=== PATIENT | female | born 1960 | race African-American/Black ===

== ENCOUNTER 2017-09-09 20:52 | Inpatient (IN) | payer OTHER ==
--- NOTE | 2017-09-09 21:17 | PDOC ---
Rapid Medical Evaluation Chief Complaint: Shortness of Breath Time Seen by Provider: 09/09/17 21:10 Medical Evaluation: Allergies Allergy/AdvReac Type Severity Reaction Status Date / Time methadone [Methadone] Allergy Mild Nausea Verified 06/04/16 17:46 morphine Allergy Mild Itching Verified 06/04/16 17:46 Penicillins Allergy Rash Verified 06/04/16 17:46 09/09/17 21:13 Pt seen in triage with c/o sob. she states she noted that when she takes klonopin for her anxiety she becomes sob. she noted it today and called 911. She is hypoxic with a sat of 88 on 2 l nc in a wheelchair. She is morbidly obese. She can complete sentences, no distress noted. Pt placed on oxygen 2 nc, Noted to have low grade fever Suspcious for pna, resp illness ordered cxr, labs, lactic, ekg, ua
--- NOTE | 2017-09-09 21:29 | PDOC ---
History of Present Illness - General Chief Complaint: Shortness of Breath Stated Complaint: S.O.B Time Seen by Provider: 09/09/17 21:10 - History of Present Illness Initial Comments: 09/09/17 22:08 The patient is a 57 year old female with a history of HTN, HLD, DM, Asthma, Morbid Obesity who presents for evaluation of SOB. The patient reports onset of SOB with associated non-productive cough earlier today. She states that her symptoms began after taking clonipin this morning for an anxiety attack which she was recently switched to. She otherwise denies fevers, chills, chest pain, nausea, vomiting, abdominal pain, or changes with urination or bowel movements. Past History - Past Medical History Allergies/Adverse Reactions: Allergies Allergy/AdvReac Type Severity Reaction Status Date / Time methadone [Methadone] Allergy Mild Nausea Verified 09/09/17 21:17 morphine Allergy Mild Itching Verified 09/09/17 21:17 Penicillins Allergy Rash Verified 09/09/17 21:17 Home Medications: Ambulatory Orders Ascorbate Calcium [Vitamin C] 500 mg PO DAILY 05/02/14 Atorvastatin Ca [Lipitor] 20 mg PO HS 05/02/14 Calcium (Oyster Shell) [Os-Bandar 500MG -] 500 mg PO DAILY 05/02/14 Docusate Sodium [Colace -] 100 mg PO BID 05/02/14 Enalapril Maleate [Vasotec] 10 mg PO BID 05/02/14 Escitalopram Oxalate [Lexapro -] 10 mg PO DAILY 05/02/14 Esomeprazole Mag Trihydrate [Nexium] 40 mg PO DAILY 05/02/14 Insulin Glulisine [Apidra] 0 unit SQ TID PRN 05/02/14 Glipizide [Glucotrol -] 10 mg PO BID 09/14/15 Cholecalciferol (Vitamin D3) [Vitamin D3 -] 1,000 unit PO DAILY 08/04/16 Oxycodone HCl [Roxicodone] 15 mg PO BID #60 tablet MDD 2 08/19/17 Albuterol 0.083% Nebulizer Sadaf [Ventolin 0.083% Nebulizer Soln -] 1 amp IN PRN 09/09/17 Budesonide/Formeterol Fumarate [SYMBICORT 80/4.5mcg -] 1 puff IH 09/09/17 Clonazepam 0.5 mg PO 09/09/17 Diphenhydramine HCl 25 mg PO 09/09/17 Furosemide 20 mg PO DAILY 09/09/17 Insulin Glulisine [Apidra] 100 unit SQ AC 09/09/17 Methocarbamol 750 mg PO 09/09/17 Nitrofurantoin Monohyd/M-Cryst [Macrobid -] 50 mg PO BID 09/09/17 Asthma: Yes CVA: No COPD: No Dementia: No Diabetes: Yes (insulin dependent) GI Disorders: Yes (GERD, Diverticulitis) Disorders: No HTN: Yes Hypercholesterolemia: Yes Liver Disease: No Seizures: No Thyroid Disease: Yes Other medical history: morbid obesity - Surgical History Abdominal Surgery: Yes (hernia repair, colostomy placement & removal) Orthopedic Surgery: Yes (knee arthroscopy ) - Immunization History Td Vaccination: Yes TDAP Vaccination: Yes Immunization Up to Date: Yes - Suicide/Smoking/Psychosocial Hx Smoking Status: No Smoking History: Never smoked Years of Tobacco Use: 0 Have you smoked in the past 12 months: No Number of Cigarettes Smoked Daily: 0 If you are a former smoker, when did you quit?: 40 years Cigars Per Day: 0 Information on smoking cessation initiated: No Hx Alcohol Use: No Drug/Substance Use Hx: No Substance Use Type: None Hx Substance Use Treatment: No Review of Systems - Review of Systems Comments:: 09/09/17 22:10 Constitutional: No fevers, chills, fatigue, malaise HEENT: No Rhinorrhea, nasal congestion, visual changes Cardiovascular: No chest pain, syncope, palpitations, lightheadedness Respiratory: Cough, SOB. No Hemoptysis, Gastrointestinal: No Abdominal pain, Nausea, Vomiting, Constipation, Diarrhea, Melena Genitourinary: No Dysuria, Frequency, Urgency, Hesitancy, Hematuria, Flank pain Musculoskeletal: No Myalgia, arthralgia Skin: No rashes, itching, bruising, pallor Neurologic: No Headache, Dizziness, Numbness, Weakness, or Tingling Psychiatric: No Hallucinations. No SI or HI *Physical Exam - Vital Signs Last Vital Signs Temp Pulse Resp BP Pulse Ox 100.5 F H 111 H 24 137/63 88 L 09/09/17 21:08 09/09/17 21:08 09/09/17 21:08 09/09/17 21:08 09/09/17 21:08 - Physical Exam Comments: 09/09/17 22:11 General Appearance: Nourished. Morbidly Obese. No Apparent Distress HEENT: No Pharyngeal Erythema, Tonsillar Exudate, Tonsillar Erythema Neck: No Cervical Lymphadenopathy Respiratory/Chest: Lungs Clear, Distant Breath Sounds. No Crackles, Rales, Rhonchi, Wheezing Cardiovascular: Regular Rhythm, Regular Rate. No Murmur, Gallops, Rubs Gastrointestinal/Abdominal: Normal Bowel Sounds, Soft. No Guarding, Rebound, Tenderness Musculoskeletal: No CVA Tenderness Extremity: Normal Capillary Refill Integumentary: Normal Color, Dry, Warm Neurologic: Fully Oriented, Alert, Normal Mood/Affect, Normal Response, Heart Score/ECG Review #1 ECG reviewed & interpreted by me at: 22:11 (Sinus Tachycardia) General ECG Interpretation: Sinus Rhythm, Normal Intervals, No acute ischemic changes ED Treatment Course - LABORATORY CBC & Chemistry Diagram: 09/09/17 22:10 09/09/17 22:10 Medical Decision Making - Medical Decision Making 09/09/17 22:12 The patient is a 57 year old female with a history of HTN, HLD, DM, Asthma, Morbid Obesity who presents for evaluation of SOB. Differential includes but is not limited to: ACS, COPD, Asthma Pneumonia, infectious, metabolic derangement. The patient was found to be febrile and tachycardic in triage with an O2 Sat of 88% that improved on 2L NC. Given her symptoms, we will obtain a cbc, cmp, troponin, ekg, chest plain film, blood cultures, ua, urine cultures, lactate to evaluate further for possible etiologies. We will continue to monitor and reassess. 09/10/17 01:22 CBC is unremarkable. CMP demonstrates an elevated lactate to 2.3. UA is unremarkable. Given the patient's symptoms and lab results, it is likely her symptoms are due to a pulmonary infectious process. We will treat in the ED with levoquin and iv fluids. The patient will require admission for further management of her symptoms. 09/10/17 01:33 We discussed the case with the hospitalist team who accepted the patient for admission. *DC/Admit/Observation/Transfer Diagnosis at time of Disposition: Hypoxia Sepsis Qualifiers: Sepsis type: sepsis due to unspecified organism Qualified Code(s): A41.9 - Sepsis, unspecified organism - Discharge Dispostion Condition at time of disposition: Stable Admit: Yes - Referrals - Patient Instructions - Post Discharge Activity
[2017-09-09 21:34] VITALS: BMI 61.7
--- NOTE | 2017-09-09 21:51 | PDOC ---
Attending Attestation - HPI HPI: 09/09/17 21:56 The patient is a 57 year old female with a significant PMH of asthma, insulin dependent diabetes, HTN, hyperlipidemia, morbid obesity, diverticulitis, and GERD who presents to the emergency department with shortness of breath and fever beginning approximately beginning approximately this morning. She also reports a dry cough. The patient reports taking Klonopin today which is new for her as her PCP just prescribed it to her for anxiety. She presents to the ED after she continued to have shortness of breath throughout the day. The patient denies chest pain or palpitations. Allergies: Methadone, Morphine, Penicillins. PCP: Dr. Alejandra Daniels <Hugo Martin - Last Filed: 09/09/17 21:56> - Resident Resident Name: Babatunde Cervantes - ED Attending Attestation I have performed the following: I have examined & evaluated the patient, The case was reviewed & discussed with the resident, I agree w/resident's findings & plan, Exceptions are as noted - Physicial Exam PE: 09/10/17 19:22 *Physical Exam General Appearance: Yes: Appropriately Dressed. No: Apparent Distress, Intoxicated HEENT: positive: EOMI, SURESH, Normal ENT Inspection, Normal Voice, TMs Normal, Pharynx Normal. negative: Pale Conjunctivae, Photophobia, Scleral Icterus (R), Scleral Icterus (L) Neck: positive: Trachea midline, Normal Thyroid, Supple. negative: Tender, Rigid, Carotid bruit, Stridor, Lymphadenopathy (R), Lymphadenopathy (L), Thyromegaly Respiratory/Chest: positive: Lungs Clear, Normal Breath Sounds. negative: Chest Tender, Respiratory Distress, Accessory Muscle Use, Labored Respiration, RES, Crackles, Rales, Rhonchi, Stridor, Wheezing, Dullness Cardiovascular: positive: Regular Rhythm, Regular Rate, S1, S2. negative: Edema , JVD, Murmur, Bradycardia, Tachycardia Vascular Pulses: Dorsalis-Pedis (R): 2+, Doralis-Pedis (L): 2+ Gastrointestinal/Abdominal: positive: morbidly obese Normal Bowel Sounds,Soft. negative: Tender, Organomegaly, Pulsatile Mass, Increased Bowel Sounds, Decreased BS, Distended, Guarding, Rebound, Hernia, Hepatomegaly, Spleenomegaly Lymphatic: negative: Adenopathy, Tenderness Musculoskeletal: positive: Normal Inspection. negative: CVA Tenderness, Decreased Range of Motion Extremity: positive: Normal Capillary Refill, Normal Inspection, Normal Range of Motion, Pelvis Stable. negative: Tender, Pedal Edema, Swelling, Erythema Integumentary: positive: Normal Color, Dry, Warm. 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 negative: EOM Palsy, Facial Droop, Sensory Deficit - Medical Decision Making 09/10/17 19:24 Pt admitted to telemetry <Grant Fine - Last Filed: 09/10/17 19:24> Heart Score/ECG Review #1 09/09/17 21:56 Vent rate 111 bpm Sinus tachycardia Possible left atrial enlargement Borderline ECG. <Hugo Martin - Last Filed: 09/09/17 21:56>
[2017-09-09 22:22] LABS: BASO % 0.3 % (0-2.0); HEMATOCRIT 34.6 % (32.4-45.2); HEMOGLOBIN 10.9 GM/dL (10.7-15.3); MCH 26.6 pg (25.7-33.7); MCHC 31.4 g/dl (32.0-36.0); MEAN CELL VOLUME 84.5 fl (80-96); MEAN PLT VOLUME 7.5 fl (7.5-11.1); NEUT % 86.7 % (42.8-82.8); PLATELET COUNT 246 K/MM3 (134-434); RDW 15.7 % (11.6-15.6); WHITE BLOOD COUNT 8.9 K/mm3 (4.0-10.0)
[2017-09-09 22:24] LABS: VENOUS PH 7.28 (7.32-7.42)
[2017-09-09 22:25] LABS: VENOUS PO2 34.7 mmHg (28-48)
[2017-09-09 22:27] LABS: VENOUS PC02 60.4 mmHg (38-52)
[2017-09-09 22:36] LABS: INR 1.19 (0.82-1.09); PROTHROMBIN TIME (PATIENT) 13.4 SEC (9.98-11.88)
[2017-09-09 22:38] LABS: ACTIVATED PTT 28.3 SECONDS (26.9-34.4)
[2017-09-09 23:07] LABS: ALBUMIN 3.1 g/dl (3.4-5.0); ANION GAP 11 (8-16); BILIRUBIN,TOTAL 0.5 mg/dL (0.2-1.0); BLOOD UREA NITROGEN 16 mg/dL (7-18); CALCIUM 8.4 mg/dL (8.5-10.1); CHLORIDE 101 mmol/L (98-107); CO2 28 mmol/L (21-32); CREATININE 1.3 mg/dL (0.55-1.02); GLUCOSE,RANDOM 184 mg/dL (74-106); POTASSIUM 4.5 mmol/L (3.5-5.1); SGOT/AST 22 U/L (15-37); SGPT/ALT 18 U/L (12-78); SODIUM 140 mmol/L (136-145); TOT PROT 7.3 g/dl (6.4-8.2)
[2017-09-09 23:08] LABS: ALK PHOS 86 U/L (45-117)
[2017-09-09] MEDS ORDERED: SODIUM CHLORIDE 1,000 ML IV STA (23:39)
[2017-09-10 00:01] LABS: URINE APPEARANCE CLEAR; URINE BILIRUBIN NEGATIVE (NEGATIVE); URINE BLOOD NEGATIVE (NEGATIVE); URINE COLOR LTYELLOW; URINE GLUCOSE (UA) NEGATIVE (NEGATIVE); URINE KETONE NEGATIVE (NEGATIVE); URINE LEUK ESTERASE TRACE (NEGATIVE); URINE NITRITE NEGATIVE (NEGATIVE); URINE UROBILINOGEN NEGATIVE mg/dL (0.2-1.0)
[2017-09-10 00:06] LABS: URINE PROTEIN 2+ (NEGATIVE)
[2017-09-10 00:15] LABS: EPI CELLS RARE /HPF (FEW); URINE BACTERIA FEW /hpf (NONE SEEN); URINE HYALINE CAST 4 /lpf; URINE MUCUS RARE
[2017-09-10] MEDS ORDERED: ENOXAPARIN NA (PORCINE) 100 MG/1 ML DISP.SYRIN SQ ONE ×3 (01:03→21:48)
[2017-09-10] MEDS ORDERED: ALPRAZolam 0.25 MG TABLET PO ONE (02:43)
[2017-09-10] MEDS ORDERED: ALPRAZolam 0.25 MG TABLET ONE (02:45)
[2017-09-10] MEDS ORDERED: ZOLPIDEM TARTRATE 5 MG TABLET PO ONE (03:20)
[2017-09-10] MEDS ORDERED: ZOLPIDEM TARTRATE 5 MG TABLET ONE (03:24)
--- NOTE | 2017-09-10 03:52 | HP ---
CHIEF COMPLAINT: SOB x 1 day PCP: HISTORY OF PRESENT ILLNESS: 57 y/o morbidly obese F with PMH HTN, HLD, DM, asthma, diverticulitis, GERD, severe anxiety, who is brought in c/o SOB over the past day. As per pt, on Thursday night, she began to feel extremely anxious. Her psychiatrist was unavailable, so she called her PMD, Dr. Zacarias ([address] Usually she takes valium 5mg PRN for her anxiety, however this time she was prescribed Klonopin. On Thursday, pt felt "unwell" and developed hot flashes, nausea with NBNB emesis , palpitations, and her anxiety attacks worsened. Today, she felt increasingly SOB while exerting herself, so much so that she was "leaning over on her bed trying to catch her breath." For this reason, she called an ambulance that brought her to the ED. Pt states that she was hypoxic en route, but is unaware of her level. At this time, she also endorses painful throat, dry cough, chills , subjective fever, emotional stress, and dehydration. She denies recent travel , painful lower extremities, SHIPLEY, chest pain or pressure, or changes in urinary or bowel function. 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 does not know her family history Allergies methadone [Methadone] Allergy (Mild, Verified 09/09/17 21:17) Nausea Penicillins Allergy (Verified 09/09/17 21:17) Rash HOME MEDICATIONS: Home Medications Medication Instructions Recorded Ascorbate Calcium [Vitamin C] 500 mg PO DAILY 05/02/14 Atorvastatin Ca [Lipitor] 20 mg PO HS 05/02/14 Calcium (Oyster Shell) [Os-Bandar 500 mg PO DAILY 05/02/14 500MG -] Docusate Sodium [Colace -] 100 mg PO BID 05/02/14 Enalapril Maleate [Vasotec] 10 mg PO BID 05/02/14 Escitalopram Oxalate [Lexapro -] 10 mg PO DAILY 05/02/14 Esomeprazole Mag Trihydrate 40 mg PO DAILY 05/02/14 [Nexium] Insulin Glulisine [Apidra] 0 unit SQ TID PRN 05/02/14 Glipizide [Glucotrol -] 10 mg PO BID 09/14/15 Cholecalciferol (Vitamin D3) 1,000 unit PO DAILY 08/04/16 [Vitamin D3 -] Oxycodone HCl [Roxicodone] 15 mg PO BID #60 tablet MDD 2 08/19/17 Albuterol 0.083% Nebulizer Sadaf 1 amp IN PRN 09/09/17 [Ventolin 0.083% Nebulizer Soln -] Budesonide/Formeterol Fumarate 1 puff IH 09/09/17 [SYMBICORT 80/4.5mcg -] Clonazepam 0.5 mg PO 09/09/17 Diphenhydramine HCl 25 mg PO 09/09/17 Furosemide 20 mg PO DAILY 09/09/17 Insulin Glulisine [Apidra] 100 unit SQ AC 09/09/17 Methocarbamol 750 mg PO 09/09/17 Nitrofurantoin Monohyd/M-Cryst 50 mg PO BID 09/09/17 [Macrobid -] REVIEW OF SYSTEMS CONSTITUTIONAL: +fever, chills Absent: fever, chills, diaphoresis, generalized weakness, malaise, loss of appetite, weight change HEENT: Absent: rhinorrhea, nasal congestion, throat pain, throat swelling, difficulty swallowing, mouth swelling, ear pain, eye pain, visual changes CARDIOVASCULAR: +palpitations Absent: chest pain, syncope, palpitations, irregular heart rate, lightheadedness , peripheral edema RESPIRATORY: +SOB Absent: cough, shortness of breath, dyspnea with exertion, orthopnea, wheezing, stridor, hemoptysis GASTROINTESTINAL: +nausea Absent: abdominal pain, abdominal distension, nausea, vomiting, diarrhea, constipation, melena, hematochezia GENITOURINARY: Absent: dysuria, frequency, urgency, hesitancy, hematuria, flank pain, genital pain MUSCULOSKELETAL: Absent: myalgia, arthralgia, joint swelling, back pain, neck pain SKIN: Absent: rash, itching, pallor HEMATOLOGIC/IMMUNOLOGIC: Absent: easy bleeding, easy bruising, lymphadenopathy, frequent infections ENDOCRINE: Absent: unexplained weight gain, unexplained weight loss, heat intolerance, cold intolerance NEUROLOGIC: Absent: headache, focal weakness or paresthesias, dizziness, unsteady gait, seizure, mental status changes, bladder or bowel incontinence PSYCHIATRIC: +anxiety Absent: anxiety, depression, suicidal or homicidal ideation, hallucinations. PHYSICAL EXAMINATION Vital Signs - 24 hr 09/09/17 21:08 Temperature 100.5 F H Pulse Rate 111 H Respiratory 24 Rate Blood Pressure 137/63 O2 Sat by Pulse 88 L Oximetry (%) GENERAL: Morbidly obese female. Extremely anxious, resting in bed. Awake, alert , and fully oriented, in no acute distress HEAD: Normal with no signs of trauma. EYES: Pupils equal, round and reactive to light, extraocular movements intact, sclera anicteric, conjunctiva clear. No lid lag. EARS, NOSE, THROAT: Ears normal, nares patent, oropharynx clear without exudates. NECK: Normal range of motion, supple LUNGS: difficult to appreciate d/t pt's body habitus. distant breath sounds. did not appreciate wheezes, rhonchi or crackles. HEART: Regular rate and rhythm, normal S1 and S2 without murmur, rub or gallop. distant heart sounds ABDOMEN: Soft, obese, nontender, not distended, normoactive bowel sounds, no guarding, no rebound. +abdominal open wound-without full closure, +L sided hernia LOWER EXTREMITIES: 2+ posterior tibial pulses, warm, well-perfused. No calf tenderness. 1+ pitting edema b/l NEUROLOGICAL: Cranial nerves II-XII intact. Normal speech. PSYCHIATRIC: extremely anxious, paranoid Laboratory Results 09/09/17 09/09/17 09/09/17 21:07 22:10 22:10 WBC 8.9 D RBC 4.10 Hgb 10.9 D Hct 34.6 MCV 84.5 MCH 26.6 D MCHC 31.4 L RDW 15.7 H Plt Count 246 D MPV 7.5 Neutrophils % 86.7 H Lymphocytes % 5.0 L Monocytes % 6.0 D Eosinophils % 2.0 D Basophils % 0.3 VBG pH 7.28 L POC VBG pCO2 60.4 H* POC VBG pO2 34.7 Mixed VBG HCO3 27.8 H Sodium 140 Potassium 4.5 Chloride 101 Carbon Dioxide 28 Anion Gap 11 BUN 16 Creatinine 1.3 H Creat Clearance w eGFR 42.07 POC Glucometer Random Glucose 184 H Lactic Acid Calcium 8.4 L Total Bilirubin 0.5 AST 22 ALT 18 Alkaline Phosphatase 86 Troponin I Total Protein 7.3 Albumin 3.1 L Urine Color Hyaline Casts 09/09/17 09/09/17 09/09/17 22:10 22:10 22:20 Basophils % PT with INR 13.40 H INR 1.19 H PTT (Actin FS) 28.3 POC VBG pO2 Creat Clearance w eGFR POC Glucometer Random Glucose Lactic Acid 2.3 H* Calcium Troponin I 0.02 Total Protein EKG- sinus tach, vent rate 111bpm, DC 145ms, QRS 96ms, Qtc 443ms ASSESSMENT/PLAN: 57 y/o morbidly obese F with PMH HTN, HLD, DM, asthma, diverticulitis, GERD, severe anxiety, who is brought in c/o SOB over the past day. Pt admitted to observation for SOB 2/2 possible anxiety or asthma exacerbation, as well as sepsis 2/2 possible upper respiratory source. #R/o PE -Well's score DVT: 1 - low risk DVT -Well's for PE: 1.5 low risk -However, as pt morbidly obese with decreased ambulation, febrile, tachycardia very possible -Pt unable to fit in CT scan for CTA -Will order d-dimer -Received 1 dose of lovenox 100mg SQ in ED -Will continue to treat with lovenox 180mg BID. If d-dimer negative, can dc a/c -F/u b/l doppler to r/o DVT as well #SOB 2/2 likely obesity hypoventilation syndrome -VBG - evidence of respiratory acidosis, mildly compensated. Hypercapnia pco2 ~ 60 -F/u ABG -BiPAP recommended if still retaining -Duonebs q4h PRN #sepsis 2/2 possible upper respiratory source -pt c/o throat pain, dry cough, chills -febrile 100.5F, tachycardic 111HR, lactate 2.3 -received levaquin x 1 in ED - will cover for 24hrs -F/u Ucx, blood cx -F/u viral PCR -F/u repeat lactate #Anxiety -Ambien 5 mg PO PRN #HTN- controlled -Continue enalapril 10mg qd #?CHF -Continue furosemide 20mg qd -F/u ECHO -Fluid restrict, daily weights -Na controlled to 2g #HLD -continue atorvastatin 40mg qd #DM -ISS -BGM -A1c #F/E/N Will avoid fluids at this time, d/t CHF Monitor electrolytes Diabetic diet #PPX DVT: lovenox #Dispo telemetry monitoring Visit type - Emergency Visit Emergency Visit: Yes ED Registration Date: 09/10/17 Care time: The patient presented to the Emergency Department on the above date and was hospitalized for further evaluation of their emergent condition. - New Patient This patient is new to me today: Yes Date on this admission: 09/10/17 - Critical Care Critical Care patient: No Hospitalist Screening - Colonoscopy Questionnaire Colonoscopy Questionnaire: Colonoscopy Questionnaire - Patient: 50 - 75 years old and never had a screening colonoscopy: Unknown History of colon or rectal polyps, or CA: Unknown History of IBD, Crohn's disease or UC: Unknown History of abdominal radiation therapy as a child: Unknown - Relative: 1 with colon or rectal CA, or polyps at age 60 or younger: Unknown Colon or rectal CA diagnosed at age 45 or younger: Unknown Multiple relatives with colon or rectal CA: Unknown - Outcome: Screening Result: Negative Screen
[2017-09-10] MEDS ORDERED: ALBUTEROL SO4 2.5/IPRATROPIUM 0.5 INH SOL 3 ML VIAL.NEB. NEB PRN (06:07)
--- NOTE | 2017-09-10 06:10 | PN ---
Teaching Attending Note Name of Resident: Ade Alfredo ATTENDING PHYSICIAN STATEMENT I saw and evaluated the patient. Chart, data, imaging reviewed. I reviewed the resident's note and discussed the case with the resident. I agree with the resident's findings and plan as documented. SUBJECTIVE: 57 y/o morbidly obese woman with PMH HTN, HLD, DM, asthma, diverticulitis, GERD , severe anxiety, c/o SOB and anxiety since 2 days, was unable to get in touch with her psychiatrist, prescribed klonipin by pmd. Pt is not ambulating much because of bad weather. Pt was brought in by ambulance, was found to be hypoxemic and hypoercapneic in the ER, as well as tachycardic. No recent travels. No history of DVT. Pt had fever of 100.5F in ER, associated with hoarseness and sore throat. Lactate was mildly elevated at 2.3 She was given Levaquin empirically to cover possible PNA. OBJECTIVE: Last Vital Signs Temp Pulse Resp BP Pulse Ox 100.5 F H 111 H 24 137/63 88 L 09/09/17 21:08 09/09/17 21:08 09/09/17 21:08 09/09/17 21:08 09/09/17 21:08 General- nad, aaox3, morbidly obese heent- no sinus tenderness, moist oral mucosa neck -supple cv-s1+S2+ RRR chest- b/l air entry sounds, no wheezing appreciated abdomen- obese, BS+ ext- no pain on calf compression Abnormal Lab Results 09/09/17 09/09/17 09/09/17 21:07 22:10 22:10 MCHC 31.4 L RDW 15.7 H Neutrophils % 86.7 H Lymphocytes % 5.0 L PT with INR INR VBG pH 7.28 L POC VBG pCO2 60.4 H* Mixed VBG HCO3 27.8 H Creatinine 1.3 H Random Glucose 184 H Lactic Acid Calcium 8.4 L Albumin 3.1 L Urine Protein 09/09/17 09/09/17 09/09/17 22:10 22:20 23:50 MCHC RDW Neutrophils % Lymphocytes % PT with INR 13.40 H INR 1.19 H VBG pH POC VBG pCO2 Mixed VBG HCO3 Creatinine Random Glucose Lactic Acid 2.3 H* Calcium Albumin Urine Protein 2+ H ASSESSMENT AND PLAN: #Hypoxia, tachycardia morbidly obese woman. Should r/o PE as she is at increased risk. Patient cannot fit in CT scanner and therefore we must treat her empirically until PE can be ruled out. Should also r/o DVT. Hypercapnea associated with hypercapneic respiratory failure likely 2/2 obesity hyperventilation syndrome. Unlikely COPD or asthma as there is no wheezing on chest exam -admit to telemetry -Lovenox 1mg/kg q12hrs -send Ddimer - if negative, can d/c lovenox -supplemental oxygen via nasal cannula -Bipap for hypercapnea -send ABG #Sepsis - fever, tachycardia - may be 2/2 viral URI as patient has hoarseness, pharyngitis -send blood cultures x2 -send UA, urine culture -trend lactate -respiratory multiplex PCR -covered already with levaquin for PNA -kiera IV fluid hydration #DM - -insulin sliding scale -basal insulin -A1c #DVT ppx- patient is on Lovenox therapeutic dose
[2017-09-10 06:35] LABS: ARTERIAL BLOOD GAS BASE EXCESS 0.8 meq/l (-2-2); ARTERIAL BLOOD GAS PCO2 51.6 mmHg (35-45); ARTERIAL BLOOD GAS PO2 79.8 mmHg (80-100); ARTERIAL BLOOD GAS pH 7.33 (7.35-7.45)
[2017-09-10 06:44] LABS: ALLENS TEST POSITIVE
[2017-09-10 08:24] LABS: BASO % 0.5 % (0-2.0); EOS % 2.8 % (0-4.5); HEMATOCRIT 26.8 % (32.4-45.2); HEMOGLOBIN 8.6 GM/dL (10.7-15.3); LYMPH % 11.4 % (8-40); MCH 27.2 pg (25.7-33.7); MCHC 32.1 g/dl (32.0-36.0); MEAN CELL VOLUME 84.7 fl (80-96); MEAN PLT VOLUME 7.2 fl (7.5-11.1); MONO % 7.4 % (3.8-10.2); NEUT % 77.9 % (42.8-82.8); PLATELET COUNT 187 K/MM3 (134-434); RBC 3.16 M/mm3 (3.60-5.2); RDW 15.5 % (11.6-15.6)
[2017-09-10 08:50] LABS: ANION GAP 11 (8-16); BLOOD UREA NITROGEN 12 mg/dL (7-18); CHLORIDE 110 mmol/L (98-107); CO2 24 mmol/L (21-32); CREATININE 0.9 mg/dL (0.55-1.02); GLUCOSE,RANDOM 179 mg/dL (74-106); MAGNESIUM 1.7 mg/dL (1.8-2.4); PHOSPHOROUS 2.4 mg/dL (2.5-4.9); POTASSIUM 3.5 mmol/L (3.5-5.1); SODIUM 145 mmol/L (136-145)
[2017-09-10 09:00] LABS: CALCIUM 6.5 mg/dL (8.5-10.1)
[2017-09-10] MEDS: FUROSEMIDE 20 MG TABLET (FP) PO SCH (09:52)
[2017-09-10] MEDS: ESCITALOPRAM OXALATE 10 MG TABLET (FP) PO SCH (09:52)
[2017-09-10] MEDS: DOCUSATE SODIUM 100 MG CAPSULE (FP) PO SCH ×2 (09:52→23:57)
[2017-09-10] MEDS: ENALAPRIL MALEATE 10 MG TABLET (FP) PO SCH ×2 (09:53→23:57)
[2017-09-10] MEDS: ENOXAPARIN 100 MG, ENOXAPARIN 80 MG SQ SCH ×2 (09:53→23:58)
[2017-09-10] MEDS ORDERED: ENOXAPARIN NA (PORCINE) 120 MG/0.8 ML DISP.SYRIN SQ SCH (10:00)
[2017-09-10] MEDS ORDERED: CALCIUM GLUCONATE 10% - 1,000 MG/10 ML VIAL IVPB ONE (10:45)
--- NOTE | 2017-09-10 12:12 | PN ---
<Kenny Romo - Last Filed: 09/10/17 18:22> Physical Exam: SUBJECTIVE: Patient seen and examined No acute events. Patient very anxious. Still complaining of sore throat. Denies fever, chills, chest pain, shortness of breath. OBJECTIVE: Vital Signs Period Temp Pulse Resp BP Sys/Lindsey Pulse Ox Last 24 Hr 98.4 F-100.5 F 100-111 18-24 109-137/51-63 88-98 GENERAL: +Morbid Obesity. +Anxious. Awake, alert, and fully oriented HEAD: Normal with no signs of trauma EYES: Pupils equal, round and reactive to light, extraocular movements intact, sclera anicteric, conjunctiva clear. No lid lag. EARS, NOSE, THROAT: Ears normal, nares patent, Oropharynx clear without exudates. Moist mucous membranes NECK: Normal range of motion, supple LUNGS: Distant breath sounds. Lungs clear bilatearlly. No wheezes, rhonchi, crackles HEART: Tachycardic, Normal rhythm, normal S1 and S2 without murmur, rub or gallop. ABDOMEN: Soft, +Morbid obesity, nontender, not distended, normoactive bowel sounds, no guarding, no rebound. +abdominal open wound, +L sided hernia LOWER EXTREMITIES: Warm, well-perfused. No calf tenderness. 1-2+ pitting edema bilaterally NEUROLOGICAL: Cranial nerves II-XII intact. Normal speech. PSYCHIATRIC: Extremely anxious Laboratory Results - last 24 hr 09/09/17 09/09/17 09/09/17 21:07 22:10 22:10 WBC 8.9 D RBC 4.10 Hgb 10.9 D Hct 34.6 MCV 84.5 MCH 26.6 D MCHC 31.4 L RDW 15.7 H Plt Count 246 D MPV 7.5 Neutrophils % 86.7 H Lymphocytes % 5.0 L Monocytes % 6.0 D Eosinophils % 2.0 D Basophils % 0.3 PT with INR INR PTT (Actin FS) D-Dimer Puncture Site ABG pH ABG pCO2 at Pt Temp ABG pO2 at Pt Temp ABG HCO3 ABG O2 Sat (Measured) ABG O2 Content ABG Base Excess Luisito Test VBG pH 7.28 L POC VBG pCO2 60.4 H* POC VBG pO2 34.7 Mixed VBG HCO3 27.8 H O2 Delivery Device Oxygen Flow Rate Sodium 140 Potassium 4.5 Chloride 101 Carbon Dioxide 28 Anion Gap 11 BUN 16 Creatinine 1.3 H Creat Clearance w eGFR 42.07 POC Glucometer Random Glucose 184 H Hemoglobin A1c % Lactic Acid Calcium 8.4 L Phosphorus Magnesium Total Bilirubin 0.5 AST 22 ALT 18 Alkaline Phosphatase 86 Troponin I Total Protein 7.3 Albumin 3.1 L Urine Color Urine Appearance Urine pH Ur Specific Graham Urine Protein Urine Glucose (UA) Urine Ketones Urine Blood Urine Nitrite Urine Bilirubin Urine Urobilinogen Ur Leukocyte Esterase Urine WBC (Auto) Urine RBC (Auto) Ur Epithelial Cells Urine Bacteria Hyaline Casts Urine Mucus 09/09/17 09/09/17 09/09/17 22:10 22:10 22:20 WBC RBC Hgb Hct MCV MCH MCHC RDW Plt Count MPV Neutrophils % Lymphocytes % Monocytes % Eosinophils % Basophils % PT with INR 13.40 H INR 1.19 H PTT (Actin FS) 28.3 D-Dimer Puncture Site ABG pH ABG pCO2 at Pt Temp ABG pO2 at Pt Temp ABG HCO3 ABG O2 Sat (Measured) ABG O2 Content ABG Base Excess Luisito Test VBG pH POC VBG pCO2 POC VBG pO2 Mixed VBG HCO3 O2 Delivery Device Oxygen Flow Rate Sodium Potassium Chloride Carbon Dioxide Anion Gap BUN Creatinine Creat Clearance w eGFR POC Glucometer Random Glucose Hemoglobin A1c % Lactic Acid 2.3 H* Calcium Phosphorus Magnesium Total Bilirubin AST ALT Alkaline Phosphatase Troponin I 0.02 Total Protein Albumin Urine Color Urine Appearance Urine pH Ur Specific Graham Urine Protein Urine Glucose (UA) Urine Ketones Urine Blood Urine Nitrite Urine Bilirubin Urine Urobilinogen Ur Leukocyte Esterase Urine WBC (Auto) Urine RBC (Auto) Ur Epithelial Cells Urine Bacteria Hyaline Casts Urine Mucus 09/09/17 09/10/17 09/10/17 23:50 02:56 06:25 WBC RBC Hgb Hct MCV MCH MCHC RDW Plt Count MPV Neutrophils % Lymphocytes % Monocytes % Eosinophils % Basophils % PT with INR INR PTT (Actin FS) D-Dimer Puncture Site Left radial ABG pH 7.33 L ABG pCO2 at Pt Temp 51.6 H ABG pO2 at Pt Temp 79.8 L ABG HCO3 26.6 H ABG O2 Sat (Measured) 94.0 ABG O2 Content 13.7 L ABG Base Excess 0.8 Luisito Test Positive VBG pH POC VBG pCO2 POC VBG pO2 Mixed VBG HCO3 O2 Delivery Device N/c Oxygen Flow Rate 3l Sodium Potassium Chloride Carbon Dioxide Anion Gap BUN Creatinine Creat Clearance w eGFR POC Glucometer [id number] Random Glucose Hemoglobin A1c % Lactic Acid Calcium Phosphorus Magnesium Total Bilirubin AST ALT Alkaline Phosphatase Troponin I Total Protein Albumin Urine Color Ltyellow Urine Appearance Clear Urine pH 5.0 Ur Specific Graham 1.010 Urine Protein 2+ H Urine Glucose (UA) Negative Urine Ketones Negative Urine Blood Negative Urine Nitrite Negative Urine Bilirubin Negative Urine Urobilinogen Negative Ur Leukocyte Esterase Trace Urine WBC (Auto) 2 Urine RBC (Auto) 1 Ur Epithelial Cells Rare Urine Bacteria Few Hyaline Casts 4 Urine Mucus Rare 09/10/17 09/10/17 09/10/17 07:50 07:50 07:50 WBC 6.0 D RBC 3.16 L D Hgb 8.6 L D Hct 26.8 L D MCV 84.7 MCH 27.2 MCHC 32.1 RDW 15.5 Plt Count 187 D MPV 7.2 L Neutrophils % 77.9 Lymphocytes % 11.4 D Monocytes % 7.4 Eosinophils % 2.8 Basophils % 0.5 PT with INR INR PTT (Actin FS) D-Dimer 4166 H Puncture Site ABG pH ABG pCO2 at Pt Temp ABG pO2 at Pt Temp ABG HCO3 ABG O2 Sat (Measured) ABG O2 Content ABG Base Excess Luisito Test VBG pH POC VBG pCO2 POC VBG pO2 Mixed VBG HCO3 O2 Delivery Device Oxygen Flow Rate Sodium 145 Potassium 3.5 Chloride 110 H Carbon Dioxide 24 Anion Gap 11 BUN 12 Creatinine 0.9 Creat Clearance w eGFR POC Glucometer Random Glucose 179 H Hemoglobin A1c % Lactic Acid Calcium 6.5 L* Phosphorus 2.4 L Magnesium 1.7 L Total Bilirubin AST ALT Alkaline Phosphatase Troponin I Total Protein Albumin Urine Color Urine Appearance Urine pH Ur Specific Graham Urine Protein Urine Glucose (UA) Urine Ketones Urine Blood Urine Nitrite Urine Bilirubin Urine Urobilinogen Ur Leukocyte Esterase Urine WBC (Auto) Urine RBC (Auto) Ur Epithelial Cells Urine Bacteria Hyaline Casts Urine Mucus 09/10/17 09/10/17 07:50 07:50 WBC RBC Hgb Hct MCV MCH MCHC RDW Plt Count MPV Neutrophils % Lymphocytes % Monocytes % Eosinophils % Basophils % PT with INR INR PTT (Actin FS) D-Dimer Puncture Site ABG pH ABG pCO2 at Pt Temp ABG pO2 at Pt Temp ABG HCO3 ABG O2 Sat (Measured) ABG O2 Content ABG Base Excess Luisito Test VBG pH POC VBG pCO2 POC VBG pO2 Mixed VBG HCO3 O2 Delivery Device Oxygen Flow Rate Sodium Potassium Chloride Carbon Dioxide Anion Gap BUN Creatinine Creat Clearance w eGFR POC Glucometer Random Glucose Hemoglobin A1c % 6.5 H Lactic Acid 1.3 Calcium Phosphorus Magnesium Total Bilirubin AST ALT Alkaline Phosphatase Troponin I Total Protein Albumin Urine Color Urine Appearance Urine pH Ur Specific Graham Urine Protein Urine Glucose (UA) Urine Ketones Urine Blood Urine Nitrite Urine Bilirubin Urine Urobilinogen Ur Leukocyte Esterase Urine WBC (Auto) Urine RBC (Auto) Ur Epithelial Cells Urine Bacteria Hyaline Casts Urine Mucus Active Medications Generic Name Dose Route Start Last Admin Trade Name Freq PRN Reason Stop Dose Admin Albuterol/Ipratropium 1 amp 09/10/17 06:07 Duoneb - NEB Q4H PRN SHORTNESS OF BREATH Atorvastatin Calcium 20 mg 09/10/17 22:00 Lipitor - PO HS [facility] Docusate Sodium 100 mg 09/10/17 10:00 09/10/17 09:52 Colace - PO 100 mg BID [facility] Administration Enalapril Maleate 10 mg 09/10/17 10:00 09/10/17 09:53 Vasotec - PO 10 mg BID SUSIE Administration Enoxaparin Sodium 100 mg/ 180 mg 09/10/17 10:00 09/10/17 09:53 Enoxaparin Sodium 80 mg SQ 180 mg BID SUSIE Administration Escitalopram Oxalate 10 mg 09/10/17 10:00 09/10/17 09:52 Lexapro - PO Not Given DAILY [facility] Furosemide 20 mg 09/10/17 10:00 09/10/17 09:52 Lasix - PO 20 mg DAILY [facility] Administration Insulin Aspart 1 vial 09/10/17 22:00 Novolog Vial Sliding Scale - SQ [facility] Protocol ASSESSMENT/PLAN: 57 y/o morbidly obese F with PMH HTN, HLD, DM, asthma, diverticulitis, GERD, severe anxiety, who is brought in c/o SOB x1 day. #SOB 2/2 to ?PE vs OHS vs. URI -D-dimer elevated -Echo pending -Doppler b/l LE negative, CTA unable to be performed given body habitus -Continue lovenox 180 mg sq bid until echocardiogram -Solumederol 60 mg q8h -BiPAP as needed -Duonebs q4h prn -Continue Levaquin 500 mg IV daily -F/u Cx, viral pcr -Patient with chronic open abdominal wound without full closure -Pulmonary on board -Vascular surgery on board #DM -ISS achs -BGM achs -A1c 6.5% #Anxiety -Lexapro 10 daily -Psychiatry consulted #HTN- controlled -Continue Enalapril 10mg daily #?CHF -Continue Lasix 20 mg po daily -Echo pending -Fluid restrict, daily weights -Na controlled to 2g #HLD -Continue Atorvastatin 20 mg hs #F/E/N -Will avoid fluids at this time, d/t CHF -Monitor electrolytes -Diabetic diet #PPX DVT: lovenox 180 mg sq #Dispo Telemetry monitoring, pending echocardiogram @ 1700- patient wanted to leave AMA, I explained the risks of leaving, but patient decided she would stay and receive treatment. Visit type - Emergency Visit Emergency Visit: Yes ED Registration Date: 09/10/17 Care time: The patient presented to the Emergency Department on the above date and was hospitalized for further evaluation of their emergent condition. - New Patient This patient is new to me today: Yes Date on this admission: 09/10/17 - Critical Care Critical Care patient: No <Lesley Frias - Last Filed: 09/10/17 19:13> Physical Exam: Patient seen and examined. Comfortable but feels very anxious, asking for Valium. Stated that Clonapim makes her Jittery and not agreeing with her this was a recent medication that was added. Vital Signs Temperature 98.4 F 09/10/17 07:09 Pulse Rate 100 H 09/10/17 07:09 Respiratory Rate 18 09/10/17 07:09 Blood Pressure 109/51 09/10/17 07:09 O2 Sat by Pulse Oximetry (%) 98 09/10/17 07:42 CBCD WBC 6.0 K/mm3 (4.0-10.0) D 09/10/17 07:50 RBC 3.16 M/mm3 (3.60-5.2) L D 09/10/17 07:50 Hgb 8.6 GM/dL (10.7-15.3) L D 09/10/17 07:50 Hct 26.8 % (32.4-45.2) L D 09/10/17 07:50 MCV 84.7 fl (80-96) 09/10/17 07:50 MCHC 32.1 g/dl (32.0-36.0) 09/10/17 07:50 RDW 15.5 % (11.6-15.6) 09/10/17 07:50 Plt Count 187 K/MM3 (134-434) D 09/10/17 07:50 MPV 7.2 fl (7.5-11.1) L 09/10/17 07:50 CMP Sodium 145 mmol/L (136-145) 09/10/17 07:50 Potassium 3.5 mmol/L (3.5-5.1) 09/10/17 07:50 Chloride 110 mmol/L (98-107) H 09/10/17 07:50 Carbon Dioxide 24 mmol/L (21-32) 09/10/17 07:50 Anion Gap 11 (8-16) 09/10/17 07:50 BUN 12 mg/dL (7-18) 09/10/17 07:50 Creatinine 0.9 mg/dL (0.55-1.02) 09/10/17 07:50 Creat Clearance w eGFR 42.07 (>60) 09/09/17 22:10 Random Glucose 179 mg/dL (74-106) H 09/10/17 07:50 Calcium 6.5 mg/dL (8.5-10.1) L* 09/10/17 07:50 Total Bilirubin 0.5 mg/dL (0.2-1.0) 09/09/17 22:10 AST 22 U/L (15-37) 09/09/17 22:10 ALT 18 U/L (12-78) 09/09/17 22:10 Alkaline Phosphatase 86 U/L (45-117) 09/09/17 22:10 Total Protein 7.3 g/dl (6.4-8.2) 09/09/17 22:10 Albumin 3.1 g/dl (3.4-5.0) L 09/09/17 22:10 CARDIAC ENZYMES Troponin I 0.02 ng/ml (0.00-0.05) 09/09/17 22:10 Current Medications Generic Name Dose Route Start Last Admin Trade Name Freq PRN Reason Stop Dose Admin Albuterol Sulfate 1 amp 09/10/17 13:32 09/10/17 18:17 Ventolin 0.042trength) - NEB 1 amp Q4H PRN Administration SHORT OF BREATH/WHEEZING Albuterol/Ipratropium 1 amp 09/10/17 14:00 09/10/17 16:25 Duoneb - NEB 1 amp TID SUSIE Administration Atorvastatin Calcium 20 mg 09/10/17 22:00 Lipitor - PO HS SUSIE Diazepam 5 mg 09/10/17 16:51 Valium - PO Q8H PRN WITHDRAWAL(CONT SUBST) Docusate Sodium 100 mg 09/10/17 10:00 09/10/17 09:52 Colace - PO 100 mg BID SUSIE Administration Enalapril Maleate 10 mg 09/10/17 10:00 09/10/17 09:53 Vasotec - PO 10 mg BID SUSIE Administration Enoxaparin Sodium 100 mg/ 180 mg 09/10/17 10:00 09/10/17 09:53 Enoxaparin Sodium 80 mg SQ 180 mg BID SUSIE Administration Escitalopram Oxalate 10 mg 09/10/17 10:00 09/10/17 09:52 Lexapro - PO Not Given DAILY [facility] Furosemide 20 mg 09/10/17 10:00 09/10/17 09:52 Lasix - PO 20 mg DAILY SUSIE Administration Levofloxacin 500 mg in 100 mls @ 100 mls/hr 09/11/17 10:00 Levaquin 500 Mg Premixed Ivpb - IVPB DAILY [facility] Insulin Aspart 1 vial 09/10/17 16:30 09/10/17 18:18 Novolog Vial Sliding Scale - SQ 6 unit ACHS SUSIE Administration Protocol Methylprednisolone Sodium Succinate 60 mg 09/10/17 13:45 09/10/17 18:16 Solu-Medrol - IVPUSH 60 mg Q8H-IV SUSIE Administration Home Medications Medication Instructions Recorded Ascorbate Calcium [Vitamin C] 500 mg PO DAILY 05/02/14 Atorvastatin Ca [Lipitor] 40 mg PO HS 05/02/14 Calcium (Oyster Shell) [Os-Bandar 500 mg PO DAILY 05/02/14 500MG -] Enalapril Maleate [Vasotec] 10 mg PO BID 05/02/14 Escitalopram Oxalate [Lexapro -] 10 mg PO DAILY 05/02/14 Esomeprazole Mag Trihydrate 40 mg PO DAILY 05/02/14 [Nexium] Glipizide [Glucotrol -] 10 mg PO BID 09/14/15 Cholecalciferol (Vitamin D3) 1,000 unit PO DAILY 08/04/16 [Vitamin D3 -] Oxycodone HCl [Roxicodone] 15 mg PO BID #60 tablet MDD 2 08/19/17 Albuterol 0.083% Nebulizer Sadaf 1 amp IN PRN 09/09/17 [Ventolin 0.083% Nebulizer Soln -] Clonazepam 0.5 mg PO BID PRN 09/09/17 Diphenhydramine HCl 25 mg PO HS 09/09/17 Furosemide 20 mg PO DAILY 09/09/17 Insulin Glulisine [Apidra] 100 unit SQ AC 09/09/17 Methocarbamol 750 mg PO DAILY 09/09/17 Nitrofurantoin Monohyd/M-Cryst 50 mg PO BID 09/09/17 [Macrobid -] Budesonide/Formeterol Fumarate 2 puff IH BID PRN 09/10/17 [SYMBICORT 80/4.5mcg -] Docusate Sodium [Stool Softener] 100 mg PO DAILY PRN 09/10/17 Folic Acid 1 mg PO DAILY 09/10/17 PE: Morbid obesity looks very anxious with some anxiety. Rest of PE per resident's note A/P: # Acute Hypoxic and Hypercapneic Respiratory Failure with hx of COPD on Home Oxygen ,most likely due to acute Bronchitis/PNA/URI cannot r/o Sepsis presented with Lactic Acidosis. On IV antibiotic now, continue BD, on IV steroid. patient was started on Lovenox for possible PE, due to patient habitus , we are unable to have CTA to r/o PE, will get echo to r/o heart strain, DVT w/u is negative, Patient has acute respiratory Acidosis that does not go with PE. V/q mismatch is not ideal in this patient since has COPD and will have V/Q mismatch due to asthma/COPD. Will stay away from Benzo's and opiods and Methacrabacol use since can worsen her hypercapneic state. O2 to keep SpO2 >90% # Panic attack disorder/Anxiety will get psych. to see her # hx of HTN continue meds. #DM continue SS with coverage # Hypercholesterolemia continue Lipitor # Morbid Obesity # Chronic open wound abdominal area will get to evaluate the wound, continue Alegenate, wound cx is done. DVT Px: LOvenox
--- NOTE | 2017-09-10 13:03 | CON.PULM ---
Consult Consult Specialty:: PULMONARY Referred by:: Dr. Frias Reason for Consultation:: shortness of breath - History of Present Illness Chief Complaint: shortness of breath History of Present Illness: 57yo female with h/o HTN, DM, hyperlipidemia, asthma, GERD, anxiety, morbid obesity who presents with worsening shortness of breath x 3 days. Denies any chest pain or shortness of breath. She was recently started on medications for her anxiety including lexapro and her valium was changed to Klonopin. She has been experiencing increasing anxiety and subsequent shortness of breath. She does also report subjective fevers and chills as well as a nonproductive cough. Used her nebulizer without relief and in fact worsened her anxiety. Was febrile to 100.5 on admission. She is a nonsmoker and has never been hospitalized for asthma or intubated. Maintained at home on symbicort which she does not take everyday. - History Source History Provided By: Patient, Medical Record Limitations to Obtaining History: No Limitations - Past Medical History Cardio/Vascular: Yes: HTN, Hyperlipdemia Gastrointestinal: Yes: GERD Endocrine: Yes: Diabetes Mellitus - Alcohol/Substance Use Hx Alcohol Use: No - Smoking History Smoking history: Never smoked Have you smoked in the past 12 months: No Aproximately how many cigarettes per day: 0 If you are a former smoker, when did you quit?: 40 years Home Medications - Allergies Allergies/Adverse Reactions: Allergies Allergy/AdvReac Type Severity Reaction Status Date / Time methadone [Methadone] Allergy Mild Nausea Verified 09/09/17 21:17 morphine Allergy Mild Itching Verified 09/09/17 21:17 Penicillins Allergy Rash Verified 09/09/17 21:17 - Home Medications Home Medications: Ambulatory Orders Ascorbate Calcium [Vitamin C] 500 mg PO DAILY 05/02/14 Atorvastatin Ca [Lipitor] 20 mg PO HS 05/02/14 Calcium (Oyster Shell) [Os-Bandar 500MG -] 500 mg PO DAILY 05/02/14 Docusate Sodium [Colace -] 100 mg PO BID 05/02/14 Enalapril Maleate [Vasotec] 10 mg PO BID 05/02/14 Escitalopram Oxalate [Lexapro -] 10 mg PO DAILY 05/02/14 Esomeprazole Mag Trihydrate [Nexium] 40 mg PO DAILY 05/02/14 Insulin Glulisine [Apidra] 0 unit SQ TID PRN 05/02/14 Glipizide [Glucotrol -] 10 mg PO BID 09/14/15 Cholecalciferol (Vitamin D3) [Vitamin D3 -] 1,000 unit PO DAILY 08/04/16 Oxycodone HCl [Roxicodone] 15 mg PO BID #60 tablet MDD 2 08/19/17 Albuterol 0.083% Nebulizer Sadaf [Ventolin 0.083% Nebulizer Soln -] 1 amp IN PRN 09/09/17 Budesonide/Formeterol Fumarate [SYMBICORT 80/4.5mcg -] 1 puff IH 09/09/17 Clonazepam 0.5 mg PO 09/09/17 Diphenhydramine HCl 25 mg PO 09/09/17 Furosemide 20 mg PO DAILY 09/09/17 Insulin Glulisine [Apidra] 100 unit SQ AC 09/09/17 Methocarbamol 750 mg PO 09/09/17 Nitrofurantoin Monohyd/M-Cryst [Macrobid -] 50 mg PO BID 09/09/17 Family Disease History - Family Disease History Family Disease History: Other: Father (does not know - adopted), Mother (does not know - adopted) Review of Systems - Review of Systems Constitutional: reports: Chills, Fever, Weakness Eyes: denies: Recent Change in Vision HENT: denies: Nasal Congestion, Throat Pain Neck: denies: Stiffness, Tenderness Cardiovascular: reports: Edema, Shortness of Breath. denies: Chest Pain, Palpitations Respiratory: reports: Cough, Exercise Intolerance, SOB on Exertion. denies: Hemoptysis, Wheezing Gastrointestinal: denies: Abdominal Pain, Nausea, Vomiting Genitourinary: denies: Dysuria Neurological: denies: Dizziness, Headache Endocrine: denies: Unexplained Weight Loss Physical Exam Vital Sings: Vital Signs Temperature 98.4 F 09/10/17 07:09 Pulse Rate 100 H 09/10/17 07:09 Respiratory Rate 18 09/10/17 07:09 Blood Pressure 109/51 09/10/17 07:09 O2 Sat by Pulse Oximetry (%) 98 09/10/17 07:42 Constitutional: Yes: Other (mildly tachypneic with speaking) Eyes: Yes: Conjunctiva Clear, EOM Intact HENT: Yes: Atraumatic, Normocephalic Neck: Yes: Supple, Trachea Midline Cardiovascular: Yes: Tachycardia Respiratory: Yes: Diminished (distant breath sounds) ...Clubbing: No Gastrointestinal: Yes: Normal Bowel Sounds, Soft, Abdomen, Obese. No: Tenderness Edema: Yes (trace) Neurological: Yes: Alert, Oriented Labs: CBC, BMP 09/10/17 07:50 09/10/17 07:50 ABG Results ABG pH 7.33 (7.35-7.45) L 09/10/17 06:25 ABG pCO2 at Pt Temp 51.6 mmHg (35-45) H 09/10/17 06:25 ABG pO2 at Pt Temp 79.8 mmHg (80-100) L 09/10/17 06:25 ABG HCO3 26.6 meq/L (22-26) H 09/10/17 06:25 ABG O2 Sat (Measured) 94.0 % (90-98.9) 09/10/17 06:25 ABG O2 Content 13.7 % vol (15-22) L 09/10/17 06:25 ABG Base Excess 0.8 meq/l (-2-2) 09/10/17 06:25 Problem List - Problems (1) Anxiety Code(s): F41.9 - ANXIETY DISORDER, UNSPECIFIED (2) Hypoxia Code(s): R09.02 - HYPOXEMIA (3) Asthma Code(s): J45.909 - UNSPECIFIED ASTHMA, UNCOMPLICATED (4) DM Diabetes mellitus type 2 Code(s): E11.9 - TYPE 2 DIABETES MELLITUS WITHOUT COMPLICATIONS (5) Obesity Code(s): E66.9 - OBESITY, UNSPECIFIED (6) Hypertension Code(s): I10 - ESSENTIAL (PRIMARY) HYPERTENSION (7) Hypercholesterolemia Code(s): E78.00 - PURE HYPERCHOLESTEROLEMIA, UNSPECIFIED Assessment/Plan Acute Hypoxic and Hypercapneic Respiratory Failure Upper Respiratory Tract Infection/Acute Bronchitis vs Pneumonia r/o Sepsis Lactic Acidosis Anxiety r/o Acute Asthma Exacerbation HTN DM Hypercholesterolemia Morbid Obesity - would continue empiric antibiotics - f/u cultures - flu swab - inhaled bronchodilators - would start empiric steroids for at least 24 hrs as pt hypercapneic and with difficult exam due to body habitus to treat possible bronchospasm - O2 to keep SpO2 >90% - check peak flow - repeat ABG in AM - multiple possible etiologies for hypoxia with morbid obesity, underlying atelectasis, obesity hypoventilation syndrome, V/Q mismatch from acute bronchospasm or asthma, chronic opioid, benzo and methocarbamol use or PE - echocardiogram to evaluate right heart - history does not suggest acute VTE, acute respiratory acidosis rare with PE and LE dopplers negative for DVT, clinical suspicion for PE is lower - would continue anticoagulation for now until echocardiogram results back and if no improvement with treatment for bronchospasm/infection Thank you for this consult Sharif Brito MD
[2017-09-10] MEDS ORDERED: ALBUTEROL SO4 0.042% IH SOL 1.25 MG/3 ML VIAL.NEB NEB PRN (13:32)
[2017-09-10] MEDS ORDERED: ALBUTEROL SO4 0.083% IH SOL 2.5 MG/3 ML VIAL.NEB. NEB ONE ×2 (15:45→18:04)
[2017-09-10] MEDS ORDERED: CALCIUM GLUCONATE 10% - 1,000 MG/10 ML VIAL ONE (15:45)
[2017-09-10] MEDS ORDERED: methylPREDNISolone NA SUCC 125 MG/2 ML VIAL ONE ×2 (15:46→18:04)
[2017-09-10] MEDS: methylPREDNISolone NA SUCC 125 MG/2 ML VIAL IVPUSH SCH ×2 (16:25→18:16)
[2017-09-10] MEDS: ALBUTEROL SO4 2.5/IPRATROPIUM 0.5 INH SOL 3 ML VIAL.NEB. NEB SCH ×2 (16:25→21:59)
[2017-09-10] MEDS ORDERED: NAPH,MB-DB/K PH,MBDB POWDER PACKET PO ONE (16:30)
[2017-09-10] MEDS ORDERED: MAGNESIUM OXIDE 400 MG TABLET (FP) PO ONE (16:30)
--- NOTE | 2017-09-10 16:41 | EKG ---
Test Reason : Blood Pressure : / mmHG Vent. Rate : 111 BPM Atrial Rate : 111 BPM P-R Int : 146 ms QRS Dur : 096 ms QT Int : 326 ms P-R-T Axes : 038 079 029 degrees QTc Int : 443 ms SINUS TACHYCARDIA POSSIBLE LEFT ATRIAL ENLARGEMENT BORDERLINE ECG WHEN COMPARED WITH ECG OF 04-JUN-2016 18:56, NO SIGNIFICANT CHANGE WAS FOUND Confirmed by CLEMENTE MOREIRA MD ([id number]) on 09/10/2017 4:40:36 PM Referred By: Confirmed By:CLEMENTE MOREIRA MD
--- NOTE | 2017-09-10 16:49 | CON.PSY ---
Psychiatry Consult Chief Complaint: I had anxiety and took Lexapro and valium for a l;wei time. I am anxious.but feeling better now in the Hospital. Symptoms: reports: Anxiety, Panic Attacks - Previous Psychiatric Treatment Outpatient: More than 6 mos ago Inpatient: None - Previous Substance Abuse Treatment Outpatient: None Inpatient: None - Reason for Previous Treatment Reason for Previous Treatment: Anxiety or Panic Disorder - Current Medications Current Medications: Active Medications Albuterol Sulfate (Ventolin 0.042trength) -) 1 amp NEB Q4H PRN PRN Reason: SHORT OF BREATH/WHEEZING Albuterol/Ipratropium (Duoneb -) 1 amp NEB TID [facility] Last Admin: 09/10/17 16:25 Dose: 1 amp Atorvastatin Calcium (Lipitor -) 20 mg PO HS [facility] Docusate Sodium (Colace -) 100 mg PO BID [facility] Last Admin: 09/10/17 09:52 Dose: 100 mg Enalapril Maleate (Vasotec -) 10 mg PO BID [facility] Last Admin: 09/10/17 09:53 Dose: 10 mg Enoxaparin Sodium 100 mg/ (Enoxaparin Sodium 80 mg) 180 mg SQ BID [facility] Last Admin: 09/10/17 09:53 Dose: 180 mg Escitalopram Oxalate (Lexapro -) 10 mg PO DAILY [facility] Last Admin: 09/10/17 09:52 Dose: Not Given Furosemide (Lasix -) 20 mg PO DAILY [facility] Last Admin: 09/10/17 09:52 Dose: 20 mg Levofloxacin (Levaquin 500 Mg Premixed Ivpb -) 500 mg in 100 mls @ 100 mls/hr IVPB DAILY [facility] Insulin Aspart (Novolog Vial Sliding Scale -) 1 vial SQ ACHS [facility] PRN Reason: Protocol Methylprednisolone Sodium Succinate (Solu-Medrol -) 60 mg IVPUSH Q8H-IV [facility] Last Admin: 09/10/17 16:25 Dose: 60 mg - Allergies Allergies: Allergies Allergy/AdvReac Type Severity Reaction Status Date / Time methadone [Methadone] Allergy Mild Nausea Verified 09/09/17 21:17 morphine Allergy Mild Itching Verified 09/09/17 21:17 Penicillins Allergy Rash Verified 09/09/17 21:17 - Current Living Status Usual Living Arrangement: With Significant Other - Current Mental Status Evaluation Appearance: Well Groomed Attitude: Cooperative - Affect Affect: Constrictive Appropriateness: Appropriate to Content - Mood Mood: Anxious - Speech/Language Expressive: Coherent Receptive: Age Appropriate Comprehension of Spoken Words - Psychomotor Activity Psychomotor Activity: Slowed - Thought Process Thought Process: Intact - Thought Content Hallucinations: Absent Delusions: Absent - Self Perception Self Perception: No Impairment - Cognition Attention: Alert Orientation: Time Memory, Immediate Recall: Intact Memory, Short Term: 2/3 Memory, Remote with Promptin/3 - Concentration Serial Sevens Intact: No Simple Calculations Intact: No - Abstraction Judgement: Intact - Insight Insight: Intact - Impulse Control Impulse Control: Good Control - Suicidal Ideation Suicidal Ideation: No - Homicidal Ideation Homicidal Ideation: No Assessment/Plan 1) Patient is not suicidal at this time. 2) Valium PRN 3) does not want any SSRIs
[2017-09-10] MEDS ORDERED: MAGNESIUM OXIDE 400 MG TABLET (FP) ONE (18:04)
[2017-09-10] MEDS: INSULIN SLIDING SCALE (NOVOLOG) 1 VIAL SQ SCH (18:18)
[2017-09-10] MEDS ORDERED: INSULIN (NOVOLOG) ASPART 100 UNITS/ML 10ML VIAL ONE (18:21)
[2017-09-10] MEDS ORDERED: ENOXAPARIN NA (PORCINE) 80 MG/0.8 ML DISP.SYRIN SQ ONE (21:48)
[2017-09-10] MEDS ORDERED: INSULIN SLIDING SCALE (NOVOLOG) 1 VIAL SQ SCH (22:00)
[2017-09-10] MEDS: BACITRACIN/POLYMYXIN B SULFATE 15 GM TUBE TP SCH (23:57)
[2017-09-10] MEDS: ATORVASTATIN CA 20 MG TABLET (FP) PO SCH (23:57)
[2017-09-11] MEDS: methylPREDNISolone NA SUCC 125 MG/2 ML VIAL IVPUSH SCH ×3 (01:23→18:31)
[2017-09-11] MEDS: INSULIN SLIDING SCALE (NOVOLOG) 1 VIAL SQ SCH ×5 (06:38→23:01)
[2017-09-11 06:53] LABS: ARTERIAL BLD GAS O2 SATURATION 89.7 % (90-98.9); ARTERIAL BLOOD GAS BASE EXCESS 0.8 meq/l (-2-2); ARTERIAL BLOOD GAS PCO2 56.4 mmHg (35-45); ARTERIAL BLOOD GAS PO2 67.2 mmHg (80-100); ARTERIAL BLOOD GAS pH 7.31 (7.35-7.45)
[2017-09-11 06:57] LABS: ALLENS TEST POSITIVE
[2017-09-11] MEDS: ALBUTEROL SO4 2.5/IPRATROPIUM 0.5 INH SOL 3 ML VIAL.NEB. NEB SCH ×3 (07:10→21:57)
[2017-09-11 07:15] LABS: BASO % 0.1 % (0-2.0); EOS % 0.1 % (0-4.5); HEMATOCRIT 31.2 % (32.4-45.2); HEMOGLOBIN 10.1 GM/dL (10.7-15.3); LYMPH % 8.3 % (8-40); MCH 27.2 pg (25.7-33.7); MCHC 32.4 g/dl (32.0-36.0); MEAN CELL VOLUME 83.7 fl (80-96); MEAN PLT VOLUME 7.9 fl (7.5-11.1); NEUT % 89.5 % (42.8-82.8); PLATELET COUNT 232 K/MM3 (134-434); RBC 3.73 M/mm3 (3.60-5.2); RDW 15.4 % (11.6-15.6); WHITE BLOOD COUNT 7.5 K/mm3 (4.0-10.0)
[2017-09-11 08:46] LABS: ANION GAP 7 (8-16); BLOOD UREA NITROGEN 17 mg/dL (7-18); CALCIUM 8.2 mg/dL (8.5-10.1); CHLORIDE 102 mmol/L (98-107); CO2 29 mmol/L (21-32); CREATININE 1.1 mg/dL (0.55-1.02); PHOSPHOROUS 3.5 mg/dL (2.5-4.9); POTASSIUM 4.7 mmol/L (3.5-5.1); SODIUM 138 mmol/L (136-145)
[2017-09-11 08:56] LABS: GLUCOSE,RANDOM 322 mg/dL (74-106)
[2017-09-11] MEDS ORDERED: ENOXAPARIN NA (PORCINE) 80 MG/0.8 ML DISP.SYRIN SQ ONE (09:02)
[2017-09-11] MEDS ORDERED: ENOXAPARIN NA (PORCINE) 100 MG/1 ML DISP.SYRIN SQ ONE (09:02)
[2017-09-11] MEDS ORDERED: PT OWN MED DRAWER 7, Y5N ONE ×2 (09:21→21:54)
[2017-09-11] MEDS ORDERED: INSULIN (NOVOLOG) ASPART 100 UNITS/ML 10ML VIAL ONE (09:22)
[2017-09-11] MEDS: ENOXAPARIN 100 MG, ENOXAPARIN 80 MG SQ SCH (09:24)
[2017-09-11] MEDS: DOCUSATE SODIUM 100 MG CAPSULE (FP) PO SCH ×2 (09:26→22:53)
[2017-09-11] MEDS: BACITRACIN/POLYMYXIN B SULFATE 15 GM TUBE TP SCH (09:27)
[2017-09-11] MEDS: ESCITALOPRAM OXALATE 10 MG TABLET (FP) PO SCH (09:27)
[2017-09-11] MEDS: FUROSEMIDE 20 MG TABLET (FP) PO SCH (09:27)
[2017-09-11] MEDS: ENALAPRIL MALEATE 10 MG TABLET (FP) PO SCH ×2 (09:27→22:53)
[2017-09-11] MEDS ORDERED: INSULIN (NOVOLOG) ASPART 100 UNITS/ML 10ML VIAL SQ ONE (09:41)
--- NOTE | 2017-09-11 11:55 | PN ---
<Kenny Romo - Last Filed: 09/11/17 15:01> Physical Exam: SUBJECTIVE: Patient seen and examined No acute events overnight. Patient feels much better this morning. She has less trouble breathing and cough has improved. OBJECTIVE: Vital Signs Period Temp Pulse Resp BP Sys/Lindsey Pulse Ox Last 24 Hr 98.7 F-99.2 F 82-102 20-20 116-172/68-98 97-98 GENERAL: +Morbid Obesity. Awake, alert, and fully oriented HEAD: Normal with no signs of trauma EYES: Pupils equal, round and reactive to light, extraocular movements intact, sclera anicteric, conjunctiva clear. No lid lag. EARS, NOSE, THROAT: Ears normal, nares patent, Oropharynx clear without exudates. Moist mucous membranes. Mild pharyngeal erythema NECK: Normal range of motion, supple LUNGS: Distant breath sounds. Lungs clear bilaterally. No wheezes, rhonchi, crackles HEART: Tachycardic, Normal rhythm, normal S1 and S2 without murmur, rub or gallop. ABDOMEN: Soft, +Morbid obesity, nontender, not distended, normoactive bowel sounds, no guarding, no rebound. +abdominal open wound, +L sided hernia LOWER EXTREMITIES: Warm, well-perfused. No calf tenderness. 1-2+ pitting edema bilaterally NEUROLOGICAL: Cranial nerves II-XII intact. Normal speech. PSYCHIATRIC: Calm. Cooperative Laboratory Results - last 24 hr 09/10/17 09/11/17 09/11/17 18:12 00:00 06:00 WBC RBC Hgb Hct MCV MCH MCHC RDW Plt Count MPV Neutrophils % Lymphocytes % Monocytes % Eosinophils % Basophils % Puncture Site Right radial ABG pH 7.31 L ABG pCO2 at Pt Temp 56.4 H ABG pO2 at Pt Temp 67.2 L ABG HCO3 27.6 H ABG O2 Sat (Measured) 89.7 L ABG O2 Content 16.0 ABG Base Excess 0.8 Luisito Test Positive O2 Delivery Device N/c Oxygen Flow Rate 2 Sodium Potassium Chloride Carbon Dioxide Anion Gap BUN Creatinine POC Glucometer [phone] Random Glucose Calcium Phosphorus Magnesium 09/11/17 09/11/17 09/11/17 06:15 06:15 06:36 WBC 7.5 RBC 3.73 Hgb 10.1 L D Hct 31.2 L D MCV 83.7 MCH 27.2 MCHC 32.4 RDW 15.4 Plt Count 232 D MPV 7.9 Neutrophils % 89.5 H Lymphocytes % 8.3 D Monocytes % 2.0 L Eosinophils % 0.1 D Basophils % 0.1 Puncture Site ABG pH ABG pCO2 at Pt Temp ABG pO2 at Pt Temp ABG HCO3 ABG O2 Sat (Measured) ABG O2 Content ABG Base Excess Luisito Test O2 Delivery Device Oxygen Flow Rate Sodium 138 Potassium 4.7 Chloride 102 Carbon Dioxide 29 Anion Gap 7 L BUN 17 Creatinine 1.1 H POC Glucometer 333 Random Glucose 322 H* Calcium 8.2 L Phosphorus 3.5 Magnesium 2.0 Active Medications Generic Name Dose Route Start Last Admin Trade Name Freq PRN Reason Stop Dose Admin Albuterol Sulfate 1 amp 09/10/17 13:32 09/10/17 18:17 Ventolin 0.042trength) - NEB 1 amp Q4H PRN Administration SHORT OF BREATH/WHEEZING Albuterol/Ipratropium 1 amp 09/10/17 14:00 09/11/17 07:10 Duoneb - NEB 1 amp TID SUSIE Administration Atorvastatin Calcium 20 mg 09/10/17 22:00 09/10/17 23:57 Lipitor - PO 20 mg HS SUSIE Administration Bacitracin/Polymyxin B Sulfate 1 applic 09/10/17 21:45 09/11/17 09:27 Polysporin Ointment - TP 1 applic DAILY SUSIE Administration Diazepam 5 mg 09/10/17 16:51 Valium - PO Q8H PRN WITHDRAWAL(CONT SUBST) Docusate Sodium 100 mg 09/10/17 10:00 09/11/17 09:26 Colace - PO 100 mg BID SUSIE Administration Enalapril Maleate 10 mg 09/10/17 10:00 09/11/17 09:27 Vasotec - PO 10 mg BID SUSIE Administration Enoxaparin Sodium 100 mg/ 180 mg 09/10/17 10:00 09/11/17 09:24 Enoxaparin Sodium 80 mg SQ 180 mg BID SUSIE Administration Escitalopram Oxalate 10 mg 09/10/17 10:00 09/11/17 09:27 Lexapro - PO 10 mg DAILY SUSIE Administration Furosemide 20 mg 09/10/17 10:00 09/11/17 09:27 Lasix - PO 20 mg DAILY SUSIE Administration Levofloxacin 500 mg in 100 mls @ 100 mls/hr 09/11/17 10:00 09/11/17 09:24 Levaquin 500 Mg Premixed Ivpb - IVPB 100 mls/hr DAILY SUSIE Administration Insulin Aspart 1 vial 09/10/17 16:30 09/11/17 06:38 Novolog Vial Sliding Scale - SQ 8 unit ACHS SUSIE Administration Protocol Insulin Detemir 10 units 09/11/17 22:00 Levemir Vial SQ HS [facility] Methylprednisolone Sodium Succinate 60 mg 09/10/17 13:45 09/11/17 09:36 Solu-Medrol - IVPUSH 60 mg Q8H-IV SUSIE Administration ASSESSMENT/PLAN: 57 y/o morbidly obese F with PMH HTN, HLD, DM, asthma, diverticulitis, GERD, severe anxiety, who is brought in c/o SOB x1 day. #Acute hypoxic hypercapnic resp failure 2/2 to COPD vs OHS vs URI -D-dimer elevated -Echo unremarkable EF, Right ventricle difficult to assess -Doppler b/l LE negative, CTA unable to be performed given body habitus -Lovenox stopped per pulmonary-- no concern for pulmonary embolus -Continue Solumederol 60 mg q8h -BiPAP as needed -Continue Duonebs q4h prn -Continue Levaquin 500 mg IV daily -F/u Cx, viral pcr -Patient for sleep screen tonight -Patient with chronic open abdominal wound without full closure -Pulmonary on board -Vascular surgery on board for wound care #DM -ISS achs -BGM achs -Levemir 10 sq hs -A1c 6.5% #Anxiety -Valium PRN -Psychiatry consulted, Dr Hill #HTN- controlled -Continue Enalapril 10mg daily #?CHF -Continue Lasix 20 mg po daily -Echo unremarkable EF, Right ventricle difficult to assess -Fluid restrict, daily weights -Na controlled to 2g #HLD -Continue Atorvastatin 20 mg hs #F/E/N -Will avoid fluids at this time, d/t CHF -Monitor electrolytes -Diabetic diet #PPX DVT: heparin 5000 u tid #Dispo Telemetry monitoring, pending sleep screen Visit type - Emergency Visit Emergency Visit: Yes ED Registration Date: 09/10/17 Care time: The patient presented to the Emergency Department on the above date and was hospitalized for further evaluation of their emergent condition. - New Patient This patient is new to me today: No - Critical Care Critical Care patient: No <Lesley Frias - Last Filed: 09/11/17 19:32> Physical Exam: Patient feels better with no acute distress, breathing better, seems happy today, no nausea or vomiting. Patient is morbidly obese.
--- NOTE | 2017-09-11 14:01 | PN ---
Progress Note, Physician History of Present Illness: PULMONARY PT FEELING BETTER,LESS DYSPNEIC,LESS COUGH - Current Medication List Current Medications: Active Medications Albuterol Sulfate (Ventolin 0.042trength) -) 1 amp NEB Q4H PRN PRN Reason: SHORT OF BREATH/WHEEZING Last Admin: 09/10/17 18:17 Dose: 1 amp Albuterol/Ipratropium (Duoneb -) 1 amp NEB TID [facility] Last Admin: 09/11/17 07:10 Dose: 1 amp Atorvastatin Calcium (Lipitor -) 20 mg PO HS [facility] Last Admin: 09/10/17 23:57 Dose: 20 mg Bacitracin/Polymyxin B Sulfate (Polysporin Ointment -) 1 applic TP DAILY [facility] Last Admin: 09/11/17 09:27 Dose: 1 applic Diazepam (Valium -) 5 mg PO Q8H PRN PRN Reason: WITHDRAWAL(CONT SUBST) Docusate Sodium (Colace -) 100 mg PO BID [facility] Last Admin: 09/11/17 09:26 Dose: 100 mg Enalapril Maleate (Vasotec -) 10 mg PO BID [facility] Last Admin: 09/11/17 09:27 Dose: 10 mg Enoxaparin Sodium 100 mg/ (Enoxaparin Sodium 80 mg) 180 mg SQ BID [facility] Last Admin: 09/11/17 09:24 Dose: 180 mg Escitalopram Oxalate (Lexapro -) 10 mg PO DAILY [facility] Last Admin: 09/11/17 09:27 Dose: 10 mg Furosemide (Lasix -) 20 mg PO DAILY [facility] Last Admin: 09/11/17 09:27 Dose: 20 mg Levofloxacin (Levaquin 500 Mg Premixed Ivpb -) 500 mg in 100 mls @ 100 mls/hr IVPB DAILY [facility] Last Admin: 09/11/17 09:24 Dose: 100 mls/hr Insulin Aspart (Novolog Vial Sliding Scale -) 1 vial SQ ACHS [facility] PRN Reason: Protocol Last Admin: 09/11/17 06:38 Dose: 8 unit Insulin Detemir (Levemir Vial) 10 units SQ HS [facility] Methylprednisolone Sodium Succinate (Solu-Medrol -) 60 mg IVPUSH Q8H-IV [facility] Last Admin: 09/11/17 09:36 Dose: 60 mg - Objective Vital Signs: Vital Signs Temperature 98.7 F 09/11/17 06:00 Pulse Rate 102 H 09/11/17 06:00 Respiratory Rate 20 09/11/17 06:00 Blood Pressure 172/98 09/11/17 06:00 O2 Sat by Pulse Oximetry (%) 98 09/10/17 22:00 Constitutional: Yes: Calm, Obese Eyes: Yes: WNL HENT: Yes: WNL Neck: Yes: WNL Cardiovascular: Yes: Regular Rate and Rhythm, S1, S2 Respiratory: Yes: Diminished Gastrointestinal: Yes: Normal Bowel Sounds, Abdomen, Obese Extremities: Yes: WNL Edema: Yes Labs: CBC, BMP 09/11/17 06:15 09/11/17 06:15 INR, PTT INR 1.19 (0.82-1.09) H 09/09/17 22:10 Laboratory Tests 09/11/17 06:00 ABG pH 7.31 L ABG pCO2 at Pt Temp 56.4 H ABG pO2 at Pt Temp 67.2 L ABG HCO3 27.6 H ABG O2 Sat (Measured) 89.7 L O2 Delivery Device N/c Oxygen Flow Rate 2 Assessment/Plan Problem List - Problems (1) Anxiety Code(s): F41.9 - ANXIETY DISORDER, UNSPECIFIED (2) Hypoxia Code(s): R09.02 - HYPOXEMIA (3) Asthma Code(s): J45.909 - UNSPECIFIED ASTHMA, UNCOMPLICATED (4) DM Diabetes mellitus type 2 Code(s): E11.9 - TYPE 2 DIABETES MELLITUS WITHOUT COMPLICATIONS (5) Obesity Code(s): E66.9 - OBESITY, UNSPECIFIED (6) Hypertension Code(s): I10 - ESSENTIAL (PRIMARY) HYPERTENSION (7) Hypercholesterolemia Code(s): E78.00 - PURE HYPERCHOLESTEROLEMIA, UNSPECIFIED Assessment/Plan Acute Hypoxic and Hypercapneic Respiratory Failure Upper Respiratory Tract Infection/Acute Bronchitis vs Pneumonia r/o Sepsis Lactic Acidosis Anxiety r/o Acute Asthma Exacerbation HTN DM Hypercholesterolemia Morbid Obesity Likely OSAS - empiric antibiotics - inhaled bronchodilators - empiric steroids for at least 24 hrs as pt hypercapneic and with difficult exam due to body habitus to treat possible bronchospasm - O2 to keep SpO2 >90% - check peak flow - multiple possible etiologies for hypoxia with morbid obesity, underlying atelectasis, obesity hypoventilation syndrome, V/Q mismatch from acute bronchospasm or asthma, chronic opioid, benzo and methocarbamol use or PE -DVT prophylaxis - NIPPV as needed - Sleep studies DR ARCOS
[2017-09-11] MEDS: diazePAM 5 MG TABLET PO PRN (16:06)
[2017-09-11] MEDS ORDERED: INSULIN SLIDING SCALE (NOVOLOG) 1 VIAL SQ SCH (16:08)
[2017-09-11] MEDS ORDERED: MAGNESIUM HYDROX 2400MG/30ML ORAL SUSPENSION 30 ML CUP PO PRN (17:02)
--- NOTE | 2017-09-11 17:48 | PN ---
Progress Note (short form) - Note Progress Note: Vascular Surgery Pt seen and examined. Abd wounds that open and close over time. Need to keep wounds dry. Will place silver alginate to wounds 3x a week. Rolf liriano DO
[2017-09-11 18:03] LABS: ANION GAP 7 (8-16); BLOOD UREA NITROGEN 21 mg/dL (7-18); CALCIUM 8.3 mg/dL (8.5-10.1); CHLORIDE 99 mmol/L (98-107); CO2 29 mmol/L (21-32); CREATININE 1.3 mg/dL (0.55-1.02); POTASSIUM 4.7 mmol/L (3.5-5.1); SODIUM 135 mmol/L (136-145)
[2017-09-11 18:05] LABS: GLUCOSE,RANDOM 437 mg/dL (74-106)
[2017-09-11] MEDS: ATORVASTATIN CA 20 MG TABLET (FP) PO SCH (22:53)
[2017-09-11] MEDS: HEPARIN NA (PORCINE) 5,000 UNITS/ML 1ML VIAL SQ SCH (22:53)
[2017-09-11] MEDS: BUDESONIDE/FORMETEROL FUMARATE 160/4.5 mcg INHALER IH SCH (22:57)
[2017-09-11] MEDS: INSULIN DETEMIR 100 UNITS/ML MDV SQ SCH (23:09)
[2017-09-12] MEDS: diazePAM 5 MG TABLET PO PRN ×2 (00:01→22:34)
[2017-09-12] MEDS: methylPREDNISolone NA SUCC 125 MG/2 ML VIAL IVPUSH SCH ×3 (01:21→18:22)
[2017-09-12] MEDS: INSULIN SLIDING SCALE (NOVOLOG) 1 VIAL SQ SCH ×4 (06:42→22:58)
[2017-09-12] MEDS: ALBUTEROL SO4 2.5/IPRATROPIUM 0.5 INH SOL 3 ML VIAL.NEB. NEB SCH ×3 (07:28→21:30)
[2017-09-12 08:04] LABS: ANION GAP 7 (8-16); BLOOD UREA NITROGEN 21 mg/dL (7-18); CALCIUM 8.7 mg/dL (8.5-10.1); CHLORIDE 99 mmol/L (98-107); CO2 30 mmol/L (21-32); CREATININE 1.2 mg/dL (0.55-1.02); POTASSIUM 4.8 mmol/L (3.5-5.1); SODIUM 136 mmol/L (136-145)
[2017-09-12] MEDS ORDERED: PT OWN MED DRAWER 7, Y5N ONE ×3 (08:45→23:28)
[2017-09-12 09:11] LABS: GLUCOSE,RANDOM 315 mg/dL (74-106)
[2017-09-12] MEDS: HEPARIN NA (PORCINE) 5,000 UNITS/ML 1ML VIAL SQ SCH ×3 (09:50→22:36)
[2017-09-12] MEDS: ENALAPRIL MALEATE 10 MG TABLET (FP) PO SCH ×2 (09:53→22:34)
[2017-09-12] MEDS: ESCITALOPRAM OXALATE 10 MG TABLET (FP) PO SCH (09:53)
[2017-09-12] MEDS: DOCUSATE SODIUM 100 MG CAPSULE (FP) PO SCH ×2 (09:53→22:34)
[2017-09-12] MEDS: FUROSEMIDE 20 MG TABLET (FP) PO SCH (09:53)
[2017-09-12] MEDS: BUDESONIDE/FORMETEROL FUMARATE 160/4.5 mcg INHALER IH SCH ×2 (09:54→22:35)
[2017-09-12] MEDS ORDERED: INSULIN (NOVOLOG) ASPART 100 UNITS/ML 10ML VIAL ONE (12:16)
[2017-09-12] MEDS: BACITRACIN/POLYMYXIN B SULFATE 15 GM TUBE TP SCH (12:18)
--- NOTE | 2017-09-12 12:18 | PN ---
Progress Note (short form) - Note Progress Note: Feels overall better today. Less SOB. No acute events overnight. Intake & Output 09/09/17 09/10/17 09/11/17 09/12/17 23:59 23:59 23:59 23:59 Intake Total 0 460 Output Total 400 Balance 0 60 Weight 400 lb 400 lb 400 lb 0.001 oz Last Vital Signs Temp Pulse Resp BP Pulse Ox 98.0 F 88 18 148/82 97 09/12/17 10:00 09/12/17 10:00 09/12/17 10:00 09/12/17 10:00 09/12/17 10:00 Active Medications Albuterol Sulfate (Ventolin 0.042trength) -) 1 amp NEB Q4H PRN PRN Reason: SHORT OF BREATH/WHEEZING Last Admin: 09/10/17 18:17 Dose: 1 amp Albuterol/Ipratropium (Duoneb -) 1 amp NEB TID [facility] Last Admin: 09/12/17 07:28 Dose: 1 amp Atorvastatin Calcium (Lipitor -) 20 mg PO HS [facility] Last Admin: 09/11/17 22:53 Dose: 20 mg Bacitracin/Polymyxin B Sulfate (Polysporin Ointment -) 1 applic TP DAILY [facility] Last Admin: 09/11/17 09:27 Dose: 1 applic Budesonide/Formoterol Fumarate (Symbicort 160/4.5mcg -) 2 puff IH BID [facility] Last Admin: 09/12/17 09:54 Dose: 2 puff Diazepam (Valium -) 5 mg PO Q8H PRN PRN Reason: WITHDRAWAL(CONT SUBST) Last Admin: 09/12/17 00:01 Dose: 5 mg Docusate Sodium (Colace -) 100 mg PO BID [facility] Last Admin: 09/12/17 09:53 Dose: 100 mg Enalapril Maleate (Vasotec -) 10 mg PO BID [facility] Last Admin: 09/12/17 09:53 Dose: 10 mg Escitalopram Oxalate (Lexapro -) 10 mg PO DAILY [facility] Last Admin: 09/12/17 09:53 Dose: 10 mg Furosemide (Lasix -) 20 mg PO DAILY [facility] Last Admin: 09/12/17 09:53 Dose: 20 mg Heparin Sodium (Porcine) (Heparin -) 5,000 unit SQ TID [facility] Last Admin: 09/12/17 09:50 Dose: Not Given Levofloxacin (Levaquin 500 Mg Premixed Ivpb -) 500 mg in 100 mls @ 100 mls/hr IVPB DAILY [facility] Last Admin: 09/12/17 09:52 Dose: 100 mls/hr Insulin Aspart (Novolog Vial Sliding Scale -) 1 vial SQ ACHS SUSIE PRN Reason: Protocol Last Admin: 09/12/17 06:42 Dose: 8 units Insulin Detemir (Levemir Vial) 10 units SQ HS [facility] Last Admin: 09/11/17 23:09 Dose: Not Given Magnesium Hydroxide (Milk Of Magnesia -) 30 ml PO Q24H PRN PRN Reason: CONSTIPATION Methylprednisolone Sodium Succinate (Solu-Medrol -) 60 mg IVPUSH Q8H-IV [facility] Last Admin: 09/12/17 09:52 Dose: 60 mg Constitutional: Yes: NAD, M. Obese Eyes: Yes: WNL HENT: Yes: WNL Neck: Yes: WNL Cardiovascular: Yes: Regular Rate and Rhythm, S1, S2 Respiratory: Yes: Diminished Gastrointestinal: Yes: Normal Bowel Sounds, Abdomen, Obese Extremities: Yes: WNL Edema: Yes Labs: Laboratory Results - last 24 hr 09/11/17 09/11/17 09/12/17 17:00 23:00 06:00 Sodium 135 L 136 Potassium 4.7 4.8 Chloride 99 99 Carbon Dioxide 29 30 Anion Gap 7 L 7 L BUN 21 H 21 H Creatinine 1.3 H 1.2 H POC Glucometer 325 Random Glucose 437 H* 315 H* Calcium 8.3 L 8.7 09/12/17 06:41 Sodium Potassium Chloride Carbon Dioxide Anion Gap BUN Creatinine POC Glucometer 331 Random Glucose Calcium Assessment/Plan Problem List - Problems (1) Anxiety Code(s): F41.9 - ANXIETY DISORDER, UNSPECIFIED (2) Hypoxia Code(s): R09.02 - HYPOXEMIA (3) Asthma Code(s): J45.909 - UNSPECIFIED ASTHMA, UNCOMPLICATED (4) DM Diabetes mellitus type 2 Code(s): E11.9 - TYPE 2 DIABETES MELLITUS WITHOUT COMPLICATIONS (5) Obesity Code(s): E66.9 - OBESITY, UNSPECIFIED (6) Hypertension Code(s): I10 - ESSENTIAL (PRIMARY) HYPERTENSION (7) Hypercholesterolemia Code(s): E78.00 - PURE HYPERCHOLESTEROLEMIA, UNSPECIFIED Assessment/Plan Acute Hypoxic and Hypercapneic Respiratory Failure Upper Respiratory Tract Infection/Acute Bronchitis vs Pneumonia Lactic Acidosis Anxiety r/o Acute Asthma Exacerbation HTN DM Hypercholesterolemia Morbid Obesity OSAS (diagnosed at [place]: incomplete titration workup) - inhaled bronchodilators - Change to Prednisone - O2 to keep SpO2 >90% - Follow peak flow - multiple possible etiologies for hypoxia with morbid obesity, underlying atelectasis, obesity hypoventilation syndrome, V/Q mismatch from acute bronchospasm or asthma, chronic opioid, benzo and methocarbamol use - DVT prophylaxis - NIPPV as needed - Will need to check Pre and Post O2 saturation - Can possibly D/C by tomorrow Dr Sanders
--- NOTE | 2017-09-12 16:00 | PN ---
Progress Note (short form) - Note Progress Note: Patient is feeling better. No acute distress. No nausea or vomiting. Vital Signs Temperature 98.6 F 09/12/17 14:38 Pulse Rate 91 H 09/12/17 14:38 Respiratory Rate 20 09/12/17 14:38 Blood Pressure 139/81 09/12/17 14:38 O2 Sat by Pulse Oximetry (%) 97 09/12/17 10:00 GENERAL: positive for Morbid Obesity. Awake, alert, and fully oriented HEAD: Normal with no signs of trauma EYES: Pupils equal, round and reactive to light, extraocular movements intact, sclera anicteric, conjunctiva clear. EARS, NOSE, THROAT: Ears normal, nares patent, Oropharynx clear without exudates. Moist mucous membranes. Mild pharyngeal erythema NECK: Normal range of motion, supple LUNGS: Distant breath sounds. Lungs clear bilaterally. No wheezes, rhonchi, crackles HEART: Tachycardic, Normal rhythm, normal S1 and S2 without murmur, rub or gallop. ABDOMEN: Soft, +Morbid obesity, nontender, not distended, normoactive bowel sounds, no guarding, no rebound. +abdominal open wound, +L sided hernia LOWER EXTREMITIES: Warm, well-perfused. No calf tenderness. No edema improved NEUROLOGICAL: Cranial nerves II-XII intact. Normal speech. PSYCHIATRIC: Calm. Cooperative CBCD WBC 7.5 K/mm3 (4.0-10.0) 09/11/17 06:15 RBC 3.73 M/mm3 (3.60-5.2) 09/11/17 06:15 Hgb 10.1 GM/dL (10.7-15.3) L D 09/11/17 06:15 Hct 31.2 % (32.4-45.2) L D 09/11/17 06:15 MCV 83.7 fl (80-96) 09/11/17 06:15 MCHC 32.4 g/dl (32.0-36.0) 09/11/17 06:15 RDW 15.4 % (11.6-15.6) 09/11/17 06:15 Plt Count 232 K/MM3 (134-434) D 09/11/17 06:15 MPV 7.9 fl (7.5-11.1) 09/11/17 06:15 CMP Sodium 136 mmol/L (136-145) 09/12/17 06:00 Potassium 4.8 mmol/L (3.5-5.1) 09/12/17 06:00 Chloride 99 mmol/L (98-107) 09/12/17 06:00 Carbon Dioxide 30 mmol/L (21-32) 09/12/17 06:00 Anion Gap 7 (8-16) L 09/12/17 06:00 BUN 21 mg/dL (7-18) H 09/12/17 06:00 Creatinine 1.2 mg/dL (0.55-1.02) H 09/12/17 06:00 Creat Clearance w eGFR 42.07 (>60) 09/09/17 22:10 Random Glucose 315 mg/dL (74-106) H* 09/12/17 06:00 Calcium 8.7 mg/dL (8.5-10.1) 09/12/17 06:00 Total Bilirubin 0.5 mg/dL (0.2-1.0) 09/09/17 22:10 AST 22 U/L (15-37) 09/09/17 22:10 ALT 18 U/L (12-78) 09/09/17 22:10 Alkaline Phosphatase 86 U/L (45-117) 09/09/17 22:10 Total Protein 7.3 g/dl (6.4-8.2) 09/09/17 22:10 Albumin 3.1 g/dl (3.4-5.0) L 09/09/17 22:10 CARDIAC ENZYMES Troponin I 0.02 ng/ml (0.00-0.05) 09/09/17 22:10 Home Medications Medication Instructions Recorded Ascorbate Calcium [Vitamin C] 500 mg PO DAILY 05/02/14 Atorvastatin Ca [Lipitor] 40 mg PO HS 05/02/14 Calcium (Oyster Shell) [Os-Bandar 500 mg PO DAILY 05/02/14 500MG -] Enalapril Maleate [Vasotec] 10 mg PO BID 05/02/14 Escitalopram Oxalate [Lexapro -] 10 mg PO DAILY 05/02/14 Esomeprazole Mag Trihydrate 40 mg PO DAILY 05/02/14 [Nexium] Glipizide [Glucotrol -] 10 mg PO BID 09/14/15 Cholecalciferol (Vitamin D3) 1,000 unit PO DAILY 08/04/16 [Vitamin D3 -] Oxycodone HCl [Roxicodone] 15 mg PO BID #60 tablet MDD 2 08/19/17 Albuterol 0.083% Nebulizer Sadaf 1 amp IN PRN 09/09/17 [Ventolin 0.083% Nebulizer Soln -] Clonazepam 0.5 mg PO BID PRN 09/09/17 Diphenhydramine HCl 25 mg PO HS 09/09/17 Furosemide 20 mg PO DAILY 09/09/17 Insulin Glulisine [Apidra] 100 unit SQ AC 09/09/17 Methocarbamol 750 mg PO DAILY 09/09/17 Nitrofurantoin Monohyd/M-Cryst 50 mg PO BID 09/09/17 [Macrobid -] Budesonide/Formeterol Fumarate 2 puff IH BID PRN 09/10/17 [SYMBICORT 80/4.5mcg -] Docusate Sodium [Stool Softener] 100 mg PO DAILY PRN 09/10/17 Folic Acid 1 mg PO DAILY 09/10/17 Current Medications Generic Name Dose Route Start Last Admin Trade Name Freq PRN Reason Stop Dose Admin Albuterol Sulfate 1 amp 09/10/17 13:32 09/10/17 18:17 Ventolin 0.042trength) - NEB 1 amp Q4H PRN Administration SHORT OF BREATH/WHEEZING Albuterol/Ipratropium 1 amp 09/10/17 14:00 09/12/17 14:37 Duoneb - NEB 1 amp TID SUSIE Administration Atorvastatin Calcium 20 mg 09/10/17 22:00 09/11/17 22:53 Lipitor - PO 20 mg HS SUSIE Administration Bacitracin/Polymyxin B Sulfate 1 applic 09/10/17 21:45 09/12/17 12:18 Polysporin Ointment - TP 1 applic DAILY [facility]IE Administration Budesonide/Formoterol Fumarate 2 puff 09/11/17 22:00 09/12/17 09:54 Symbicort 160/4.5mcg - IH 2 puff BID SUSIE Administration Diazepam 5 mg 09/10/17 16:51 09/12/17 00:01 Valium - PO 5 mg Q8H PRN Administration WITHDRAWAL(CONT SUBST) Docusate Sodium 100 mg 09/10/17 10:00 03/17/18 09:53 Colace - PO 100 mg BID SUSIE Administration Enalapril Maleate 10 mg 09/10/17 10:00 09/12/17 09:53 Vasotec - PO 10 mg BID SUSIE Administration Escitalopram Oxalate 10 mg 09/10/17 10:00 09/12/17 09:53 Lexapro - PO 10 mg DAILY SUSIE Administration Furosemide 20 mg 09/10/17 10:00 09/12/17 09:53 Lasix - PO 20 mg DAILY S[facility]IE Administration Heparin Sodium (Porcine) 5,000 unit 09/11/17 22:00 09/12/17 15:41 Heparin - SQ 5,000 unit TID SUSIE Administration Levofloxacin 500 mg in 100 mls @ 100 mls/hr 09/11/17 10:00 09/12/17 09:52 Levaquin 500 Mg Premixed Ivpb - IVPB 100 mls/hr DAILY [facility]IE Administration Insulin Aspart 1 vial 09/11/17 16:08 09/12/17 12:18 Novolog Vial Sliding Scale - SQ 12 units ACHS SUSIE Administration Protocol Insulin Detemir 10 units 09/11/17 22:00 09/11/17 23:09 Levemir Vial SQ Not Given HS [facility]IE Magnesium Hydroxide 30 ml 09/11/17 17:02 Milk Of Magnesia - PO Q24H PRN CONSTIPATION Methylprednisolone Sodium Succinate 60 mg 09/10/17 13:45 09/12/17 09:52 Solu-Medrol - IVPUSH 60 mg Q8H-IV [facility]IE Administration ASSESSMENT/PLAN: 57 y/o morbidly obese F with PMH HTN, HLD, DM, asthma, diverticulitis, GERD, severe anxiety, who is brought in c/o SOB x1 day. #Acute hypoxic hypercapnic respiratory failure on inhaled bronchodilators, on IV steroid change po Prednisone with taper dose of 50 x 3 days, 40mg x 3 days, 30mg x 3days and 20mg x 3 days and 10mg x 3 days. O2 to keep SpO2 >90%, pre and post 02, Follow peak flow most likely hypoxia with morbid obesity, with underlying atelectasis, obesity hypoventilation syndrome, V/Q mismatch from acute bronchospasm or asthma, chronic opioid, benzo and methocarbamol use , needs follow up with pulm, for Bipap evaluation, sleep apnea evaluation. DM coninue home meds upon discharge; currently on Levemir 10 sq hs, with HgA1c 6.5% #HTN- controlled continue Enalapril 10mg daily #Anxiety controlled now since started on Valium prn by Dr Hill, restarted Lexapro 10mgpo daily #HLD Continue Atorvastatin DVT PPX ;heparin 5000 u tid #Dispo discharge home in am if stable. Visit type - Emergency Visit Emergency Visit: Yes ED Registration Date: 09/10/17 Care time: The patient presented to the Emergency Department on the above date and was hospitalized for further evaluation of their emergent condition. - New Patient This patient is new to me today: No - Critical Care Critical Care patient: No - Discharge Referral Referred to [id number] No
[2017-09-12] MEDS: ATORVASTATIN CA 20 MG TABLET (FP) PO SCH (22:34)
[2017-09-12] MEDS: INSULIN DETEMIR 100 UNITS/ML MDV SQ SCH (22:56)
[2017-09-13] MEDS: methylPREDNISolone NA SUCC 125 MG/2 ML VIAL IVPUSH SCH ×2 (01:17→09:49)
[2017-09-13] MEDS ORDERED: IBUPROFEN 600 MG TABLET (FP) PO ONE (02:34)
[2017-09-13] MEDS ORDERED: INSULIN (NOVOLOG) ASPART 100 UNITS/ML 10ML VIAL SQ ONE ×2 (02:49→06:58)
[2017-09-13] MEDS: ALBUTEROL SO4 2.5/IPRATROPIUM 0.5 INH SOL 3 ML VIAL.NEB. NEB SCH (06:30)
[2017-09-13] MEDS: HEPARIN NA (PORCINE) 5,000 UNITS/ML 1ML VIAL SQ SCH (07:01)
[2017-09-13] MEDS: INSULIN SLIDING SCALE (NOVOLOG) 1 VIAL SQ SCH ×2 (07:01→11:27)
[2017-09-13] MEDS ORDERED: INSULIN (NOVOLOG) ASPART 100 UNITS/ML 10ML VIAL ONE (07:08)
[2017-09-13] MEDS ORDERED: PT OWN MED DRAWER 7, Y5N ONE (07:09)
[2017-09-13] MEDS: ENALAPRIL MALEATE 10 MG TABLET (FP) PO SCH (09:49)
[2017-09-13] MEDS: DOCUSATE SODIUM 100 MG CAPSULE (FP) PO SCH (09:49)
[2017-09-13] MEDS: FUROSEMIDE 20 MG TABLET (FP) PO SCH (09:49)
[2017-09-13] MEDS: ESCITALOPRAM OXALATE 10 MG TABLET (FP) PO SCH (09:49)
[2017-09-13] MEDS: BACITRACIN/POLYMYXIN B SULFATE 15 GM TUBE TP SCH (09:50)
[2017-09-13] MEDS: BUDESONIDE/FORMETEROL FUMARATE 160/4.5 mcg INHALER IH SCH (09:50)
[2017-09-13] MEDS: diazePAM 5 MG TABLET PO PRN (09:53)
[2017-09-13] MEDS ORDERED: ENALAPRIL MALEATE 10 MG TABLET (FP) PO SCH (10:30)
[2017-09-13 12:05] VITALS: BP 162/82; PULSE 86; TEMP 98
--- NOTE | 2017-09-13 12:15 | PN ---
Progress Note (short form) - Note Progress Note: Feels overall better today. Less SOB. No acute events overnight. Intake & Output 09/10/17 09/11/17 09/12/17 09/13/17 23:59 23:59 23:59 23:59 Intake Total 0 460 120 30 Output Total 400 Balance 0 60 120 30 Weight 400 lb 400 lb 0.001 oz 431 lb 6 oz Last Vital Signs Temp Pulse Resp BP Pulse Ox 98.0 F 86 18 162/82 90 L 09/13/17 10:00 09/13/17 10:00 09/13/17 10:00 09/13/17 10:00 09/13/17 10:00 Active Medications Albuterol Sulfate (Ventolin 0.042trength) -) 1 amp NEB Q4H PRN PRN Reason: SHORT OF BREATH/WHEEZING Last Admin: 09/10/17 18:17 Dose: 1 amp Albuterol/Ipratropium (Duoneb -) 1 amp NEB TID [facility] Last Admin: 09/13/17 06:30 Dose: 1 amp Atorvastatin Calcium (Lipitor -) 20 mg PO HS [facility] Last Admin: 09/12/17 22:34 Dose: 20 mg Bacitracin/Polymyxin B Sulfate (Polysporin Ointment -) 1 applic TP DAILY [facility] Last Admin: 09/13/17 09:50 Dose: 1 applic Budesonide/Formoterol Fumarate (Symbicort 160/4.5mcg -) 2 puff IH BID [facility] Last Admin: 09/13/17 09:50 Dose: 2 puff Diazepam (Valium -) 5 mg PO Q8H PRN PRN Reason: WITHDRAWAL(CONT SUBST) Last Admin: 09/13/17 09:53 Dose: 5 mg Docusate Sodium (Colace -) 100 mg PO BID [facility] Last Admin: 09/13/17 09:49 Dose: 100 mg Enalapril Maleate (Vasotec -) 10 mg PO BID [facility] Last Admin: 09/13/17 09:49 Dose: 10 mg Enalapril Maleate (Vasotec -) 10 mg PO ONCE [facility] Last Admin: 09/13/17 11:24 Dose: 10 mg Escitalopram Oxalate (Lexapro -) 10 mg PO DAILY [facility] Last Admin: 09/13/17 09:49 Dose: 10 mg Furosemide (Lasix -) 20 mg PO DAILY [facility] Last Admin: 09/13/17 09:49 Dose: 20 mg Heparin Sodium (Porcine) (Heparin -) 5,000 unit SQ TID [facility] Last Admin: 09/13/17 07:01 Dose: 5,000 unit Levofloxacin (Levaquin 500 Mg Premixed Ivpb -) 500 mg in 100 mls @ 100 mls/hr IVPB DAILY [facility] Last Admin: 09/13/17 09:49 Dose: 100 mls/hr Insulin Aspart (Novolog Vial Sliding Scale -) 1 vial SQ ACHS SUSIE PRN Reason: Protocol Last Admin: 09/13/17 11:27 Dose: 12 units Insulin Detemir (Levemir Vial) 10 units SQ HS [facility] Last Admin: 09/12/17 22:56 Dose: 10 units Magnesium Hydroxide (Milk Of Magnesia -) 30 ml PO Q24H PRN PRN Reason: CONSTIPATION Methylprednisolone Sodium Succinate (Solu-Medrol -) 60 mg IVPUSH Q8H-IV SUSIE Last Admin: 09/13/17 09:49 Dose: 60 mg Constitutional: Yes: NAD, M. Obese Eyes: Yes: WNL HENT: Yes: WNL Neck: Yes: WNL Cardiovascular: Yes: Regular Rate and Rhythm, S1, S2 Respiratory: Yes: Diminished Gastrointestinal: Yes: Normal Bowel Sounds, Abdomen, Obese Extremities: Yes: WNL Edema: Yes Labs: Laboratory Results - last 24 hr 09/12/17 09/13/17 09/13/17 17:09 01:25 11:23 POC Glucometer 485 374 Random Glucose 417 H* Assessment/Plan Problem List - Problems (1) Anxiety Code(s): F41.9 - ANXIETY DISORDER, UNSPECIFIED (2) Hypoxia Code(s): R09.02 - HYPOXEMIA (3) Asthma Code(s): J45.909 - UNSPECIFIED ASTHMA, UNCOMPLICATED (4) DM Diabetes mellitus type 2 Code(s): E11.9 - TYPE 2 DIABETES MELLITUS WITHOUT COMPLICATIONS (5) Obesity Code(s): E66.9 - OBESITY, UNSPECIFIED (6) Hypertension Code(s): I10 - ESSENTIAL (PRIMARY) HYPERTENSION (7) Hypercholesterolemia Code(s): E78.00 - PURE HYPERCHOLESTEROLEMIA, UNSPECIFIED Assessment/Plan Acute Hypoxic and Hypercapneic Respiratory Failure Upper Respiratory Tract Infection/Acute Bronchitis vs Pneumonia Lactic Acidosis Anxiety r/o Acute Asthma Exacerbation HTN DM Hypercholesterolemia Morbid Obesity OSAS (diagnosed at [facility]: incomplete titration workup) - inhaled bronchodilators - Prednisone - Glycemic control - O2 to keep SpO2 >90% - Follow peak flow - Will need to check Pre and Post O2 saturation if patient if patient is willing - No Pulmonary contraindication for D/C Dr Sanders
--- NOTE | 2017-09-13 14:53 | DS ---
Physical Exam: HOSPITAL COURSE: Selected Entries 09/09/17 09/13/17 09/13/17 21:08 02:46 07:00 Temperature 100.5 F H Pulse Rate Respiratory Rate Blood Pressure 155/59 178/54 O2 Sat by Pulse Oximetry (%) Oxygen Delivery Method 09/13/17 10:00 Temperature 98.0 F Pulse Rate 86 Respiratory 18 Rate Blood Pressure 162/82 O2 Sat by Pulse 90 L Oximetry (%) Oxygen Delivery Room Air Method Laboratory Tests 09/09/17 09/09/17 09/09/17 22:10 22:10 22:20 WBC Hgb Hct Neutrophils % INR 1.19 H D-Dimer ABG pH ABG pCO2 at Pt Temp ABG pO2 at Pt Temp ABG HCO3 Sodium Potassium Chloride Carbon Dioxide Anion Gap BUN Creatinine Random Glucose Lactic Acid 2.3 H* Troponin I 0.02 Urine Color Urine pH Urine Protein Ur Leukocyte Esterase Urine WBC (Auto) Urine RBC (Auto) Urine Bacteria Hyaline Casts 09/09/17 09/10/17 09/10/17 23:50 07:50 07:50 WBC Hgb Hct Neutrophils % INR D-Dimer 4166 H ABG pH ABG pCO2 at Pt Temp ABG pO2 at Pt Temp ABG HCO3 Sodium Potassium Chloride Carbon Dioxide Anion Gap BUN Creatinine Random Glucose Lactic Acid 1.3 Troponin I Urine Color Ltyellow Urine pH 5.0 Urine Protein 2+ H Ur Leukocyte Esterase Trace Urine WBC (Auto) 2 Urine RBC (Auto) 1 Urine Bacteria Few Hyaline Casts 4 09/11/17 09/11/17 09/12/17 06:00 06:15 06:00 WBC 7.5 Hgb 10.1 L D Hct 31.2 L D Neutrophils % 89.5 H INR D-Dimer ABG pH 7.31 L ABG pCO2 at Pt Temp 56.4 H ABG pO2 at Pt Temp 67.2 L ABG HCO3 27.6 H Sodium 136 Potassium 4.8 Chloride 99 Carbon Dioxide 30 Anion Gap 7 L BUN 21 H Creatinine 1.2 H Random Glucose 315 H* Lactic Acid Troponin I Urine Color Urine pH Urine Protein Ur Leukocyte Esterase Urine WBC (Auto) Urine RBC (Auto) Urine Bacteria Hyaline Casts 09/13/17 01:25 WBC Hgb Hct Neutrophils % INR D-Dimer ABG pH ABG pCO2 at Pt Temp ABG pO2 at Pt Temp ABG HCO3 Sodium Potassium Chloride Carbon Dioxide Anion Gap BUN Creatinine Random Glucose 417 H* Lactic Acid Troponin I Urine Color Urine pH Urine Protein Ur Leukocyte Esterase Urine WBC (Auto) Urine RBC (Auto) Urine Bacteria Hyaline Casts Microbiology 09/13/17 01:00 Sputum - Expectorated Gram Stain - Final 09/11/17 10:10 Nasopharyngeal Swab Influenza Types A,B Antigen (CARLOTTA) - Final 09/11/17 10:10 Nasopharyngeal Swab - Final 09/09/17 23:50 Urine - Urine Clean Catch Urine Culture - Final NO GROWTH OBTAINED 09/09/17 21:07 Blood - Peripheral Venous Blood Culture - Preliminary NO GROWTH OBTAINED AFTER 72 HOURS, INCUBATION TO CONTINUE FOR 2 DAYS. 09/09/17 21:07 Blood - Peripheral Venous Blood Culture - Preliminary NO GROWTH OBTAINED AFTER 72 HOURS, INCUBATION TO CONTINUE FOR 2 DAYS. IMAGING: CXR: new central congestive changes with a more prominent heart Vascular Study: no DVT Echo: EF 60-65%, normal LV/RV Date of Admission:09/10/17 Date of Discharge: 09/13/17 57 y/o morbidly obese F with PMH HTN, HLD, DM, asthma, diverticulitis, GERD, severe anxiety, who is brought in c/o SOB x 1 day. Patient was admitted for acute hypoxic, hypercapnic respiratory failure. Patient was being treated with IV steroids and going to be transitioned to PO steroids. Patient decided this morning to leave against medical advice. Patient was explained the risks of leaving against medical advice, including but not limited to . Patient expressed understanding of those risks. Patient was sent a prednisone taper to her pharmacy as well as an increase in her enalapril to 20 mg BID. Minutes to complete discharge: 45 Discharge Summary Reason For Visit: SEPSIS HYPOXIA Condition: Stable - Instructions Diet, Activity, Other Instructions: You were in the hospital because you were having trouble breathing and your oxygen levels were low. Please follow up with your primary care provider Please follow up with your lung doctor. Continue your home medications. Increase Vasotec to 20 mg twice per day to better control your blood pressure Take prednisone in this taper 60 mg x 3 days 50 mg x 3 days 40 mg x 3 days 30 mg x 3 days 20 mg x 3 days 10 mg x 3 days STOP *If you have chest pain, shortness of breath, or any new symptoms please come back to the hospital immediately. Referrals: Sherwin Sanders MD [Staff Physician] - Disposition: AGAINST MEDICAL ADVICE - Home Medications Comprehensive Discharge Medication List: Ambulatory Orders Ascorbate Calcium [Vitamin C] 500 mg PO DAILY 05/02/14 Atorvastatin Ca [Lipitor] 40 mg PO HS 05/02/14 Calcium (Oyster Shell) [Os-Bandar 500MG -] 500 mg PO DAILY 05/02/14 Escitalopram Oxalate [Lexapro -] 10 mg PO DAILY 05/02/14 Esomeprazole Mag Trihydrate [Nexium] 40 mg PO DAILY 05/02/14 Glipizide [Glucotrol -] 10 mg PO BID 09/14/15 Cholecalciferol (Vitamin D3) [Vitamin D3 -] 1,000 unit PO DAILY 08/04/16 Oxycodone HCl [Roxicodone] 15 mg PO BID #60 tablet MDD 2 08/19/17 Albuterol 0.083% Nebulizer Sadaf [Ventolin 0.083% Nebulizer Soln -] 1 amp IN PRN 09/09/17 Clonazepam 0.5 mg PO BID PRN 09/09/17 Diphenhydramine HCl 25 mg PO HS 09/09/17 Furosemide 20 mg PO DAILY 09/09/17 Insulin Glulisine [Apidra] 100 unit SQ AC 09/09/17 Methocarbamol 750 mg PO DAILY 09/09/17 Nitrofurantoin Monohyd/M-Cryst [Macrobid -] 50 mg PO BID 09/09/17 Budesonide/Formeterol Fumarate [SYMBICORT 80/4.5mcg -] 2 puff IH BID PRN Docusate Sodium [Stool Softener] 100 mg PO DAILY PRN 09/10/17 Folic Acid 1 mg PO DAILY 09/10/17 Enalapril Maleate [Vasotec] 20 mg PO BID #60 tablet 09/13/17 Prednisone See Taper PO DAILY #63 tablet 09/13/17 This patient is new to me today: No Emergency Visit: Yes ED Registration Date: 09/10/17 Care time: The patient presented to the Emergency Department on the above date and was hospitalized for further evaluation of their emergent condition. Critical Care patient: No - Discharge Referral Referred to [facility] No
[2017-09-13] MEDS ORDERED: Insulin (LOG) Aspart 100 UNITS/ML VIAL SQ ONE (23:52)
== END 2017-09-13 14:31 | disposition left against medical advice (07) | DRG 720 ==
LOC: JER 20:52 → JERBED 09-10 01:32 → UNDOADMIN 09-10 01:46 → J4S 09-10 21:17
PROVIDERS: ADMIT Internal Medicine; ATTEND Internal Medicine
DX: A41.9 Sepsis, unspecified organism (principal); J96.01 Acute respiratory failure with hypoxia; J96.02 Acute respiratory failure with hypercapnia; E66.01 Morbid (severe) obesity due to excess calories; Z68.44 Body mass index [BMI] 60.0-69.9, adult; I10 Essential (primary) hypertension; E78.5 Hyperlipidemia, unspecified; E11.9 Type 2 diabetes mellitus without complications; K21.9 Gastro-esophageal reflux disease without esophagitis; F41.9 Anxiety disorder, unspecified; J45.909 Unspecified asthma, uncomplicated; J06.9 Acute upper respiratory infection, unspecified; E87.2 Acidosis; G47.33 Obstructive sleep apnea (adult) (pediatric); J98.11 Atelectasis
CPT/HCPCS: 36415; 36600; 71046-TC-FY; 80048; 80053; 81003; 81015; 82803; 82947; 82962; 83036; 83605; 83735; 84100; 84484; 85025; 85379; 85610; 85730; 87040; 87070; 87086; 87186; 87205; 87633; 87804; 93005; 93010; 93306-TC; 93970-TC; 94640; 97116-GP; 97161-GP; 99285-25; J1644; J7030

== ENCOUNTER 2018-05-31 15:08 | Inpatient (IN) | payer OTHER ==
--- NOTE | 2018-05-31 15:40 | PDOC ---
History of Present Illness - General Chief Complaint: Shortness of Breath Stated Complaint: SOB Time Seen by Provider: 05/31/18 15:36 - History of Present Illness Initial Comments: 58 yo morbidly obese F with a PMH of OSAS, HTN, HLD, DM, asthma, diverticulitis , GERD, severe anxiety, was BIBEMS with the CC of SOB. She received one duoneb on route to the hospital. She states that she spoke with Dr. Barbour last night , who was covering for Dr. Brito yesterday, who told her to take prednisone. She believes she is having an asthma exacerbation. She states that she is able to inhale easily but it is very hard for her to exhale. She also mentions that she has multiple ulcers on her chest and abdomen which have been seen by Dr. Yoon. She states that she has a Right sided breast infection. Her R breast is enlarged and painful to touch. She denies having a headache, blurry vision, chest pain, dysuria, frequency, urgency. PCP: Padmaja Morris Pricer: Dr. Brito Vascular: Dr. Yoon Social Hx: Denies smoking, drinking, or illicit drug usage Allergies: Methadone, morphine, Penicillin, clonazepam, tiotropium Past History - Past Medical History Allergies/Adverse Reactions: Allergies Allergy/AdvReac Type Severity Reaction Status Date / Time methadone [Methadone] Allergy Mild Nausea Verified 09/09/17 21:17 morphine Allergy Mild Itching Verified 09/09/17 21:17 Penicillins Allergy Rash Verified 09/09/17 21:17 clonazepam [From Klonopin] AdvReac Intermediate dizzy Verified 10/16/17 12:22 tiotropium AdvReac Intermediate Cough Verified 10/16/17 12:14 [From Spiriva with HandiHaler] Home Medications: Ambulatory Orders Ascorbate Calcium [Vitamin C] 500 mg PO DAILY 05/02/14 Atorvastatin Ca [Lipitor] 40 mg PO HS 05/02/14 Calcium (Oyster Shell) [Os-Bandar 500MG -] 500 mg PO DAILY 05/02/14 Escitalopram Oxalate [Lexapro -] 10 mg PO DAILY 05/02/14 Esomeprazole Mag Trihydrate [Nexium] 40 mg PO DAILY 05/02/14 Glipizide [Glucotrol -] 10 mg PO BID 09/14/15 Albuterol 0.083% Nebulizer Sadaf [Ventolin 0.083% Nebulizer Soln -] 1 amp IN PRN 09/09/17 Diphenhydramine HCl 25 mg PO HS 09/09/17 Furosemide 20 mg PO DAILY 09/09/17 Insulin Glulisine [Apidra] 100 unit SQ AC 09/09/17 Methocarbamol 750 mg PO DAILY 09/09/17 Nitrofurantoin Monohyd/M-Cryst [Macrobid -] 50 mg PO BID 09/09/17 Docusate Sodium [Stool Softener] 100 mg PO DAILY PRN 09/10/17 Folic Acid 1 mg PO DAILY 09/10/17 Enalapril Maleate [Vasotec] 20 mg PO BID #60 tablet 09/13/17 Ergocalciferol (Vitamin D2) [Vitamin D2] 4,000 unit PO DAILY 10/16/17 Bacitracin Zinc/Polymyxin B [Double Antibiotic Ointment] 28.4 gm TP BID #1 tube 01/11/18 Diclofenac Sodium [Voltaren] 2 gm TP TID PRN #3 tube 03/12/18 Nystatin Powder [Nystop Powder -] 60 gm TP BID #1 powder 04/12/18 Oxycodone HCl 15 mg PO BID PRN #60 tablet MDD 2 04/26/18 Asthma: Yes CVA: No COPD: No Dementia: No Diabetes: Yes (insulin dependent) GI Disorders: Yes (GERD, Diverticulitis) Disorders: No HTN: Yes Hypercholesterolemia: Yes Liver Disease: No Seizures: No Thyroid Disease: Yes - Surgical History Abdominal Surgery: Yes (hernia repair, colostomy placement & removal) Orthopedic Surgery: Yes (knee arthroscopy ) - Immunization History Td Vaccination: Yes TDAP Vaccination: Yes Immunization Up to Date: Yes - Suicide/Smoking/Psychosocial Hx Smoking Status: No Smoking History: Never smoked Years of Tobacco Use: 0 Have you smoked in the past 12 months: No Number of Cigarettes Smoked Daily: 0 If you are a former smoker, when did you quit?: 40 years Cigars Per Day: 0 Hx Alcohol Use: No Drug/Substance Use Hx: No Substance Use Type: None Hx Substance Use Treatment: No Review of Systems - Review of Systems Comments:: CONSTITUTIONAL: Absent: fever, chills, diaphoresis, generalized weakness, malaise, loss of appetite HEENT: Absent: rhinorrhea, nasal congestion, throat pain, throat swelling, difficulty swallowing, mouth swelling, ear pain, eye pain, visual Changes CARDIOVASCULAR: Absent: chest pain, syncope, palpitations, irregular heart rate, lightheadedness , peripheral edema RESPIRATORY: Present: Cough, SOB, wheezing Absent: dyspnea with exertion, orthopnea, stridor, hemoptysis GASTROINTESTINAL: Present: Abdominal pain Absent: abdominal distension, nausea, vomiting, diarrhea, constipation, melena, hematochezia GENITOURINARY: Absent: dysuria, frequency, urgency, hesitancy, hematuria, flank pain, genital pain MUSCULOSKELETAL: Absent: myalgia, arthralgia, joint swelling SKIN: Present: Rash Absent: itching, pallor HEMATOLOGIC/IMMUNOLOGIC: Absent: easy bleeding, easy bruising, lymphadenopathy, frequent infections ENDOCRINE: Absent: unexplained weight gain, unexplained weight loss, heat intolerance, cold intolerance NEUROLOGIC: Absent: headache, focal weakness or paresthesias, dizziness, unsteady gait, seizure, mental status changes, bladder or bowel incontinence PSYCHIATRIC: Present: Anxiety, depression Absent: suicidal or homicidal ideation, hallucinations. *Physical Exam - Physical Exam Comments: GENERAL: Patient is morbidly obese, sitting on the bed in no distress. HEENT: Normocephalic, atraumatic. PERRLA, EOMI. No conjunctival pallor. Sclera are non- icteric. Moist mucous membranes. Oropharynx is clear. NECK: Supple. Full ROM. No JVD. No lymphadenopathy. CARDIOVASCULAR: Regular rate and rhythm. No murmurs, rubs, or gallops. Distal pulses are 1+ and symmetric. PULMONARY: Diffuse expiratory wheezes bilaterally. No crackles, rales, or rhonchi. ABDOMINAL: There are scattered ulcers stage 2/3 on her abdomen. Her R breast is markedly enlarged, erythematous, and TTP. MUSCULOSKELETAL Normal range of motion at all joints. No bony deformities or tenderness. No CVA tenderness. EXTREMITIES: No cyanosis. No clubbing. No edema. No calf tenderness. SKIN: Scattered ulcers throughout her body. Warm and dry. Normal capillary refill. No jaundice. NEUROLOGICAL: Alert, awake, appropriate. Cranial nerves 2-12 intact. No deficits to light touch in face, upper extremities and lower extremities. No motor deficits in the in face, upper extremities and lower extremities. Normal speech. PSYCHIATRIC: Patient appears anxious. Cooperative. Good eye contact. ED Treatment Course - LABORATORY CBC & Chemistry Diagram: 05/31/18 16:52 05/31/18 16:52 Medical Decision Making - Medical Decision Making 58 yo morbidly obese F with a PMH of OSAS, HTN, HLD, DM, asthma, diverticulitis , GERD, severe anxiety, was BIBEMS with the CC of SOB. She also appears to have a R breast infection. DD includes but not limited to: Asthma exacerbation, OSAS, sepsis, other infection, panic attack. Plan: Cbc, Cmp, CXR, peak flow, duoneb, oxygen, EKG, continuous cardiac monitoring, re-assess. Patient has a very bad cellulitis on her abdomen. She is also experiencing an asthma exacerbation possibly secondary to her infection. Will admit to hospital and treat with IV antibiotics and asthma treatment. *DC/Admit/Observation/Transfer Diagnosis at time of Disposition: Asthma, Morbid obesity, Cellulitis - Discharge Dispostion Condition at time of disposition: Guarded Decision to Admit order: Yes - Referrals - Patient Instructions - Post Discharge Activity
[2018-05-31 15:42] VITALS: BMI 64.2
--- NOTE | 2018-05-31 15:55 | PDOC ---
Attending Attestation - HPI HPI: 05/31/18 16:59 58 yo female BIBA with a pmh of obesity, OSAS, DM, HLD, HTN, diverticulitis, GERD, severe anxiety, and asthma who presents with SOB. As per EMS, received one duoneb on route to the hospital. Patient reports difficulty exhaling, notes inhaling is easy. Denies chest pain, headache, blurry vision, dysuria, and urinary frequency/ urgency. PCP: Padmaja Morris Allergies: Methadone, morphine, Penicillin, clonazepam, tiotropium <Estephania Watts - Last Filed: 05/31/18 16:59> - Resident Resident Name: Gilbert Jones - ED Attending Attestation I have performed the following: I have examined & evaluated the patient, The case was reviewed & discussed with the resident, I agree w/resident's findings & plan, Exceptions are as noted - Physicial Exam PE: GENERAL: Awake, alert, and fully oriented, in no acute distress. Morbidly obese. HEAD: No signs of trauma EYES: PERRLA, EOMI, sclera anicteric, conjunctiva clear ENT: Auricles normal inspection, hearing grossly normal, nares patent, oropharynx clear without exudates. Moist mucosa NECK: Normal ROM, supple, no lymphadenopathy, JVD, or masses LUNGS: Distant BS, +exp wheezes B/L. Speaking full sentences. HEART: Regular rate and rhythm, normal S1 and S2, no murmurs, rubs or gallops ABDOMEN: Soft, nontender, normoactive bowel sounds. No guarding, no rebound. No masses EXTREMITIES: Normal range of motion, no edema. No clubbing or cyanosis. No cords, erythema, or tenderness NEUROLOGICAL: Cranial nerves II through XII grossly intact. Normal speech, normal gait SKIN: Warm, Dry, normal turgor. +Erythematous rash in the skin folds, with yeast -like odor. +Multiple skin ulcers to the upper abdomen, with dressing in place. +Foul odor. - Medical Decision Making Pt with asthma exacerbation, cellulitis to upper abd. Will admit. <Sandra Dennison - Last Filed: 05/31/18 18:27> Attestations - Attestations Documentation prepared by Estephania Watts, acting as medical staff director for Sandra Dennison MD. <Estephania Watts - Last Filed: 05/31/18 16:59>
[2018-05-31] MEDS ORDERED: ALBUTEROL SO4 2.5/IPRATROPIUM 0.5 INH SOL 3 ML VIAL.NEB. NEB ONE ×2 (16:12→17:34)
[2018-05-31] MEDS ORDERED: VANCOMYCIN 1,000 MG in DEXTROSE 5%-WATER - 250 ML IVPB ONE (18:17)
[2018-05-31] MEDS ORDERED: CIPROFLOXACIN 500 MG TABLET (RESTRICTED TO ID) PO ONE (18:21)
[2018-05-31 19:12] LABS: BASO % 0.3 % (0-2.0); EOS % 0.1 % (0-4.5); HEMATOCRIT 28.1 % (32.4-45.2); HEMOGLOBIN 8.4 GM/dL (10.7-15.3); MCH 22.7 pg (25.7-33.7); MEAN CELL VOLUME 75.7 fl (80-96); MONO % 5.9 % (3.8-10.2); NEUT % 85.7 % (42.8-82.8); PLATELET COUNT 333 K/MM3 (134-434); RBC 3.71 M/mm3 (3.60-5.2); WHITE BLOOD COUNT 10.1 K/mm3 (4.0-10.0)
[2018-05-31 19:46] LABS: ALBUMIN 3.1 g/dl (3.4-5.0); ALK PHOS 74 U/L (45-117); ANION GAP 11 MMOL/L (8-16); BILIRUBIN,TOTAL 0.7 mg/dL (0.2-1); BLOOD UREA NITROGEN 47 mg/dL (7-18); CHLORIDE 103 mmol/L (98-107); CO2 30 mmol/L (21-32); CREATININE 2.2 mg/dL (0.55-1.3); POTASSIUM 5.5 mmol/L (3.5-5.1); SGOT/AST 14 U/L (15-37); SGPT/ALT 14 U/L (13-61); SODIUM 143 mmol/L (136-145); TOT PROT 7.4 g/dl (6.4-8.2)
[2018-05-31 19:47] LABS: GLUCOSE,RANDOM 37 mg/dL (74-106)
[2018-05-31] MEDS ORDERED: predniSONE 20 MG TABLET (UD) ONE (19:47)
[2018-05-31] MEDS ORDERED: VANCOMYCIN 1 GRAM (PRE-DOCKED) 1,000 MG/250 ML BAG IVPB ONE (19:48)
[2018-05-31 20:06] LABS: ANISOCYTOSIS 2+
[2018-05-31] MEDS ORDERED: DOCUSATE SODIUM 100 MG CAPSULE (FP) PO PRN (20:26)
[2018-05-31] MEDS ORDERED: PATIENT'S OWN MEDICATION (NON-FORMULARY) (Diclofenac Sodium [Voltaren] 2 GM) TP PRN (20:26)
[2018-05-31] MEDS: predniSONE 20 MG TABLET (UD) PO ONE ×2 (20:26→20:32)
[2018-05-31] MEDS ORDERED: PATIENT'S OWN MEDICATION (NON-FORMULARY) (Oxycodone Hcl [Oxycodone Hcl] 15 MG) PO PRN (20:26)
[2018-05-31] MEDS ORDERED: INSULIN GLULISINE 100 UNIT SQ SCH ×2 (20:30→20:51)
--- NOTE | 2018-05-31 20:50 | HP ---
CHIEF COMPLAINT: Increasing right breast edema and pain, and SOB PCP: Padmaja Morris Cooker Tender: Dr. Brito Vascular: Dr. Yoon Breast Surgeon: Dr. Tara Long HISTORY OF PRESENT ILLNESS: 58 year old morbidly obese female with a PMH significant for IDDM, HTN, HLD, asthma, diverticulitis, and anxiety, presented to the ED with SOB and right breast enlargement and pain x 1 week. For the past several days, she has had difficulty breathing, with difficulty exhaling. She spoke with legal arbitrator Dr. Trotter yesterday who told her to take prednisone. She has also had increased swelling and pain to right breast. She is followed OP by breast surgeon Dr. Long. She has several open ulcers on her abdomen and backs of both thighs. She thinks she may have had a fever at one point over the past week. Denies SHIPLEY, dizziness, syncope, chest pain, n/v/d. Upon admission to the ED, slightly tachycardic at 92 and tachypnic at 22, O2 94% . Labs notable for slightly elevated WBC of 10.1, random glucose of 37, BUN/Cr 47/2.2, hyperkalemic 5.5. CXR unremarkable for acute process. She was given a duoneb and a dose of vancomycin and cipro. SOB improved. Recent Travel: No PAST MEDICAL HISTORY: HTN HLD DM Asthma Diverticulitis GERD Anxiety PAST SURGICAL HISTORY: Left breast biopsy Diverticulitis repair (15 yrs ago) Colostomy reversal (14 yrs ago) Umbilical hernia repair (10 yrs ago) R knee-cartilage repair Social History: Smoking:Denies Alcohol: Denies Drugs: Denies Family History: Unknown; patient is adopted Allergies methadone [Methadone] Allergy (Mild, Verified 09/09/17 21:17) Nausea morphine Allergy (Mild, Verified 09/09/17 21:17) Itching Penicillins Allergy (Verified 09/09/17 21:17) Rash clonazepam [From Klonopin] Adverse Reaction (Intermediate, Verified 10/16/17 12: 22) dizzy tiotropium [From Spiriva with HandiHaler] Adverse Reaction (Intermediate, Verified 10/16/17 12:14) Cough HOME MEDICATIONS: Home Medications Medication Instructions Recorded Ascorbate Calcium [Vitamin C] 500 mg PO DAILY 05/02/14 Atorvastatin Ca [Lipitor] 40 mg PO HS 05/02/14 Calcium (Oyster Shell) [Os-Bandar 500 mg PO DAILY 05/02/14 500MG -] Escitalopram Oxalate [Lexapro -] 10 mg PO DAILY 05/02/14 Esomeprazole Mag Trihydrate 40 mg PO DAILY 05/02/14 [Nexium] Glipizide [Glucotrol -] 10 mg PO BID 09/14/15 Albuterol 0.083% Nebulizer Sadaf 1 amp IN PRN 09/09/17 [Ventolin 0.083% Nebulizer Soln -] Diphenhydramine HCl 25 mg PO HS 09/09/17 Furosemide 20 mg PO DAILY 09/09/17 Insulin Glulisine [Apidra] 100 unit SQ AC 09/09/17 Methocarbamol 750 mg PO DAILY 09/09/17 Nitrofurantoin Monohyd/M-Cryst 50 mg PO BID 09/09/17 [Macrobid -] Docusate Sodium [Stool Softener] 100 mg PO DAILY PRN 09/10/17 Folic Acid 1 mg PO DAILY 09/10/17 Enalapril Maleate [Vasotec] 20 mg PO BID #60 tablet 09/13/17 Ergocalciferol (Vitamin D2) 4,000 unit PO DAILY 10/16/17 [Vitamin D2] Bacitracin Zinc/Polymyxin B 28.4 gm TP BID #1 tube 01/11/18 [Double Antibiotic Ointment] Diclofenac Sodium [Voltaren] 2 gm TP TID PRN #3 tube 03/12/18 Nystatin Powder [Nystop Powder -] 60 gm TP BID #1 powder 04/12/18 Oxycodone HCl 15 mg PO BID PRN #60 tablet MDD 2 04/26/18 REVIEW OF SYSTEMS CONSTITUTIONAL: Absent: fever, chills, diaphoresis, generalized weakness, malaise, loss of appetite, weight change HEENT: Absent: rhinorrhea, nasal congestion, throat pain, throat swelling, difficulty swallowing, mouth swelling, ear pain, eye pain, visual changes CARDIOVASCULAR: (+) Palpitations with prednisone, light headedness, peripheral edema Absent: chest pain, syncope, irregular heart rate RESPIRATORY: Absent: cough, shortness of breath, dyspnea with exertion, orthopnea, wheezing, stridor, hemoptysis GASTROINTESTINAL: (+) Constipation, abdominal pain from hernia Absent: Abdominal distension, nausea, vomiting, diarrhea, melena, hematochezia GENITOURINARY: (+) urinary frequency Absent: dysuria, urgency, hesitancy, hematuria, flank pain, genital pain MUSCULOSKELETAL: Absent: myalgia, arthralgia, joint swelling, back pain, neck pain SKIN: Absent: rash, itching, pallor HEMATOLOGIC/IMMUNOLOGIC: Absent: easy bleeding, easy bruising, lymphadenopathy, frequent infections ENDOCRINE: Absent: unexplained weight gain, unexplained weight loss, heat intolerance, cold intolerance NEUROLOGIC: Absent: headache, focal weakness or paresthesias, dizziness, unsteady gait, seizure, mental status changes, bladder or bowel incontinence PSYCHIATRIC: (+) Anxiety Absent: depression, suicidal or homicidal ideation, hallucinations. PHYSICAL EXAMINATION Vital Signs - 24 hr 05/31/18 15:36 Temperature 97.3 F L Pulse Rate 92 H Respiratory 22 H Rate Blood Pressure 118/75 O2 Sat by Pulse 94 L Oximetry (%) GENERAL: Morbidly obese, malodorous, awake, alert, and fully oriented, in no acute distress. HEAD: Normal with no signs of trauma. EYES: Pupils equal, round and reactive to light, extraocular movements intact, sclera anicteric, conjunctiva clear. No lid lag. EARS, NOSE, THROAT: Nares patent, oropharynx clear without exudates. Moist mucous membranes. NECK: Normal range of motion, supple without lymphadenopathy, JVD, or masses. LUNGS: Expiratory wheeze, no accessory muscle use. HEART: Regular rate and rhythm, normal S1 and S2 without murmur, rub or gallop. ABDOMEN: Obese, Soft, nontender, not distended, normoactive bowel sounds, no guarding, no rebound, no masses. No hepatomegaly or splenomegaly. Breasts: Large pendulous breasts, R>L TTP, no discharge to nipples MUSCULOSKELETAL: Normal range of motion at all joints. No bony deformities or tenderness. No CVA tenderness. UPPER EXTREMITIES: 2+ pulses, warm, well-perfused. No cyanosis. No clubbing. No peripheral edema. LOWER EXTREMITIES: 2+ pulses, warm, well-perfused. No calf tenderness. +1 edema to b/l LE NEUROLOGICAL: No facial droop, tongue midline, normal speech. . PSYCHIATRIC: Cooperative. Good eye contact. Appropriate mood and affect. SKIN: To upper abdomen between breasts, scant purulent drainage on gauze. Laboratory Results - last 24 hr 05/31/18 05/31/18 05/31/18 16:52 16:52 18:43 WBC 8.9 RBC 3.88 Hgb 11.8 Hct 34.5 MCV 88.9 MCH 30.3 D MCHC 34.1 RDW 16.4 H Plt Count 271 MPV 7.7 Absolute Neuts (auto) 6.3 Neutrophils % 70.6 D Lymphocytes % 21.0 D Monocytes % 7.1 D Eosinophils % 1.0 D Basophils % 0.3 Nucleated RBC % 0 Hypochromia Anisocytosis Sodium Cancelled 143 Potassium Cancelled 5.5 H Chloride Cancelled 103 Carbon Dioxide Cancelled 30 Anion Gap Cancelled 11 BUN Cancelled 47 H Creatinine Cancelled 2.2 H Creat Clearance w eGFR Cancelled 22.85 Random Glucose Cancelled 37 L* Calcium Cancelled 9.0 Total Bilirubin Cancelled 0.7 AST Cancelled 14 L ALT Cancelled 14 Alkaline Phosphatase Cancelled 74 Total Protein Cancelled 7.4 Albumin Cancelled 3.1 L 05/31/18 18:43 WBC 10.1 H RBC 3.71 Hgb 8.4 L Hct 28.1 L D MCV 75.7 L MCH 22.7 L MCHC 30.0 L RDW 21.0 H Plt Count 333 D MPV 8.0 Absolute Neuts (auto) 8.6 H Neutrophils % 85.7 H D Lymphocytes % 8.0 D Monocytes % 5.9 Eosinophils % 0.1 D Basophils % 0.3 Nucleated RBC % 0 Hypochromia 1+ Anisocytosis 2+ Sodium Potassium Chloride Carbon Dioxide Anion Gap BUN Creatinine Creat Clearance w eGFR Random Glucose Calcium Total Bilirubin AST ALT Alkaline Phosphatase Total Protein Albumin ASSESSMENT/PLAN: 58 year old morbidly obese female with a PMH significant for IDDM, HTN, HLD, asthma, and anxiety, presented to the ED with right breast enlargement and pain x 1 week. She was started on IV antibiotics. Breast Cellulitis - Given dose of Cipro 500 mg PO and Vancomycin 1 G in the ED - Followed by breast surgeon DR. Tara Long, consult ordered - ID consult ordered DM - Glipizide 10 mg PO BID - Insulin Glulisine [Apidra] 100 unit SQ AC - Patient reports Novolog does not work on her and she refuses to take it , she brought an unopened bottle from home - Ulcers - Wound consult ordered with Dr. Yoon - Daily wound care with bacitracin/polymixin B ointment BID and DPD - Recurrent UTIs - Nitrofurantoin 50 mg PO BID HTN - Furosemide 20 mg PO DAILY - Enalapril 20 mg PO BID HLD - Atorvastatin Ca 40 mg PO HS Asthma - Albuterol Nebs PRN Anxiety - Escitalopram 10 mg PO DAILY Morbid Obesity - BMI > 40 - Consider dietary consult - Pain management - Methocarbamol 750 mg PO DAILY - Oxycodone HCl 15 mg PO BID PRN Fungal Rash - Nystatin powder under breasts, abdominal folds, and thigh folds BID Constipation - Docusate Sodium 100 mg PO DAILY PRN Insomnia - Diphenhydramine HCl 25 mg PO HS Supplement - Ascorbate Calcium 500 mg PO DAILY - Calcium (Oyster Shell) 500 mg PO DAILY - Folic Acid 1 mg PO DAILY - Ergocalciferol (Vitamin D2) 4,000 unit PO DAILY Prophylaxis DVT: Heparin SQ GI: Protonix 40 mg PO qday FEN - PO intake adequate - Replete as needed - Diabetic, low sodium, low cholesterol diet Disp: Patient requires further inpatient treatment. Visit type - Emergency Visit Emergency Visit: Yes ED Registration Date: 05/31/18 Care time: The patient presented to the Emergency Department on the above date and was hospitalized for further evaluation of their emergent condition. - New Patient This patient is new to me today: Yes Date on this admission: 06/01/18 - Critical Care Critical Care patient: No
[2018-05-31] MEDS ORDERED: METHYL SALICYLATE/MENTHOL OINT 30 GM TUBE TP PRN (20:58)
[2018-05-31] MEDS ORDERED: LORazepam 2 MG/ML SDV VIAL IVPUSH ONE (22:30)
[2018-05-31] MEDS: NYSTATIN POWDER 100,000 UNITS/GM - 15 GM TOPICAL POWDER TP SCH (22:58)
[2018-05-31] MEDS: BACITRACIN/POLYMYXIN B SULFATE 15 GM TUBE TP SCH (22:58)
[2018-05-31] MEDS: glipiZIDE 10 MG TABLET (FP) PO SCH (22:59)
[2018-05-31] MEDS ORDERED: ATORVASTATIN CA 40 MG TABLET (FP) ONE (23:00)
[2018-05-31] MEDS ORDERED: NITROFURANTOIN MACROCRYSTAL 50 MG CAPSULE (FP) ONE (23:02)
[2018-05-31] MEDS ORDERED: LORazepam 2 MG/ML SDV VIAL ONE (23:02)
[2018-05-31] MEDS ORDERED: diphenhydrAMINE HCL 25 MG CAPSULE (FP) PO ONE (23:02)
[2018-05-31] MEDS: diphenhydrAMINE HCL 25 MG CAPSULE (FP) PO SCH (23:07)
[2018-05-31] MEDS: ATORVASTATIN CA 40 MG TABLET (FP) PO SCH (23:08)
[2018-05-31] MEDS: ENALAPRIL MALEATE 10 MG TABLET (FP) PO SCH (23:08)
[2018-05-31] MEDS: NITROFURANTOIN MACROCRYSTAL 50 MG CAPSULE (FP) PO SCH (23:08)
[2018-06-01] MEDS ORDERED: HEPARIN NA (PORCINE) 5,000 UNITS/ML 1ML VIAL ONE (01:52)
[2018-06-01] MEDS: HEPARIN NA (PORCINE) 5,000 UNITS/ML 1ML VIAL SQ SCH ×3 (02:16→18:22)
[2018-06-01 04:53] LABS: URINE APPEARANCE CLEAR; URINE BILIRUBIN NEGATIVE (<2.0 mg/dL); URINE COLOR YELLOW; URINE GLUCOSE (UA) NEGATIVE (NEGATIVE); URINE KETONE NEGATIVE (NEGATIVE); URINE LEUK ESTERASE 1+ (NEGATIVE); URINE NITRITE NEGATIVE (NEGATIVE); URINE PROTEIN NEGATIVE (NEGATIVE); URINE UROBILINOGEN NEGATIVE mg/dL (0.2-1.0)
[2018-06-01 05:26] LABS: EPI CELLS FEW /HPF (FEW); URINE BACTERIA FEW /hpf (NONE SEEN); URINE HYALINE CAST 37 /lpf; URINE MUCUS RARE
[2018-06-01] MEDS ORDERED: CIPROFLOXACIN 500 MG TABLET (RESTRICTED TO ID) PO ONE (06:00)
[2018-06-01 06:24] LABS: HEMOGLOBIN 7.5 GM/dL (10.7-15.3); MCH 21.9 pg (25.7-33.7); MCHC 28.8 g/dl (32.0-36.0); MEAN CELL VOLUME 76.2 fl (80-96); MEAN PLT VOLUME 7.8 fl (7.5-11.1); PLATELET COUNT 271 K/MM3 (134-434); RBC 3.41 M/mm3 (3.60-5.2); WHITE BLOOD COUNT 9.2 K/mm3 (4.0-10.0)
[2018-06-01] MEDS ORDERED: INSULIN SLIDING SCALE (NOVOLOG) 1 VIAL SQ SCH (07:00)
[2018-06-01 07:20] LABS: ANION GAP 7 MMOL/L (8-16); BLOOD UREA NITROGEN 48 mg/dL (7-18); CALCIUM 8.3 mg/dL (8.5-10.1); CHLORIDE 101 mmol/L (98-107); CO2 31 mmol/L (21-32); CREATININE 2.1 mg/dL (0.55-1.3); GLUCOSE,RANDOM 100 mg/dL (74-106); MAGNESIUM 2.2 mg/dL (1.8-2.4); POTASSIUM 4.8 mmol/L (3.5-5.1); SODIUM 139 mmol/L (136-145)
[2018-06-01] MEDS: glipiZIDE 10 MG TABLET (FP) PO SCH (07:28)
[2018-06-01] MEDS ORDERED: ALBUTEROL SO4 0.083% IH SOL 2.5 MG/3 ML VIAL.NEB. NEB ONE ×2 (09:13→19:13)
[2018-06-01] MEDS: ALBUTEROL SO4 0.083% IH SOL 2.5 MG/3 ML VIAL.NEB. NEB PRN ×2 (09:15→23:27)
[2018-06-01] MEDS ORDERED: MAGNESIUM SULF 50% (8.12 MEQ/2 ML-1 GM VIAL) IVPB ONE (09:54)
[2018-06-01] MEDS: FUROSEMIDE 20 MG TABLET (FP) PO SCH (10:06)
[2018-06-01] MEDS: FOLIC ACID 1 MG TABLET (FP) PO SCH (10:06)
[2018-06-01] MEDS: ESCITALOPRAM OXALATE 10 MG TABLET (FP) PO SCH (10:06)
[2018-06-01] MEDS: CALCIUM (OYSTER SHELL) 500 MG TABLET (FP) PO SCH (10:07)
[2018-06-01] MEDS: METHOCARBAMOL 500 MG TABLET PO SCH (10:07)
[2018-06-01] MEDS: ENALAPRIL MALEATE 10 MG TABLET (FP) PO SCH ×2 (10:07→21:26)
[2018-06-01] MEDS: ASCORBIC ACID 500 MG TABLET (FP) PO SCH (10:07)
[2018-06-01] MEDS: PANTOPRAZOLE 40 MG TABLET (FP) PO SCH (10:07)
[2018-06-01] MEDS: NITROFURANTOIN MACROCRYSTAL 50 MG CAPSULE (FP) PO SCH ×2 (10:07→21:27)
[2018-06-01] MEDS: CHOLECALCIFEROL (VITAMIN D3) 1,000 UNIT TABLET (FP) PO SCH (10:08)
[2018-06-01] MEDS ORDERED: oxyCODONE HCL 5 MG TABLET ONE (10:10)
[2018-06-01] MEDS: oxyCODONE HCL 5 MG TABLET PO PRN (10:11)
[2018-06-01] MEDS: NYSTATIN POWDER 100,000 UNITS/GM - 15 GM TOPICAL POWDER TP SCH ×2 (10:18→21:34)
[2018-06-01] MEDS: BACITRACIN/POLYMYXIN B SULFATE 15 GM TUBE TP SCH ×2 (10:19→21:35)
--- NOTE | 2018-06-01 10:22 | CONSULT ---
- Consultation REQUESTING PROVIDER: CONSULT REQUEST: We have been asked to surgically evaluate this patient for multiple pressure wounds PCP:Allan Dickey MD HISTORY OF PRESENT ILLNESS: 58yo F was admitted to the ED for concerns of cellulitis and infected multiple ulcers. Pt states that she has been having multiple ulcers around her body on and off for about a year. Pt states that she does not really see a wound care doctor "as nothing they do really helps". Pt states that she is ambulatory with a walker and lives at home. Pt denies tobacco use, states her DM is well controlled. PMHx: HTN, HLD, DM, Asthma, GERD PSHx: Ex-lap perforated diverticulitis, colostomy reversal, abd hernia repair Home Medications Medication Instructions Recorded Ascorbate Calcium [Vitamin C] 500 mg PO DAILY 05/02/14 Atorvastatin Ca [Lipitor] 40 mg PO HS 05/02/14 Calcium (Oyster Shell) [Os-Bandar 500 mg PO DAILY 05/02/14 500MG -] Escitalopram Oxalate [Lexapro -] 10 mg PO DAILY 05/02/14 Esomeprazole Mag Trihydrate 40 mg PO DAILY 05/02/14 [Nexium] Glipizide [Glucotrol -] 10 mg PO BID 09/14/15 Albuterol 0.083% Nebulizer Sadaf 1 amp IN PRN 09/09/17 [Ventolin 0.083% Nebulizer Soln -] Diphenhydramine HCl 25 mg PO HS 09/09/17 Furosemide 20 mg PO DAILY 09/09/17 Insulin Glulisine [Apidra] 100 unit SQ AC 09/09/17 Methocarbamol 750 mg PO DAILY 09/09/17 Nitrofurantoin Monohyd/M-Cryst 50 mg PO BID 09/09/17 [Macrobid -] Docusate Sodium [Stool Softener] 100 mg PO DAILY PRN 09/10/17 Folic Acid 1 mg PO DAILY 09/10/17 Enalapril Maleate [Vasotec] 20 mg PO BID #60 tablet 09/13/17 Ergocalciferol (Vitamin D2) 4,000 unit PO DAILY 10/16/17 [Vitamin D2] Bacitracin Zinc/Polymyxin B 28.4 gm TP BID #1 tube 01/11/18 [Double Antibiotic Ointment] Diclofenac Sodium [Voltaren] 2 gm TP TID PRN #3 tube 03/12/18 Nystatin Powder [Nystop Powder -] 60 gm TP BID #1 powder 04/12/18 Oxycodone HCl 15 mg PO BID PRN #60 tablet MDD 2 04/26/18 Allergies Allergy/AdvReac Type Severity Reaction Status Date / Time methadone [Methadone] Allergy Mild Nausea Verified 09/09/17 21:17 morphine Allergy Mild Itching Verified 09/09/17 21:17 Penicillins Allergy Rash Verified 09/09/17 21:17 clonazepam [From Klonopin] AdvReac Intermediate dizzy Verified 10/16/17 12:22 tiotropium AdvReac Intermediate Cough Verified 10/16/17 12:14 [From Spiriva with HandiHaler] PHYSICAL EXAM: GENERAL: Awake, alert, and fully oriented, in no acute distress. Morbidly obese HEAD: Normal with no signs of trauma. EYES: PERRL, sclera anicteric, conjunctiva clear. NECK: Normal ROM HEART: Regular rate and rhythm. ABDOMEN: Soft, nontender, not distended, normoactive bowel sounds, no guarding, no rebound, no masses. No organomegaly. MUSCULOSKELETAL: Normal ROM at all joints. No bony deformities or tenderness. NEUROLOGICAL: Normal speech, gait not observed. LOWER EXTREMITIES: 2+ pulses, warm, well-perfused. No calf tenderness. +1 edema to b/l LE PSYCH: Cooperative. Good eye contact. Appropriate mood and affect. SKIN: Multiple ulcers noted throughout body as follows: Epigastic shows 7 cm x 4 cm ulcer with fibrinous tissue serous drainage noted, Left inframammary fold 1 cm ulcer, Left back 1 cm ulcer, Right buttock/inner thigh three 8cm ulcers, Left buttock/inner thigh 1 cm ulcer. No erythema Vital Signs Temperature 98.2 F 05/31/18 23:09 Pulse Rate 75 06/01/18 02:44 Respiratory Rate 20 06/01/18 02:44 Blood Pressure 122/70 06/01/18 02:44 O2 Sat by Pulse Oximetry (%) 97 06/01/18 02:44 Lab Results WBC 9.2 K/mm3 (4.0-10.0) 06/01/18 05:20 RBC 3.41 M/mm3 (3.60-5.2) L 06/01/18 05:20 Hgb 7.5 GM/dL (10.7-15.3) L 06/01/18 05:20 Hct 26.0 % (32.4-45.2) L 06/01/18 05:20 MCV 76.2 fl (80-96) L 06/01/18 05:20 MCHC 28.8 g/dl (32.0-36.0) L 06/01/18 05:20 RDW 21.0 % (11.6-15.6) H 06/01/18 05:20 Plt Count 271 K/MM3 (134-434) 06/01/18 05:20 Sodium 139 mmol/L (136-145) 06/01/18 05:20 Potassium 4.8 mmol/L (3.5-5.1) 06/01/18 05:20 Chloride 101 mmol/L (98-107) 06/01/18 05:20 Carbon Dioxide 31 mmol/L (21-32) 06/01/18 05:20 Anion Gap 7 MMOL/L (8-16) L 06/01/18 05:20 BUN 48 mg/dL (7-18) H 06/01/18 05:20 Creatinine 2.1 mg/dL (0.55-1.3) H 06/01/18 05:20 Random Glucose 100 mg/dL (74-106) 06/01/18 05:20 Calcium 8.3 mg/dL (8.5-10.1) L 06/01/18 05:20 Problem List - Problems (1) Pressure ulcer Assessment/Plan: Plan -santyl and daily dressing change to abd wound, bacitracin to other smaller ulcers, nystatin powder between folds -follow up with wound care clinic as out patient -consider Bariatric consult with Dr. Abarca, as wound healing will be very difficult with current weight. -please reconsult if any changes. Case discussed with Dr. Yoon who agrees with plan. Code(s): L89.90 - PRESSURE ULCER OF UNSPECIFIED SITE, UNSPECIFIED STAGE
[2018-06-01] MEDS ORDERED: MAGNESIUM SULF 50% (8.12 MEQ/2 ML-1 GM VIAL) ONE (10:23)
[2018-06-01 10:32] LABS: BASO % 0.5 % (0-2.0); EOS % 1.4 % (0-4.5); HEMATOCRIT 26.9 % (32.4-45.2); MCH 22.6 pg (25.7-33.7); MCHC 29.8 g/dl (32.0-36.0); MEAN CELL VOLUME 75.9 fl (80-96); MEAN PLT VOLUME 7.8 fl (7.5-11.1); NEUT % 82.1 % (42.8-82.8); PLATELET COUNT 302 K/MM3 (134-434); RBC 3.55 M/mm3 (3.60-5.2); RETICULOCYTES 2.82 % (0.5-1.5); WHITE BLOOD COUNT 8.4 K/mm3 (4.0-10.0)
[2018-06-01 11:08] LABS: ARTERIAL BLD GAS O2 SATURATION 90.3 % (90-98.9); ARTERIAL BLOOD GAS BASE EXCESS 3.3 meq/l (-2-2); ARTERIAL BLOOD GAS PCO2 58.3 mmHg (35-45); ARTERIAL BLOOD GAS PO2 68.5 mmHg (80-100); ARTERIAL BLOOD GAS pH 7.32 (7.35-7.45)
--- NOTE | 2018-06-01 11:26 | CON.PULM ---
Consult Consult Specialty:: PULMONARY Referred by:: NATE Ambrosio - History of Present Illness Chief Complaint: shortness of breath History of Present Illness: 58yo female with h/o HTN, DM, hyperlipidemia, asthma, morbid obesity who presents with worsening shortness of breath x 3 days. Denies chest pain or discomfort. No cough but with some wheezing. No fevers but with chills. Reports increasing swelling and pain on her right breast. Was instructed to take her back up prednisone which helped temporarily but then the breathing got worse again. She is a nonsmoker, compliant with her inhalers. - History Source History Provided By: Patient, Medical Record Limitations to Obtaining History: No Limitations - Past Medical History Cardio/Vascular: Yes: HTN, Hyperlipdemia Gastrointestinal: Yes: GERD Endocrine: Yes: Diabetes Mellitus - Alcohol/Substance Use Hx Alcohol Use: No - Smoking History Smoking history: Never smoked Have you smoked in the past 12 months: No Aproximately how many cigarettes per day: 0 If you are a former smoker, when did you quit?: 40 years - Social History Usual Living Arrangement: With Significant Other Home Medications - Allergies Allergies/Adverse Reactions: Allergies Allergy/AdvReac Type Severity Reaction Status Date / Time methadone [Methadone] Allergy Mild Nausea Verified 09/09/17 21:17 morphine Allergy Mild Itching Verified 09/09/17 21:17 Penicillins Allergy Rash Verified 09/09/17 21:17 clonazepam [From Klonopin] AdvReac Intermediate dizzy Verified 10/16/17 12:22 tiotropium AdvReac Intermediate Cough Verified 10/16/17 12:14 [From Spiriva with HandiHaler] - Home Medications Home Medications: Ambulatory Orders Ascorbate Calcium [Vitamin C] 500 mg PO DAILY 05/02/14 Atorvastatin Ca [Lipitor] 40 mg PO HS 05/02/14 Calcium (Oyster Shell) [Os-Bandar 500MG -] 500 mg PO DAILY 05/02/14 Escitalopram Oxalate [Lexapro -] 10 mg PO DAILY 05/02/14 Esomeprazole Mag Trihydrate [Nexium] 40 mg PO DAILY 05/02/14 Glipizide [Glucotrol -] 10 mg PO BID 09/14/15 Albuterol 0.083% Nebulizer Sadaf [Ventolin 0.083% Nebulizer Soln -] 1 amp IN PRN 09/09/17 Diphenhydramine HCl 25 mg PO HS 09/09/17 Furosemide 20 mg PO DAILY 09/09/17 Insulin Glulisine [Apidra] 100 unit SQ AC 09/09/17 Methocarbamol 750 mg PO DAILY 09/09/17 Nitrofurantoin Monohyd/M-Cryst [Macrobid -] 50 mg PO BID 09/09/17 Docusate Sodium [Stool Softener] 100 mg PO DAILY PRN 09/10/17 Folic Acid 1 mg PO DAILY 09/10/17 Enalapril Maleate [Vasotec] 20 mg PO BID #60 tablet 09/13/17 Ergocalciferol (Vitamin D2) [Vitamin D2] 4,000 unit PO DAILY 10/16/17 Bacitracin Zinc/Polymyxin B [Double Antibiotic Ointment] 28.4 gm TP BID #1 tube 01/11/18 Diclofenac Sodium [Voltaren] 2 gm TP TID PRN #3 tube 03/12/18 Nystatin Powder [Nystop Powder -] 60 gm TP BID #1 powder 04/12/18 Oxycodone HCl 15 mg PO BID PRN #60 tablet MDD 2 04/26/18 Family Disease History - Family Disease History Family Disease History: Other: Father (does not know - adopted), Mother (does not know - adopted) Review of Systems - Review of Systems Constitutional: reports: Chills, Weakness. denies: Fever Eyes: denies: Recent Change in Vision HENT: denies: Nasal Congestion, Throat Pain Neck: denies: Stiffness, Tenderness Cardiovascular: reports: Edema, Shortness of Breath. denies: Chest Pain, Palpitations Respiratory: reports: Exercise Intolerance, SOB on Exertion, Wheezing. denies: Cough, Hemoptysis Gastrointestinal: denies: Abdominal Pain, Nausea, Vomiting Genitourinary: denies: Dysuria, Hematuria Neurological: denies: Dizziness, Headache Physical Exam Vital Sings: Vital Signs Temperature 98.2 F 05/31/18 23:09 Pulse Rate 75 06/01/18 02:44 Respiratory Rate 20 06/01/18 02:44 Blood Pressure 122/70 06/01/18 02:44 O2 Sat by Pulse Oximetry (%) 97 06/01/18 02:44 Constitutional: Yes: Calm Eyes: Yes: Conjunctiva Clear, EOM Intact HENT: Yes: Atraumatic, Normocephalic Neck: Yes: Supple, Trachea Midline Cardiovascular: Yes: Regular Rate and Rhythm Respiratory: Yes: Diminished (distant breath sounds) ...Clubbing: No Gastrointestinal: Yes: Normal Bowel Sounds, Soft, Abdomen, Obese. No: Tenderness Edema: Yes Labs: CBC, BMP 06/01/18 10:20 06/01/18 05:20 Imaging - Results Chest X-ray: Report Reviewed, Image Reviewed (pulmonary vascular congestion) Problem List - Problems (1) Cellulitis Code(s): L03.90 - CELLULITIS, UNSPECIFIED (2) Asthma Code(s): J45.909 - UNSPECIFIED ASTHMA, UNCOMPLICATED (3) DM Diabetes mellitus type 2 Code(s): E11.9 - TYPE 2 DIABETES MELLITUS WITHOUT COMPLICATIONS (4) Hypercholesterolemia Code(s): E78.00 - PURE HYPERCHOLESTEROLEMIA, UNSPECIFIED (5) Hypertension Code(s): I10 - ESSENTIAL (PRIMARY) HYPERTENSION Assessment/Plan Right Breast Cellulitis r/o UTI Sepsis Acute Kidney Injury Asthma HTN DM Hyperlipidemia Morbid Obesity - antibiotics - f/u cultures - consider breast ultrasound - IVF - monitor urine output, creatinine - inhaled bronchodilators - O2 to keep SpO2 >90% - monitor off systemic steroids at this time - when ready for discharge, check ambulatory SpO2 on room air to assess for home O2 and ABG to assess for home NIPPV - DVT prophylaxis
[2018-06-01 11:30] LABS: ALLENS TEST POSITIVE
[2018-06-01] MEDS ORDERED: HEMOQUE TEST 1 EACH EACH ONE (12:42)
--- NOTE | 2018-06-01 12:58 | PN ---
Physical Exam: SUBJECTIVE: Patient seen and examined; SOB improved. Consults noted. Monitoring off abx and off systemic steroids (pending ID consultation but I do not believe she looks actuely infected and if she is she is not septic so slight delay wouldn't harm patient). Breast US pending. She tells me that she has had several sleep studies in the past and she should be on BiPap qHS but has had issues with access due to insurance reasons. She is hemodynamically stable and afebrile. Some breast pain but it is slightly improved and not bothering her much at rest. OBJECTIVE: Vital Signs Period Temp Pulse Resp BP Sys/Lindsey Pulse Ox Last 24 Hr 97.3 F-98.2 F 75-92 20-22 116-122/62-75 92-97 GENERAL: The patient is awake, alert, and fully oriented, in no acute distress. Morbidly obese HEAD: Normal with no signs of trauma. EYES: PERRL, extraocular movements intact, sclera anicteric, conjunctiva clear. No ptosis. ENT: Ears normal, nares patent, oropharynx clear without exudates NECK: Trachea midline, full range of motion, supple. LUNGS: Potential wheezes but greatly limited assessment with her habitus. Sym expansion HEART: Regular rate and rhythm, S1, S2 without murmur, rub or gallop. ABDOMEN: Soft, nontender, nondistended, normoactive bowel sounds, no guarding Breast: ER [employer] (d/w Dr. John); R-breast without signs of infection that is painful to palpate on the lower aspect. EXTREMITIES: 2+ pulses, warm, well-perfused, no edema. NEUROLOGICAL: Cranial nerves II through XII grossly intact. Normal speech PSYCH: Normal mood, normal affect. SKIN: Warm, dry, normal turgor, no rashes or lesions noted Laboratory Results - last 24 hr 05/31/18 05/31/18 05/31/18 04:05 16:52 16:52 WBC 8.9 RBC 3.88 Hgb 11.8 Hct 34.5 MCV 88.9 MCH 30.3 D MCHC 34.1 RDW 16.4 H Plt Count 271 MPV 7.7 Absolute Neuts (auto) 6.3 Neutrophils % 70.6 D Lymphocytes % 21.0 D Monocytes % 7.1 D Eosinophils % 1.0 D Basophils % 0.3 Nucleated RBC % 0 Hypochromia Anisocytosis Retic Count Anticoagulation Therapy Puncture Site ABG pH ABG pCO2 at Pt Temp ABG pO2 at Pt Temp ABG HCO3 ABG O2 Sat (Measured) ABG O2 Content ABG Base Excess Luisito Test O2 Delivery Device Oxygen Flow Rate Vent Mode Vent Rate Mechanical Rate Pressure Support Vent Sodium Cancelled Potassium Cancelled Chloride Cancelled Carbon Dioxide Cancelled Anion Gap Cancelled BUN Cancelled Creatinine Cancelled Creat Clearance w eGFR Cancelled POC Glucometer Random Glucose Cancelled Calcium Cancelled Magnesium Ferritin Total Bilirubin Cancelled AST Cancelled ALT Cancelled Alkaline Phosphatase Cancelled Total Protein Cancelled Albumin Cancelled Urine Color Yellow Urine Appearance Clear Urine pH 5.0 Ur Specific [place] 1.017 Urine Protein Negative Urine Glucose (UA) Negative Urine Ketones Negative Urine Blood Negative Urine Nitrite Negative Urine Bilirubin Negative Urine Urobilinogen Negative Ur Leukocyte Esterase 1+ H Urine WBC (Auto) 7 Urine RBC (Auto) 2 Ur Epithelial Cells Few Urine Bacteria Few Hyaline Casts 37 Urine Mucus Rare 05/31/18 05/31/18 05/31/18 18:43 18:43 21:11 WBC 10.1 H RBC 3.71 Hgb 8.4 L Hct 28.1 L D MCV 75.7 L MCH 22.7 L MCHC 30.0 L RDW 21.0 H Plt Count 333 D MPV 8.0 Absolute Neuts (auto) 8.6 H Neutrophils % 85.7 H D Lymphocytes % 8.0 D Monocytes % 5.9 Eosinophils % 0.1 D Basophils % 0.3 Nucleated RBC % 0 Hypochromia 1+ Anisocytosis 2+ Retic Count Anticoagulation Therapy Puncture Site ABG pH ABG pCO2 at Pt Temp ABG pO2 at Pt Temp ABG HCO3 ABG O2 Sat (Measured) ABG O2 Content ABG Base Excess Luisito Test O2 Delivery Device Oxygen Flow Rate Vent Mode Vent Rate Mechanical Rate Pressure Support Vent Sodium 143 Potassium 5.5 H Chloride 103 Carbon Dioxide 30 Anion Gap 11 BUN 47 H Creatinine 2.2 H Creat Clearance w eGFR 22.85 POC Glucometer [phone] Random Glucose 37 L* Calcium 9.0 Magnesium Ferritin Total Bilirubin 0.7 AST 14 L ALT 14 Alkaline Phosphatase 74 Total Protein 7.4 Albumin 3.1 L Urine Color Urine Appearance Urine pH Ur Specific [place] Urine Protein Urine Glucose (UA) Urine Ketones Urine Blood Urine Nitrite Urine Bilirubin Urine Urobilinogen Ur Leukocyte Esterase Urine WBC (Auto) Urine RBC (Auto) Ur Epithelial Cells Urine Bacteria Hyaline Casts Urine Mucus 06/01/18 06/01/18 06/01/18 05:20 05:20 10:20 WBC 9.2 8.4 RBC 3.41 L 3.55 L Hgb 7.5 L 8.0 L Hct 26.0 L 26.9 L MCV 76.2 L 75.9 L MCH 21.9 L 22.6 L MCHC 28.8 L 29.8 L RDW 21.0 H 21.0 H Plt Count 271 302 MPV 7.8 7.8 Absolute Neuts (auto) 6.9 Neutrophils % 82.1 Lymphocytes % 10.0 D Monocytes % 6.0 Eosinophils % 1.4 D Basophils % 0.5 Nucleated RBC % 0 Hypochromia Anisocytosis Retic Count 2.82 H Anticoagulation Therapy Puncture Site ABG pH ABG pCO2 at Pt Temp ABG pO2 at Pt Temp ABG HCO3 ABG O2 Sat (Measured) ABG O2 Content ABG Base Excess Luisito Test O2 Delivery Device Oxygen Flow Rate Vent Mode Vent Rate Mechanical Rate Pressure Support Vent Sodium 139 Potassium 4.8 Chloride 101 Carbon Dioxide 31 Anion Gap 7 L BUN 48 H Creatinine 2.1 H Creat Clearance w eGFR 24.11 POC Glucometer Random Glucose 100 Calcium 8.3 L Magnesium 2.2 Ferritin Total Bilirubin AST ALT Alkaline Phosphatase Total Protein Albumin Urine Color Urine Appearance Urine pH Ur Specific [place] Urine Protein Urine Glucose (UA) Urine Ketones Urine Blood Urine Nitrite Urine Bilirubin Urine Urobilinogen Ur Leukocyte Esterase Urine WBC (Auto) Urine RBC (Auto) Ur Epithelial Cells Urine Bacteria Hyaline Casts Urine Mucus 06/01/18 06/01/18 10:20 10:36 WBC RBC Hgb Hct MCV MCH MCHC RDW Plt Count MPV Absolute Neuts (auto) Neutrophils % Lymphocytes % Monocytes % Eosinophils % Basophils % Nucleated RBC % Hypochromia Anisocytosis Retic Count Anticoagulation Therapy No Result Required. Puncture Site Right radial ABG pH 7.32 L ABG pCO2 at Pt Temp 58.3 H ABG pO2 at Pt Temp 68.5 L ABG HCO3 29.3 H ABG O2 Sat (Measured) 90.3 ABG O2 Content 9.4 L* ABG Base Excess 3.3 H Luisito Test Positive O2 Delivery Device Nasal cannula Oxygen Flow Rate 3l Vent Mode No Result Required. Vent Rate No Result Required. Mechanical Rate No Result Required. Pressure Support Vent No Result Required. Sodium Potassium Chloride Carbon Dioxide Anion Gap BUN Creatinine Creat Clearance w eGFR POC Glucometer Random Glucose Calcium Magnesium Ferritin 12.9 Total Bilirubin AST ALT Alkaline Phosphatase Total Protein Albumin Urine Color Urine Appearance Urine pH Ur Specific [place] Urine Protein Urine Glucose (UA) Urine Ketones Urine Blood Urine Nitrite Urine Bilirubin Urine Urobilinogen Ur Leukocyte Esterase Urine WBC (Auto) Urine RBC (Auto) Ur Epithelial Cells Urine Bacteria Hyaline Casts Urine Mucus Active Medications Generic Name Dose Route Start Last Admin Trade Name Freq PRN Reason Stop Dose Admin Albuterol Sulfate 1 amp 05/31/18 20:26 06/01/18 09:15 Ventolin 0.083% Nebulizer Soln - NEB 1 amp Q4H PRN Administration SHORTNESS OF BREATH Ascorbic Acid 500 mg 06/01/18 10:00 06/01/18 10:07 Vitamin C - PO 500 mg DAILY SUSIE Administration Atorvastatin Calcium 40 mg 05/31/18 22:00 05/31/18 23:08 Lipitor - PO Not Given HS SUSIE Bacitracin/Polymyxin B Sulfate 1 applic 05/31/18 22:00 06/01/18 10:19 Polysporin Ointment - TP Not Given BID SUSIE Calcium Carbonate 500 mg 06/01/18 10:00 06/01/18 10:07 Os-Bandar 500mg - PO 500 mg DAILY SUSIE Administration Cholecalciferol 4,000 unit 06/01/18 10:00 06/01/18 10:08 Vitamin D3 - PO 4,000 unit DAILY SUSIE Administration Diphenhydramine HCl 25 mg 05/31/18 22:00 05/31/18 23:07 Benadryl - PO 25 mg HS SUSIE Administration Docusate Sodium 100 mg 05/31/18 20:26 06/01/18 10:08 Colace - PO 100 mg Q24H PRN Administration CONSTIPATION Enalapril Maleate 20 mg 05/31/18 22:00 06/01/18 10:07 Vasotec - PO Not Given BID SUSIE Escitalopram Oxalate 10 mg 06/01/18 10:00 06/01/18 10:06 Lexapro - PO 10 mg DAILY SUSIE Administration Folic Acid 1 mg 06/01/18 10:00 06/01/18 10:06 Folic Acid - PO 1 mg DAILY SUSIE Administration Furosemide 20 mg 06/01/18 10:00 06/01/18 10:06 Lasix - PO 20 mg DAILY SUSIE Administration Heparin Sodium (Porcine) 5,000 unit 06/01/18 02:00 06/01/18 10:33 Heparin - SQ 5,000 unit Q8H-IV SUSEI Administration Methocarbamol 750 mg 06/01/18 10:00 06/01/18 10:07 Robaxin - PO 750 mg DAILY SUSIE Administration Methyl Salicylate 1 applic 05/31/18 20:58 Pal-Claudio - TP Q8H PRN TOPICAL PAIN Nitrofurantoin Macrocrystals 50 mg 05/31/18 22:00 06/01/18 10:07 Macrodantin - PO 50 mg BID SUSIE Administration Non-Formulary Medication 100 unit 05/31/18 20:51 Insulin Glulisine [Apidra] SQ AC SUSIE Nystatin 1 applic 05/31/18 22:00 06/01/18 10:18 Nystop Powder - TP Not Given BID SUSIE Oxycodone HCl 15 mg 05/31/18 20:51 06/01/18 10:11 Roxicodone - PO 15 mg Q6H PRN Administration PAIN LEVEL 6-10 Pantoprazole Sodium 40 mg 06/01/18 10:00 06/01/18 10:07 Protonix - PO 40 mg DAILY SUSIE Administration ASSESSMENT/PLAN: Mrs. Kohler is a 58 y/o woman presenting for several days of worsening SOB with breast pain 1) Acute Hypoxic Respiratory Failure, likely acute on chronic -Pulmonary following; defering ultimate management to their service. ABG on RA prior to DC to assess for pickwickian syndrome. Followup with Dr. Brito -Considering [facility] bipap; she was told she should be on it at home. Will d/w respiratory. -Monitor off systemic steroids; PRN nebs. Incentive spirometry. Please see pulmonary note for further documentation. Appreciate proposal consultant input. -ABG noted with hypoxia; on O2 via NC. Follow closely. 2) Breast pain; question of abscess -Afebrile and hemodynamically stable without any white count; she tells me she had a US of this 2 weeks ago and it was negative and just 'fluid filled' and that she was scheduled for biopsy. No underlying cellulitic changes, no s/s sepsis. She did get abx in the ER that were broad spectrum. Will hold off on further antibiotic tx and defer to ID. Followup cultures. Appreciate Dr. Lomeli on the case. Followup with her breast surgeon who was also consulted by the primary team. 3) IDDM -Hold PO antihyperglycemics, SSI. 4) Diverticulosis -She did have a drop in hb but no s/s bleeding; FOBT pending. If (+) NPO and consult GI. -Monitor 5) Anemia, microcytic -Drop from admission but could be dilutional. Still want to r/o bleed with h/o diverticular disease so will check FOBT -XF <7 -Repeat Hb this AM trending at 8; followup this PM 6) Morbid Obesity -Bariatric eval on DC 7) CKD -Trend BMP and monitor UOP; at baseline 8) HTN -Controlled; continue home meds Visit type - Emergency Visit Emergency Visit: No - New Patient This patient is new to me today: Yes Date on this admission: 06/03/18 - Critical Care Critical Care patient: No
--- NOTE | 2018-06-01 13:32 | CONSULT ---
Consult - text type - Consultation Consultation Note: Breast Surgery patient known to me with history of breast edema L > R likely benign. Now in Er with SOB and congestion on CXR. feels better with diuretic. no fever or chills , no breast pain. Breats feel heavy particularly the R one. PE- Breasts- swelling of both breasts centrally L > R. no warmth, tenderness or cellulitis, no drainage from nipple. no open wounds. Bl breast edema not infectious. likely secondary to fluid overload. She will f /u in the office once she gets discharged. Tara Long
--- NOTE | 2018-06-01 15:44 | CON.ID ---
Consult Consult Specialty:: infectious diseases Reason for Consultation:: sob,breast edema - History of Present Illness Chief Complaint: sob History of Present Illness: 58 year old morbidly obese female with a PMH significant for IDDM, HTN, HLD, asthma, diverticulitis, and anxiety, presented to the ED with SOB and right breast enlargement and pain x 1 week. patient mentions that she had been having resp difficulty since quite some time .Patient was started on steroids by pul patient mentions that couple of months back she had difficulty ib breathing and she thinks it did not go away, patient now mentions that she has increased swelling and pain to right breast . patient has a closure of her abd hernia and now has it closed he has several open ulcers on her abd and back of thighs patient mentions that she feels a little better and is breathing better she is morbidly obese - History Source History Provided By: Patient, Medical Record Limitations to Obtaining History: No Limitations - Past Medical History Cardio/Vascular: Yes: HTN, Hyperlipdemia Gastrointestinal: Yes: GERD Endocrine: Yes: Diabetes Mellitus - Alcohol/Substance Use Hx Alcohol Use: No - Smoking History Smoking history: Never smoked Have you smoked in the past 12 months: No Aproximately how many cigarettes per day: 0 If you are a former smoker, when did you quit?: 40 years - Social History Usual Living Arrangement: With Significant Other Home Medications - Allergies Allergies/Adverse Reactions: Allergies Allergy/AdvReac Type Severity Reaction Status Date / Time methadone [Methadone] Allergy Mild Nausea Verified 09/09/17 21:17 morphine Allergy Mild Itching Verified 09/09/17 21:17 Penicillins Allergy Rash Verified 09/09/17 21:17 clonazepam [From Klonopin] AdvReac Intermediate dizzy Verified 10/16/17 12:22 tiotropium AdvReac Intermediate Cough Verified 10/16/17 12:14 [From Spiriva with HandiHaler] - Home Medications Home Medications: Ambulatory Orders Ascorbate Calcium [Vitamin C] 500 mg PO DAILY 05/02/14 Atorvastatin Ca [Lipitor] 40 mg PO HS 05/02/14 Calcium (Oyster Shell) [Os-Bandar 500MG -] 500 mg PO DAILY 05/02/14 Escitalopram Oxalate [Lexapro -] 10 mg PO DAILY 05/02/14 Esomeprazole Mag Trihydrate [Nexium] 40 mg PO DAILY 05/02/14 Glipizide [Glucotrol -] 10 mg PO BID 09/14/15 Albuterol 0.083% Nebulizer Sadaf [Ventolin 0.083% Nebulizer Soln -] 1 amp IN PRN 09/09/17 Diphenhydramine HCl 25 mg PO HS 09/09/17 Furosemide 20 mg PO DAILY 09/09/17 Insulin Glulisine [Apidra] 0 unit SQ AC PRN 09/09/17 Methocarbamol 750 mg PO DAILY 09/09/17 Nitrofurantoin Monohyd/M-Cryst [Macrobid -] 50 mg PO BID 09/09/17 Docusate Sodium [Stool Softener] 100 mg PO DAILY PRN 09/10/17 Folic Acid 1 mg PO DAILY 09/10/17 Enalapril Maleate [Vasotec] 20 mg PO BID #60 tablet 09/13/17 Ergocalciferol (Vitamin D2) [Vitamin D2] 4,000 unit PO DAILY 10/16/17 Bacitracin Zinc/Polymyxin B [Double Antibiotic Ointment] 28.4 gm TP BID #1 tube 01/11/18 Diclofenac Sodium [Voltaren] 2 gm TP TID PRN #3 tube 03/12/18 Nystatin Powder [Nystop Powder -] 60 gm TP BID #1 powder 04/12/18 Oxycodone HCl 15 mg PO BID PRN #60 tablet MDD 2 04/26/18 Budesonide/Formeterol Fumarate [SYMBICORT 80/4.5mcg -] 1 inh PO BID 06/01/18 Family Disease History - Family Disease History Family Disease History: Other: Father (does not know - adopted), Mother (does not know - adopted) Review of Systems - Review of Systems Constitutional: reports: Weakness Eyes: reports: No Symptoms HENT: reports: No Symptoms Neck: reports: No Symptoms Cardiovascular: reports: No Symptoms Respiratory: reports: SOB Gastrointestinal: reports: No Symptoms Genitourinary: reports: No Symptoms Breasts: reports: Other (rt sided pain) Musculoskeletal: reports: No Symptoms Integumentary: reports: No Symptoms Neurological: reports: No Symptoms Endocrine: reports: No Symptoms Hematology/Lymphatic: reports: No Symptoms Psychiatric: reports: No Symptoms Physical Exam Vital Signs: Vital Signs Temperature 98.2 F 05/31/18 23:09 Pulse Rate 75 06/01/18 02:44 Respiratory Rate 20 06/01/18 02:44 Blood Pressure 122/70 06/01/18 02:44 O2 Sat by Pulse Oximetry (%) 92 L 06/01/18 07:30 Constitutional: Yes: Obese (morbidly obese), Other (bed bound) Eyes: Yes: Conjunctiva Clear Cardiovascular: Yes: Regular Rate and Rhythm Respiratory: Yes: Poor Air Entry (bases), Other (difficuilt to hear) Gastrointestinal: Yes: Normal Bowel Sounds, Soft Musculoskeletal: Yes: Other Extremities: Yes: Other Wound/Incision: Yes: Other (wounds on back of thigh) Neurological: Yes: Alert, Oriented Psychiatric: Yes: Alert, Oriented Labs: CBC, BMP 06/01/18 10:20 06/01/18 05:20 Imaging - Results Chest X-ray: Report Reviewed, Image Reviewed Ultrasound: Report Reviewed, Image Reviewed Assessment/Plan 58 year old morbidly obese female with a PMH significant for IDDM, HTN, HLD, asthma, and anxiety, presented to the ED with right breast enlargement and pain x 1 week. She was started on IV antibiotics. breast cellulitis dm htn hld dm morbid obesity sob multiple wounds plan will start patient on abx wound care rest continue current mgmt resp support
--- NOTE | 2018-06-01 17:03 | EKG ---
Test Reason : Blood Pressure : / mmHG Vent. Rate : 092 BPM Atrial Rate : 092 BPM P-R Int : 164 ms QRS Dur : 082 ms QT Int : 350 ms P-R-T Axes : 052 091 014 degrees QTc Int : 432 ms SINUS RHYTHM WITH FUSION COMPLEXES RIGHTWARD AXIS NONSPECIFIC T WAVE ABNORMALITY ABNORMAL ECG Confirmed by MD YENNI, NICHOL ([id number]) on 06/01/2018 5:02:44 PM Referred By: Confirmed By:NICHOL HYMAN MD
[2018-06-01] MEDS ORDERED: INSULIN GLULISINE 100 UNIT SQ SCH (17:07)
[2018-06-01] MEDS: AZTREONAM 1 GM in DEXTROSE 5%-WATER - 50 ML IVPB SCH (18:22)
[2018-06-01] MEDS: diphenhydrAMINE HCL 25 MG CAPSULE (FP) PO SCH (21:27)
[2018-06-01] MEDS: ATORVASTATIN CA 40 MG TABLET (FP) PO SCH (21:27)
[2018-06-01] MEDS: INSULIN SLIDING SCALE (NOVOLOG) 1 VIAL SQ SCH (21:33)
[2018-06-01] MEDS ORDERED: PT OWN MED DRAWER 7, Y5N ONE (23:18)
[2018-06-02] MEDS ORDERED: ONDANSETRON 4 MG/2 ML VIAL IVPUSH ONE (01:22)
[2018-06-02] MEDS: HEPARIN NA (PORCINE) 5,000 UNITS/ML 1ML VIAL SQ SCH ×3 (02:18→17:02)
[2018-06-02] MEDS: ALBUTEROL SO4 0.083% IH SOL 2.5 MG/3 ML VIAL.NEB. NEB PRN ×3 (03:25→20:30)
[2018-06-02] MEDS: AZTREONAM 1 GM in DEXTROSE 5%-WATER - 50 ML IVPB SCH ×2 (04:07→17:02)
[2018-06-02 04:18] LABS: SERUM IRON SATURATION 9 % (15-55); TOTAL IRON BINDING CAPACITY 403 ug/dL (250-450); UIBC 367 ug/dL (131-425)
[2018-06-02] MEDS: INSULIN SLIDING SCALE (NOVOLOG) 1 VIAL SQ SCH ×4 (06:20→23:02)
[2018-06-02 09:31] LABS: MAGNESIUM 2.7 mg/dL (1.8-2.4)
[2018-06-02 09:41] LABS: ANION GAP 7 MMOL/L (8-16); BLOOD UREA NITROGEN 52 mg/dL (7-18); CALCIUM 8.3 mg/dL (8.5-10.1); CHLORIDE 102 mmol/L (98-107); CO2 33 mmol/L (21-32); CREATININE 2.2 mg/dL (0.55-1.3); GLUCOSE,RANDOM 161 mg/dL (74-106); POTASSIUM 5.9 mmol/L (3.5-5.1); SODIUM 142 mmol/L (136-145)
[2018-06-02 10:04] LABS: HEMATOCRIT 26.5 % (32.4-45.2); MCH 23.2 pg (25.7-33.7); MCHC 30.3 g/dl (32.0-36.0); MEAN CELL VOLUME 76.6 fl (80-96); MEAN PLT VOLUME 8.1 fl (7.5-11.1); PLATELET COUNT 309 K/MM3 (134-434); RBC 3.46 M/mm3 (3.60-5.2); RDW 21.1 % (11.6-15.6); WHITE BLOOD COUNT 8.8 K/mm3 (4.0-10.0)
[2018-06-02] MEDS ORDERED: PT OWN MED DRAWER 7, Y5N ONE (10:51)
[2018-06-02] MEDS: CALCIUM (OYSTER SHELL) 500 MG TABLET (FP) PO SCH (11:10)
[2018-06-02] MEDS: NITROFURANTOIN MACROCRYSTAL 50 MG CAPSULE (FP) PO SCH ×2 (11:10→22:59)
[2018-06-02] MEDS: ESCITALOPRAM OXALATE 10 MG TABLET (FP) PO SCH (11:10)
[2018-06-02] MEDS: FUROSEMIDE 20 MG TABLET (FP) PO SCH (11:10)
[2018-06-02] MEDS: FOLIC ACID 1 MG TABLET (FP) PO SCH (11:10)
[2018-06-02] MEDS: ENALAPRIL MALEATE 10 MG TABLET (FP) PO SCH (11:11)
[2018-06-02] MEDS: PANTOPRAZOLE 40 MG TABLET (FP) PO SCH (11:11)
[2018-06-02] MEDS: METHOCARBAMOL 500 MG TABLET PO SCH (11:11)
[2018-06-02] MEDS: CHOLECALCIFEROL (VITAMIN D3) 1,000 UNIT TABLET (FP) PO SCH (11:11)
[2018-06-02] MEDS: ASCORBIC ACID 500 MG TABLET (FP) PO SCH (11:11)
[2018-06-02 11:34] LABS: N-TERMINAL BNP 5800.6 pg/ml (5-125)
--- NOTE | 2018-06-02 12:32 | PN ---
Progress Note, Physician History of Present Illness: patient now has some vomiting episodes still requiring resp support - Current Medication List Current Medications: Active Medications Albuterol Sulfate (Ventolin 0.083% Nebulizer Soln -) 1 amp NEB Q4H PRN PRN Reason: SHORTNESS OF BREATH Last Admin: 06/02/18 09:26 Dose: 1 amp Ascorbic Acid (Vitamin C -) 500 mg PO DAILY [facility] Last Admin: 06/02/18 11:11 Dose: 500 mg Atorvastatin Calcium (Lipitor -) 40 mg PO HS [facility] Last Admin: 06/01/18 21:27 Dose: 40 mg Bacitracin/Polymyxin B Sulfate (Polysporin Ointment -) 1 applic TP BID [facility] Last Admin: 06/01/18 21:35 Dose: Not Given Calcium Carbonate (Os-Bandar 500mg -) 500 mg PO DAILY [facility] Last Admin: 06/02/18 11:10 Dose: 500 mg Cholecalciferol (Vitamin D3 -) 4,000 unit PO DAILY [facility] Last Admin: 06/02/18 11:11 Dose: 4,000 unit Diphenhydramine HCl (Benadryl -) 25 mg PO HS [facility] Last Admin: 06/01/18 21:27 Dose: 25 mg Docusate Sodium (Colace -) 100 mg PO Q24H PRN PRN Reason: CONSTIPATION Last Admin: 06/01/18 10:08 Dose: 100 mg Enalapril Maleate (Vasotec -) 20 mg PO BID [facility] Last Admin: 06/02/18 11:11 Dose: 20 mg Escitalopram Oxalate (Lexapro -) 10 mg PO DAILY [facility] Last Admin: 06/02/18 11:10 Dose: 10 mg Folic Acid (Folic Acid -) 1 mg PO DAILY [facility] Last Admin: 06/02/18 11:10 Dose: 1 mg Furosemide (Lasix -) 20 mg PO DAILY [facility] Last Admin: 06/02/18 11:10 Dose: 20 mg Heparin Sodium (Porcine) (Heparin -) 5,000 unit SQ Q8H-IV SUSIE Last Admin: 06/02/18 11:11 Dose: 5,000 unit Aztreonam 1 gm/ Dextrose 50 mls @ 100 mls/hr IVPB Q12H [facility]; Protocol Last Admin: 06/02/18 04:07 Dose: 100 mls/hr Insulin Aspart (Novolog Vial Sliding Scale -) 1 vial SQ ACHS [facility]; Protocol Last Admin: 06/02/18 12:14 Dose: 2 units Methocarbamol (Robaxin -) 750 mg PO DAILY [facility] Last Admin: 06/02/18 11:11 Dose: 750 mg Methyl Salicylate (Pal-Claudio -) 1 applic TP Q8H PRN PRN Reason: TOPICAL PAIN Nitrofurantoin Macrocrystals (Macrodantin -) 50 mg PO BID [facility] Last Admin: 06/02/18 11:10 Dose: 50 mg Nystatin (Nystop Powder -) 1 applic TP BID [facility] Last Admin: 06/01/18 21:34 Dose: Not Given Oxycodone HCl (Roxicodone -) 15 mg PO Q6H PRN PRN Reason: PAIN LEVEL 6-10 Last Admin: 06/01/18 10:11 Dose: 15 mg Pantoprazole Sodium (Protonix -) 40 mg PO DAILY [facility] Last Admin: 06/02/18 11:11 Dose: 40 mg - Objective Vital Signs: Vital Signs Temperature 97.4 F L 06/02/18 06:00 Pulse Rate 72 06/02/18 06:00 Respiratory Rate 20 06/02/18 06:00 Blood Pressure 123/54 L 06/02/18 06:00 O2 Sat by Pulse Oximetry (%) 98 06/01/18 21:00 Constitutional: Yes: Calm, Mild Distress, Obese (morbid obesity) Eyes: Yes: Conjunctiva Clear HENT: Yes: Atraumatic, Normocephalic Cardiovascular: Yes: S1, S2 Respiratory: Yes: Other (difficuilt to assess) Gastrointestinal: Yes: Normal Bowel Sounds, Soft Musculoskeletal: Yes: Other Extremities: Yes: Other Neurological: Yes: Alert, Oriented Psychiatric: Yes: Alert, Oriented Labs: CBC, BMP 06/02/18 08:55 06/02/18 08:55 Assessment/Plan 58 year old morbidly obese female with a PMH significant for IDDM, HTN, HLD, asthma, and anxiety, presented to the ED with right breast enlargement and pain x 1 week. She was started on IV antibiotics. breast cellulitis dm htn hld dm morbid obesity sob multiple wounds plan ct abx wound care rest continue current mgmt resp support
--- NOTE | 2018-06-02 12:40 | PN ---
Progress Note, Physician History of Present Illness: PULMONARY ALERT,C/O SOB,+ WHEEZES - Current Medication List Current Medications: Active Medications Albuterol Sulfate (Ventolin 0.083% Nebulizer Soln -) 1 amp NEB Q4H PRN PRN Reason: SHORTNESS OF BREATH Last Admin: 06/02/18 09:26 Dose: 1 amp Ascorbic Acid (Vitamin C -) 500 mg PO DAILY [facility] Last Admin: 06/02/18 11:11 Dose: 500 mg Atorvastatin Calcium (Lipitor -) 40 mg PO HS [facility] Last Admin: 06/01/18 21:27 Dose: 40 mg Bacitracin/Polymyxin B Sulfate (Polysporin Ointment -) 1 applic TP BID [facility] Last Admin: 06/01/18 21:35 Dose: Not Given Calcium Carbonate (Os-Bandar 500mg -) 500 mg PO DAILY [facility] Last Admin: 06/02/18 11:10 Dose: 500 mg Cholecalciferol (Vitamin D3 -) 4,000 unit PO DAILY [facility] Last Admin: 06/02/18 11:11 Dose: 4,000 unit Diphenhydramine HCl (Benadryl -) 25 mg PO HS [facility] Last Admin: 06/01/18 21:27 Dose: 25 mg Docusate Sodium (Colace -) 100 mg PO Q24H PRN PRN Reason: CONSTIPATION Last Admin: 06/01/18 10:08 Dose: 100 mg Enalapril Maleate (Vasotec -) 20 mg PO BID [facility] Last Admin: 06/02/18 11:11 Dose: 20 mg Escitalopram Oxalate (Lexapro -) 10 mg PO DAILY [facility] Last Admin: 06/02/18 11:10 Dose: 10 mg Folic Acid (Folic Acid -) 1 mg PO DAILY [facility] Last Admin: 06/02/18 11:10 Dose: 1 mg Furosemide (Lasix -) 20 mg PO DAILY [facility] Last Admin: 06/02/18 11:10 Dose: 20 mg Heparin Sodium (Porcine) (Heparin -) 5,000 unit SQ Q8H-IV SUSIE Last Admin: 06/02/18 11:11 Dose: 5,000 unit Aztreonam 1 gm/ Dextrose 50 mls @ 100 mls/hr IVPB Q12H [facility]; Protocol Last Admin: 06/02/18 04:07 Dose: 100 mls/hr Insulin Aspart (Novolog Vial Sliding Scale -) 1 vial SQ ACHS [facility]; Protocol Last Admin: 06/02/18 12:14 Dose: 2 units Methocarbamol (Robaxin -) 750 mg PO DAILY [facility] Last Admin: 06/02/18 11:11 Dose: 750 mg Methyl Salicylate (Pal-Claudio -) 1 applic TP Q8H PRN PRN Reason: TOPICAL PAIN Nitrofurantoin Macrocrystals (Macrodantin -) 50 mg PO BID [facility] Last Admin: 06/02/18 11:10 Dose: 50 mg Nystatin (Nystop Powder -) 1 applic TP BID [facility] Last Admin: 06/01/18 21:34 Dose: Not Given Oxycodone HCl (Roxicodone -) 15 mg PO Q6H PRN PRN Reason: PAIN LEVEL 6-10 Last Admin: 06/01/18 10:11 Dose: 15 mg Pantoprazole Sodium (Protonix -) 40 mg PO DAILY [facility] Last Admin: 06/02/18 11:11 Dose: 40 mg - Objective Vital Signs: Vital Signs Temperature 97.4 F L 06/02/18 06:00 Pulse Rate 72 06/02/18 06:00 Respiratory Rate 20 06/02/18 06:00 Blood Pressure 123/54 L 06/02/18 06:00 O2 Sat by Pulse Oximetry (%) 98 06/01/18 21:00 Constitutional: Yes: Calm, Obese Eyes: Yes: WNL HENT: Yes: WNL Neck: Yes: WNL Cardiovascular: Yes: Regular Rate and Rhythm, S1, S2 Respiratory: Yes: Diminished Gastrointestinal: Yes: Normal Bowel Sounds, Soft Extremities: Yes: WNL Edema: Yes Labs: CBC, BMP 06/02/18 08:55 06/02/18 08:55 Assessment/Plan Problem List - Problems (1) Cellulitis Code(s): L03.90 - CELLULITIS, UNSPECIFIED (2) Asthma Code(s): J45.909 - UNSPECIFIED ASTHMA, UNCOMPLICATED (3) DM Diabetes mellitus type 2 Code(s): E11.9 - TYPE 2 DIABETES MELLITUS WITHOUT COMPLICATIONS (4) Hypercholesterolemia Code(s): E78.00 - PURE HYPERCHOLESTEROLEMIA, UNSPECIFIED (5) Hypertension Code(s): I10 - ESSENTIAL (PRIMARY) HYPERTENSION Assessment/Plan Right Breast Cellulitis r/o UTI Sepsis Acute Kidney Injury Asthma HTN DM Hyperlipidemia Morbid Obesity - antibiotics - prednisone x 48h - consider breast ultrasound - IVF - monitor urine output, creatinine - inhaled bronchodilators - O2 to keep SpO2 >90% - when ready for discharge, check ambulatory SpO2 on room air to assess for home O2 and ABG to assess for home NIPPV - DVT prophylaxis - Bariatric surgery shanna ARCOS
[2018-06-02] MEDS ORDERED: DEXTROSE 50%-WATER - 25 GM/50 ML VIAL IVPUSH ONE ×2 (13:35→14:30)
--- NOTE | 2018-06-02 13:42 | PN ---
Physical Exam: SUBJECTIVE: Patient seen and examined; SOB improved. It is very difficult to assess her overall fluid status but she has many reasons for diastolic CHF. Given this we obtained BNP which was elevated (could be from strain but also known to be elevated in obese with renal insufficiency) so is very unreliable. Echo pending. I suspect she may have an underlying issue with this. She intermittently remains on O2 Didn't get BiPap overnight due to her having nausea which has resolved; she is willing to try BiPap tonight CV consultation pending OBJECTIVE: Vital Signs Period Temp Pulse Resp BP Sys/Lindsey Pulse Ox Last 24 Hr 97.4 F 64-90 18-20 91-123/54-68 91-98 GENERAL: The patient is awake, alert, and fully oriented, in no acute distress. HEAD: Normal with no signs of trauma. EYES: PERRL, extraocular movements intact, sclera anicteric, conjunctiva clear. No ptosis. ENT: Ears normal, nares patent, oropharynx clear without exudates, moist mucous membranes. NECK: Trachea midline, full range of motion, supple. LUNGS: Breath sounds equal, mostly clear with ? scattered wheezes. Difficult to tell. HEART: Regular rate and rhythm, S1, S2 without murmur, rub or gallop. ABDOMEN: Soft, nontender, nondistended, normoactive bowel sounds, no guarding, no rebound, no hepatosplenomegaly, no masses. EXTREMITIES: 2+ pulses, warm, well-perfused, no edema. NEUROLOGICAL: Cranial nerves II through XII grossly intact. Normal speech PSYCH: Normal mood, normal affect. SKIN: Warm, dry, normal turgor, no rashes or lesions noted Laboratory Results - last 24 hr 05/31/18 05/31/18 06/01/18 16:52 18:43 10:20 WBC Cancelled 10.1 H Corrected WBC (auto) Cancelled RBC Cancelled 3.71 Hgb Cancelled 8.4 L Hct Cancelled 28.1 L MCV Cancelled 75.7 L MCH Cancelled 22.7 L MCHC Cancelled 30.0 L RDW Cancelled 21.0 H Plt Count Cancelled 333 D MPV Cancelled 8.0 Absolute Neuts (auto) Cancelled 8.6 H Neutrophils % Cancelled 85.7 H Lymphocytes % Cancelled 8.0 Monocytes % Cancelled 5.9 D Eosinophils % Cancelled 0.1 Basophils % Cancelled 0.3 Nucleated RBC % Cancelled 0 Hypochromia 1+ Platelet Estimate Cancelled Platelet Comment Cancelled Anisocytosis 2+ Sodium Potassium Chloride Carbon Dioxide Anion Gap BUN Creatinine Creat Clearance w eGFR POC Glucometer Random Glucose Calcium Magnesium Iron 36 TIBC 403 Iron Saturation 9 L B-Natriuretic Peptide 06/01/18 06/02/18 06/02/18 21:25 06:19 08:55 WBC 8.8 Corrected WBC (auto) RBC 3.46 L Hgb 8.0 L Hct 26.5 L MCV 76.6 L MCH 23.2 L MCHC 30.3 L RDW 21.1 H Plt Count 309 MPV 8.1 Absolute Neuts (auto) Neutrophils % Lymphocytes % Monocytes % Eosinophils % Basophils % Nucleated RBC % Hypochromia Platelet Estimate Platelet Comment Anisocytosis Sodium Potassium Chloride Carbon Dioxide Anion Gap BUN Creatinine Creat Clearance w eGFR POC Glucometer 331 184 Random Glucose Calcium Magnesium Iron TIBC Iron Saturation B-Natriuretic Peptide 06/02/18 06/02/18 06/02/18 08:55 08:55 11:18 WBC Corrected WBC (auto) RBC Hgb Hct MCV MCH MCHC RDW Plt Count MPV Absolute Neuts (auto) Neutrophils % Lymphocytes % Monocytes % Eosinophils % Basophils % Nucleated RBC % Hypochromia Platelet Estimate Platelet Comment Anisocytosis Sodium 142 Potassium 5.9 H Chloride 102 Carbon Dioxide 33 H Anion Gap 7 L BUN 52 H Creatinine 2.2 H Creat Clearance w eGFR 22.85 POC Glucometer 161 Random Glucose 161 H Calcium 8.3 L Magnesium 2.7 H Iron TIBC Iron Saturation B-Natriuretic Peptide 5800.6 H 06/02/18 12:42 WBC Corrected WBC (auto) RBC Hgb Hct MCV MCH MCHC RDW Plt Count MPV Absolute Neuts (auto) Neutrophils % Lymphocytes % Monocytes % Eosinophils % Basophils % Nucleated RBC % Hypochromia Platelet Estimate Platelet Comment Anisocytosis Sodium Potassium Chloride Carbon Dioxide Anion Gap BUN Creatinine Creat Clearance w eGFR POC Glucometer 174 Random Glucose Calcium Magnesium Iron TIBC Iron Saturation B-Natriuretic Peptide Active Medications Generic Name Dose Route Start Last Admin Trade Name Freq PRN Reason Stop Dose Admin Albuterol Sulfate 1 amp 05/31/18 20:26 06/02/18 09:26 Ventolin 0.083% Nebulizer Soln - NEB 1 amp Q4H PRN Administration SHORTNESS OF BREATH Ascorbic Acid 500 mg 06/01/18 10:00 06/02/18 11:11 Vitamin C - PO 500 mg DAILY SUSIE Administration Atorvastatin Calcium 40 mg 05/31/18 22:00 06/01/18 21:27 Lipitor - PO 40 mg HS SUSIE Administration Bacitracin/Polymyxin B Sulfate 1 applic 05/31/18 22:00 06/01/18 21:35 Polysporin Ointment - TP Not Given BID SUSIE Calcium Carbonate 500 mg 06/01/18 10:00 06/02/18 11:10 Os-Bandar 500mg - PO 500 mg DAILY [facility]USIE Administration Cholecalciferol 4,000 unit 06/01/18 10:00 06/02/18 11:11 Vitamin D3 - PO 4,000 unit DAILY [facility]USIE Administration Dextrose 25 gm 06/02/18 13:35 D50w (Vial) - IVPUSH 06/02/18 13:36 NOW ONE Diphenhydramine HCl 25 mg 05/31/18 22:00 06/01/18 21:27 Benadryl - PO 25 mg HS SUSIE Administration Docusate Sodium 100 mg 05/31/18 20:26 06/01/18 10:08 Colace - PO 100 mg Q24H PRN Administration CONSTIPATION Enalapril Maleate 20 mg 05/31/18 22:00 06/02/18 11:11 Vasotec - PO 20 mg BID [facility]USIE Administration Escitalopram Oxalate 10 mg 06/01/18 10:00 06/02/18 11:10 Lexapro - PO 10 mg DAILY [facility]USIE Administration Folic Acid 1 mg 06/01/18 10:00 06/02/18 11:10 Folic Acid - PO 1 mg DAILY [facility]USIE Administration Furosemide 20 mg 06/01/18 10:00 06/02/18 11:10 Lasix - PO 20 mg DAILY [facility]USIE Administration Heparin Sodium (Porcine) 5,000 unit 06/01/18 02:00 06/02/18 11:11 Heparin - SQ 5,000 unit Q8H-IV SUSIE Administration Aztreonam 1 gm/ Dextrose 50 mls @ 100 mls/hr 06/01/18 16:00 06/02/18 04:07 IVPB 100 mls/hr Q12H SUSIE Administration Protocol Insulin Aspart 1 vial 06/01/18 22:00 06/02/18 12:14 Novolog Vial Sliding Scale - SQ 2 units ACHS SUSIE Administration Protocol Insulin Human Regular 10 units 06/02/18 13:35 Novolin R Vial *For Ivpush Or Iv Drip Only* IVPUSH 06/02/18 13:36 ONCE ONE Methocarbamol 750 mg 06/01/18 10:00 06/02/18 11:11 Robaxin - PO 750 mg DAILY SUSIE Administration Methyl Salicylate 1 applic 05/31/18 20:58 Pal-Claudio - TP Q8H PRN TOPICAL PAIN Nitrofurantoin Macrocrystals 50 mg 05/31/18 22:00 06/02/18 11:10 Macrodantin - PO 50 mg BID SUSIE Administration Nystatin 1 applic 05/31/18 22:00 06/01/18 21:34 Nystop Powder - TP Not Given BID SUSIE Oxycodone HCl 15 mg 05/31/18 20:51 06/01/18 10:11 Roxicodone - PO 15 mg Q6H PRN Administration PAIN LEVEL 6-10 Pantoprazole Sodium 40 mg 06/01/18 10:00 06/02/18 11:11 Protonix - PO 40 mg DAILY SUSIE Administration Prednisone 20 mg 06/02/18 12:45 Deltasone - PO DAILY SUSIE ASSESSMENT/PLAN: Mrs. Kohler is a 58 y/o woman presenting for several days of worsening SOB with breast pain 1) Acute Hypoxic Respiratory Failure, likely acute on chronic -Pulmonary following; defering ultimate management to their service. ABG on RA prior to DC to assess for pickwickian syndrome. Followup with Dr. Brito/Dr. Llanes. -qHS Bipap (she should be on this at home but wasn't using; will have respiratory adjust settings) -Steroids per pulmonary medicine (started today by Dr. Llanes-appreciate pulm input). PRN nebs. Incentive spirometry. Please see pulmonary note for further documentation. Appreciate home performance consultant input. -ABG noted with hypoxia; on O2 via NC since yesterday. -Today on reviewing her US report, etc. large amount of edema seen. BNP elevated but obese and CKD can skew. Will check echo and have her see Dr. Burton. Holding off on diuresis until I get a look at her echo. 2) Breast pain; question of abscess -Afebrile and hemodynamically stable without any white count; she tells me she had a US of this 2 weeks ago and it was negative and just 'fluid filled' and that she was scheduled for biopsy. -Abx per ID -sgy doesn't think infection 3) IDDM -Hold PO antihyperglycemics, SSI. 4) Diverticulosis -She did have a drop in hb but no s/s bleeding; FOBT pending. If (+) NPO and consult GI. -Monitor 5) Anemia, microcytic -Drop from admission but could be dilutional. Still want to r/o bleed with h/o diverticular disease so will check FOBT -XF <7 -Repeat Hb this AM trending at 8; followup this PM 6) Morbid Obesity -Bariatric eval on DC 7) CKD -Trend BMP and monitor UOP; at baseline 8) HTN -Controlled; continue home meds Full Code Visit type - Emergency Visit Emergency Visit: No - New Patient This patient is new to me today: No - Critical Care Critical Care patient: No
[2018-06-02] MEDS ORDERED: INSULIN REGULAR HUMAN 100 UNITS/ML *VIAL IVPUSH ONE (14:00)
[2018-06-02] MEDS ORDERED: DEXTROSE 50%-WATER 25 GM/50 ML DISP.SYRIN ONE (14:20)
[2018-06-02] MEDS: predniSONE 20 MG TABLET (UD) PO SCH (14:35)
[2018-06-02] MEDS ORDERED: DEXTROSE 50%-WATER - 25 GM/50 ML VIAL ONE (14:38)
--- NOTE | 2018-06-02 15:16 | ECHO ---
Name: AYALA PEREZ Exam:Adult Echocardiogram Study Date: 06/02/2018 01:29 PM Age: 58 yrs Reason For Study: FLUID OVERLOAD Height: 67 in Weight: 410 lb BSA: 2.7 m2 MMode/2D Measurements & Calculations IVSd: 0.92 cm Ao root diam: 3.0 cm LVIDd: 4.6 cm LA dimension: 3.5 cm LVIDs: 3.1 cm LVPWd: 0.92 cm EDV(Teich): 96.8 ml ESV(Teich): 37.8 ml Doppler Measurements & Calculations MV E max bea: 97.2 cm/sec TR max bea: 295.9 cm/sec MV A max bea: 78.5 cm/sec TR max P.3 mmHg MV E/A: 1.2 MV dec time: 0.24 sec Procedure The study was technically difficult with many images being suboptimal in quality. Left Ventricle The left ventricular size, thickness and function are normal. The left ventricular ejection fraction is normal. Left Ventricular Filling pattern is normal for age. Regional wall motion abnormalities cannot be excluded due to limited visualization. Right Ventricle The right ventricle is not well visualized. Atria Normal left and right atrial size and function. Mitral Valve The mitral valve is not well visualized. Tricuspid Valve The tricuspid valve is not well visualized. There is no tricuspid stenosis. There is mild to moderate tricuspid regurgitation. Right ventricular systolic pressure is elevated at >60mmHg. Aortic Valve The aortic valve is not well visualized. Pulmonic Valve The pulmonic valve is not well visualized. Interpretation Summary The study was technically difficult with many images being suboptimal in quality. The left ventricular size, thickness and function are normal The left ventricular ejection fraction is normal. Regional wall motion abnormalities cannot be excluded due to limited visualization. Left Ventricular Filling pattern is normal for age. There is mild to moderate tricuspid regurgitation. Right ventricular systolic pressure is elevated at >60mmHg. The aortic valve is not well visualized. The mitral valve is not well visualized. MD Vito Segal 06/02/2018 03:16 PM
--- NOTE | 2018-06-02 16:58 | CON.CARD ---
Consult Consult Specialty:: Cardiology Referred by:: Dr. Llanes Reason for Consultation:: CHF - History of Present Illness Chief Complaint: Shortness of breath History of Present Illness: 58 F w/ morbid obesity, asthma, MARCELL, DM admitted for increased PHELPS, cough. Also c/o nausea and vomiting which have now subsided. Today, her BNP was found to be markedly elevated and I was asked to see her. On Cardiac ROS, she described 2 weeks of worsening b/l LE edema. Denies prior OK or coronary interventions. Denies chest pain. CXR today showed fluid overload. She is requiring 4-5 L of NC O2. Denies palpitations. Denies diaphoresis. - History Source History Provided By: Patient, Medical Record - Past Medical History Cardio/Vascular: Yes: HTN, Hyperlipdemia Pulmonary: Yes: Asthma Gastrointestinal: Yes: GERD Renal/: Yes: Renal Inusuff Endocrine: Yes: Diabetes Mellitus Additional Medical History: Abdominal surgeries for diverticulitis - Alcohol/Substance Use Hx Alcohol Use: No - Smoking History Smoking history: Never smoked Have you smoked in the past 12 months: No Aproximately how many cigarettes per day: 0 If you are a former smoker, when did you quit?: 40 years - Social History Usual Living Arrangement: With Significant Other Home Medications - Allergies Allergies/Adverse Reactions: Allergies Allergy/AdvReac Type Severity Reaction Status Date / Time methadone [Methadone] Allergy Mild Nausea Verified 09/09/17 21:17 morphine Allergy Mild Itching Verified 09/09/17 21:17 Penicillins Allergy Rash Verified 09/09/17 21:17 clonazepam [From Klonopin] AdvReac Intermediate dizzy Verified 10/16/17 12:22 tiotropium AdvReac Intermediate Cough Verified 10/16/17 12:14 [From Spiriva with HandiHaler] - Home Medications Home Medications: Ambulatory Orders Ascorbate Calcium [Vitamin C] 500 mg PO DAILY 05/02/14 Atorvastatin Ca [Lipitor] 40 mg PO HS 05/02/14 Calcium (Oyster Shell) [Os-Bandar 500MG -] 500 mg PO DAILY 05/02/14 Escitalopram Oxalate [Lexapro -] 10 mg PO DAILY 05/02/14 Esomeprazole Mag Trihydrate [Nexium] 40 mg PO DAILY 05/02/14 Glipizide [Glucotrol -] 10 mg PO BID 09/14/15 Albuterol 0.083% Nebulizer Sadaf [Ventolin 0.083% Nebulizer Soln -] 1 amp IN PRN 09/09/17 Diphenhydramine HCl 25 mg PO HS 09/09/17 Furosemide 20 mg PO DAILY 09/09/17 Insulin Glulisine [Apidra] 0 unit SQ AC PRN 09/09/17 Methocarbamol 750 mg PO DAILY 09/09/17 Nitrofurantoin Monohyd/M-Cryst [Macrobid -] 50 mg PO BID 09/09/17 Docusate Sodium [Stool Softener] 100 mg PO DAILY PRN 09/10/17 Folic Acid 1 mg PO DAILY 09/10/17 Enalapril Maleate [Vasotec] 20 mg PO BID #60 tablet 09/13/17 Ergocalciferol (Vitamin D2) [Vitamin D2] 4,000 unit PO DAILY 10/16/17 Bacitracin Zinc/Polymyxin B [Double Antibiotic Ointment] 28.4 gm TP BID #1 tube 01/11/18 Diclofenac Sodium [Voltaren] 2 gm TP TID PRN #3 tube 03/12/18 Nystatin Powder [Nystop Powder -] 60 gm TP BID #1 powder 04/12/18 Oxycodone HCl 15 mg PO BID PRN #60 tablet MDD 2 04/26/18 Budesonide/Formeterol Fumarate [SYMBICORT 80/4.5mcg -] 1 inh PO BID 06/01/18 Family Disease History - Family Disease History Family Disease History: Other: Father (does not know - adopted), Mother (does not know - adopted) Review of Systems Findings/Remarks: 58 yo morbidly obese F with a PMH of OSAS, HTN, HLD, DM, asthma, diverticulitis , GERD, severe anxiety, was BIBEMS with the CC of SOB. She received one duoneb on route to the hospital. She states that she spoke with Dr. Barbour last night , who was covering for Dr. Brito yesterday, who told her to take prednisone. She believes she is having an asthma exacerbation. She states that she is able to inhale easily but it is very hard for her to exhale. She also mentions that she has multiple ulcers on her chest and abdomen which have been seen by Dr. Yoon. She states that she has a Right sided breast infection. Her R breast is enlarged and painful to touch. She denies having a headache, blurry vision, chest pain, dysuria, frequency, urgency. PCP: Padmaja Morris Correction Officer Supervisor: Dr. Brito Vascular: Dr. Yoon Social Hx: Denies smoking, drinking, or illicit drug usage Allergies: Methadone, morphine, Penicillin, clonazepam, tiotropium - Review of Systems Cardiovascular: reports: Shortness of Breath, Other (bilateral LE edema) Respiratory: reports: Cough, Exercise Intolerance, SOB on Exertion Gastrointestinal: reports: Nausea, Vomiting Genitourinary: denies: No Symptoms, Burning, Discharge, Dysuria, Flank Pain, Frequency, Hematuria, Incontinence, Lesions, Menses, Pain, Testicular Mass, Testicular Pain, Testicular Swelling, Urgency, Vaginal Bleeding, Other Breasts: denies: No Symptoms Reported, See HPI, Breast Implants, Discharge from Nipple, Lumps, Pain, Skin Changes, Other Musculoskeletal: denies: No Symptoms, Back Pain, Crepitus, Decreased ROM, Extremity Pain, Joint Pain, Joint Swelling, Muscle Pain, Muscle Cramps, Muscle Weakness, Other Neurological: denies: No Symptoms, Change in LOC, Change in Speech, Confusion, Dizziness, Headache, Incoordination, Numbness, Parasthesia, Pre-Existing Deficit , Seizure, Syncope, Tremors, Unsteady Gait, Weakness, Other Endocrine: denies: No Symptoms, Excessive Sweating, Flushing, Increased Hunger, Increased Thirst, Intolerance to Cold, Intolerance to Heat, Unexplained Weight Gain, Unexplained Weight Loss, Other - Risk Factors Known Risk Factors: Yes: Diabetes Mellitus, Hypercholesterolemia, Hypertension Vital Signs: Vital Signs Temperature 98.3 F 06/02/18 14:33 Pulse Rate 84 06/02/18 14:33 Respiratory Rate 24 H 06/02/18 14:33 Blood Pressure 110/49 L 06/02/18 14:33 O2 Sat by Pulse Oximetry (%) 98 06/01/18 21:00 Constitutional: Yes: No Distress, Calm Respiratory: Yes: Other (Decreased breath sounds bilaterally) Gastrointestinal: Yes: Soft, Abdomen, Obese JVD: Yes Carotid Bruit: No Heart Sounds: Yes: S1, S2 (RRR) Edema: Yes Edema: LLE: 2+, RLE: 2+ Neurological: Yes: Alert, Oriented ...Motor Strength: WNL Psychiatric: Yes: WNL - Other Data Labs, Other Data: CBC, BMP 06/02/18 08:55 06/02/18 08:55 Troponin, BNP 06/02/18 08:55 B-Natriuretic Peptide 5800.6 H Troponin, BNP 06/02/18 08:55 B-Natriuretic Peptide 5800.6 H NSR 92bpm; NSST changes. Echo: Report Reviewed (Normal LVfx, PHTN with RVSP 60mmHg) Imaging - Results Chest X-ray: Image Reviewed EKG: Image Reviewed Problem List - Problems (1) Acute on chronic diastolic (congestive) heart failure Code(s): I50.33 - ACUTE ON CHRONIC DIASTOLIC (CONGESTIVE) HEART FAILURE (2) Morbid obesity Code(s): E66.01 - MORBID (SEVERE) OBESITY DUE TO EXCESS CALORIES (3) Pulmonary hypertension Code(s): I27.20 - PULMONARY HYPERTENSION, UNSPECIFIED (4) Obstructive sleep apnea Code(s): G47.33 - OBSTRUCTIVE SLEEP APNEA (ADULT) (PEDIATRIC) (5) Chronic renal insufficiency, stage II (mild) Code(s): N18.2 - CHRONIC KIDNEY DISEASE, STAGE 2 (MILD) (6) Anemia Code(s): D64.9 - ANEMIA, UNSPECIFIED Qualifiers: Chronic kidney disease stage: unspecified stage (7) Diabetes mellitus Code(s): E11.9 - TYPE 2 DIABETES MELLITUS WITHOUT COMPLICATIONS Qualifiers: Diabetes mellitus type: type 2 (8) Cellulitis Code(s): L03.90 - CELLULITIS, UNSPECIFIED Qualifiers: Laterality: unspecified laterality Assessment/Plan IMP: Acute on chronic diastolic CHF Morbid obesity Obstructive sleep apnea with chronic Pulmonary hypertension Diabetes with acute on chronic renal insuffiency Hyperkalemia REC: 1. IV Lasix: 40mg IV BID, daily monitoring renal fx/ K+. Daily weight 2. D/C enalapril for now: elevated creatinine and would like to maintain adequate BP to diurese. -Consider replacing with combination nitrate/hydralazine if BP remains stable. 3. Repeat K+, d/w PMD this evening 4. Transfer to [facility] for IV lasix, serial cardiac enzymes. 5. Supplimental O2 6. DVT prophylaxis. Will follow.
[2018-06-02] MEDS ORDERED: FUROSEMIDE 40 MG/4 ML INJECTABLE VIAL IVPUSH ONE (17:16)
[2018-06-02] MEDS: BACITRACIN/POLYMYXIN B SULFATE 15 GM TUBE TP SCH ×3 (17:25→23:00)
[2018-06-02] MEDS: NYSTATIN POWDER 100,000 UNITS/GM - 15 GM TOPICAL POWDER TP SCH ×2 (17:25→22:58)
[2018-06-02 19:43] LABS: ANION GAP 8 MMOL/L (8-16); BLOOD UREA NITROGEN 52 mg/dL (7-18); CALCIUM 8.2 mg/dL (8.5-10.1); CHLORIDE 101 mmol/L (98-107); CO2 34 mmol/L (21-32); CREATININE 2.1 mg/dL (0.55-1.3); GLUCOSE,RANDOM 86 mg/dL (74-106); POTASSIUM 5.3 mmol/L (3.5-5.1); SODIUM 142 mmol/L (136-145)
[2018-06-02] MEDS: diphenhydrAMINE HCL 25 MG CAPSULE (FP) PO SCH (22:59)
[2018-06-02] MEDS: ATORVASTATIN CA 40 MG TABLET (FP) PO SCH (22:59)
[2018-06-02] MEDS ORDERED: LORazepam 0.5 MG TABLET PO ONE (23:01)
[2018-06-03] MEDS: ALBUTEROL SO4 0.083% IH SOL 2.5 MG/3 ML VIAL.NEB. NEB PRN ×5 (01:46→20:35)
[2018-06-03] MEDS ORDERED: ONDANSETRON 4 MG/2 ML VIAL IVPUSH ONE (02:37)
[2018-06-03] MEDS ORDERED: ONDANSETRON 4 MG/2 ML VIAL ONE (02:43)
[2018-06-03] MEDS: HEPARIN NA (PORCINE) 5,000 UNITS/ML 1ML VIAL SQ SCH (02:57)
[2018-06-03] MEDS: AZTREONAM 1 GM in DEXTROSE 5%-WATER - 50 ML IVPB SCH ×2 (03:20→17:27)
[2018-06-03] MEDS: INSULIN SLIDING SCALE (NOVOLOG) 1 VIAL SQ SCH ×4 (06:43→23:35)
[2018-06-03] MEDS ORDERED: PT OWN MED DRAWER 7, Y5N ONE ×3 (06:46→17:14)
[2018-06-03] MEDS: FUROSEMIDE 40 MG/4 ML INJECTABLE VIAL IVPUSH SCH ×2 (06:50→13:47)
[2018-06-03 07:41] LABS: ANION GAP 9 MMOL/L (8-16); BLOOD UREA NITROGEN 51 mg/dL (7-18); CALCIUM 8.5 mg/dL (8.5-10.1); CHLORIDE 98 mmol/L (98-107); CO2 35 mmol/L (21-32); CREATININE 2.1 mg/dL (0.55-1.3); GLUCOSE,RANDOM 158 mg/dL (74-106); MAGNESIUM 2.7 mg/dL (1.8-2.4); POTASSIUM 5.1 mmol/L (3.5-5.1); SODIUM 141 mmol/L (136-145)
--- NOTE | 2018-06-03 08:24 | PN ---
Physical Exam: SUBJECTIVE: Patient seen and examined; dark vomit reported overnight. Sending for gastric and fecal occult blood and trending CBC; if + for GIB will consult GI. Prophylactically placing on protonix drip. Thankfully hemodynamics stable and Hb stable as well this AM. K is improved. Moved to telemetry yesterday by CV due to the Diastolic CHF. She is being diuresed with IV lasix; Is and Os noted. Holding enalapril. No new complaints. OBJECTIVE: Vital Signs Period Temp Pulse Resp BP Sys/Lindsey Pulse Ox Last 24 Hr 97.5 F-98.4 F 84-93 18-24 107-129/49-70 92-96 GENERAL: The patient is awake, alert, and fully oriented, in no acute distress. HEAD: Normal with no signs of trauma. EYES: PERRL, extraocular movements intact, sclera anicteric, conjunctiva clear. No ptosis. ENT: Ears normal, nares patent, oropharynx clear without exudates, moist mucous membranes. NECK: Trachea midline, full range of motion, supple. LUNGS: Breath sounds equal, clear to auscultation bilaterally, no wheezes HEART: Regular rate and rhythm, S1, S2 without murmur, rub or gallop. ABDOMEN: Soft, nontender, nondistended, normoactive bowel sounds EXTREMITIES: 2+ pulses, warm, well-perfused, no edema. NEUROLOGICAL: Cranial nerves II through XII grossly intact. Normal speech PSYCH: Normal mood, normal affect. SKIN: Warm, dry, normal turgor, no rashes or lesions noted Laboratory Results - last 24 hr 06/02/18 06/02/18 06/02/18 08:55 08:55 08:55 WBC 8.8 RBC 3.46 L Hgb 8.0 L Hct 26.5 L MCV 76.6 L MCH 23.2 L MCHC 30.3 L RDW 21.1 H Plt Count 309 MPV 8.1 Sodium 142 Potassium 5.9 H Chloride 102 Carbon Dioxide 33 H Anion Gap 7 L BUN 52 H Creatinine 2.2 H Creat Clearance w eGFR 22.85 POC Glucometer Random Glucose 161 H Calcium 8.3 L Magnesium 2.7 H Creatine Kinase Troponin I B-Natriuretic Peptide 5800.6 H 06/02/18 06/02/18 06/02/18 11:18 12:42 17:00 WBC RBC Hgb Hct MCV MCH MCHC RDW Plt Count MPV Sodium Potassium Chloride Carbon Dioxide Anion Gap BUN Creatinine Creat Clearance w eGFR POC Glucometer 161 174 98 Random Glucose Calcium Magnesium Creatine Kinase Troponin I B-Natriuretic Peptide 06/02/18 06/02/18 06/02/18 18:00 18:00 20:31 WBC RBC Hgb Hct MCV MCH MCHC RDW Plt Count MPV Sodium 142 Potassium 5.3 H Chloride 101 Carbon Dioxide 34 H Anion Gap 8 BUN 52 H Creatinine 2.1 H Creat Clearance w eGFR 24.11 POC Glucometer 155 Random Glucose 86 Calcium 8.2 L Magnesium Creatine Kinase 148 Cancelled Troponin I 0.06 H Cancelled B-Natriuretic Peptide 06/03/18 06/03/18 06/03/18 01:20 05:30 05:30 WBC RBC Hgb Hct MCV MCH MCHC RDW Plt Count MPV Sodium 141 Potassium 5.1 Chloride 98 Carbon Dioxide 35 H Anion Gap 9 BUN 51 H Creatinine 2.1 H Creat Clearance w eGFR 24.11 POC Glucometer Random Glucose 158 H Calcium 8.5 Magnesium 2.7 H Creatine Kinase 146 134 Troponin I 0.04 0.04 B-Natriuretic Peptide 06/03/18 06:13 WBC RBC Hgb Hct MCV MCH MCHC RDW Plt Count MPV Sodium Potassium Chloride Carbon Dioxide Anion Gap BUN Creatinine Creat Clearance w eGFR POC Glucometer 178 Random Glucose Calcium Magnesium Creatine Kinase Troponin I B-Natriuretic Peptide Active Medications Generic Name Dose Route Start Last Admin Trade Name Freq PRN Reason Stop Dose Admin Albuterol Sulfate 1 amp 05/31/18 20:26 06/03/18 05:54 Ventolin 0.083% Nebulizer Soln - NEB 1 amp Q4H PRN Administration SHORTNESS OF BREATH Ascorbic Acid 500 mg 06/01/18 10:00 06/02/18 11:11 Vitamin C - PO 500 mg DAILY [facility]IE Administration Atorvastatin Calcium 40 mg 05/31/18 22:00 06/02/18 22:59 Lipitor - PO 40 mg HS SUSIE Administration Bacitracin/Polymyxin B Sulfate 1 applic 05/31/18 22:00 06/02/18 23:00 Polysporin Ointment - TP Not Given BID SUSIE Calcium Carbonate 500 mg 06/01/18 10:00 06/02/18 11:10 Os-Bandar 500mg - PO 500 mg DAILY [facility] Administration Cholecalciferol 4,000 unit 12/04/18 10:00 06/02/18 11:11 Vitamin D3 - PO 4,000 unit DAILY [facility] Administration Diphenhydramine HCl 25 mg 05/31/18 22:00 06/02/18 22:59 Benadryl - PO 25 mg HS [facility] Administration Docusate Sodium 100 mg 05/31/18 20:26 06/01/18 10:08 Colace - PO 100 mg Q24H PRN Administration CONSTIPATION Escitalopram Oxalate 10 mg 06/01/18 10:00 06/02/18 11:10 Lexapro - PO 10 mg DAILY [facility] Administration Folic Acid 1 mg 06/01/18 10:00 06/02/18 11:10 Folic Acid - PO 1 mg DAILY [facility] Administration Furosemide 40 mg 06/03/18 06:00 06/03/18 06:50 Lasix Injection - IVPUSH 40 mg BID@0600,1400 S[facility] Administration Heparin Sodium (Porcine) 5,000 unit 06/01/18 02:00 06/03/18 02:57 Heparin - SQ 5,000 unit Q8H-IV [facility] Administration Aztreonam 1 gm/ Dextrose 50 mls @ 100 mls/hr 06/01/18 16:00 06/03/18 03:20 IVPB 100 mls/hr Q12H [facility] Administration Protocol Pantoprazole Sodium 80 mg/ 100 mls @ 10 mls/hr 06/03/18 08:30 Sodium Chloride IVPB Q10H [facility]IE 8 MG/HR Insulin Aspart 1 vial 06/01/18 22:00 06/03/18 06:43 Novolog Vial Sliding Scale - SQ 2 units ACHS [facility] Administration Protocol Methocarbamol 750 mg 06/01/18 10:00 06/02/18 11:11 Robaxin - PO 750 mg DAILY [facility] Administration Methyl Salicylate 1 applic 05/31/18 20:58 Pal-Claudio - TP Q8H PRN TOPICAL PAIN Nitrofurantoin Macrocrystals 50 mg 05/31/18 22:00 06/02/18 22:59 Macrodantin - PO 50 mg BID [facility]IE Administration Nystatin 1 applic 05/31/18 22:00 06/02/18 22:58 Nystop Powder - TP 1 applic BID [facility] Administration Oxycodone HCl 15 mg 05/31/18 20:51 06/01/18 10:11 Roxicodone - PO 15 mg Q6H PRN Administration PAIN LEVEL 6-10 Pantoprazole Sodium 40 mg 06/01/18 10:00 06/02/18 11:11 Protonix - PO 40 mg DAILY [facility] Administration Prednisone 20 mg 06/02/18 12:45 06/02/18 14:35 Deltasone - PO 20 mg DAILY [facility] Administration ASSESSMENT/PLAN: Mrs. Kohler is a 58 y/o woman presenting for several days of worsening SOB with breast pain 1) Acute Hypoxic Respiratory Failure, likely acute on chronic, Improving -Likely combination of chronic issues from possible obesity hypoventillation/ MARCELL with newly diagnosed diastolic CHF. -Pulmonary following; defering ultimate management to their service. ABG on RA prior to DC to assess for pickwickian syndrome. Followup with Dr. Brito/Dr. Llanes. -qHS Bipap (she should be on this at home but wasn't using; will have respiratory adjust settings) -Steroids per pulmonary medicine (started today by Dr. Llanes-appreciate pulm input). PRN nebs. Incentive spirometry. -O2 via NC 2) Acute on Chronic Diastolic CHF Exacerbation -Dr. Burton following; diuresing on telemetry. Holding enalapril to allow for adequate pressures (if additional BP control needed consider nitro/ hydralazine). -Followup echo -Monitor QD weights, Is and OS, telemetry -Will likely require chronic diuresis; deferring to CV 3) Dark Vomitting -Checking gastric/fecal occult blood, PPI drip, if positive for GIB consult GI -trend CBC q6H. No h/o cirrhosis. Plts good. monitor. 4) Breast pain -Afebrile and hemodynamically stable without any white count; negative US -Abx per ID -sgy doesn't think infection 5) IDDM -Hold PO antihyperglycemics, SSI. 6) Diverticulosis -She did have a drop in hb but no s/s bleeding; FOBT pending. If (+) NPO and consult GI. -Monitor 7) Anemia, microcytic -Drop from admission but could be dilutional. Still want to r/o bleed with h/o diverticular disease so will check FOBT -XF <7 -Repeat Hb this AM trending at 8; followup this PM 8) Morbid Obesity -Bariatric eval on DC 9) CKD -Trend BMP and monitor UOP; at baseline 10) HTN -Controlled; continue home meds Full Code Visit type - Emergency Visit Emergency Visit: No - New Patient This patient is new to me today: No - Critical Care Critical Care patient: No
[2018-06-03 08:30] LABS: HEMATOCRIT 27.5 % (32.4-45.2); HEMOGLOBIN 8.2 GM/dL (10.7-15.3); MCH 22.9 pg (25.7-33.7); MEAN CELL VOLUME 76.6 fl (80-96); MEAN PLT VOLUME 8.2 fl (7.5-11.1); PLATELET COUNT 320 K/MM3 (134-434); RBC 3.59 M/mm3 (3.60-5.2); RDW 20.8 % (11.6-15.6); WHITE BLOOD COUNT 9.7 K/mm3 (4.0-10.0)
--- NOTE | 2018-06-03 09:13 | PN ---
Progress Note, Physician Chief Complaint: Seen and examined on tele Feels less SOB after Lasix yesterday She is vomiting. Cardiac enzymes are negative. Denies chest pain. Weights are not yet recorded for the day. - Current Medication List Current Medications: Active Medications Albuterol Sulfate (Ventolin 0.083% Nebulizer Soln -) 1 amp NEB Q4H PRN PRN Reason: SHORTNESS OF BREATH Last Admin: 06/03/18 05:54 Dose: 1 amp Ascorbic Acid (Vitamin C -) 500 mg PO DAILY [facility] Last Admin: 06/02/18 11:11 Dose: 500 mg Atorvastatin Calcium (Lipitor -) 40 mg PO HS [facility] Last Admin: 06/02/18 22:59 Dose: 40 mg Bacitracin/Polymyxin B Sulfate (Polysporin Ointment -) 1 applic TP BID [facility] Last Admin: 06/02/18 23:00 Dose: Not Given Calcium Carbonate (Os-Bandar 500mg -) 500 mg PO DAILY [facility] Last Admin: 06/02/18 11:10 Dose: 500 mg Cholecalciferol (Vitamin D3 -) 4,000 unit PO DAILY [facility] Last Admin: 06/02/18 11:11 Dose: 4,000 unit Diphenhydramine HCl (Benadryl -) 25 mg PO HS [facility] Last Admin: 06/02/18 22:59 Dose: 25 mg Docusate Sodium (Colace -) 100 mg PO Q24H PRN PRN Reason: CONSTIPATION Last Admin: 06/01/18 10:08 Dose: 100 mg Escitalopram Oxalate (Lexapro -) 10 mg PO DAILY [facility] Last Admin: 06/02/18 11:10 Dose: 10 mg Folic Acid (Folic Acid -) 1 mg PO DAILY [facility] Last Admin: 06/02/18 11:10 Dose: 1 mg Furosemide (Lasix Injection -) 40 mg IVPUSH BID@0600,1400 [facility] Last Admin: 06/03/18 06:50 Dose: 40 mg Heparin Sodium (Porcine) (Heparin -) 5,000 unit SQ Q8H-IV [facility] Last Admin: 06/03/18 02:57 Dose: 5,000 unit Aztreonam 1 gm/ Dextrose 50 mls @ 100 mls/hr IVPB Q12H [facility]; Protocol Last Admin: 06/03/18 03:20 Dose: 100 mls/hr Pantoprazole Sodium 80 mg/ (Sodium Chloride) 100 mls @ 10 mls/hr IVPB Q10H [facility] Insulin Aspart (Novolog Vial Sliding Scale -) 1 vial SQ ACHS [facility]; Protocol Last Admin: 06/03/18 06:43 Dose: 2 units Methocarbamol (Robaxin -) 750 mg PO DAILY [facility] Last Admin: 06/02/18 11:11 Dose: 750 mg Methyl Salicylate (Pal-Claudio -) 1 applic TP Q8H PRN PRN Reason: TOPICAL PAIN Nitrofurantoin Macrocrystals (Macrodantin -) 50 mg PO BID [facility] Last Admin: 06/02/18 22:59 Dose: 50 mg Nystatin (Nystop Powder -) 1 applic TP BID [facility] Last Admin: 06/02/18 22:58 Dose: 1 applic Oxycodone HCl (Roxicodone -) 15 mg PO Q6H PRN PRN Reason: PAIN LEVEL 6-10 Last Admin: 06/01/18 10:11 Dose: 15 mg Prednisone (Deltasone -) 20 mg PO DAILY [facility] Last Admin: 06/02/18 14:35 Dose: 20 mg - Objective Vital Signs: Vital Signs Temperature 97.8 F 06/03/18 06:00 Pulse Rate 86 06/03/18 06:00 Respiratory Rate 18 06/03/18 06:00 Blood Pressure 129/70 06/03/18 06:00 O2 Sat by Pulse Oximetry (%) 96 06/02/18 21:00 Constitutional: Yes: No Distress, Calm Cardiovascular: Yes: Regular Rate and Rhythm Respiratory: Yes: CTA Bilaterally (no rales or wheezing.) Gastrointestinal: Yes: Soft, Abdomen, Obese (NT.) Edema: Yes Edema: LLE: 1+, RLE: 1+ Neurological: Yes: Alert, Oriented ...Motor Strength: WNL Labs: CBC, BMP 06/03/18 05:30 06/03/18 05:30 - ....Imaging EKG: Image Reviewed Problem List - Problems (1) Acute on chronic diastolic (congestive) heart failure Code(s): I50.33 - ACUTE ON CHRONIC DIASTOLIC (CONGESTIVE) HEART FAILURE (2) Morbid obesity Code(s): E66.01 - MORBID (SEVERE) OBESITY DUE TO EXCESS CALORIES (3) Pulmonary hypertension Code(s): I27.20 - PULMONARY HYPERTENSION, UNSPECIFIED (4) Obstructive sleep apnea Code(s): G47.33 - OBSTRUCTIVE SLEEP APNEA (ADULT) (PEDIATRIC) (5) Chronic renal insufficiency, stage II (mild) Code(s): N18.2 - CHRONIC KIDNEY DISEASE, STAGE 2 (MILD) (6) Anemia Code(s): D64.9 - ANEMIA, UNSPECIFIED Qualifiers: Chronic kidney disease stage: unspecified stage (7) Diabetes mellitus Code(s): E11.9 - TYPE 2 DIABETES MELLITUS WITHOUT COMPLICATIONS Qualifiers: Diabetes mellitus type: type 2 (8) Cellulitis Code(s): L03.90 - CELLULITIS, UNSPECIFIED Qualifiers: Laterality: unspecified laterality Assessment/Plan IMP: Acute on chronic diastolic CHF Morbid obesity Obstructive sleep apnea with chronic Pulmonary Hypertension Diabetes with acute on chronic renal insuffiency Nausea REC: 1. IV Lasix: 40mg IV BID, daily monitoring renal fx/ K+. Daily weight. Renal fxn stable today. 2. Repeat CXR 12/7 in AM. 3. Hold enalapril for now: elevated creatinine and would like to maintain adequate BP to diurese. -Consider replacing with combination nitrate/hydralazine if BP remains stable in next 24 hours. 4. Supplimental O2 5. DVT prophylaxis, on SQ Heparin 6. Further w/u nausea and vomiting as per primary team, cont PPI. Consider GI consult: ?DM gastroparesis?
[2018-06-03] MEDS ORDERED: ONDANSETRON 4 MG/2 ML VIAL IVPUSH PRN (09:38)
[2018-06-03] MEDS: PANTOPRAZOLE SODIUM 80 MG in SODIUM CHLORIDE 100 ML IVPB SCH ×2 (10:22→18:38)
[2018-06-03] MEDS: NITROFURANTOIN MACROCRYSTAL 50 MG CAPSULE (FP) PO SCH ×2 (10:24→22:52)
[2018-06-03] MEDS: FOLIC ACID 1 MG TABLET (FP) PO SCH (10:24)
[2018-06-03] MEDS: ASCORBIC ACID 500 MG TABLET (FP) PO SCH (10:24)
[2018-06-03] MEDS: NYSTATIN POWDER 100,000 UNITS/GM - 15 GM TOPICAL POWDER TP SCH ×2 (10:25→23:35)
[2018-06-03] MEDS: ESCITALOPRAM OXALATE 10 MG TABLET (FP) PO SCH (10:25)
[2018-06-03] MEDS: CHOLECALCIFEROL (VITAMIN D3) 1,000 UNIT TABLET (FP) PO SCH (10:25)
[2018-06-03] MEDS: predniSONE 20 MG TABLET (UD) PO SCH (10:25)
[2018-06-03] MEDS: CALCIUM (OYSTER SHELL) 500 MG TABLET (FP) PO SCH (10:25)
[2018-06-03] MEDS: BACITRACIN/POLYMYXIN B SULFATE 15 GM TUBE TP SCH ×2 (10:25→23:12)
[2018-06-03] MEDS: METHOCARBAMOL 500 MG TABLET PO SCH (10:26)
--- NOTE | 2018-06-03 12:37 | PN ---
Progress Note, Physician History of Present Illness: feels better becomes sob if oxygen is removed - Current Medication List Current Medications: Active Medications Albuterol Sulfate (Ventolin 0.083% Nebulizer Soln -) 1 amp NEB Q4H PRN PRN Reason: SHORTNESS OF BREATH Last Admin: 06/03/18 11:30 Dose: 1 amp Ascorbic Acid (Vitamin C -) 500 mg PO DAILY [facility] Last Admin: 06/03/18 10:24 Dose: 500 mg Atorvastatin Calcium (Lipitor -) 40 mg PO HS [facility] Last Admin: 06/02/18 22:59 Dose: 40 mg Bacitracin/Polymyxin B Sulfate (Polysporin Ointment -) 1 applic TP BID [facility] Last Admin: 06/03/18 10:25 Dose: 1 applic Calcium Carbonate (Os-Bandar 500mg -) 500 mg PO DAILY [facility] Last Admin: 06/03/18 10:25 Dose: 500 mg Cholecalciferol (Vitamin D3 -) 4,000 unit PO DAILY [facility] Last Admin: 06/03/18 10:25 Dose: 4,000 unit Diphenhydramine HCl (Benadryl -) 25 mg PO HS [facility] Last Admin: 06/02/18 22:59 Dose: 25 mg Docusate Sodium (Colace -) 100 mg PO Q24H PRN PRN Reason: CONSTIPATION Last Admin: 06/01/18 10:08 Dose: 100 mg Escitalopram Oxalate (Lexapro -) 10 mg PO DAILY [facility] Last Admin: 06/03/18 10:25 Dose: 10 mg Folic Acid (Folic Acid -) 1 mg PO DAILY [facility] Last Admin: 06/03/18 10:24 Dose: 1 mg Furosemide (Lasix Injection -) 40 mg IVPUSH BID@0600,1400 [facility] Last Admin: 06/03/18 06:50 Dose: 40 mg Aztreonam 1 gm/ Dextrose 50 mls @ 100 mls/hr IVPB Q12H [facility]; Protocol Last Admin: 06/03/18 03:20 Dose: 100 mls/hr Pantoprazole Sodium 80 mg/ (Sodium Chloride) 100 mls @ 10 mls/hr IVPB Q10H [facility] Last Admin: 06/03/18 10:22 Dose: 10 mls/hr Insulin Aspart (Novolog Vial Sliding Scale -) 1 vial SQ ACHS [facility]; Protocol Last Admin: 06/03/18 06:43 Dose: 2 units Methocarbamol (Robaxin -) 750 mg PO DAILY [facility] Last Admin: 06/03/18 10:26 Dose: 750 mg Methyl Salicylate (Pal-Claudio -) 1 applic TP Q8H PRN PRN Reason: TOPICAL PAIN Nitrofurantoin Macrocrystals (Macrodantin -) 50 mg PO BID [facility] Last Admin: 06/03/18 10:24 Dose: 50 mg Nystatin (Nystop Powder -) 1 applic TP BID [facility] Last Admin: 06/03/18 10:25 Dose: 1 applic Ondansetron HCl (Zofran Injection) 4 mg IVPUSH Q6H PRN PRN Reason: NAUSEA AND/OR VOMITING Oxycodone HCl (Roxicodone -) 15 mg PO Q6H PRN PRN Reason: PAIN LEVEL 6-10 Last Admin: 06/01/18 10:11 Dose: 15 mg Prednisone (Deltasone -) 20 mg PO DAILY [facility] Last Admin: 06/03/18 10:25 Dose: 20 mg - Objective Vital Signs: Vital Signs Temperature 97.8 F 06/03/18 06:00 Pulse Rate 86 06/03/18 06:00 Respiratory Rate 18 06/03/18 06:00 Blood Pressure 129/70 06/03/18 06:00 O2 Sat by Pulse Oximetry (%) 96 06/02/18 21:00 Constitutional: Yes: Calm, Mild Distress Cardiovascular: Yes: S1, S2 Respiratory: Yes: On Nasal O2, Poor Air Entry Gastrointestinal: Yes: Normal Bowel Sounds, Soft Neurological: Yes: Alert Psychiatric: Yes: Alert Labs: CBC, BMP 06/03/18 05:30 06/03/18 05:30 Assessment/Plan 58 year old morbidly obese female with a PMH significant for IDDM, HTN, HLD, asthma, and anxiety, presented to the ED with right breast enlargement and pain x 1 week. breast cellulitis dm htn hld dm morbid obesity sob multiple wounds plan ct abx wound care rest continue current mgmt resp support incentive awilda
--- NOTE | 2018-06-03 13:36 | PN ---
Progress Note (short form) - Note Progress Note: PULMONARY Seen while asleep, apneic and when taken off supplemental oxygen desaturated to 72%. Woke her up with disorientation. Vital Signs Period Temp Pulse Resp BP Sys/Lindsey Pulse Ox Last 24 Hr 97.5 F-98.3 F 84-91 18-24 107-129/49-70 96 Intake & Output 05/31/18 06/01/18 06/02/18 06/03/18 23:59 23:59 23:59 23:59 Intake Total 779 273 1321 450 Output Total 200 200 Balance 014 441 8172 450 Weight 185.973 kg 185.973 kg Gen: somnolent Heart: RRR Lung: distant breath sounds Abd: soft, nontender, obese Ext: + edema CBC, BMP 06/03/18 05:30 06/03/18 05:30 Active Medications Albuterol Sulfate (Ventolin 0.083% Nebulizer Soln -) 1 amp NEB Q4H PRN PRN Reason: SHORTNESS OF BREATH Last Admin: 06/03/18 11:30 Dose: 1 amp Ascorbic Acid (Vitamin C -) 500 mg PO DAILY [facility] Last Admin: 06/03/18 10:24 Dose: 500 mg Atorvastatin Calcium (Lipitor -) 40 mg PO HS [facility] Last Admin: 06/02/18 22:59 Dose: 40 mg Bacitracin/Polymyxin B Sulfate (Polysporin Ointment -) 1 applic TP BID [facility] Last Admin: 06/03/18 10:25 Dose: 1 applic Calcium Carbonate (Os-Bandar 500mg -) 500 mg PO DAILY [facility] Last Admin: 06/03/18 10:25 Dose: 500 mg Cholecalciferol (Vitamin D3 -) 4,000 unit PO DAILY [facility] Last Admin: 06/03/18 10:25 Dose: 4,000 unit Diphenhydramine HCl (Benadryl -) 25 mg PO HS [facility] Last Admin: 06/02/18 22:59 Dose: 25 mg Docusate Sodium (Colace -) 100 mg PO Q24H PRN PRN Reason: CONSTIPATION Last Admin: 06/01/18 10:08 Dose: 100 mg Escitalopram Oxalate (Lexapro -) 10 mg PO DAILY [facility] Last Admin: 06/03/18 10:25 Dose: 10 mg Folic Acid (Folic Acid -) 1 mg PO DAILY [facility] Last Admin: 06/03/18 10:24 Dose: 1 mg Furosemide (Lasix Injection -) 40 mg IVPUSH BID@0600,1400 [facility] Last Admin: 06/03/18 06:50 Dose: 40 mg Aztreonam 1 gm/ Dextrose 50 mls @ 100 mls/hr IVPB Q12H [facility]; Protocol Last Admin: 06/03/18 03:20 Dose: 100 mls/hr Pantoprazole Sodium 80 mg/ (Sodium Chloride) 100 mls @ 10 mls/hr IVPB Q10H [facility] Last Admin: 06/03/18 10:22 Dose: 10 mls/hr Insulin Aspart (Novolog Vial Sliding Scale -) 1 vial SQ ACHS [facility]; Protocol Last Admin: 06/03/18 06:43 Dose: 2 units Methocarbamol (Robaxin -) 750 mg PO DAILY [facility] Last Admin: 06/03/18 10:26 Dose: 750 mg Methyl Salicylate (Pal-Claudio -) 1 applic TP Q8H PRN PRN Reason: TOPICAL PAIN Nitrofurantoin Macrocrystals (Macrodantin -) 50 mg PO BID [facility] Last Admin: 06/03/18 10:24 Dose: 50 mg Nystatin (Nystop Powder -) 1 applic TP BID [facility] Last Admin: 06/03/18 10:25 Dose: 1 applic Ondansetron HCl (Zofran Injection) 4 mg IVPUSH Q6H PRN PRN Reason: NAUSEA AND/OR VOMITING Oxycodone HCl (Roxicodone -) 15 mg PO Q6H PRN PRN Reason: PAIN LEVEL 6-10 Last Admin: 06/01/18 10:11 Dose: 15 mg Prednisone (Deltasone -) 20 mg PO DAILY [facility] Last Admin: 06/03/18 10:25 Dose: 20 mg A/P Acute on Likely Chronic Hypoxic Respiratory Failure Likely Chronic Hypercapneic Respiratory Failure Suspect Obstructive Sleep Apnea/Obesity Hypoventilation Syndrome Volume Overload r/o UTI Sepsis Acute Kidney Injury Asthma HTN DM Hyperlipidemia Morbid Obesity - on empiric antibiotics - monitor urine output, creatinine - inhaled bronchodilators - O2 to keep SpO2 >90% - taper off prednisone - will need home O2 and night time NIPPV - DVT prophylaxis Problem List - Problems (1) Cellulitis Code(s): L03.90 - CELLULITIS, UNSPECIFIED Qualifiers: Laterality: unspecified laterality (2) Asthma Code(s): J45.909 - UNSPECIFIED ASTHMA, UNCOMPLICATED (3) DM Diabetes mellitus type 2 Code(s): E11.9 - TYPE 2 DIABETES MELLITUS WITHOUT COMPLICATIONS (4) Hypercholesterolemia Code(s): E78.00 - PURE HYPERCHOLESTEROLEMIA, UNSPECIFIED (5) Hypertension Code(s): I10 - ESSENTIAL (PRIMARY) HYPERTENSION
[2018-06-03] MEDS: oxyCODONE HCL 5 MG TABLET PO PRN (13:47)
[2018-06-03 15:54] LABS: HEMATOCRIT 27.7 % (32.4-45.2); HEMOGLOBIN 7.6 GM/dL (10.7-15.3); MCH 21.4 pg (25.7-33.7); MCHC 27.6 g/dl (32.0-36.0); MEAN CELL VOLUME 77.6 fl (80-96); MEAN PLT VOLUME 7.8 fl (7.5-11.1); PLATELET COUNT 285 K/MM3 (134-434); RBC 3.57 M/mm3 (3.60-5.2); RDW 21.1 % (11.6-15.6); WHITE BLOOD COUNT 11.9 K/mm3 (4.0-10.0)
[2018-06-03] MEDS ORDERED: FLU VACCINE QUAD 60 MCG/0.5 ML (MDV 18-19) IM ONE (17:00)
--- NOTE | 2018-06-03 20:43 | CON.GI ---
Consult Consult Specialty:: Gastroenterology ( covering Dr Hickman) Referred by:: Allan Dickey MD Reason for Consultation:: Vomiting - History of Present Illness Chief Complaint: Dyspnea History of Present Illness: 58F is admitted for exacerbation of her asthma when she developed vomiting which apparently included some coffee grounds. She believes that she has food poisoning from a [employer] sandwich. Her nausea and vomiting has resolved but she has severe acid reflux. She denies melena. She had an EGD remotely and tells me it was normal. She also had a normal colonoscopy remotely. - History Source History Provided By: Patient Limitations to Obtaining History: No Limitations - Past Medical History Cardio/Vascular: Yes: HTN, Hyperlipdemia Pulmonary: Yes: Asthma Gastrointestinal: Yes: Diverticulitis (required surgery and temp colostomy), GERD Renal/: Yes: Renal Inusuff Endocrine: Yes: Diabetes Mellitus Dermatology: Yes: Other (abdominal wall excoriations near incisions) Additional Medical History: Morbid obesity - Past Surgical History Past Surgical History: Yes: Colectomy (partial colectomy and temporary colostomy for diverticulitis), Colonoscopy, , Hernia Repair (repair of incisional hernia), Upper Endoscopy - Alcohol/Substance Use Hx Alcohol Use: No History of Substance Use: reports: None - Smoking History Smoking history: Never smoked Have you smoked in the past 12 months: No Aproximately how many cigarettes per day: 0 If you are a former smoker, when did you quit?: 40 years - Social History Usual Living Arrangement: With Significant Other ADL: Family Assistance Occupation: disabled by obesity Place of : [facility] Home Medications - Allergies Allergies/Adverse Reactions: Allergies Allergy/AdvReac Type Severity Reaction Status Date / Time methadone [Methadone] Allergy Mild Nausea Verified 09/09/17 21:17 morphine Allergy Mild Itching Verified 09/09/17 21:17 Penicillins Allergy Rash Verified 09/09/17 21:17 clonazepam [From Klonopin] AdvReac Intermediate dizzy Verified 10/16/17 12:22 tiotropium AdvReac Intermediate Cough Verified 10/16/17 12:14 [From Spiriva with HandiHaler] - Home Medications Home Medications: Ambulatory Orders Ascorbate Calcium [Vitamin C] 500 mg PO DAILY 05/02/14 Atorvastatin Ca [Lipitor] 40 mg PO HS 05/02/14 Calcium (Oyster Shell) [Os-Bandar 500MG -] 500 mg PO DAILY 05/02/14 Escitalopram Oxalate [Lexapro -] 10 mg PO DAILY 05/02/14 Esomeprazole Mag Trihydrate [Nexium] 40 mg PO DAILY 05/02/14 Glipizide [Glucotrol -] 10 mg PO BID 09/14/15 Albuterol 0.083% Nebulizer Sadaf [Ventolin 0.083% Nebulizer Soln -] 1 amp IN PRN 09/09/17 Diphenhydramine HCl 25 mg PO HS 09/09/17 Furosemide 20 mg PO DAILY 09/09/17 Insulin Glulisine [Apidra] 0 unit SQ AC PRN 09/09/17 Methocarbamol 750 mg PO DAILY 09/09/17 Nitrofurantoin Monohyd/M-Cryst [Macrobid -] 50 mg PO BID 09/09/17 Docusate Sodium [Stool Softener] 100 mg PO DAILY PRN 09/10/17 Folic Acid 1 mg PO DAILY 09/10/17 Enalapril Maleate [Vasotec] 20 mg PO BID #60 tablet 09/13/17 Ergocalciferol (Vitamin D2) [Vitamin D2] 4,000 unit PO DAILY 10/16/17 Bacitracin Zinc/Polymyxin B [Double Antibiotic Ointment] 28.4 gm TP BID #1 tube 01/11/18 Diclofenac Sodium [Voltaren] 2 gm TP TID PRN #3 tube 03/12/18 Nystatin Powder [Nystop Powder -] 60 gm TP BID #1 powder 04/12/18 Oxycodone HCl 15 mg PO BID PRN #60 tablet MDD 2 04/26/18 Budesonide/Formeterol Fumarate [SYMBICORT 80/4.5mcg -] 1 inh PO BID 06/01/18 Family Disease History - Family Disease History Family Disease History: Other: Father (does not know - adopted), Mother (does not know - adopted) Review of Systems - Review of Systems Constitutional: reports: Weakness Eyes: reports: No Symptoms HENT: reports: No Symptoms Neck: reports: No Symptoms Cardiovascular: reports: Palpitations Respiratory: reports: Exercise Intolerance, SOB on Exertion Gastrointestinal: reports: Vomiting Integumentary: reports: Rash (abdominal wall cellulitis) Physical Exam-GI Vital Signs: Vital Signs Temperature 98.0 F 06/03/18 17:00 Pulse Rate 89 06/03/18 17:00 Respiratory Rate 20 06/03/18 17:00 Blood Pressure 124/72 06/03/18 17:00 O2 Sat by Pulse Oximetry (%) 97 06/03/18 10:00 CBC,CMP WBC 11.9 K/mm3 (4.0-10.0) H 06/03/18 14:45 Corrected WBC (auto) Cancelled 05/31/18 16:52 RBC 3.57 M/mm3 (3.60-5.2) L 06/03/18 14:45 Hgb 7.6 GM/dL (10.7-15.3) L 06/03/18 14:45 Hct 27.7 % (32.4-45.2) L 06/03/18 14:45 MCV 77.6 fl (80-96) L 06/03/18 14:45 MCH 21.4 pg (25.7-33.7) L 06/03/18 14:45 MCHC 27.6 g/dl (32.0-36.0) L 06/03/18 14:45 RDW 21.1 % (11.6-15.6) H 06/03/18 14:45 Plt Count 285 K/MM3 (134-434) 06/03/18 14:45 MPV 7.8 fl (7.5-11.1) 06/03/18 14:45 Absolute Neuts (auto) 6.9 K/mm3 (1.5-8.0) 06/01/18 10:20 Neutrophils % 82.1 % (42.8-82.8) 06/01/18 10:20 Lymphocytes % 10.0 % (8-40) D 06/01/18 10:20 Monocytes % 6.0 % (3.8-10.2) 06/01/18 10:20 Eosinophils % 1.4 % (0-4.5) D 06/01/18 10:20 Basophils % 0.5 % (0-2.0) 06/01/18 10:20 Nucleated RBC % 0 % (0-0) 06/01/18 10:20 Hypochromia 1+ 05/31/18 18:43 Platelet Estimate Cancelled 12/03/18 16:52 Platelet Comment Cancelled 05/31/18 16:52 Anisocytosis 2+ 05/31/18 18:43 Retic Count 2.82 % (0.5-1.5) H 06/01/18 10:20 Sodium 141 mmol/L (136-145) 06/03/18 05:30 Potassium 5.1 mmol/L (3.5-5.1) 06/03/18 05:30 Chloride 98 mmol/L (98-107) 06/03/18 05:30 Carbon Dioxide 35 mmol/L (21-32) H 06/03/18 05:30 Anion Gap 9 MMOL/L (8-16) 06/03/18 05:30 BUN 51 mg/dL (7-18) H 06/03/18 05:30 Creatinine 2.1 mg/dL (0.55-1.3) H 06/03/18 05:30 Creat Clearance w eGFR 24.11 (>60) 06/03/18 05:30 POC Glucometer 200 UNITS (80-120) 06/03/18 17:22 Random Glucose 158 mg/dL (74-106) H 06/03/18 05:30 Calcium 8.5 mg/dL (8.5-10.1) 06/03/18 05:30 Magnesium 2.7 mg/dL (1.8-2.4) H 06/03/18 05:30 Iron 36 ug/dL (27-159) 06/01/18 10:20 TIBC 403 ug/dL (250-450) 06/01/18 10:20 Iron Saturation 9 % (15-55) L 06/01/18 10:20 Ferritin 12.9 ng/ml (8-388) 06/01/18 10:20 Total Bilirubin 0.7 mg/dL (0.2-1) 05/31/18 18:43 AST 14 U/L (15-37) L 05/31/18 18:43 ALT 14 U/L (13-61) 05/31/18 18:43 Alkaline Phosphatase 74 U/L (45-117) 05/31/18 18:43 Creatine Kinase 134 IU/L (26-192) 06/03/18 05:30 Troponin I 0.04 ng/ml (0.00-0.05) 06/03/18 05:30 B-Natriuretic Peptide 5800.6 pg/ml (5-125) H 06/02/18 08:55 Total Protein 7.4 g/dl (6.4-8.2) 05/31/18 18:43 Albumin 3.1 g/dl (3.4-5.0) L 05/31/18 18:43 Current Medications Generic Name Dose Route Start Last Admin Trade Name Freq PRN Reason Stop Dose Admin Al Hydroxide/Mg Hydroxide 30 ml 06/03/18 21:00 Mylanta Oral Suspension - PO Q6HPO SUSIE Albuterol Sulfate 1 amp 05/31/18 20:26 06/03/18 16:08 Ventolin 0.083% Nebulizer Soln - NEB 1 amp Q4H PRN Administration SHORTNESS OF BREATH Ascorbic Acid 500 mg 06/01/18 10:00 06/03/18 10:24 Vitamin C - PO 500 mg DAILY SUSIE Administration Atorvastatin Calcium 40 mg 05/31/18 22:00 06/02/18 22:59 Lipitor - PO 40 mg HS SUSIE Administration Bacitracin/Polymyxin B Sulfate 1 applic 05/31/18 22:00 06/03/18 10:25 Polysporin Ointment - TP 1 applic BID SUSIE Administration Calcium Carbonate 500 mg 06/01/18 10:00 06/03/18 10:25 Os-Bandar 500mg - PO 500 mg DAILY SUSIE Administration Cholecalciferol 4,000 unit 06/01/18 10:00 06/03/18 10:25 Vitamin D3 - PO 4,000 unit DAILY SUSIE Administration Diphenhydramine HCl 25 mg 05/31/18 22:00 06/02/18 22:59 Benadryl - PO 25 mg HS SUSIE Administration Docusate Sodium 100 mg 05/31/18 20:26 06/01/18 10:08 Colace - PO 100 mg Q24H PRN Administration CONSTIPATION Escitalopram Oxalate 10 mg 06/01/18 10:00 06/03/18 10:25 Lexapro - PO 10 mg DAILY SUSIE Administration Folic Acid 1 mg 06/01/18 10:00 06/03/18 10:24 Folic Acid - PO 1 mg DAILY SUSIE Administration Furosemide 40 mg 06/03/18 06:00 06/03/18 13:47 Lasix Injection - IVPUSH 40 mg BID@0600,1400 SUSIE Administration Aztreonam 1 gm/ Dextrose 50 mls @ 100 mls/hr 06/01/18 16:00 06/03/18 17:27 IVPB 100 mls/hr Q12H SUSIE Administration Protocol Insulin Aspart 1 vial 06/01/18 22:00 06/03/18 17:27 Novolog Vial Sliding Scale - SQ 2 units ACHS SUISE Administration Protocol Methocarbamol 750 mg 06/01/18 10:00 06/03/18 10:26 Robaxin - PO 750 mg DAILY SUSIE Administration Methyl Salicylate 1 applic 05/31/18 20:58 Pal-Claudio - TP Q8H PRN TOPICAL PAIN Nitrofurantoin Macrocrystals 50 mg 05/31/18 22:00 06/03/18 10:24 Macrodantin - PO 50 mg BID SUSIE Administration Nystatin 1 applic 05/31/18 22:00 06/03/18 10:25 Nystop Powder - TP 1 applic BID SUSIE Administration Ondansetron HCl 4 mg 06/03/18 09:38 Zofran Injection IVPUSH Q6H PRN NAUSEA AND/OR VOMITING Pantoprazole Sodium 40 mg 06/03/18 22:00 Protonix Iv IVPUSH BID SUSIE Prednisone 20 mg 06/02/18 12:45 06/03/18 10:25 Deltasone - PO 20 mg DAILY SUSIE Administration Constitutional: Yes: Calm Eyes: Yes: Conjunctiva Clear HENT: Yes: Atraumatic Neck: Yes: Trachea Midline Cardiovascular: Yes: Regular Rate and Rhythm Respiratory: Yes: Rhonchi Gastrointestinal Inspection: Yes: Scars (periumbilical and Pfannensteil incisions periumbilical excoriations) ...Auscultate: Yes: Normoactive Bowel Sounds ...Palpate: Yes: Soft, Other (nontender) ...Rectal Exam: Yes: Deferred (unable to position) Labs: CBC, BMP 06/03/18 14:45 06/03/18 05:30 Laboratory Tests 05/31/18 06/01/18 06/01/18 18:43 05:20 10:20 Hgb 7.5 L 8.0 L Retic Count 2.82 H BUN Creatinine Total Bilirubin 0.7 AST 14 L ALT 14 Alkaline Phosphatase 74 06/03/18 06/03/18 06/03/18 05:30 05:30 14:45 Hgb 8.2 L 7.6 L Retic Count BUN 51 H Creatinine 2.1 H Total Bilirubin AST ALT Alkaline Phosphatase Problem List - Problems (1) Vomiting Assessment/Plan: I believe that Brenda's vomiting is more likely due to diabetic gastroparesis than food poisoning. Gastroparesis typically leads to vomiting of stagnant small bowel contents that appear similar to coffee grounds. Given the conflict between Reglan and Lexapro I will withhold this medication unless the vomiting recurs. I will start Mylanta for the GERD and start clear lilquids. Her diet can be advanced as tolerated. I do not believe that she has an active GI bleed and given her respiratory status and other comorbidities EGD will be reserved for a life threatening hemorrhage. Code(s): R11.10 - VOMITING, UNSPECIFIED (2) Diabetic gastroparesis associated with type 2 diabetes mellitus Code(s): E11.43 - TYPE 2 DIABETES W DIABETIC AUTONOMIC (POLY)NEUROPATHY; K31.84 - GASTROPARESIS (3) GERD (gastroesophageal reflux disease) Code(s): K21.9 - GASTRO-ESOPHAGEAL REFLUX DISEASE WITHOUT ESOPHAGITIS (4) Cellulitis Code(s): L03.90 - CELLULITIS, UNSPECIFIED Qualifiers: Laterality: unspecified laterality (5) Chronic renal insufficiency, stage II (mild) Code(s): N18.2 - CHRONIC KIDNEY DISEASE, STAGE 2 (MILD) (6) Diabetes mellitus Code(s): E11.9 - TYPE 2 DIABETES MELLITUS WITHOUT COMPLICATIONS Qualifiers: Diabetes mellitus type: type 2 (7) Morbid obesity Code(s): E66.01 - MORBID (SEVERE) OBESITY DUE TO EXCESS CALORIES (8) Obstructive sleep apnea Code(s): G47.33 - OBSTRUCTIVE SLEEP APNEA (ADULT) (PEDIATRIC) Assessment/Plan Diabetic gastroparesis GERD If vomiting recurs will need to stop Lexapro and start Reglan Given her anesthesia risks EGD will be reserved for a life threatening hemorrhage.
[2018-06-03] MEDS: MAG HYDROX/AL HYDROX/SIMETH 30 ML UNIT-DOSE CUP PO SCH (21:00)
[2018-06-03 21:15] LABS: HEMATOCRIT 25.9 % (32.4-45.2); HEMOGLOBIN 7.5 GM/dL (10.7-15.3); MCH 22.3 pg (25.7-33.7); MEAN CELL VOLUME 76.9 fl (80-96); MEAN PLT VOLUME 8.1 fl (7.5-11.1); PLATELET COUNT 310 K/MM3 (134-434); RBC 3.37 M/mm3 (3.60-5.2); RDW 20.3 % (11.6-15.6); WHITE BLOOD COUNT 12.1 K/mm3 (4.0-10.0)
[2018-06-03] MEDS ORDERED: PANTOPRAZOLE SODIUM 40 MG VIAL IVPUSH SCH (22:00)
[2018-06-03] MEDS: diphenhydrAMINE HCL 25 MG CAPSULE (FP) PO SCH (22:52)
[2018-06-03] MEDS: ATORVASTATIN CA 40 MG TABLET (FP) PO SCH (22:52)
[2018-06-04] MEDS: ALBUTEROL SO4 0.083% IH SOL 2.5 MG/3 ML VIAL.NEB. NEB PRN ×4 (00:25→23:15)
[2018-06-04] MEDS ORDERED: MELATONIN 5 MG TABLETS PO ONE (00:39)
[2018-06-04 02:31] LABS: HEMATOCRIT 24.9 % (32.4-45.2); HEMOGLOBIN 7.4 GM/dL (10.7-15.3); MCH 22.7 pg (25.7-33.7); MCHC 29.8 g/dl (32.0-36.0); MEAN CELL VOLUME 76.2 fl (80-96); MEAN PLT VOLUME 7.9 fl (7.5-11.1); PLATELET COUNT 309 K/MM3 (134-434); RBC 3.27 M/mm3 (3.60-5.2); RDW 21.2 % (11.6-15.6); WHITE BLOOD COUNT 12.9 K/mm3 (4.0-10.0)
[2018-06-04] MEDS ORDERED: PT OWN MED DRAWER 7, Y5N ONE (03:54)
[2018-06-04] MEDS: AZTREONAM 1 GM in DEXTROSE 5%-WATER - 50 ML IVPB SCH ×2 (04:02→17:00)
[2018-06-04] MEDS: FUROSEMIDE 40 MG/4 ML INJECTABLE VIAL IVPUSH SCH ×2 (05:41→13:50)
[2018-06-04] MEDS: MAG HYDROX/AL HYDROX/SIMETH 30 ML UNIT-DOSE CUP PO SCH ×3 (05:41→17:54)
[2018-06-04] MEDS: INSULIN SLIDING SCALE (NOVOLOG) 1 VIAL SQ SCH ×4 (06:22→21:52)
[2018-06-04] MEDS ORDERED: PANTOPRAZOLE SODIUM 40 MG VIAL IVPUSH SCH (08:44)
--- NOTE | 2018-06-04 08:58 | CONSULT ---
Consult Consult Specialty:: Bariatric Surgery Reason for Consultation:: Morbid obesity - History Source History Provided By: Patient Limitations to Obtaining History: No Limitations - Past Medical History Cardio/Vascular: Yes: HTN, Hyperlipdemia Pulmonary: Yes: Asthma Gastrointestinal: Yes: Diverticulitis (required surgery and temp colostomy), GERD Renal/: Yes: Renal Inusuff Endocrine: Yes: Diabetes Mellitus Dermatology: Yes: Other (abdominal wall excoriations near incisions) Additional Medical History: Morbid obesity - Past Surgical History Past Surgical History: Yes: Colectomy (partial colectomy and temporary colostomy for diverticulitis), Colonoscopy, , Hernia Repair (repair of incisional hernia), Upper Endoscopy - Alcohol/Substance Use Hx Alcohol Use: No History of Substance Use: reports: None - Smoking History Smoking history: Never smoked Have you smoked in the past 12 months: No Aproximately how many cigarettes per day: 0 If you are a former smoker, when did you quit?: 40 years - Social History Usual Living Arrangement: With Significant Other ADL: Family Assistance Occupation: disabled by obesity Home Medications - Allergies Allergies/Adverse Reactions: Allergies Allergy/AdvReac Type Severity Reaction Status Date / Time methadone [Methadone] Allergy Mild Nausea Verified 09/09/17 21:17 morphine Allergy Mild Itching Verified 09/09/17 21:17 Penicillins Allergy Rash Verified 09/09/17 21:17 clonazepam [From Klonopin] AdvReac Intermediate dizzy Verified 10/16/17 12:22 tiotropium AdvReac Intermediate Cough Verified 10/16/17 12:14 [From Spiriva with HandiHaler] - Home Medications Home Medications: Ambulatory Orders Ascorbate Calcium [Vitamin C] 500 mg PO DAILY 05/02/14 Atorvastatin Ca [Lipitor] 40 mg PO HS 05/02/14 Calcium (Oyster Shell) [Os-Bandar 500MG -] 500 mg PO DAILY 05/02/14 Escitalopram Oxalate [Lexapro -] 10 mg PO DAILY 05/02/14 Esomeprazole Mag Trihydrate [Nexium] 40 mg PO DAILY 05/02/14 Glipizide [Glucotrol -] 10 mg PO BID 09/14/15 Albuterol 0.083% Nebulizer Sadaf [Ventolin 0.083% Nebulizer Soln -] 1 amp IN PRN 09/09/17 Diphenhydramine HCl 25 mg PO HS 09/09/17 Furosemide 20 mg PO DAILY 09/09/17 Insulin Glulisine [Apidra] 0 unit SQ AC PRN 09/09/17 Methocarbamol 750 mg PO DAILY 09/09/17 Nitrofurantoin Monohyd/M-Cryst [Macrobid -] 50 mg PO BID 09/09/17 Docusate Sodium [Stool Softener] 100 mg PO DAILY PRN 09/10/17 Folic Acid 1 mg PO DAILY 09/10/17 Enalapril Maleate [Vasotec] 20 mg PO BID #60 tablet 09/13/17 Ergocalciferol (Vitamin D2) [Vitamin D2] 4,000 unit PO DAILY 10/16/17 Bacitracin Zinc/Polymyxin B [Double Antibiotic Ointment] 28.4 gm TP BID #1 tube 01/11/18 Diclofenac Sodium [Voltaren] 2 gm TP TID PRN #3 tube 03/12/18 Nystatin Powder [Nystop Powder -] 60 gm TP BID #1 powder 04/12/18 Oxycodone HCl 15 mg PO BID PRN #60 tablet MDD 2 04/26/18 Budesonide/Formeterol Fumarate [SYMBICORT 80/4.5mcg -] 1 inh PO BID 06/01/18 Family Disease History - Family Disease History Family Disease History: Other: Father (does not know - adopted), Mother (does not know - adopted) Review of Systems - Review of Systems Constitutional: denies: Chills, Fever Cardiovascular: reports: No Symptoms Respiratory: denies: Cough Gastrointestinal: denies: Abdominal Pain Pain Intensity: 2 Physical Exam Vital Signs: Vital Signs Temperature 98.6 F 06/04/18 02:00 Pulse Rate 87 06/04/18 05:10 Respiratory Rate 20 06/04/18 05:10 Blood Pressure 122/44 L 06/04/18 05:10 O2 Sat by Pulse Oximetry (%) 98 06/03/18 21:00 Constitutional: No: Calm Neck: Yes: WNL Cardiovascular: Yes: WNL Respiratory: Yes: Regular Gastrointestinal: Yes: Soft, Abdomen, Obese Neurological: Yes: Alert, Oriented Labs: CBC, BMP 06/04/18 01:40 06/03/18 05:30 Problem List - Problems (1) Morbid obesity Code(s): E66.01 - MORBID (SEVERE) OBESITY DUE TO EXCESS CALORIES Assessment/Plan Morbid obesity BMI 64.2 Discussed weight loss options including bariatric surgery and nonsurgical options Follow up in office for formal bariatric surgery evaluation
--- NOTE | 2018-06-04 09:28 | PN ---
Progress Note, Physician Chief Complaint: Less SOB TELE: NSR Net negative fluid status Weight stable - Current Medication List Current Medications: Active Medications Al Hydroxide/Mg Hydroxide (Mylanta Oral Suspension -) 30 ml PO Q6HPO [facility] Last Admin: 06/04/18 05:41 Dose: 30 ml Albuterol Sulfate (Ventolin 0.083% Nebulizer Soln -) 1 amp NEB Q4H PRN PRN Reason: SHORTNESS OF BREATH Last Admin: 06/04/18 05:05 Dose: 1 amp Ascorbic Acid (Vitamin C -) 500 mg PO DAILY [facility] Last Admin: 06/03/18 10:24 Dose: 500 mg Atorvastatin Calcium (Lipitor -) 40 mg PO HS [facility] Last Admin: 06/03/18 22:52 Dose: 40 mg Bacitracin/Polymyxin B Sulfate (Polysporin Ointment -) 1 applic TP BID [facility] Last Admin: 06/03/18 23:12 Dose: 1 applic Calcium Carbonate (Os-Bandar 500mg -) 500 mg PO DAILY [facility] Last Admin: 06/03/18 10:25 Dose: 500 mg Cholecalciferol (Vitamin D3 -) 4,000 unit PO DAILY [facility] Last Admin: 06/03/18 10:25 Dose: 4,000 unit Diphenhydramine HCl (Benadryl -) 25 mg PO HS [facility] Last Admin: 06/03/18 22:52 Dose: 25 mg Docusate Sodium (Colace -) 100 mg PO Q24H PRN PRN Reason: CONSTIPATION Last Admin: 06/01/18 10:08 Dose: 100 mg Escitalopram Oxalate (Lexapro -) 10 mg PO DAILY [facility] Last Admin: 06/03/18 10:25 Dose: 10 mg Folic Acid (Folic Acid -) 1 mg PO DAILY [facility] Last Admin: 06/03/18 10:24 Dose: 1 mg Furosemide (Lasix Injection -) 40 mg IVPUSH BID@0600,1400 [facility] Last Admin: 06/04/18 05:41 Dose: 40 mg Aztreonam 1 gm/ Dextrose 50 mls @ 100 mls/hr IVPB Q12H [facility]; Protocol Last Admin: 06/04/18 04:02 Dose: 100 mls/hr Pantoprazole Sodium 80 mg/ (Sodium Chloride) 100 mls @ 10 mls/hr IVPB Q10H [facility] Insulin Aspart (Novolog Vial Sliding Scale -) 1 vial SQ ACHS [facility]; Protocol Last Admin: 06/04/18 06:22 Dose: Not Given Methocarbamol (Robaxin -) 750 mg PO DAILY [facility] Last Admin: 06/03/18 10:26 Dose: 750 mg Methyl Salicylate (Pal-Claudio -) 1 applic TP Q8H PRN PRN Reason: TOPICAL PAIN Nitrofurantoin Macrocrystals (Macrodantin -) 50 mg PO BID [facility] Last Admin: 06/03/18 22:52 Dose: 50 mg Nystatin (Nystop Powder -) 1 applic TP BID [facility] Last Admin: 06/03/18 23:35 Dose: 1 applic Ondansetron HCl (Zofran Injection) 4 mg IVPUSH Q6H PRN PRN Reason: NAUSEA AND/OR VOMITING Prednisone (Deltasone -) 20 mg PO DAILY [facility] Last Admin: 06/03/18 10:25 Dose: 20 mg - Objective Vital Signs: Vital Signs Temperature 98.6 F 06/04/18 02:00 Pulse Rate 87 06/04/18 05:10 Respiratory Rate 20 06/04/18 05:10 Blood Pressure 122/44 L 06/04/18 05:10 O2 Sat by Pulse Oximetry (%) 98 06/03/18 21:00 Constitutional: Yes: No Distress Cardiovascular: Yes: Regular Rate and Rhythm Respiratory: Yes: CTA Bilaterally Gastrointestinal: Yes: Soft, Abdomen, Obese Edema: Yes Edema: LLE: 1+, RLE: 1+ Neurological: Yes: Alert Labs: CBC, BMP 06/04/18 01:40 06/03/18 05:30 Laboratory Tests 06/03/18 06/03/18 06/03/18 01:20 05:30 05:30 WBC Hgb Hct Plt Count Sodium 141 Potassium 5.1 BUN 51 H Creatinine 2.1 H Magnesium 2.7 H Creatine Kinase 146 134 Troponin I 0.04 0.04 06/03/18 06/04/18 05:30 01:40 WBC 9.7 12.9 H Hgb 8.2 L 7.4 L Hct 27.5 L Plt Count 320 309 Sodium Potassium BUN Creatinine Magnesium Creatine Kinase Troponin I - ....Imaging EKG: Image Reviewed Problem List - Problems (1) Acute on chronic diastolic (congestive) heart failure Code(s): I50.33 - ACUTE ON CHRONIC DIASTOLIC (CONGESTIVE) HEART FAILURE (2) Morbid obesity Code(s): E66.01 - MORBID (SEVERE) OBESITY DUE TO EXCESS CALORIES (3) Pulmonary hypertension Code(s): I27.20 - PULMONARY HYPERTENSION, UNSPECIFIED (4) Obstructive sleep apnea Code(s): G47.33 - OBSTRUCTIVE SLEEP APNEA (ADULT) (PEDIATRIC) (5) Chronic renal insufficiency, stage II (mild) Code(s): N18.2 - CHRONIC KIDNEY DISEASE, STAGE 2 (MILD) (6) Anemia Code(s): D64.9 - ANEMIA, UNSPECIFIED Qualifiers: Chronic kidney disease stage: unspecified stage (7) Diabetes mellitus Code(s): E11.9 - TYPE 2 DIABETES MELLITUS WITHOUT COMPLICATIONS Qualifiers: Diabetes mellitus type: type 2 (8) Cellulitis Code(s): L03.90 - CELLULITIS, UNSPECIFIED Qualifiers: Laterality: unspecified laterality Assessment/Plan IMP: Acute on chronic diastolic CHF Morbid Obesity, MARCELL DM GERD, suspected gastritis Anemia CKD REC: 1. Continue IV Lasix; check BMP today for renal function. 2. BP occasionally low- hold Imdur/Hydralazine for now. 3. Daily weights 4. PPI, follow H/H; GI following 5. DVT prophylaxis as per PMD.
[2018-06-04] MEDS: FOLIC ACID 1 MG TABLET (FP) PO SCH (10:25)
[2018-06-04] MEDS: predniSONE 20 MG TABLET (UD) PO SCH (10:25)
[2018-06-04] MEDS: ASCORBIC ACID 500 MG TABLET (FP) PO SCH (10:26)
[2018-06-04] MEDS: CALCIUM (OYSTER SHELL) 500 MG TABLET (FP) PO SCH (10:26)
[2018-06-04] MEDS: NITROFURANTOIN MACROCRYSTAL 50 MG CAPSULE (FP) PO SCH ×2 (10:26→21:51)
[2018-06-04] MEDS: ESCITALOPRAM OXALATE 10 MG TABLET (FP) PO SCH (10:26)
[2018-06-04] MEDS: CHOLECALCIFEROL (VITAMIN D3) 1,000 UNIT TABLET (FP) PO SCH (10:27)
[2018-06-04] MEDS: METHOCARBAMOL 500 MG TABLET PO SCH (10:28)
[2018-06-04] MEDS: BACITRACIN/POLYMYXIN B SULFATE 15 GM TUBE TP SCH ×2 (10:30→21:53)
[2018-06-04] MEDS: NYSTATIN POWDER 100,000 UNITS/GM - 15 GM TOPICAL POWDER TP SCH ×2 (10:30→21:52)
[2018-06-04] MEDS: PANTOPRAZOLE SODIUM 80 MG in SODIUM CHLORIDE 100 ML IVPB SCH ×2 (10:35→22:45)
--- NOTE | 2018-06-04 10:41 | PN ---
Physical Exam: SUBJECTIVE: Patient seen and examined, c/o severe esophageal burning and burping. She reports she is starting to eat a little bit more. OBJECTIVE: Vital Signs Period Temp Pulse Resp BP Sys/Lindsey Pulse Ox Last 24 Hr 97.9 F-98.9 F 85-89 20-20 107-126/44-79 98 GENERAL: Morbidly obese, malodorous, awake, alert, and fully oriented, appears uncomfortable HEAD: Normal with no signs of trauma. EYES: Pupils equal, round and reactive to light, extraocular movements intact, sclera anicteric, conjunctiva clear. No lid lag. EARS, NOSE, THROAT: Nares patent, oropharynx clear without exudates. Moist mucous membranes. NECK: Normal range of motion, supple without lymphadenopathy, JVD, or masses. LUNGS: +NC, distant breath sounds no accessory muscle use. HEART: Regular rate and rhythm, normal S1 and S2 without murmur, rub or gallop. ABDOMEN: Obese, Soft, nontender, not distended, normoactive bowel sounds, no guarding, no rebound, no masses. No hepatomegaly or splenomegaly. Breasts: Large pendulous breasts, R>L TTP, no discharge to nipples MUSCULOSKELETAL: Normal range of motion at all joints. No bony deformities or tenderness. No CVA tenderness. UPPER EXTREMITIES: 2+ pulses, warm, well-perfused. No cyanosis. No clubbing. No peripheral edema. LOWER EXTREMITIES: 2+ pulses, warm, well-perfused. No calf tenderness. +2 edema to b/l LE NEUROLOGICAL: No facial droop, tongue midline, normal speech. . PSYCHIATRIC: Cooperative. Good eye contact. Appropriate mood and affect. SKIN: To upper abdomen between breasts, scant purulent drainage on gauze. Laboratory Results - last 24 hr 06/03/18 06/03/18 06/03/18 14:45 17:22 21:00 WBC 11.9 H 12.1 H RBC 3.57 L 3.37 L Hgb 7.6 L 7.5 L Hct 27.7 L 25.9 L MCV 77.6 L 76.9 L MCH 21.4 L 22.3 L MCHC 27.6 L 29.0 L RDW 21.1 H 20.3 H Plt Count 285 310 MPV 7.8 8.1 POC Glucometer 200 Blood Type Antibody Screen 06/03/18 06/04/18 06/04/18 22:54 01:40 01:40 WBC 12.9 H RBC 3.27 L Hgb 7.4 L Hct 24.9 L MCV 76.2 L MCH 22.7 L MCHC 29.8 L RDW 21.2 H Plt Count 309 MPV 7.9 POC Glucometer 189 Blood Type A POSITIVE Antibody Screen Negative 06/04/18 05:21 WBC RBC Hgb Hct MCV MCH MCHC RDW Plt Count MPV POC Glucometer 222 Blood Type Antibody Screen Active Medications Generic Name Dose Route Start Last Admin Trade Name Freq PRN Reason Stop Dose Admin Al Hydroxide/Mg Hydroxide 30 ml 06/03/18 21:00 06/04/18 05:41 Mylanta Oral Suspension - PO 30 ml Q6HPO SUSIE Administration Albuterol Sulfate 1 amp 05/31/18 20:26 06/04/18 05:05 Ventolin 0.083% Nebulizer Soln - NEB 1 amp Q4H PRN Administration SHORTNESS OF BREATH Ascorbic Acid 500 mg 06/01/18 10:00 06/04/18 10:26 Vitamin C - PO 500 mg DAILY SUSIE Administration Atorvastatin Calcium 40 mg 05/31/18 22:00 06/03/18 22:52 Lipitor - PO 40 mg HS SUSIE Administration Bacitracin/Polymyxin B Sulfate 1 applic 05/31/18 22:00 06/03/18 23:12 Polysporin Ointment - TP 1 applic BID SUSIE Administration Calcium Carbonate 500 mg 06/01/18 10:00 06/04/18 10:26 Os-Bandar 500mg - PO 500 mg DAILY SUSIE Administration Cholecalciferol 4,000 unit 06/01/18 10:00 06/04/18 10:27 Vitamin D3 - PO 4,000 unit DAILY SUSIE Administration Diphenhydramine HCl 25 mg 05/31/18 22:00 06/03/18 22:52 Benadryl - PO 25 mg HS SUSIE Administration Docusate Sodium 100 mg 05/31/18 20:26 06/01/18 10:08 Colace - PO 100 mg Q24H PRN Administration CONSTIPATION Escitalopram Oxalate 10 mg 06/01/18 10:00 06/04/18 10:26 Lexapro - PO 10 mg DAILY SUSIE Administration Folic Acid 1 mg 06/01/18 10:00 06/04/18 10:25 Folic Acid - PO 1 mg DAILY SUSIE Administration Furosemide 40 mg 06/03/18 06:00 06/04/18 05:41 Lasix Injection - IVPUSH 40 mg BID@0600,1400 SUSIE Administration Aztreonam 1 gm/ Dextrose 50 mls @ 100 mls/hr 06/01/18 16:00 06/04/18 04:02 IVPB 100 mls/hr Q12H SUSIE Administration Protocol Pantoprazole Sodium 80 mg/ 100 mls @ 10 mls/hr 06/04/18 09:00 Sodium Chloride IVPB Q10H SUSIE 8 MG/HR Insulin Aspart 1 vial 06/01/18 22:00 06/04/18 06:22 Novolog Vial Sliding Scale - SQ Not Given ACHS SUSIE Protocol Methocarbamol 750 mg 06/01/18 10:00 06/04/18 10:28 Robaxin - PO 750 mg DAILY SUSIE Administration Methyl Salicylate 1 applic 05/31/18 20:58 Pal-Claudio - TP Q8H PRN TOPICAL PAIN Nitrofurantoin Macrocrystals 50 mg 05/31/18 22:00 06/04/18 10:26 Macrodantin - PO 50 mg BID SUSIE Administration Nystatin 1 applic 05/31/18 22:00 06/03/18 23:35 Nystop Powder - TP 1 applic BID SUSIE Administration Ondansetron HCl 4 mg 06/03/18 09:38 Zofran Injection IVPUSH Q6H PRN NAUSEA AND/OR VOMITING Prednisone 20 mg 06/02/18 12:45 06/04/18 10:25 Deltasone - PO 20 mg DAILY SUSIE Administration ASSESSMENT/PLAN: 58 year old morbidly obese female with a PMH significant for IDDM, HTN, HLD, asthma, and anxiety, presented to the ED with right breast enlargement and pain x 1 week. She was started on IV antibiotics. Acute Hypoxic Respiratory Failure - Improving; likely acute on chronic - Likely caused by obesity hypoventillation/MARCELL and with newly-diagnosed diastolic CHF - Pulmonary following - Prednisone 20 mg PO qday, taper down - ABG on RA prior to DC to assess for Pickwickian syndrome - monitor urine output, creatinine - inhaled bronchodilators - O2 @ 3LPM via NC - keep SpO2 >90% - qHS Bipap - She should be on this at home but wasn't using - Will f/u with case management about getting home bipap Acute on Chronic Diastolic CHF Exacerbation - Optical Scientist Dr. Burton following - Lasix 40 mg IV BID - Holding home Enalapril - If additional BP control needed consider nitro/hydralazine - Followup echo - Weight stable; monitor QD weights, I&Os - Telemetry monitoring; NSR Dark Vomiting - Fecal occult blood pending - If positive for GIB consult GI - PPI drip, -trend CBC q6H. No h/o cirrhosis. Plts good. monitor. Diverticulosis - She did have a drop in hb but no s/s bleeding - FOB pending - If (+) NPO and consult GI. Anemia, microcytic - Drop from admission but could be dilutional - Still want to r/o bleed with h/o diverticular disease - FOB pending - XF <7 - Repeat Hb this AM trending at 8; followup this PM CKD - Trend BMP and monitor UOP; at baseline HTN -Controlled - HOLD home Enalapril - On Lasix 40 mg IV BID Breast Cellulitis - Breast US negative - Seen by breast surgeon Dr. Tara Long - Bl breast edema not infectious - likely secondary to fluid overload - F/u OP upon d/c - Followed by ID specialist Dr. Lomeli - Azactam 1 GM BID DM - Hold home Glipizide 10 mg PO BID - Insulin Glulisine [Apidra] 100 unit SQ AC - Patient reports Novolog does not work on her and she refuses to take it , she brought an unopened bottle from home - Ulcers - Wound consult ordered with Dr. Yoon - Daily wound care with bacitracin/polymixin B ointment BID and DPD - Recurrent UTIs - Nitrofurantoin 50 mg PO BID HLD - Atorvastatin Ca 40 mg PO HS Asthma - Albuterol Nebs PRN Anxiety - Escitalopram 10 mg PO DAILY Morbid Obesity - BMI 64.2 - Seen by bariatric surgeon Dr. Nato Abarca - Discussed weight loss options including bariatric surgery and nonsurgical options - Follow up in office for formal bariatric surgery evaluation Pain management - Methocarbamol 750 mg PO DAILY - Oxycodone HCl 15 mg PO BID PRN Fungal Rash - Nystatin powder under breasts, abdominal folds, and thigh folds BID Constipation - Docusate Sodium 100 mg PO DAILY PRN Insomnia - Diphenhydramine HCl 25 mg PO HS Supplement - Ascorbate Calcium 500 mg PO DAILY - Calcium (Oyster Shell) 500 mg PO DAILY - Folic Acid 1 mg PO DAILY - Ergocalciferol (Vitamin D2) 4,000 unit PO DAILY Prophylaxis DVT: Heparin SQ GI: On Protonix drip FEN - PO intake adequate - Replete as needed - Diabetic, low sodium, clear liquid diet Disp: Patient requires further inpatient treatment. FULL CODE Visit type - Emergency Visit Emergency Visit: No - New Patient This patient is new to me today: No - Critical Care Critical Care patient: No
[2018-06-04 10:47] LABS: HEMATOCRIT 25.6 % (32.4-45.2); HEMOGLOBIN 7.5 GM/dL (10.7-15.3); MCH 22.6 pg (25.7-33.7); MCHC 29.4 g/dl (32.0-36.0); MEAN PLT VOLUME 8.1 fl (7.5-11.1); PLATELET COUNT 311 K/MM3 (134-434); RBC 3.33 M/mm3 (3.60-5.2); RDW 20.3 % (11.6-15.6); WHITE BLOOD COUNT 11.7 K/mm3 (4.0-10.0)
[2018-06-04 11:03] LABS: ANION GAP 7 MMOL/L (8-16); BLOOD UREA NITROGEN 50 mg/dL (7-18); CALCIUM 8.5 mg/dL (8.5-10.1); CHLORIDE 95 mmol/L (98-107); CO2 36 mmol/L (21-32); GLUCOSE,RANDOM 222 mg/dL (74-106); POTASSIUM 5.4 mmol/L (3.5-5.1); SODIUM 138 mmol/L (136-145)
--- NOTE | 2018-06-04 11:38 | PN ---
Progress Note, Physician History of Present Illness: pulmonary alert,no distress on nasal o2 sat 96 - Current Medication List Current Medications: Active Medications Al Hydroxide/Mg Hydroxide (Mylanta Oral Suspension -) 30 ml PO Q6HPO [facility] Last Admin: 06/04/18 05:41 Dose: 30 ml Albuterol Sulfate (Ventolin 0.083% Nebulizer Soln -) 1 amp NEB Q4H PRN PRN Reason: SHORTNESS OF BREATH Last Admin: 06/04/18 05:05 Dose: 1 amp Ascorbic Acid (Vitamin C -) 500 mg PO DAILY [facility] Last Admin: 06/04/18 10:26 Dose: 500 mg Atorvastatin Calcium (Lipitor -) 40 mg PO HS [facility] Last Admin: 06/03/18 22:52 Dose: 40 mg Bacitracin/Polymyxin B Sulfate (Polysporin Ointment -) 1 applic TP BID [facility] Last Admin: 06/04/18 10:30 Dose: 1 applic Calcium Carbonate (Os-Bandar 500mg -) 500 mg PO DAILY [facility] Last Admin: 06/04/18 10:26 Dose: 500 mg Cholecalciferol (Vitamin D3 -) 4,000 unit PO DAILY [facility] Last Admin: 06/04/18 10:27 Dose: 4,000 unit Diphenhydramine HCl (Benadryl -) 25 mg PO HS [facility] Last Admin: 06/03/18 22:52 Dose: 25 mg Docusate Sodium (Colace -) 100 mg PO Q24H PRN PRN Reason: CONSTIPATION Last Admin: 06/01/18 10:08 Dose: 100 mg Escitalopram Oxalate (Lexapro -) 10 mg PO DAILY [facility] Last Admin: 06/04/18 10:26 Dose: 10 mg Folic Acid (Folic Acid -) 1 mg PO DAILY [facility] Last Admin: 06/04/18 10:25 Dose: 1 mg Furosemide (Lasix Injection -) 40 mg IVPUSH BID@0600,1400 [facility] Last Admin: 06/04/18 05:41 Dose: 40 mg Aztreonam 1 gm/ Dextrose 50 mls @ 100 mls/hr IVPB Q12H [facility]; Protocol Last Admin: 06/04/18 04:02 Dose: 100 mls/hr Pantoprazole Sodium 80 mg/ (Sodium Chloride) 100 mls @ 10 mls/hr IVPB Q10H [facility] Last Admin: 06/04/18 10:35 Dose: 10 mls/hr Insulin Aspart (Novolog Vial Sliding Scale -) 1 vial SQ ACHS [facility]; Protocol Last Admin: 06/04/18 06:22 Dose: Not Given Methocarbamol (Robaxin -) 750 mg PO DAILY [facility] Last Admin: 06/04/18 10:28 Dose: 750 mg Methyl Salicylate (Pal-Claudio -) 1 applic TP Q8H PRN PRN Reason: TOPICAL PAIN Nitrofurantoin Macrocrystals (Macrodantin -) 50 mg PO BID [facility] Last Admin: 06/04/18 10:26 Dose: 50 mg Nystatin (Nystop Powder -) 1 applic TP BID [facility] Last Admin: 06/04/18 10:30 Dose: 1 applic Ondansetron HCl (Zofran Injection) 4 mg IVPUSH Q6H PRN PRN Reason: NAUSEA AND/OR VOMITING Prednisone (Deltasone -) 20 mg PO DAILY [facility] Last Admin: 06/04/18 10:25 Dose: 20 mg - Objective Vital Signs: Vital Signs Temperature 98.6 F 06/04/18 02:00 Pulse Rate 87 06/04/18 05:10 Respiratory Rate 20 06/04/18 05:10 Blood Pressure 122/44 L 06/04/18 05:10 O2 Sat by Pulse Oximetry (%) 97 06/04/18 09:45 Constitutional: Yes: Calm, Obese Eyes: Yes: WNL HENT: Yes: WNL Neck: Yes: WNL Cardiovascular: Yes: Regular Rate and Rhythm, S1, S2 Respiratory: Yes: Diminished Gastrointestinal: Yes: Normal Bowel Sounds, Soft Extremities: Yes: WNL Edema: Yes Labs: CBC, BMP 06/04/18 10:05 06/04/18 10:05 Laboratory Tests 06/01/18 10:36 ABG pH 7.32 L ABG pCO2 at Pt Temp 58.3 H ABG HCO3 29.3 H ABG O2 Sat (Measured) 90.3 Oxygen Flow Rate 3l Assessment/Plan Problem List - Problems (1) Cellulitis Code(s): L03.90 - CELLULITIS, UNSPECIFIED (2) Asthma Code(s): J45.909 - UNSPECIFIED ASTHMA, UNCOMPLICATED (3) DM Diabetes mellitus type 2 Code(s): E11.9 - TYPE 2 DIABETES MELLITUS WITHOUT COMPLICATIONS (4) Hypercholesterolemia Code(s): E78.00 - PURE HYPERCHOLESTEROLEMIA, UNSPECIFIED (5) Hypertension Code(s): I10 - ESSENTIAL (PRIMARY) HYPERTENSION Assessment/Plan Right Breast Cellulitis Acute on chronic hypoxemic/hypercapneic respiratory failure r/o UTI Sepsis Acute Kidney Injury Asthma HTN DM Hyperlipidemia Morbid Obesity - antibiotics - NIPPV at night and prn - prednisone x 48h - IVF - monitor urine output, creatinine - inhaled bronchodilators - O2 to keep SpO2 >90% - when ready for discharge, check ambulatory SpO2 on room air to assess for home O2 and ABG to assess for home NIPPV - DVT prophylaxis DR ARCOS
--- NOTE | 2018-06-04 13:20 | PN ---
Progress Note, Physician History of Present Illness: stable improving - Current Medication List Current Medications: Active Medications Al Hydroxide/Mg Hydroxide (Mylanta Oral Suspension -) 30 ml PO Q6HPO [facility] Last Admin: 06/04/18 05:41 Dose: 30 ml Albuterol Sulfate (Ventolin 0.083% Nebulizer Soln -) 1 amp NEB Q4H PRN PRN Reason: SHORTNESS OF BREATH Last Admin: 06/04/18 05:05 Dose: 1 amp Ascorbic Acid (Vitamin C -) 500 mg PO DAILY [facility] Last Admin: 06/04/18 10:26 Dose: 500 mg Atorvastatin Calcium (Lipitor -) 40 mg PO HS [facility] Last Admin: 06/03/18 22:52 Dose: 40 mg Bacitracin/Polymyxin B Sulfate (Polysporin Ointment -) 1 applic TP BID [facility] Last Admin: 06/04/18 10:30 Dose: 1 applic Calcium Carbonate (Os-Bandar 500mg -) 500 mg PO DAILY [facility] Last Admin: 06/04/18 10:26 Dose: 500 mg Cholecalciferol (Vitamin D3 -) 4,000 unit PO DAILY [facility] Last Admin: 06/04/18 10:27 Dose: 4,000 unit Diphenhydramine HCl (Benadryl -) 25 mg PO HS [facility] Last Admin: 06/03/18 22:52 Dose: 25 mg Docusate Sodium (Colace -) 100 mg PO Q24H PRN PRN Reason: CONSTIPATION Last Admin: 06/01/18 10:08 Dose: 100 mg Escitalopram Oxalate (Lexapro -) 10 mg PO DAILY [facility] Last Admin: 06/04/18 10:26 Dose: 10 mg Folic Acid (Folic Acid -) 1 mg PO DAILY [facility] Last Admin: 06/04/18 10:25 Dose: 1 mg Furosemide (Lasix Injection -) 40 mg IVPUSH BID@0600,1400 [facility] Last Admin: 06/04/18 05:41 Dose: 40 mg Aztreonam 1 gm/ Dextrose 50 mls @ 100 mls/hr IVPB Q12H [facility]; Protocol Last Admin: 06/04/18 04:02 Dose: 100 mls/hr Pantoprazole Sodium 80 mg/ (Sodium Chloride) 100 mls @ 10 mls/hr IVPB Q10H [facility] Last Admin: 06/04/18 10:35 Dose: 10 mls/hr Insulin Aspart (Novolog Vial Sliding Scale -) 1 vial SQ ACHS [facility]; Protocol Last Admin: 06/04/18 06:22 Dose: Not Given Methocarbamol (Robaxin -) 750 mg PO DAILY [facility] Last Admin: 06/04/18 10:28 Dose: 750 mg Methyl Salicylate (Pal-Claudio -) 1 applic TP Q8H PRN PRN Reason: TOPICAL PAIN Nitrofurantoin Macrocrystals (Macrodantin -) 50 mg PO BID [facility] Last Admin: 06/04/18 10:26 Dose: 50 mg Nystatin (Nystop Powder -) 1 applic TP BID [facility] Last Admin: 06/04/18 10:30 Dose: 1 applic Ondansetron HCl (Zofran Injection) 4 mg IVPUSH Q6H PRN PRN Reason: NAUSEA AND/OR VOMITING Prednisone (Deltasone -) 20 mg PO DAILY [facility] Last Admin: 06/04/18 10:25 Dose: 20 mg - Objective Vital Signs: Vital Signs Temperature 98.6 F 06/04/18 02:00 Pulse Rate 87 06/04/18 05:10 Respiratory Rate 20 06/04/18 05:10 Blood Pressure 122/44 L 06/04/18 05:10 O2 Sat by Pulse Oximetry (%) 97 06/04/18 09:45 Constitutional: Yes: No Distress, Calm, Obese (morbid obesity) Cardiovascular: Yes: Regular Rate and Rhythm Respiratory: Yes: Regular, CTA Bilaterally Gastrointestinal: Yes: Normal Bowel Sounds, Soft Musculoskeletal: Yes: Other Extremities: Yes: Other Neurological: Yes: Alert Psychiatric: Yes: Alert, Oriented Labs: CBC, BMP 06/04/18 10:05 06/04/18 10:05 Assessment/Plan 58 year old morbidly obese female with a PMH significant for IDDM, HTN, HLD, asthma, and anxiety, presented to the ED with right breast enlargement and pain x 1 week. breast cellulitis dm htn hld dm morbid obesity sob multiple wounds plan ct abx wound care rest continue current mgmt resp support will change to oral abx if stable tomorrow
[2018-06-04] MEDS ORDERED: LORazepam 2 MG/ML SDV VIAL IVPUSH PRN (18:59)
[2018-06-04] MEDS: diphenhydrAMINE HCL 25 MG CAPSULE (FP) PO SCH (21:51)
[2018-06-04] MEDS: ATORVASTATIN CA 40 MG TABLET (FP) PO SCH (21:51)
[2018-06-05] MEDS: MAG HYDROX/AL HYDROX/SIMETH 30 ML UNIT-DOSE CUP PO SCH ×5 (01:38→23:58)
[2018-06-05] MEDS ORDERED: PT OWN MED DRAWER 7, Y5N ONE ×2 (03:52→09:53)
[2018-06-05] MEDS: AZTREONAM 1 GM in DEXTROSE 5%-WATER - 50 ML IVPB SCH (04:30)
[2018-06-05] MEDS: FUROSEMIDE 40 MG/4 ML INJECTABLE VIAL IVPUSH SCH ×2 (06:22→14:02)
[2018-06-05] MEDS: PANTOPRAZOLE SODIUM 80 MG in SODIUM CHLORIDE 100 ML IVPB SCH ×2 (06:22→15:30)
[2018-06-05] MEDS: INSULIN SLIDING SCALE (NOVOLOG) 1 VIAL SQ SCH ×4 (06:30→21:03)
[2018-06-05 08:10] LABS: HEMOGLOBIN 7.7 GM/dL (10.7-15.3); MCH 22.8 pg (25.7-33.7); MCHC 29.8 g/dl (32.0-36.0); MEAN CELL VOLUME 76.6 fl (80-96); PLATELET COUNT 284 K/MM3 (134-434); RBC 3.39 M/mm3 (3.60-5.2); RDW 20.6 % (11.6-15.6); WHITE BLOOD COUNT 9.9 K/mm3 (4.0-10.0)
--- NOTE | 2018-06-05 08:56 | PN ---
Progress Note (short form) - Note Progress Note: Subjective: --No acute overnight events --Net negative 1.7L yesterday Objective: Vital Signs 06/05/18 06:43 Temperature 98.7 F Pulse Rate 88 Respiratory 20 Rate Blood Pressure 118/58 L Gen: well appearing obese female sitting upright in NAD on NC HEENT: NC/AT. OP Clear, MMM Cardiac: S1/S2 no murmurs appreciated Pulm: clear breath sounds bilaterally. Ext: 1+ lower extremity edema Laboratory Results - last 24 hr 06/04/18 06/04/18 06/04/18 10:05 10:05 11:25 WBC 11.7 H RBC 3.33 L Hgb 7.5 L Hct 25.6 L MCV 77.0 L MCH 22.6 L MCHC 29.4 L RDW 20.3 H Plt Count 311 MPV 8.1 Sodium 138 Potassium 5.4 H Chloride 95 L Carbon Dioxide 36 H Anion Gap 7 L BUN 50 H Creatinine 2.0 H Creat Clearance w eGFR 25.50 POC Glucometer 249 Random Glucose 222 H Calcium 8.5 06/04/18 06/04/18 06/05/18 16:40 21:27 05:40 WBC 9.9 RBC 3.39 L Hgb 7.7 L Hct 26.0 L MCV 76.6 L MCH 22.8 L MCHC 29.8 L RDW 20.6 H Plt Count 284 MPV 8.0 Sodium Potassium Chloride Carbon Dioxide Anion Gap BUN Creatinine Creat Clearance w eGFR POC Glucometer 265 254 Random Glucose Calcium 06/05/18 06:28 WBC RBC Hgb Hct MCV MCH MCHC RDW Plt Count MPV Sodium Potassium Chloride Carbon Dioxide Anion Gap BUN Creatinine Creat Clearance w eGFR POC Glucometer 240 Random Glucose Calcium Cardiac Medications: Atorvastatin 40mg Furosemide 40mg IV BID A/P: 58 yo morbidly obese female with past medical history significant for hypertension, hyperlipidemia, diabetes, asthma, GERD admitted with asthma exacerbation on prednisone found to have acute on chronic diastolic heart failure- currently effectively diuresing with furosemide 40mg IV BID. #Acute on Chronic Diastolic Heart Failure; remains volume up on exam Treatment: --continue lasix 40mg IV BID --holding home enalapril --chemistry panel BID, keep K>4, Mg>2 --daily weights, strict I/Os, goal net negative 1-2 L/daily --if she continues to improve from a volume standpoint, consider discontinuing roa cath tomorrow #DVT PPx; as per the primiar medical team --if subq heparin/lovenox felt to elevate bleeding risk then SCD boots and out of bed to chair
[2018-06-05 09:54] LABS: ANION GAP 9 MMOL/L (8-16); BLOOD UREA NITROGEN 45 mg/dL (7-18); CALCIUM 8.5 mg/dL (8.5-10.1); CHLORIDE 94 mmol/L (98-107); CO2 35 mmol/L (21-32); CREATININE 1.8 mg/dL (0.55-1.3); GLUCOSE,RANDOM 186 mg/dL (74-106); MAGNESIUM 2.6 mg/dL (1.8-2.4); SODIUM 138 mmol/L (136-145)
[2018-06-05] MEDS: NYSTATIN POWDER 100,000 UNITS/GM - 15 GM TOPICAL POWDER TP SCH ×2 (10:41→21:01)
[2018-06-05] MEDS: NITROFURANTOIN MACROCRYSTAL 50 MG CAPSULE (FP) PO SCH ×2 (10:41→21:01)
[2018-06-05] MEDS: predniSONE 20 MG TABLET (UD) PO SCH (10:41)
[2018-06-05] MEDS: CALCIUM (OYSTER SHELL) 500 MG TABLET (FP) PO SCH (10:41)
[2018-06-05] MEDS: ESCITALOPRAM OXALATE 10 MG TABLET (FP) PO SCH (10:41)
[2018-06-05] MEDS: FOLIC ACID 1 MG TABLET (FP) PO SCH (10:41)
[2018-06-05] MEDS: METHOCARBAMOL 500 MG TABLET PO SCH (10:42)
[2018-06-05] MEDS: BACITRACIN/POLYMYXIN B SULFATE 15 GM TUBE TP SCH ×2 (10:42→21:01)
[2018-06-05] MEDS: ASCORBIC ACID 500 MG TABLET (FP) PO SCH (10:43)
[2018-06-05] MEDS: CHOLECALCIFEROL (VITAMIN D3) 1,000 UNIT TABLET (FP) PO SCH (10:43)
[2018-06-05] MEDS: ALBUTEROL SO4 0.083% IH SOL 2.5 MG/3 ML VIAL.NEB. NEB PRN (11:45)
--- NOTE | 2018-06-05 12:47 | PN ---
Progress Note (short form) - Note Progress Note: Breathing feels better. NAD on NC O2. No CP. Intake & Output 06/02/18 06/03/18 06/04/18 06/05/18 23:59 23:59 23:59 23:59 Intake Total 1560 750 40 174 Output Total 200 2500 1750 900 Balance 4670 -1750 -1710 -726 Weight 410 lb Last Vital Signs Temp Pulse Resp BP Pulse Ox 98.7 F 88 20 118/58 L 98 06/05/18 06:43 06/05/18 06:43 06/05/18 06:43 06/05/18 06:43 06/05/18 08:40 Active Medications Al Hydroxide/Mg Hydroxide (Mylanta Oral Suspension -) 30 ml PO Q6HPO [facility] Last Admin: 06/05/18 06:23 Dose: 30 ml Albuterol Sulfate (Ventolin 0.083% Nebulizer Soln -) 1 amp NEB Q4H PRN PRN Reason: SHORTNESS OF BREATH Last Admin: 06/05/18 11:45 Dose: 1 amp Ascorbic Acid (Vitamin C -) 500 mg PO DAILY [facility] Last Admin: 06/05/18 10:43 Dose: 500 mg Atorvastatin Calcium (Lipitor -) 40 mg PO HS [facility] Last Admin: 06/04/18 21:51 Dose: 40 mg Bacitracin/Polymyxin B Sulfate (Polysporin Ointment -) 1 applic TP BID [facility] Last Admin: 06/05/18 10:42 Dose: 1 applic Calcium Carbonate (Os-Bandar 500mg -) 500 mg PO DAILY [facility] Last Admin: 06/05/18 10:41 Dose: 500 mg Cholecalciferol (Vitamin D3 -) 4,000 unit PO DAILY [facility] Last Admin: 06/05/18 10:43 Dose: 4,000 unit Diphenhydramine HCl (Benadryl -) 25 mg PO HS [facility] Last Admin: 06/04/18 21:51 Dose: 25 mg Docusate Sodium (Colace -) 100 mg PO Q24H PRN PRN Reason: CONSTIPATION Last Admin: 06/01/18 10:08 Dose: 100 mg Escitalopram Oxalate (Lexapro -) 10 mg PO DAILY [facility] Last Admin: 06/05/18 10:41 Dose: 10 mg Folic Acid (Folic Acid -) 1 mg PO DAILY [facility] Last Admin: 06/05/18 10:41 Dose: 1 mg Furosemide (Lasix Injection -) 40 mg IVPUSH BID@0600,1400 [facility] Last Admin: 06/05/18 06:22 Dose: 40 mg Aztreonam 1 gm/ Dextrose 50 mls @ 100 mls/hr IVPB Q12H [facility]; Protocol Last Admin: 06/05/18 04:30 Dose: 100 mls/hr Pantoprazole Sodium 80 mg/ (Sodium Chloride) 100 mls @ 10 mls/hr IVPB Q10H [facility] Last Admin: 06/05/18 06:22 Dose: 10 mls/hr Insulin Aspart (Novolog Vial Sliding Scale -) 1 vial SQ ACHS [facility]; Protocol Last Admin: 06/05/18 06:30 Dose: 4 units Lorazepam (Ativan Injection -) 2 mg IVPUSH Q8H PRN PRN Reason: ANXIETY Methocarbamol (Robaxin -) 750 mg PO DAILY [facility] Last Admin: 06/05/18 10:42 Dose: 750 mg Methyl Salicylate (Pal-Claudio -) 1 applic TP Q8H PRN PRN Reason: TOPICAL PAIN Nitrofurantoin Macrocrystals (Macrodantin -) 50 mg PO BID [facility] Last Admin: 06/05/18 10:41 Dose: 50 mg Nystatin (Nystop Powder -) 1 applic TP BID [facility] Last Admin: 06/05/18 10:41 Dose: 1 applic Ondansetron HCl (Zofran Injection) 4 mg IVPUSH Q6H PRN PRN Reason: NAUSEA AND/OR VOMITING Prednisone (Deltasone -) 20 mg PO DAILY [facility] Last Admin: 06/05/18 10:41 Dose: 20 mg Constitutional: Yes: NAD, Obese Eyes: Yes: WNL HENT: Yes: WNL Neck: Yes: WNL Cardiovascular: Yes: Regular Rate and Rhythm, S1, S2 Respiratory: Yes: Diminished Gastrointestinal: Yes: Normal Bowel Sounds, Soft Extremities: Yes: WNL Edema: Yes Labs: Laboratory Results - last 24 hr 06/04/18 06/04/18 06/05/18 16:40 21:27 05:40 WBC 9.9 RBC 3.39 L Hgb 7.7 L Hct 26.0 L MCV 76.6 L MCH 22.8 L MCHC 29.8 L RDW 20.6 H Plt Count 284 MPV 8.0 Sodium Potassium Chloride Carbon Dioxide Anion Gap BUN Creatinine Creat Clearance w eGFR POC Glucometer 265 254 Random Glucose Calcium Magnesium 06/05/18 06/05/18 06/05/18 05:40 06:28 11:44 WBC RBC Hgb Hct MCV MCH MCHC RDW Plt Count MPV Sodium 138 Potassium 5.0 Chloride 94 L Carbon Dioxide 35 H Anion Gap 9 BUN 45 H Creatinine 1.8 H Creat Clearance w eGFR 28.80 POC Glucometer 240 216 Random Glucose 186 H Calcium 8.5 Magnesium 2.6 H Assessment/Plan Problem List - Problems (1) Cellulitis Code(s): L03.90 - CELLULITIS, UNSPECIFIED (2) Asthma Code(s): J45.909 - UNSPECIFIED ASTHMA, UNCOMPLICATED (3) DM Diabetes mellitus type 2 Code(s): E11.9 - TYPE 2 DIABETES MELLITUS WITHOUT COMPLICATIONS (4) Hypercholesterolemia Code(s): E78.00 - PURE HYPERCHOLESTEROLEMIA, UNSPECIFIED (5) Hypertension Code(s): I10 - ESSENTIAL (PRIMARY) HYPERTENSION Assessment/Plan Right Breast Cellulitis Acute on chronic hypoxemic/hypercapneic respiratory failure Sepsis Acute Kidney Injury Asthma HTN DM Hyperlipidemia Morbid Obesity - ABX - NIPPV at night and prn - prednisone - monitor urine output, creatinine - inhaled bronchodilators - O2 to keep SpO2 >90% - when ready for discharge, check ambulatory SpO2 on room air to assess for home O2 and ABG to assess for home NIPPV - DVT prophylaxis Dr Sanders
--- NOTE | 2018-06-05 13:21 | PN ---
Physical Exam: SUBJECTIVE: Patient seen and examined. Appears very sleepy, reports still having acid reflux pain. Still no BM. OBJECTIVE: Vital Signs Period Temp Pulse Resp BP Sys/Lindsey Pulse Ox Last 24 Hr 98.2 F-98.7 F 84-88 20-20 115-126/55-58 95-98 GENERAL: Morbidly obese, appears lethargic, fully oriented HEAD: Normal with no signs of trauma. EYES: Pupils equal, round and reactive to light, extraocular movements intact, sclera anicteric, conjunctiva clear. No lid lag. EARS, NOSE, THROAT: Nares patent, oropharynx clear without exudates. Moist mucous membranes. NECK: Normal range of motion, supple without lymphadenopathy, JVD, or masses. LUNGS: +NC, distant breath sounds no accessory muscle use. HEART: Regular rate and rhythm, normal S1 and S2 without murmur, rub or gallop. ABDOMEN: Obese, Soft, nontender, not distended, normoactive bowel sounds, no guarding, no rebound, no masses. No hepatomegaly or splenomegaly. Breasts: Large pendulous breasts, R>L TTP, no discharge to nipples MUSCULOSKELETAL: Normal range of motion at all joints. No bony deformities or tenderness. No CVA tenderness. UPPER EXTREMITIES: 2+ pulses, warm, well-perfused. No cyanosis. No clubbing. No peripheral edema. LOWER EXTREMITIES: 2+ pulses, warm, well-perfused. No calf tenderness. +2 edema to b/l LE NEUROLOGICAL: No facial droop, tongue midline, normal speech. . PSYCHIATRIC: Cooperative. Good eye contact. Appropriate mood and affect. SKIN: To upper abdomen between breasts, scant purulent drainage on gauze. Laboratory Results - last 24 hr 06/04/18 06/04/18 06/05/18 16:40 21:27 05:40 WBC 9.9 RBC 3.39 L Hgb 7.7 L Hct 26.0 L MCV 76.6 L MCH 22.8 L MCHC 29.8 L RDW 20.6 H Plt Count 284 MPV 8.0 Sodium Potassium Chloride Carbon Dioxide Anion Gap BUN Creatinine Creat Clearance w eGFR POC Glucometer 265 254 Random Glucose Calcium Magnesium 06/05/18 06/05/18 06/05/18 05:40 06:28 11:44 WBC RBC Hgb Hct MCV MCH MCHC RDW Plt Count MPV Sodium 138 Potassium 5.0 Chloride 94 L Carbon Dioxide 35 H Anion Gap 9 BUN 45 H Creatinine 1.8 H Creat Clearance w eGFR 28.80 POC Glucometer 240 216 Random Glucose 186 H Calcium 8.5 Magnesium 2.6 H Active Medications Generic Name Dose Route Start Last Admin Trade Name Freq PRN Reason Stop Dose Admin Al Hydroxide/Mg Hydroxide 30 ml 06/03/18 21:00 06/05/18 06:23 Mylanta Oral Suspension - PO 30 ml Q6HPO SUSIE Administration Albuterol Sulfate 1 amp 05/31/18 20:26 06/05/18 11:45 Ventolin 0.083% Nebulizer Soln - NEB 1 amp Q4H PRN Administration SHORTNESS OF BREATH Ascorbic Acid 500 mg 06/01/18 10:00 06/05/18 10:43 Vitamin C - PO 500 mg DAILY SUSIE Administration Atorvastatin Calcium 40 mg 05/31/18 22:00 06/04/18 21:51 Lipitor - PO 40 mg HS SUSIE Administration Bacitracin/Polymyxin B Sulfate 1 applic 05/31/18 22:00 06/05/18 10:42 Polysporin Ointment - TP 1 applic BID SUSIE Administration Calcium Carbonate 500 mg 06/01/18 10:00 06/05/18 10:41 Os-Bandar 500mg - PO 500 mg DAILY SUSIE Administration Cholecalciferol 4,000 unit 06/01/18 10:00 06/05/18 10:43 Vitamin D3 - PO 4,000 unit DAILY SUSIE Administration Diphenhydramine HCl 25 mg 05/31/18 22:00 06/04/18 21:51 Benadryl - PO 25 mg HS SUSIE Administration Docusate Sodium 100 mg 05/31/18 20:26 06/01/18 10:08 Colace - PO 100 mg Q24H PRN Administration CONSTIPATION Escitalopram Oxalate 10 mg 06/01/18 10:00 06/05/18 10:41 Lexapro - PO 10 mg DAILY SUSIE Administration Folic Acid 1 mg 06/01/18 10:00 06/05/18 10:41 Folic Acid - PO 1 mg DAILY SUSIE Administration Furosemide 40 mg 06/03/18 06:00 06/05/18 06:22 Lasix Injection - IVPUSH 40 mg BID@0600,1400 SUSIE Administration Aztreonam 1 gm/ Dextrose 50 mls @ 100 mls/hr 06/01/18 16:00 06/05/18 04:30 IVPB 100 mls/hr Q12H SUSIE Administration Protocol Pantoprazole Sodium 80 mg/ 100 mls @ 10 mls/hr 06/04/18 09:00 06/05/18 06:22 Sodium Chloride IVPB 10 mls/hr Q10H SUSIE Administration 8 MG/HR Insulin Aspart 1 vial 06/04/18 22:00 06/05/18 06:30 Novolog Vial Sliding Scale - SQ 4 units ACHS SUSIE Administration Protocol Lorazepam 2 mg 06/05/18 09:36 Ativan Injection - IVPUSH Q8H PRN ANXIETY Methocarbamol 750 mg 06/01/18 10:00 06/05/18 10:42 Robaxin - PO 750 mg DAILY SUSIE Administration Methyl Salicylate 1 applic 05/31/18 20:58 Pal-Claudio - TP Q8H PRN TOPICAL PAIN Nitrofurantoin Macrocrystals 50 mg 05/31/18 22:00 06/05/18 10:41 Macrodantin - PO 50 mg BID SUSIE Administration Nystatin 1 applic 05/31/18 22:00 06/05/18 10:41 Nystop Powder - TP 1 applic BID SUSIE Administration Ondansetron HCl 4 mg 06/03/18 09:38 Zofran Injection IVPUSH Q6H PRN NAUSEA AND/OR VOMITING Prednisone 20 mg 06/02/18 12:45 06/05/18 10:41 Deltasone - PO 20 mg DAILY SUSIE Administration ASSESSMENT/PLAN: 58 year old morbidly obese female with a PMH significant for IDDM, HTN, HLD, asthma, and anxiety, presented to the ED with right breast enlargement and pain x 1 week. She was started on IV antibiotics. Acute Hypoxic Respiratory Failure - Improving; likely acute on chronic - Likely caused by obesity hypoventillation/MARCELL and with newly-diagnosed diastolic CHF - Pulmonary following - Prednisone 20 mg PO qday, taper down - ABG on RA prior to DC to assess for Pickwickian syndrome - monitor urine output, creatinine - inhaled bronchodilators - O2 @ 3LPM via NC - keep SpO2 >90% - qHS Bipap - She should be on this at home but wasn't using - Will f/u with case management about getting home bipap Acute on Chronic Diastolic CHF Exacerbation - [employer] Dr. Burton following - Lasix 40 mg IV BID - Holding home Enalapril - If additional BP control needed consider nitro/hydralazine - Followup echo - Telemetry monitoring; NSR - Chemistry panel BID, keep K>4, Mg>2 - Daily weights, goal net negative 1-2 L/daily - If she continues to improve from a volume standpoint, consider discontinuing roa cath tomorrow Dark Vomiting - Fecal occult blood pending - If positive for GIB consult GI - PPI drip, Diverticulosis - She did have a drop in hb but no s/s bleeding - FOB pending - If (+) NPO and consult GI. Anemia, microcytic - Drop from admission but could be dilutional - Still want to r/o bleed with h/o diverticular disease - FOB pending - XF <7 - Repeat Hb this AM trending at 8; followup this PM CKD - Trend BMP and monitor UOP; at baseline HTN -Controlled - HOLD home Enalapril - On Lasix 40 mg IV BID Breast Cellulitis - Breast US negative - Seen by breast surgeon Dr. Tara Long - Bl breast edema not infectious - likely secondary to fluid overload - F/u OP upon d/c - Followed by ID specialist Dr. Lomeli - Azactam 1 GM BID DM - Hold home Glipizide 10 mg PO BID - Insulin Glulisine [Apidra] 100 unit SQ AC - Patient reports Novolog does not work on her and she refuses to take it , she brought an unopened bottle from home - Ulcers - Wound consult ordered with Dr. Yoon - Daily wound care with bacitracin/polymixin B ointment BID and DPD - Recurrent UTIs - Nitrofurantoin 50 mg PO BID HLD - Atorvastatin Ca 40 mg PO HS Asthma - Albuterol Nebs PRN Anxiety - Escitalopram 10 mg PO DAILY Morbid Obesity - BMI 64.2 - Seen by bariatric surgeon Dr. Nato Abarca - Discussed weight loss options including bariatric surgery and nonsurgical options - Follow up in office for formal bariatric surgery evaluation Pain management - Methocarbamol 750 mg PO DAILY - Oxycodone HCl 15 mg PO BID PRN Fungal Rash - Nystatin powder under breasts, abdominal folds, and thigh folds BID Constipation - Docusate Sodium 100 mg PO DAILY PRN Insomnia - Diphenhydramine HCl 25 mg PO HS Supplement - Ascorbate Calcium 500 mg PO DAILY - Calcium (Oyster Shell) 500 mg PO DAILY - Folic Acid 1 mg PO DAILY - Ergocalciferol (Vitamin D2) 4,000 unit PO DAILY Prophylaxis DVT: Heparin SQ GI: On Protonix drip FEN - PO intake adequate - Replete as needed - Diabetic, low sodium, clear liquid diet Disp: Patient requires further inpatient treatment. FULL CODE Visit type - Emergency Visit Emergency Visit: No - New Patient This patient is new to me today: No - Critical Care Critical Care patient: No
--- NOTE | 2018-06-05 14:47 | PN ---
Progress Note, Physician History of Present Illness: Pt is alert. c/o heartburn but no vomiting or abd pain. Remains afebrile. States Rt breast feeling better, less painful. - Current Medication List Current Medications: Active Medications Al Hydroxide/Mg Hydroxide (Mylanta Oral Suspension -) 30 ml PO Q6HPO [facility] Last Admin: 06/05/18 12:50 Dose: 30 ml Albuterol Sulfate (Ventolin 0.083% Nebulizer Soln -) 1 amp NEB Q4H PRN PRN Reason: SHORTNESS OF BREATH Last Admin: 06/05/18 11:45 Dose: 1 amp Ascorbic Acid (Vitamin C -) 500 mg PO DAILY [facility] Last Admin: 06/05/18 10:43 Dose: 500 mg Atorvastatin Calcium (Lipitor -) 40 mg PO HS [facility] Last Admin: 06/04/18 21:51 Dose: 40 mg Bacitracin/Polymyxin B Sulfate (Polysporin Ointment -) 1 applic TP BID [facility] Last Admin: 06/05/18 10:42 Dose: 1 applic Calcium Carbonate (Os-Bandar 500mg -) 500 mg PO DAILY [facility] Last Admin: 06/05/18 10:41 Dose: 500 mg Cholecalciferol (Vitamin D3 -) 4,000 unit PO DAILY [facility] Last Admin: 06/05/18 10:43 Dose: 4,000 unit Diphenhydramine HCl (Benadryl -) 25 mg PO HS [facility] Last Admin: 06/04/18 21:51 Dose: 25 mg Docusate Sodium (Colace -) 100 mg PO Q24H PRN PRN Reason: CONSTIPATION Last Admin: 06/01/18 10:08 Dose: 100 mg Escitalopram Oxalate (Lexapro -) 10 mg PO DAILY [facility] Last Admin: 06/05/18 10:41 Dose: 10 mg Folic Acid (Folic Acid -) 1 mg PO DAILY [facility] Last Admin: 06/05/18 10:41 Dose: 1 mg Furosemide (Lasix Injection -) 40 mg IVPUSH BID@0600,1400 [facility] Last Admin: 06/05/18 14:02 Dose: 40 mg Pantoprazole Sodium 80 mg/ (Sodium Chloride) 100 mls @ 10 mls/hr IVPB Q10H [facility] Last Admin: 06/05/18 06:22 Dose: 10 mls/hr Insulin Aspart (Novolog Vial Sliding Scale -) 1 vial SQ ACHS [facility]; Protocol Last Admin: 06/05/18 12:00 Dose: 4 units Lorazepam (Ativan Injection -) 2 mg IVPUSH Q8H PRN PRN Reason: ANXIETY Methocarbamol (Robaxin -) 750 mg PO DAILY [facility] Last Admin: 06/05/18 10:42 Dose: 750 mg Methyl Salicylate (Pal-Claudio -) 1 applic TP Q8H PRN PRN Reason: TOPICAL PAIN Nitrofurantoin Macrocrystals (Macrodantin -) 50 mg PO BID [facility] Last Admin: 06/05/18 10:41 Dose: 50 mg Nystatin (Nystop Powder -) 1 applic TP BID [facility] Last Admin: 06/05/18 10:41 Dose: 1 applic Ondansetron HCl (Zofran Injection) 4 mg IVPUSH Q6H PRN PRN Reason: NAUSEA AND/OR VOMITING Prednisone (Deltasone -) 20 mg PO DAILY [facility] Last Admin: 06/05/18 10:41 Dose: 20 mg - Objective Vital Signs: Vital Signs Temperature 98.7 F 06/05/18 06:43 Pulse Rate 88 06/05/18 06:43 Respiratory Rate 20 06/05/18 06:43 Blood Pressure 118/58 L 06/05/18 06:43 O2 Sat by Pulse Oximetry (%) 98 06/05/18 08:40 Constitutional: Yes: No Distress, Calm Neck: Yes: Supple Cardiovascular: Yes: Regular Rate and Rhythm Respiratory: Yes: Regular Gastrointestinal: Yes: Normal Bowel Sounds, Soft, Abdomen, Obese Breast(s): Yes: Right (Lateral/inferior region minimal induration, no fluctuance or drainage, less tender) Wound/Incision: Yes: Dressing Dry and Intact (abd ulceration) Neurological: Yes: Alert Labs: CBC, BMP 06/05/18 05:40 06/05/18 05:40 Problem List - Problems (1) Acute on chronic diastolic (congestive) heart failure Code(s): I50.33 - ACUTE ON CHRONIC DIASTOLIC (CONGESTIVE) HEART FAILURE (2) Anemia Code(s): D64.9 - ANEMIA, UNSPECIFIED Qualifiers: Chronic kidney disease stage: unspecified stage (3) Cellulitis Code(s): L03.90 - CELLULITIS, UNSPECIFIED Qualifiers: Laterality: unspecified laterality (4) Diabetes mellitus Code(s): E11.9 - TYPE 2 DIABETES MELLITUS WITHOUT COMPLICATIONS Qualifiers: Diabetes mellitus type: type 2 (5) Diabetic gastroparesis associated with type 2 diabetes mellitus Code(s): E11.43 - TYPE 2 DIABETES W DIABETIC AUTONOMIC (POLY)NEUROPATHY; K31.84 - GASTROPARESIS (6) Morbid obesity Code(s): E66.01 - MORBID (SEVERE) OBESITY DUE TO EXCESS CALORIES (7) DM Diabetes mellitus type 2 Code(s): E11.9 - TYPE 2 DIABETES MELLITUS WITHOUT COMPLICATIONS (8) Hypercholesterolemia Code(s): E78.00 - PURE HYPERCHOLESTEROLEMIA, UNSPECIFIED (9) Hypertension Code(s): I10 - ESSENTIAL (PRIMARY) HYPERTENSION Assessment/Plan Breast Cellulitis - improving ELIZA Acute respiratory failure/chronic failure Acute on chronic respiratory failure DM Asthma HTN Morbid Obesity Hyperlipidemia -- d/c Aztreonam, start Clindamycin po -- may add Levaquin 500 mg daily if not administering Odansetron (pt has not received for past 2 days) - to avoid drug interaction -- cont. monitor
[2018-06-05] MEDS: CLINDAMYCIN HCL 150 MG CAPSULE (FP) PO SCH ×2 (17:48→23:58)
[2018-06-05 19:04] LABS: ARTERIAL BLD GAS O2 SATURATION 87.5 % (90-98.9); ARTERIAL BLOOD GAS BASE EXCESS 12.9 meq/l (-2-2); ARTERIAL BLOOD GAS PO2 60.4 mmHg (80-100); ARTERIAL BLOOD GAS pH 7.34 (7.35-7.45)
[2018-06-05 19:06] LABS: ALLENS TEST POSITIVE
[2018-06-05 19:10] LABS: ARTERIAL BLOOD GAS PCO2 76.4 mmHg (35-45)
[2018-06-05] MEDS: diphenhydrAMINE HCL 25 MG CAPSULE (FP) PO SCH (21:01)
[2018-06-05] MEDS: LORazepam 2 MG/ML SDV VIAL IVPUSH PRN (21:01)
[2018-06-05] MEDS: ATORVASTATIN CA 40 MG TABLET (FP) PO SCH (21:01)
[2018-06-06] MEDS: MAG HYDROX/AL HYDROX/SIMETH 30 ML UNIT-DOSE CUP PO SCH ×4 (00:31→17:42)
[2018-06-06] MEDS: PANTOPRAZOLE SODIUM 80 MG in SODIUM CHLORIDE 100 ML IVPB SCH ×2 (02:00→12:46)
[2018-06-06] MEDS: CLINDAMYCIN HCL 150 MG CAPSULE (FP) PO SCH ×4 (06:20→23:45)
[2018-06-06] MEDS: INSULIN SLIDING SCALE (NOVOLOG) 1 VIAL SQ SCH ×4 (06:21→23:52)
[2018-06-06] MEDS: FUROSEMIDE 40 MG/4 ML INJECTABLE VIAL IVPUSH SCH ×2 (06:25→15:00)
[2018-06-06 07:52] LABS: HEMATOCRIT 24.9 % (32.4-45.2); HEMOGLOBIN 7.6 GM/dL (10.7-15.3); MCH 23.4 pg (25.7-33.7); MCHC 30.7 g/dl (32.0-36.0); MEAN CELL VOLUME 76.1 fl (80-96); PLATELET COUNT 263 K/MM3 (134-434); RBC 3.26 M/mm3 (3.60-5.2); RDW 20.4 % (11.6-15.6); WHITE BLOOD COUNT 10.9 K/mm3 (4.0-10.0)
[2018-06-06 08:33] LABS: ANION GAP 8 MMOL/L (8-16); BLOOD UREA NITROGEN 37 mg/dL (7-18); CALCIUM 8.6 mg/dL (8.5-10.1); CHLORIDE 91 mmol/L (98-107); CO2 38 mmol/L (21-32); CREATININE 1.4 mg/dL (0.55-1.3); GLUCOSE,RANDOM 126 mg/dL (74-106); MAGNESIUM 2.3 mg/dL (1.8-2.4); POTASSIUM 4.8 mmol/L (3.5-5.1); SODIUM 137 mmol/L (136-145)
--- NOTE | 2018-06-06 11:43 | PN ---
Progress Note (short form) - Note Progress Note: Subjective: --No acute overnight events Objective: Vital Signs 06/06/18 06/06/18 06/06/18 04:00 07:00 08:40 Pulse Rate 90 90 Respiratory 20 20 Rate Blood Pressure 104/68 104/68 O2 Sat by Pulse 98 Oximetry (%) Gen: well appearing obese female sitting upright in NAD on NC HEENT: NC/AT. OP Clear, MMM Cardiac: S1/S2 no murmurs appreciated Pulm: clear breath sounds bilaterally. Ext: 1+ lower extremity edema Abnormal Lab Results 06/05/18 06/06/18 06/06/18 18:50 05:30 05:30 WBC 10.9 H RBC 3.26 L Hgb 7.6 L Hct 24.9 L MCV 76.1 L MCH 23.4 L MCHC 30.7 L RDW 20.4 H ABG pH 7.34 L ABG pCO2 at Pt Temp 76.4 H* D ABG pO2 at Pt Temp 60.4 L ABG HCO3 40.2 H* ABG O2 Sat (Measured) 87.5 L ABG O2 Content 9.9 L* ABG Base Excess 12.9 H Chloride 91 L Carbon Dioxide 38 H BUN 37 H Creatinine 1.4 H Random Glucose 126 H Cardiac Medications: Atorvastatin 40mg Furosemide 40mg IV BID A/P: 58 yo morbidly obese female with past medical history significant for hypertension, hyperlipidemia, diabetes, asthma, GERD admitted with asthma exacerbation on prednisone found to have acute on chronic diastolic heart failure- currently effectively diuresing with furosemide 40mg IV BID. #Acute on Chronic Diastolic Heart Failure; remains volume up on exam; improving volume status, renal function improving with diuresis Cr 1.8-->1.4 Treatment: --continue lasix 40mg IV BID --holding home enalapril --chemistry panel BID, keep K>4, Mg>2 --daily weights, strict I/Os, goal net negative 1-2 L/daily --can discontinue roa cath today #DVT PPx; as per the primiar medical team --if subq heparin/lovenox felt to elevate bleeding risk then SCD boots and out of bed to chair Cole Conklin MD
[2018-06-06] MEDS ORDERED: PT OWN MED DRAWER 7, Y5N ONE ×2 (11:48→17:38)
[2018-06-06] MEDS: predniSONE 20 MG TABLET (UD) PO SCH (11:52)
[2018-06-06] MEDS: FOLIC ACID 1 MG TABLET (FP) PO SCH (11:53)
[2018-06-06] MEDS: CALCIUM (OYSTER SHELL) 500 MG TABLET (FP) PO SCH (11:53)
[2018-06-06] MEDS: NITROFURANTOIN MACROCRYSTAL 50 MG CAPSULE (FP) PO SCH ×2 (11:53→23:42)
[2018-06-06] MEDS: ASCORBIC ACID 500 MG TABLET (FP) PO SCH (11:54)
[2018-06-06] MEDS: ESCITALOPRAM OXALATE 10 MG TABLET (FP) PO SCH (11:54)
[2018-06-06] MEDS: CHOLECALCIFEROL (VITAMIN D3) 1,000 UNIT TABLET (FP) PO SCH (11:55)
[2018-06-06] MEDS: METHOCARBAMOL 500 MG TABLET PO SCH (11:56)
[2018-06-06] MEDS: BACITRACIN/POLYMYXIN B SULFATE 15 GM TUBE TP SCH ×2 (11:58→23:43)
[2018-06-06] MEDS: NYSTATIN POWDER 100,000 UNITS/GM - 15 GM TOPICAL POWDER TP SCH ×2 (11:59→23:43)
[2018-06-06] MEDS: LORazepam 2 MG/ML SDV VIAL IVPUSH PRN ×2 (13:11→23:46)
--- NOTE | 2018-06-06 13:13 | PN ---
Progress Note, Physician History of Present Illness: Pt is alert, afebrile. C/O nausea but no vomiting episodes per RN. - Current Medication List Current Medications: Active Medications Al Hydroxide/Mg Hydroxide (Mylanta Oral Suspension -) 30 ml PO Q6HPO [facility] Last Admin: 06/06/18 11:55 Dose: 30 ml Ascorbic Acid (Vitamin C -) 500 mg PO DAILY [facility] Last Admin: 06/06/18 11:54 Dose: 500 mg Atorvastatin Calcium (Lipitor -) 40 mg PO HS [facility] Last Admin: 06/05/18 21:01 Dose: 40 mg Bacitracin/Polymyxin B Sulfate (Polysporin Ointment -) 1 applic TP BID [facility] Last Admin: 06/06/18 11:58 Dose: 1 applic Calcium Carbonate (Os-Bandar 500mg -) 500 mg PO DAILY [facility] Last Admin: 06/06/18 11:53 Dose: 500 mg Cholecalciferol (Vitamin D3 -) 4,000 unit PO DAILY [facility] Last Admin: 06/06/18 11:55 Dose: 4,000 unit Clindamycin HCl (Cleocin -) 300 mg PO Q6HPO [facility] Last Admin: 06/06/18 11:55 Dose: 300 mg Diphenhydramine HCl (Benadryl -) 25 mg PO HS [facility] Last Admin: 06/05/18 21:01 Dose: 25 mg Docusate Sodium (Colace -) 100 mg PO Q24H PRN PRN Reason: CONSTIPATION Last Admin: 06/01/18 10:08 Dose: 100 mg Escitalopram Oxalate (Lexapro -) 10 mg PO DAILY [facility] Last Admin: 06/06/18 11:54 Dose: 10 mg Folic Acid (Folic Acid -) 1 mg PO DAILY [facility] Last Admin: 06/06/18 11:53 Dose: 1 mg Furosemide (Lasix Injection -) 40 mg IVPUSH BID@0600,1400 [facility] Last Admin: 06/06/18 06:25 Dose: 40 mg Pantoprazole Sodium 80 mg/ (Sodium Chloride) 100 mls @ 10 mls/hr IVPB Q10H [facility] Last Admin: 06/06/18 12:46 Dose: Not Given Insulin Aspart (Novolog Vial Sliding Scale -) 1 vial SQ ACHS [facility]; Protocol Last Admin: 06/06/18 12:35 Dose: 4 units Lorazepam (Ativan Injection -) 2 mg IVPUSH Q8H PRN PRN Reason: ANXIETY Last Admin: 06/05/18 21:01 Dose: 2 mg Methocarbamol (Robaxin -) 750 mg PO DAILY [facility] Last Admin: 06/06/18 11:56 Dose: 750 mg Methyl Salicylate (Pal-Claudio -) 1 applic TP Q8H PRN PRN Reason: TOPICAL PAIN Nitrofurantoin Macrocrystals (Macrodantin -) 50 mg PO BID [facility] Last Admin: 06/06/18 11:53 Dose: 50 mg Nystatin (Nystop Powder -) 1 applic TP BID [facility] Last Admin: 06/06/18 11:59 Dose: 1 applic Prednisone (Deltasone -) 20 mg PO DAILY [facility] Last Admin: 06/06/18 11:52 Dose: 20 mg - Objective Vital Signs: Vital Signs Temperature 98 F 06/06/18 10:00 Pulse Rate 84 06/06/18 10:00 Respiratory Rate 20 06/06/18 10:00 Blood Pressure 120/74 06/06/18 10:00 O2 Sat by Pulse Oximetry (%) 94 L 06/06/18 09:00 Constitutional: Yes: No Distress Cardiovascular: Yes: Regular Rate and Rhythm Respiratory: Yes: Regular Gastrointestinal: Yes: Normal Bowel Sounds, Soft, Abdomen, Obese Breast(s): Yes: Right (erythema/warmth decreased, no draining wound noted) Integumentary: Yes: Other (abd wall ulcerations, no purulence) Labs: CBC, BMP 06/06/18 05:30 06/06/18 05:30 Problem List - Problems (1) Acute on chronic diastolic (congestive) heart failure Code(s): I50.33 - ACUTE ON CHRONIC DIASTOLIC (CONGESTIVE) HEART FAILURE (2) Anemia Code(s): D64.9 - ANEMIA, UNSPECIFIED Qualifiers: Chronic kidney disease stage: unspecified stage (3) Cellulitis Code(s): L03.90 - CELLULITIS, UNSPECIFIED Qualifiers: Laterality: unspecified laterality (4) Diabetes mellitus Code(s): E11.9 - TYPE 2 DIABETES MELLITUS WITHOUT COMPLICATIONS Qualifiers: Diabetes mellitus type: type 2 (5) Diabetic gastroparesis associated with type 2 diabetes mellitus Code(s): E11.43 - TYPE 2 DIABETES W DIABETIC AUTONOMIC (POLY)NEUROPATHY; K31.84 - GASTROPARESIS (6) Morbid obesity Code(s): E66.01 - MORBID (SEVERE) OBESITY DUE TO EXCESS CALORIES (7) DM Diabetes mellitus type 2 Code(s): E11.9 - TYPE 2 DIABETES MELLITUS WITHOUT COMPLICATIONS (8) Hypercholesterolemia Code(s): E78.00 - PURE HYPERCHOLESTEROLEMIA, UNSPECIFIED (9) Hypertension Code(s): I10 - ESSENTIAL (PRIMARY) HYPERTENSION Assessment/Plan Breast Cellulitis - resolving ELIZA - improving Acute respiratory failure/chronic failure Acute on chronic respiratory failure DM Asthma HTN Morbid Obesity Hyperlipidemia -- continue Clindamycin, add Levaquin po -- cont. monitor
--- NOTE | 2018-06-06 13:49 | PN ---
Physical Exam: SUBJECTIVE: Patient seen and examined. Patient had a BM today. She says she is ready to go home. OBJECTIVE: Vital Signs Period Temp Pulse Resp BP Sys/Lindsey Pulse Ox Last 24 Hr 98 F-98.4 F 84-90 18-20 104-130/49-74 93-98 GENERAL: Morbidly obese, more awake today, fully oriented HEAD: Normal with no signs of trauma. EYES: Pupils equal, round and reactive to light, extraocular movements intact, sclera anicteric, conjunctiva clear. No lid lag. EARS, NOSE, THROAT: Hoarse voice, nares patent, oropharynx clear without exudates. Moist mucous membranes. NECK: Normal range of motion, supple without lymphadenopathy, JVD, or masses. LUNGS: +NC, distant breath sounds no accessory muscle use. HEART: Regular rate and rhythm, normal S1 and S2 without murmur, rub or gallop. ABDOMEN: Obese, Soft, nontender, not distended, normoactive bowel sounds, no guarding, no rebound, no masses. No hepatomegaly or splenomegaly. Breasts: Large pendulous breasts, R>L TTP, no discharge to nipples MUSCULOSKELETAL: Normal range of motion at all joints. No bony deformities or tenderness. No CVA tenderness. UPPER EXTREMITIES: 2+ pulses, warm, well-perfused. No cyanosis. No clubbing. No peripheral edema. LOWER EXTREMITIES: 2+ pulses, warm, well-perfused. No calf tenderness. +2 edema to b/l LE NEUROLOGICAL: No facial droop, tongue midline, normal speech. . PSYCHIATRIC: Cooperative. Good eye contact. Appropriate mood and affect. SKIN: To upper abdomen between breasts, scant purulent drainage on gauze. Laboratory Results - last 24 hr 06/05/18 06/05/18 06/05/18 17:33 18:50 20:48 WBC RBC Hgb Hct MCV MCH MCHC RDW Plt Count MPV Puncture Site Left radial ABG pH 7.34 L ABG pCO2 at Pt Temp 76.4 H* D ABG pO2 at Pt Temp 60.4 L ABG HCO3 40.2 H* ABG O2 Sat (Measured) 87.5 L ABG O2 Content 9.9 L* ABG Base Excess 12.9 H Luisito Test Positive Oxygen Flow Rate Yes Sodium Potassium Chloride Carbon Dioxide Anion Gap BUN Creatinine Creat Clearance w eGFR POC Glucometer 234 240 Random Glucose Calcium Magnesium 06/06/18 06/06/18 06/06/18 05:30 05:30 06:19 WBC 10.9 H RBC 3.26 L Hgb 7.6 L Hct 24.9 L MCV 76.1 L MCH 23.4 L MCHC 30.7 L RDW 20.4 H Plt Count 263 MPV 8.0 Puncture Site ABG pH ABG pCO2 at Pt Temp ABG pO2 at Pt Temp ABG HCO3 ABG O2 Sat (Measured) ABG O2 Content ABG Base Excess Luisito Test Oxygen Flow Rate Sodium 137 Potassium 4.8 Chloride 91 L Carbon Dioxide 38 H Anion Gap 8 BUN 37 H Creatinine 1.4 H Creat Clearance w eGFR 38.49 POC Glucometer 155 Random Glucose 126 H Calcium 8.6 Magnesium 2.3 06/06/18 12:32 WBC RBC Hgb Hct MCV MCH MCHC RDW Plt Count MPV Puncture Site ABG pH ABG pCO2 at Pt Temp ABG pO2 at Pt Temp ABG HCO3 ABG O2 Sat (Measured) ABG O2 Content ABG Base Excess Luisito Test Oxygen Flow Rate Sodium Potassium Chloride Carbon Dioxide Anion Gap BUN Creatinine Creat Clearance w eGFR POC Glucometer 211 Random Glucose Calcium Magnesium Active Medications Generic Name Dose Route Start Last Admin Trade Name Freq PRN Reason Stop Dose Admin Al Hydroxide/Mg Hydroxide 30 ml 06/03/18 21:00 06/06/18 11:55 Mylanta Oral Suspension - PO 30 ml Q6HPO SUSIE Administration Ascorbic Acid 500 mg 06/01/18 10:00 06/06/18 11:54 Vitamin C - PO 500 mg DAILY SUSIE Administration Atorvastatin Calcium 40 mg 05/31/18 22:00 06/05/18 21:01 Lipitor - PO 40 mg HS SUSIE Administration Bacitracin/Polymyxin B Sulfate 1 applic 05/31/18 22:00 06/06/18 11:58 Polysporin Ointment - TP 1 applic BID SUSIE Administration Calcium Carbonate 500 mg 06/01/18 10:00 06/06/18 11:53 Os-Bandar 500mg - PO 500 mg DAILY SUSIE Administration Cholecalciferol 4,000 unit 06/01/18 10:00 06/06/18 11:55 Vitamin D3 - PO 4,000 unit DAILY SUSIE Administration Clindamycin HCl 300 mg 06/05/18 18:00 06/06/18 11:55 Cleocin - PO 300 mg Q6HPO SUSIE Administration Diphenhydramine HCl 25 mg 05/31/18 22:00 06/05/18 21:01 Benadryl - PO 25 mg HS SUSIE Administration Docusate Sodium 100 mg 05/31/18 20:26 06/01/18 10:08 Colace - PO 100 mg Q24H PRN Administration CONSTIPATION Escitalopram Oxalate 10 mg 06/01/18 10:00 06/06/18 11:54 Lexapro - PO 10 mg DAILY SUSIE Administration Folic Acid 1 mg 06/01/18 10:00 06/06/18 11:53 Folic Acid - PO 1 mg DAILY SUSIE Administration Furosemide 40 mg 06/03/18 06:00 06/06/18 06:25 Lasix Injection - IVPUSH 40 mg BID@0600,1400 SUSIE Administration Pantoprazole Sodium 80 mg/ 100 mls @ 10 mls/hr 06/04/18 09:00 06/06/18 12:46 Sodium Chloride IVPB Not Given Q10H SUSIE 8 MG/HR Insulin Aspart 1 vial 06/04/18 22:00 06/06/18 12:35 Novolog Vial Sliding Scale - SQ 4 units ACHS SUSIE Administration Protocol Levofloxacin 500 mg 06/06/18 13:15 Levaquin - PO DAILY SUSIE Lorazepam 2 mg 06/05/18 09:36 06/06/18 13:11 Ativan Injection - IVPUSH 2 mg Q8H PRN Administration ANXIETY Methocarbamol 750 mg 06/01/18 10:00 06/06/18 11:56 Robaxin - PO 750 mg DAILY SUSIE Administration Methyl Salicylate 1 applic 05/31/18 20:58 Pal-Claudio - TP Q8H PRN TOPICAL PAIN Nitrofurantoin Macrocrystals 50 mg 05/31/18 22:00 06/06/18 11:53 Macrodantin - PO 50 mg BID SUSIE Administration Nystatin 1 applic 05/31/18 22:00 06/06/18 11:59 Nystop Powder - TP 1 applic BID SUSIE Administration Prednisone 20 mg 06/02/18 12:45 06/06/18 11:52 Deltasone - PO 20 mg DAILY SUSIE Administration ASSESSMENT/PLAN: 58 year old morbidly obese female with a PMH significant for IDDM, HTN, HLD, asthma, and anxiety, presented to the ED with right breast enlargement and pain x 1 week. She was started on IV antibiotics. Acute Hypoxic Respiratory Failure - Likely acute on chronic - Likely caused by obesity hypoventillation/MARCELL and with newly-diagnosed diastolic CHF - Patient with increased lethargy yesterday, ABG 76.4, today appears more alert, repeat ABG ordered - Pulmonary following - Prednisone 20 mg PO qday, taper down - ABG on RA prior to DC to assess for Pickwickian syndrome - monitor urine output, creatinine - inhaled bronchodilators - O2 @ 3LPM via NC - keep SpO2 >90% - qHS Bipap - She should be on this at home but wasn't using - Will f/u with case management about getting home bipap Acute on Chronic Diastolic CHF Exacerbation - Table Maker Dr. Burton following - Lasix 40 mg IV BID - Holding home Enalapril - If additional BP control needed consider nitro/hydralazine - Followup echo - Telemetry monitoring; NSR - Chemistry panel BID, keep K>4, Mg>2 - Daily weights, goal net negative 1-2 L/daily - D/c roa today Dark Vomiting - Fecal occult blood positive - Seen by GI Dr. Jaime - Less likely active GI bleed - EGD reserved for critical situation d/t respiratory status and other comorbidities - Likely secondary to diabetic gastroparesis which typically leads to vomiting of stagnant small bowel contents that appear similar to coffee grounds. - Hold reglan because of interaction with Lexapro - Start Mylanta for the GERD - Clear lilquid diet, advanced as tolerated. I do not believe that she has an active GI bleed and given her . Code(s): R11.10 - VOMITING, UNSPECIFIED - PPI drip, Anemia, microcytic - Drop from admission but could be dilutional - XF <7 - Hgb stable in the mid 7s over the past 4 days, 7.6 today - Continue to monitor CKD - Trend BMP and monitor UOP; at baseline HTN -Controlled - HOLD home Enalapril - On Lasix 40 mg IV BID Breast Cellulitis - Breast US negative - Seen by breast surgeon Dr. Tara Long - Bl breast edema not infectious - likely secondary to fluid overload - F/u OP upon d/c - Followed by ID specialist Dr. Lomeli - d/c Aztreonam, start Clindamycin PO - May add Levaquin 500 mg qd but not with Odansetron - interaction - (pt has not received for past 2 days) DM - Hold home Glipizide 10 mg PO BID - SS with Novolog - BS in the 200s, monitor - Start Lantus 10 u QHS - Ulcers - Wound consult ordered with Dr. Yoon - Daily wound care with bacitracin/polymixin B ointment BID and DPD\ - Wound cultures negative for MRSA, d/c contact precautions. - Recurrent UTIs - Nitrofurantoin 50 mg PO BID HLD - Atorvastatin Ca 40 mg PO HS Asthma - Albuterol Nebs PRN Anxiety - Escitalopram 10 mg PO DAILY Morbid Obesity - BMI 64.2 - Seen by bariatric surgeon Dr. Nato Abarca - Discussed weight loss options including bariatric surgery and nonsurgical options - Follow up in office for formal bariatric surgery evaluation Pain management - Methocarbamol 750 mg PO DAILY - Oxycodone HCl 15 mg PO BID PRN Fungal Rash - Nystatin powder under breasts, abdominal folds, and thigh folds BID Constipation - Docusate Sodium 100 mg PO DAILY PRN Insomnia - Diphenhydramine HCl 25 mg PO HS Supplement - Ascorbate Calcium 500 mg PO DAILY - Calcium (Oyster Shell) 500 mg PO DAILY - Folic Acid 1 mg PO DAILY - Ergocalciferol (Vitamin D2) 4,000 unit PO DAILY Prophylaxis DVT: Heparin SQ GI: On Protonix drip FEN - PO intake adequate - Replete as needed - Diabetic, low sodium, clear liquid diet Disp: Patient requires further inpatient treatment. FULL CODE Visit type - Emergency Visit Emergency Visit: No - New Patient This patient is new to me today: No - Critical Care Critical Care patient: No
--- NOTE | 2018-06-06 15:01 | PN ---
Progress Note (short form) - Note Progress Note: Breathing appears stable. NAD on NC O2. No CP. Intake & Output 06/03/18 06/04/18 06/05/18 06/06/18 23:59 23:59 23:59 23:59 Intake Total 750 40 174 120 Output Total 2500 2550 5400 Balance -1750 -2510 -5226 120 Weight 410 lb Last Vital Signs Temp Pulse Resp BP Pulse Ox 98 F 84 20 120/74 95 06/06/18 10:00 06/06/18 10:00 06/06/18 10:00 06/06/18 10:00 06/06/18 13:38 Active Medications Al Hydroxide/Mg Hydroxide (Mylanta Oral Suspension -) 30 ml PO Q6HPO [facility] Last Admin: 06/06/18 11:55 Dose: 30 ml Ascorbic Acid (Vitamin C -) 500 mg PO DAILY [facility] Last Admin: 06/06/18 11:54 Dose: 500 mg Atorvastatin Calcium (Lipitor -) 40 mg PO [facility] Last Admin: 06/05/18 21:01 Dose: 40 mg Bacitracin/Polymyxin B Sulfate (Polysporin Ointment -) 1 applic TP BID [facility] Last Admin: 06/06/18 11:58 Dose: 1 applic Calcium Carbonate (Os-Bandar 500mg -) 500 mg PO DAILY [facility] Last Admin: 06/06/18 11:53 Dose: 500 mg Cholecalciferol (Vitamin D3 -) 4,000 unit PO DAILY [facility] Last Admin: 06/06/18 11:55 Dose: 4,000 unit Clindamycin HCl (Cleocin -) 300 mg PO Q6HPO [facility] Last Admin: 06/06/18 11:55 Dose: 300 mg Diphenhydramine HCl (Benadryl -) 25 mg PO [facility] Last Admin: 06/05/18 21:01 Dose: 25 mg Docusate Sodium (Colace -) 100 mg PO Q24H PRN PRN Reason: CONSTIPATION Last Admin: 06/01/18 10:08 Dose: 100 mg Escitalopram Oxalate (Lexapro -) 10 mg PO DAILY [facility] Last Admin: 06/06/18 11:54 Dose: 10 mg Folic Acid (Folic Acid -) 1 mg PO DAILY [facility] Last Admin: 06/06/18 11:53 Dose: 1 mg Insulin Aspart (Novolog Vial Sliding Scale -) 1 vial SQ [facility]; Protocol Last Admin: 06/06/18 12:35 Dose: 4 units Insulin Detemir (Levemir Vial) 10 units SQ HS SUSIE Levofloxacin (Levaquin -) 500 mg PO DAILY SUSIE Lorazepam (Ativan Injection -) 2 mg IVPUSH Q8H PRN PRN Reason: ANXIETY Last Admin: 06/06/18 13:11 Dose: 2 mg Methocarbamol (Robaxin -) 750 mg PO DAILY [facility] Last Admin: 06/06/18 11:56 Dose: 750 mg Methyl Salicylate (Pal-Claudio -) 1 applic TP Q8H PRN PRN Reason: TOPICAL PAIN Nitrofurantoin Macrocrystals (Macrodantin -) 50 mg PO BID [facility] Last Admin: 06/06/18 11:53 Dose: 50 mg Nystatin (Nystop Powder -) 1 applic TP BID [facility] Last Admin: 06/06/18 11:59 Dose: 1 applic Pantoprazole Sodium (Protonix -) 40 mg PO BID SUSIE Prednisone (Deltasone -) 20 mg PO DAILY [facility] Last Admin: 06/06/18 11:52 Dose: 20 mg Constitutional: Yes: NAD, Obese Eyes: Yes: WNL HENT: Yes: WNL Neck: Yes: WNL Cardiovascular: Yes: Regular Rate and Rhythm, S1, S2 Respiratory: Yes: Diminished Gastrointestinal: Yes: Normal Bowel Sounds, Soft Extremities: Yes: WNL Edema: Yes Labs: Laboratory Results - last 24 hr 06/05/18 06/05/18 06/05/18 17:33 18:50 20:48 WBC RBC Hgb Hct MCV MCH MCHC RDW Plt Count MPV Puncture Site Left radial ABG pH 7.34 L ABG pCO2 at Pt Temp 76.4 H* D ABG pO2 at Pt Temp 60.4 L ABG HCO3 40.2 H* ABG O2 Sat (Measured) 87.5 L ABG O2 Content 9.9 L* ABG Base Excess 12.9 H Luisito Test Positive Oxygen Flow Rate Yes Sodium Potassium Chloride Carbon Dioxide Anion Gap BUN Creatinine Creat Clearance w eGFR POC Glucometer 234 240 Random Glucose Calcium Magnesium 06/06/18 06/06/18 06/06/18 05:30 05:30 06:19 WBC 10.9 H RBC 3.26 L Hgb 7.6 L Hct 24.9 L MCV 76.1 L MCH 23.4 L MCHC 30.7 L RDW 20.4 H Plt Count 263 MPV 8.0 Puncture Site ABG pH ABG pCO2 at Pt Temp ABG pO2 at Pt Temp ABG HCO3 ABG O2 Sat (Measured) ABG O2 Content ABG Base Excess Luisito Test Oxygen Flow Rate Sodium 137 Potassium 4.8 Chloride 91 L Carbon Dioxide 38 H Anion Gap 8 BUN 37 H Creatinine 1.4 H Creat Clearance w eGFR 38.49 POC Glucometer 155 Random Glucose 126 H Calcium 8.6 Magnesium 2.3 06/06/18 12:32 WBC RBC Hgb Hct MCV MCH MCHC RDW Plt Count MPV Puncture Site ABG pH ABG pCO2 at Pt Temp ABG pO2 at Pt Temp ABG HCO3 ABG O2 Sat (Measured) ABG O2 Content ABG Base Excess Luisito Test Oxygen Flow Rate Sodium Potassium Chloride Carbon Dioxide Anion Gap BUN Creatinine Creat Clearance w eGFR POC Glucometer 211 Random Glucose Calcium Magnesium Assessment/Plan Problem List - Problems (1) Cellulitis Code(s): L03.90 - CELLULITIS, UNSPECIFIED (2) Asthma Code(s): J45.909 - UNSPECIFIED ASTHMA, UNCOMPLICATED (3) DM Diabetes mellitus type 2 Code(s): E11.9 - TYPE 2 DIABETES MELLITUS WITHOUT COMPLICATIONS (4) Hypercholesterolemia Code(s): E78.00 - PURE HYPERCHOLESTEROLEMIA, UNSPECIFIED (5) Hypertension Code(s): I10 - ESSENTIAL (PRIMARY) HYPERTENSION Assessment/Plan Right Breast Cellulitis Acute on chronic hypoxemic/hypercapneic respiratory failure Sepsis Acute Kidney Injury Asthma HTN DM Hyperlipidemia Morbid Obesity - ABX - NIPPV at night and prn: Will benefit from NIPPV at home due to chronic respiratory failure (BiPAP ST) - prednisone - monitor urine output, creatinine - inhaled bronchodilators - O2 to keep SpO2 >90% - DVT prophylaxis Dr Sanders
[2018-06-06 15:13] LABS: ARTERIAL BLD GAS O2 SATURATION 92.5 % (90-98.9); ARTERIAL BLOOD GAS BASE EXCESS 13.8 meq/l (-2-2); ARTERIAL BLOOD GAS PO2 73.6 mmHg (80-100); ARTERIAL BLOOD GAS pH 7.35 (7.35-7.45)
[2018-06-06 15:15] LABS: ALLENS TEST POSITIVE
[2018-06-06 15:17] LABS: ARTERIAL BLOOD GAS PCO2 77.5 mmHg (35-45)
[2018-06-06] MEDS: diphenhydrAMINE HCL 25 MG CAPSULE (FP) PO SCH (23:35)
[2018-06-06] MEDS: PANTOPRAZOLE 40 MG TABLET (FP) PO SCH (23:43)
[2018-06-06] MEDS: ATORVASTATIN CA 40 MG TABLET (FP) PO SCH (23:43)
[2018-06-06] MEDS: INSULIN (LEVEMIR) 100 UNITS/ML UNITS SQ SCH (23:58)
[2018-06-07] MEDS ORDERED: ALBUTEROL SO4 0.083% IH SOL 2.5 MG/3 ML VIAL.NEB. NEB ONE ×2 (02:26→19:45)
[2018-06-07] MEDS: CLINDAMYCIN HCL 150 MG CAPSULE (FP) PO SCH ×4 (06:19→23:28)
[2018-06-07] MEDS: MAG HYDROX/AL HYDROX/SIMETH 30 ML UNIT-DOSE CUP PO SCH ×4 (06:20→23:29)
[2018-06-07] MEDS: INSULIN SLIDING SCALE (NOVOLOG) 1 VIAL SQ SCH ×4 (06:25→23:28)
[2018-06-07 06:51] LABS: HEMOGLOBIN 7.7 GM/dL (10.7-15.3); MCHC 28.7 g/dl (32.0-36.0); MEAN CELL VOLUME 76.5 fl (80-96); MEAN PLT VOLUME 7.9 fl (7.5-11.1); PLATELET COUNT 257 K/MM3 (134-434); RBC 3.52 M/mm3 (3.60-5.2); WHITE BLOOD COUNT 10.7 K/mm3 (4.0-10.0)
[2018-06-07 07:58] LABS: ANION GAP 4 MMOL/L (8-16); BLOOD UREA NITROGEN 33 mg/dL (7-18); CALCIUM 8.4 mg/dL (8.5-10.1); CHLORIDE 88 mmol/L (98-107); CO2 42 mmol/L (21-32); CREATININE 1.4 mg/dL (0.55-1.3); GLUCOSE,RANDOM 97 mg/dL (74-106); POTASSIUM 4.6 mmol/L (3.5-5.1); SODIUM 134 mmol/L (136-145)
--- NOTE | 2018-06-07 08:51 | PN ---
Progress Note, Physician Chief Complaint: seen and examined on telemetry TELE: NSR. Feels better, less SOB. Net negative fluid balance. History of Present Illness: creatinine has improved. - Current Medication List Current Medications: Active Medications Al Hydroxide/Mg Hydroxide (Mylanta Oral Suspension -) 30 ml PO Q6HPO [facility] Last Admin: 06/07/18 06:20 Dose: 30 ml Ascorbic Acid (Vitamin C -) 500 mg PO DAILY [facility] Last Admin: 06/06/18 11:54 Dose: 500 mg Atorvastatin Calcium (Lipitor -) 40 mg PO HS [facility] Last Admin: 06/06/18 23:43 Dose: 40 mg Bacitracin/Polymyxin B Sulfate (Polysporin Ointment -) 1 applic TP BID [facility] Last Admin: 06/06/18 23:43 Dose: 1 applic Calcium Carbonate (Os-Bandar 500mg -) 500 mg PO DAILY [facility] Last Admin: 06/06/18 11:53 Dose: 500 mg Cholecalciferol (Vitamin D3 -) 4,000 unit PO DAILY [facility] Last Admin: 06/06/18 11:55 Dose: 4,000 unit Clindamycin HCl (Cleocin -) 300 mg PO Q6HPO [facility] Last Admin: 06/07/18 06:19 Dose: 300 mg Diphenhydramine HCl (Benadryl -) 25 mg PO HS [facility] Last Admin: 06/06/18 23:35 Dose: 25 mg Docusate Sodium (Colace -) 100 mg PO Q24H PRN PRN Reason: CONSTIPATION Last Admin: 06/01/18 10:08 Dose: 100 mg Escitalopram Oxalate (Lexapro -) 10 mg PO DAILY [facility] Last Admin: 06/06/18 11:54 Dose: 10 mg Folic Acid (Folic Acid -) 1 mg PO DAILY [facility] Last Admin: 06/06/18 11:53 Dose: 1 mg Insulin Aspart (Novolog Vial Sliding Scale -) 1 vial SQ [facility]; Protocol Last Admin: 06/07/18 06:25 Dose: Not Given Insulin Detemir (Levemir Vial) 10 units SQ [facility] Last Admin: 06/06/18 23:58 Dose: Not Given Levofloxacin (Levaquin -) 500 mg PO DAILY [facility] Last Admin: 06/06/18 15:31 Dose: 500 mg Lorazepam (Ativan Injection -) 2 mg IVPUSH Q8H PRN PRN Reason: ANXIETY Last Admin: 06/06/18 23:46 Dose: 2 mg Methocarbamol (Robaxin -) 750 mg PO DAILY [facility] Last Admin: 06/06/18 11:56 Dose: 750 mg Methyl Salicylate (Pal-Claudio -) 1 applic TP Q8H PRN PRN Reason: TOPICAL PAIN Nitrofurantoin Macrocrystals (Macrodantin -) 50 mg PO BID [facility] Last Admin: 06/06/18 23:42 Dose: 50 mg Nystatin (Nystop Powder -) 1 applic TP BID [facility] Last Admin: 06/06/18 23:43 Dose: 1 applic Pantoprazole Sodium (Protonix -) 40 mg PO BID [facility] Last Admin: 06/06/18 23:43 Dose: 40 mg Prednisone (Deltasone -) 20 mg PO DAILY [facility] Last Admin: 06/06/18 11:52 Dose: 20 mg - Objective Vital Signs: Vital Signs Temperature 98.7 F 06/06/18 21:00 Pulse Rate 84 06/06/18 21:00 Respiratory Rate 20 06/06/18 21:00 Blood Pressure 126/64 06/06/18 21:00 O2 Sat by Pulse Oximetry (%) 95 06/06/18 21:00 Constitutional: Yes: No Distress Cardiovascular: Yes: Regular Rate and Rhythm Respiratory: Yes: CTA Bilaterally Gastrointestinal: Yes: Soft, Abdomen, Obese Edema: Yes Edema: LLE: 1+, RLE: 1+ Neurological: Yes: Alert Labs: CBC, BMP 06/07/18 05:30 06/07/18 05:30 - ....Imaging EKG: Image Reviewed Problem List - Problems (1) Acute on chronic diastolic (congestive) heart failure Code(s): I50.33 - ACUTE ON CHRONIC DIASTOLIC (CONGESTIVE) HEART FAILURE (2) Morbid obesity Code(s): E66.01 - MORBID (SEVERE) OBESITY DUE TO EXCESS CALORIES (3) Pulmonary hypertension Code(s): I27.20 - PULMONARY HYPERTENSION, UNSPECIFIED (4) Obstructive sleep apnea Code(s): G47.33 - OBSTRUCTIVE SLEEP APNEA (ADULT) (PEDIATRIC) (5) Chronic renal insufficiency, stage II (mild) Code(s): N18.2 - CHRONIC KIDNEY DISEASE, STAGE 2 (MILD) (6) Anemia Code(s): D64.9 - ANEMIA, UNSPECIFIED Qualifiers: Chronic kidney disease stage: unspecified stage (7) Diabetes mellitus Code(s): E11.9 - TYPE 2 DIABETES MELLITUS WITHOUT COMPLICATIONS Qualifiers: Diabetes mellitus type: type 2 (8) Cellulitis Code(s): L03.90 - CELLULITIS, UNSPECIFIED Qualifiers: Laterality: unspecified laterality Assessment/Plan 58 yo morbidly obese female with past medical history significant for hypertension, hyperlipidemia, diabetes, asthma, GERD admitted with asthma exacerbation on prednisone found to have acute on chronic diastolic heart failure- good clinical response to several days of IV lasix with improvement in volume status and improvement in renal function. #Acute on Chronic Diastolic Heart Failure; remains volume up on exam; improving volume status, renal function improving with diuresis Cr 1.8-->1.4 Treatment: --Switch to PO Lasix --holding home enalapril for now as renal fxn has been in flux. If stabilizes, can try to re-introduce low dose ANABELA --keep K>4, Mg>2 --can discontinue roa cath today --Can d/c telemetry today #DVT PPx; as per the [facility] medical team --if subq heparin/lovenox felt to elevate bleeding risk then SCD boots and out of bed to chair
[2018-06-07] MEDS ORDERED: PT OWN MED DRAWER 7, Y5N ONE ×8 (10:28→23:19)
[2018-06-07] MEDS: predniSONE 20 MG TABLET (UD) PO SCH (10:35)
[2018-06-07] MEDS: FOLIC ACID 1 MG TABLET (FP) PO SCH (10:36)
[2018-06-07] MEDS: ESCITALOPRAM OXALATE 10 MG TABLET (FP) PO SCH (10:36)
[2018-06-07] MEDS: NITROFURANTOIN MACROCRYSTAL 50 MG CAPSULE (FP) PO SCH (10:36)
[2018-06-07] MEDS: PANTOPRAZOLE 40 MG TABLET (FP) PO SCH ×2 (10:37→23:28)
[2018-06-07] MEDS: BACITRACIN/POLYMYXIN B SULFATE 15 GM TUBE TP SCH ×2 (10:37→23:29)
[2018-06-07] MEDS: CALCIUM (OYSTER SHELL) 500 MG TABLET (FP) PO SCH (10:37)
[2018-06-07] MEDS: NYSTATIN POWDER 100,000 UNITS/GM - 15 GM TOPICAL POWDER TP SCH ×2 (10:37→23:29)
[2018-06-07] MEDS: ASCORBIC ACID 500 MG TABLET (FP) PO SCH (10:38)
[2018-06-07] MEDS: CHOLECALCIFEROL (VITAMIN D3) 1,000 UNIT TABLET (FP) PO SCH (10:38)
[2018-06-07] MEDS: METHOCARBAMOL 500 MG TABLET PO SCH (10:59)
--- NOTE | 2018-06-07 11:13 | PN ---
Progress Note, Physician History of Present Illness: PULMONARY ALERT,FEELING BETTER,DYSPNEA IMPROVING - Current Medication List Current Medications: Active Medications Al Hydroxide/Mg Hydroxide (Mylanta Oral Suspension -) 30 ml PO Q6HPO [facility] Last Admin: 06/07/18 06:20 Dose: 30 ml Ascorbic Acid (Vitamin C -) 500 mg PO DAILY [facility] Last Admin: 06/07/18 10:38 Dose: 500 mg Atorvastatin Calcium (Lipitor -) 40 mg PO HS [facility] Last Admin: 06/06/18 23:43 Dose: 40 mg Bacitracin/Polymyxin B Sulfate (Polysporin Ointment -) 1 applic TP BID [facility] Last Admin: 06/07/18 10:37 Dose: 1 applic Calcium Carbonate (Os-Bandar 500mg -) 500 mg PO DAILY [facility] Last Admin: 06/07/18 10:37 Dose: 500 mg Cholecalciferol (Vitamin D3 -) 4,000 unit PO DAILY [facility] Last Admin: 06/07/18 10:38 Dose: 4,000 unit Clindamycin HCl (Cleocin -) 300 mg PO Q6HPO [facility] Last Admin: 06/07/18 06:19 Dose: 300 mg Diphenhydramine HCl (Benadryl -) 25 mg PO [facility] Last Admin: 06/06/18 23:35 Dose: 25 mg Docusate Sodium (Colace -) 100 mg PO Q24H PRN PRN Reason: CONSTIPATION Last Admin: 06/01/18 10:08 Dose: 100 mg Escitalopram Oxalate (Lexapro -) 10 mg PO DAILY [facility] Last Admin: 06/07/18 10:36 Dose: 10 mg Folic Acid (Folic Acid -) 1 mg PO DAILY [facility] Last Admin: 06/07/18 10:36 Dose: 1 mg Furosemide (Lasix -) 40 mg PO BID@0600,1400 [facility] Insulin Aspart (Novolog Vial Sliding Scale -) 1 vial SQ [facility]; Protocol Last Admin: 06/07/18 06:25 Dose: Not Given Insulin Detemir (Levemir Vial) 10 units SQ [facility] Last Admin: 06/06/18 23:58 Dose: Not Given Levofloxacin (Levaquin -) 500 mg PO DAILY [facility] Last Admin: 06/07/18 10:36 Dose: 500 mg Lorazepam (Ativan Injection -) 2 mg IVPUSH Q8H PRN PRN Reason: ANXIETY Last Admin: 06/06/18 23:46 Dose: 2 mg Methocarbamol (Robaxin -) 750 mg PO DAILY [facility] Last Admin: 06/07/18 10:59 Dose: 750 mg Methyl Salicylate (Pal-Claudio -) 1 applic TP Q8H PRN PRN Reason: TOPICAL PAIN Nitrofurantoin Macrocrystals (Macrodantin -) 50 mg PO BID [facility] Last Admin: 06/07/18 10:36 Dose: 50 mg Nystatin (Nystop Powder -) 1 applic TP BID [facility] Last Admin: 06/07/18 10:37 Dose: 1 applic Pantoprazole Sodium (Protonix -) 40 mg PO BID [facility] Last Admin: 06/07/18 10:37 Dose: 40 mg Prednisone (Deltasone -) 20 mg PO DAILY [facility] Last Admin: 06/07/18 10:35 Dose: 20 mg - Objective Vital Signs: Vital Signs Temperature 98.5 F 06/07/18 09:00 Pulse Rate 93 H 06/07/18 09:45 Respiratory Rate 20 06/07/18 09:00 Blood Pressure 126/64 06/07/18 09:00 O2 Sat by Pulse Oximetry (%) 92 L 06/07/18 09:45 Constitutional: Yes: Calm, Obese Eyes: Yes: WNL HENT: Yes: WNL Neck: Yes: WNL Cardiovascular: Yes: Regular Rate and Rhythm, S1, S2 Respiratory: Yes: CTA Bilaterally Gastrointestinal: Yes: Normal Bowel Sounds, Soft, Abdomen, Obese Extremities: Yes: WNL Edema: Yes Labs: CBC, BMP 06/07/18 05:30 06/07/18 05:30 Assessment/Plan Problem List - Problems (1) Cellulitis Code(s): L03.90 - CELLULITIS, UNSPECIFIED (2) Asthma Code(s): J45.909 - UNSPECIFIED ASTHMA, UNCOMPLICATED (3) DM Diabetes mellitus type 2 Code(s): E11.9 - TYPE 2 DIABETES MELLITUS WITHOUT COMPLICATIONS (4) Hypercholesterolemia Code(s): E78.00 - PURE HYPERCHOLESTEROLEMIA, UNSPECIFIED (5) Hypertension Code(s): I10 - ESSENTIAL (PRIMARY) HYPERTENSION Assessment/Plan Right Breast Cellulitis Acute on chronic hypoxemic/hypercapneic respiratory failure r/o UTI Sepsis Acute Kidney Injury Asthma HTN DM Hyperlipidemia Morbid Obesity - antibiotics - NIPPV at night and prn - IVF - monitor urine output, creatinine - inhaled bronchodilators - O2 to keep SpO2 >90% - Trilogy device at home - DVT prophylaxis DR ARCOS
--- NOTE | 2018-06-07 13:26 | PN ---
Physical Exam: SUBJECTIVE: Patient seen and examined. Had a BM on the commode today. Cleared by cardio and pulm for d/c. D/c planning in place, likely d/c with 24 MAM[employer] tomorrow. OBJECTIVE: Vital Signs Period Temp Pulse Resp BP Sys/Lindsey Pulse Ox Last 24 Hr 98.2 F-98.7 F 82-93 20-22 126-148/59-73 92-95 GENERAL: Morbidly obese, more awake today, fully oriented HEAD: Normal with no signs of trauma. EYES: Pupils equal, round and reactive to light, extraocular movements intact, sclera anicteric, conjunctiva clear. No lid lag. EARS, NOSE, THROAT: Hoarse voice, nares patent, oropharynx clear without exudates. Moist mucous membranes. NECK: Normal range of motion, supple without lymphadenopathy, JVD, or masses. LUNGS: +NC, distant breath sounds no accessory muscle use. HEART: Regular rate and rhythm, normal S1 and S2 without murmur, rub or gallop. ABDOMEN: Obese, Soft, nontender, not distended, normoactive bowel sounds, no guarding, no rebound, no masses. No hepatomegaly or splenomegaly. Breasts: Large pendulous breasts, R>L TTP, no discharge to nipples MUSCULOSKELETAL: Normal range of motion at all joints. No bony deformities or tenderness. No CVA tenderness. UPPER EXTREMITIES: 2+ pulses, warm, well-perfused. No cyanosis. No clubbing. No peripheral edema. LOWER EXTREMITIES: 2+ pulses, warm, well-perfused. No calf tenderness. +2 edema to b/l LE NEUROLOGICAL: No facial droop, tongue midline, normal speech. . PSYCHIATRIC: Cooperative. Good eye contact. Appropriate mood and affect. SKIN: To upper abdomen between breasts, scant purulent drainage on gauze. Laboratory Results - last 24 hr 06/06/18 06/06/18 06/06/18 15:10 17:06 23:49 WBC RBC Hgb Hct MCV MCH MCHC RDW Plt Count MPV Puncture Site Left radial ABG pH 7.35 ABG pCO2 at Pt Temp 77.5 H* ABG pO2 at Pt Temp 73.6 L D ABG HCO3 41.6 H* ABG O2 Sat (Measured) 92.5 ABG O2 Content 12.5 L ABG Base Excess 13.8 H Luisito Test Positive Oxygen Flow Rate 4l Sodium Potassium Chloride Carbon Dioxide Anion Gap BUN Creatinine Creat Clearance w eGFR POC Glucometer 229 166 Random Glucose Calcium 06/07/18 06/07/18 06/07/18 05:30 05:30 06:23 WBC 10.7 H RBC 3.52 L Hgb 7.7 L Hct 27.0 L MCV 76.5 L MCH 22.0 L MCHC 28.7 L RDW 20.0 H Plt Count 257 MPV 7.9 Puncture Site ABG pH ABG pCO2 at Pt Temp ABG pO2 at Pt Temp ABG HCO3 ABG O2 Sat (Measured) ABG O2 Content ABG Base Excess Luisito Test Oxygen Flow Rate Sodium 134 L Potassium 4.6 Chloride 88 L Carbon Dioxide 42 H Anion Gap 4 L BUN 33 H Creatinine 1.4 H Creat Clearance w eGFR 38.49 POC Glucometer 131 Random Glucose 97 Calcium 8.4 L 06/07/18 11:36 WBC RBC Hgb Hct MCV MCH MCHC RDW Plt Count MPV Puncture Site ABG pH ABG pCO2 at Pt Temp ABG pO2 at Pt Temp ABG HCO3 ABG O2 Sat (Measured) ABG O2 Content ABG Base Excess Luisito Test Oxygen Flow Rate Sodium Potassium Chloride Carbon Dioxide Anion Gap BUN Creatinine Creat Clearance w eGFR POC Glucometer 163 Random Glucose Calcium Active Medications Generic Name Dose Route Start Last Admin Trade Name Freq PRN Reason Stop Dose Admin Al Hydroxide/Mg Hydroxide 30 ml 06/03/18 21:00 06/07/18 11:37 Mylanta Oral Suspension - PO 30 ml Q6HPO SUSIE Administration Ascorbic Acid 500 mg 06/01/18 10:00 06/07/18 10:38 Vitamin C - PO 500 mg DAILY SUSIE Administration Atorvastatin Calcium 40 mg 05/31/18 22:00 06/06/18 23:43 Lipitor - PO 40 mg HS SUSIE Administration Bacitracin/Polymyxin B Sulfate 1 applic 05/31/18 22:00 06/07/18 10:37 Polysporin Ointment - TP 1 applic BID SUSIE Administration Calcium Carbonate 500 mg 06/01/18 10:00 06/07/18 10:37 Os-Bandar 500mg - PO 500 mg DAILY SUSIE Administration Cholecalciferol 4,000 unit 06/01/18 10:00 06/07/18 10:38 Vitamin D3 - PO 4,000 unit DAILY SUSIE Administration Clindamycin HCl 300 mg 06/05/18 18:00 06/07/18 11:37 Cleocin - PO 300 mg Q6HPO SUSIE Administration Diphenhydramine HCl 25 mg 05/31/18 22:00 06/06/18 23:35 Benadryl - PO 25 mg HS SUSIE Administration Docusate Sodium 100 mg 05/31/18 20:26 06/01/18 10:08 Colace - PO 100 mg Q24H PRN Administration CONSTIPATION Escitalopram Oxalate 10 mg 06/01/18 10:00 06/07/18 10:36 Lexapro - PO 10 mg DAILY SUSIE Administration Folic Acid 1 mg 06/01/18 10:00 06/07/18 10:36 Folic Acid - PO 1 mg DAILY SUSIE Administration Furosemide 40 mg 06/07/18 14:00 Lasix - PO BID@0600,1400 SUSIE Insulin Aspart 1 vial 06/04/18 22:00 06/07/18 11:37 Novolog Vial Sliding Scale - SQ 2 units ACHS [facility] Administration Protocol Insulin Detemir 10 units 06/06/18 22:00 06/06/18 23:58 Levemir Vial SQ Not Given HS SUSIE Levofloxacin 500 mg 06/06/18 13:15 06/07/18 10:36 Levaquin - PO 500 mg DAILY SUSIE Administration Lorazepam 2 mg 06/05/18 09:36 06/06/18 23:46 Ativan Injection - IVPUSH 2 mg Q8H PRN Administration ANXIETY Methocarbamol 750 mg 06/01/18 10:00 06/07/18 10:59 Robaxin - PO 750 mg DAILY [facility] Administration Methyl Salicylate 1 applic 05/31/18 20:58 Pal-Claudio - TP Q8H PRN TOPICAL PAIN Nitrofurantoin Macrocrystals 50 mg 05/31/18 22:00 06/07/18 10:36 Macrodantin - PO 50 mg BID SUSIE Administration Nystatin 1 applic 05/31/18 22:00 06/07/18 10:37 Nystop Powder - TP 1 applic BID SUSIE Administration Pantoprazole Sodium 40 mg 06/06/18 22:00 06/07/18 10:37 Protonix - PO 40 mg BID SUSIE Administration Prednisone 20 mg 06/02/18 12:45 06/07/18 10:35 Deltasone - PO 20 mg DAILY SUSIE Administration ASSESSMENT/PLAN: 58 year old morbidly obese female with a PMH significant for IDDM, HTN, HLD, asthma, and anxiety, presented to the ED with right breast enlargement and pain x 1 week. She was started on IV antibiotics. Acute Hypoxic Respiratory Failure - Likely acute on chronic - Likely caused by obesity hypoventillation/MARCELL and with newly-diagnosed diastolic CHF - Patient with increased lethargy yesterday, ABG 76.4, today appears more alert, repeat ABG ordered - Pulmonary following - Prednisone 20 mg PO qday, taper down - ABG on RA prior to DC to assess for Pickwickian syndrome - monitor urine output, creatinine - inhaled bronchodilators - O2 @ 3LPM via NC - keep SpO2 >90% - qHS Bipap - She should be on this at home but wasn't using - Will f/u with case management about getting home bipap Acute on Chronic Diastolic CHF Exacerbation - [employer] Dr. Burton following - Lasix 40 mg IV BID - Holding home Enalapril - If additional BP control needed consider nitro/hydralazine - Telemetry d/janice - Chemistry panel BID, keep K>4, Mg>2 - Daily weights, goal net negative 1-2 L/daily - D/c roa today Dark Vomiting - Fecal occult blood positive - Seen by GI Dr. Jaime - Less likely active GI bleed - EGD reserved for critical situation d/t respiratory status and other comorbidities - Likely secondary to diabetic gastroparesis which typically leads to vomiting of stagnant small bowel contents that appear similar to coffee grounds. - Hold reglan because of interaction with Lexapro - Start Mylanta for the GERD - Clear lilquid diet, advanced as tolerated. I do not believe that she has an active GI bleed and given her . Anemia, microcytic - Drop from admission but could be dilutional - XF <7 - Hgb stable in the mid 7s over the past 4 days, 7.6 today - Continue to monitor CKD - Trend BMP and monitor UOP; at baseline HTN -Controlled - HOLD home Enalapril - On Lasix 40 mg IV BID Breast Cellulitis - Breast US negative - Seen by breast surgeon Dr. Tara Long - Bl breast edema not infectious - likely secondary to fluid overload - F/u OP upon d/c - Followed by ID specialist Dr. Lomeli - Completed course of Aztreonam, started on Clindamycin PO - May add Levaquin 500 mg qd but not with Odansetron - interaction - (pt has not received for past 2 days) DM - Hold home Glipizide 10 mg PO BID - SS with Novolog - BS in the 200s, monitor - Start Lantus 10 u QHS - Ulcers - Wound consult ordered with Dr. Yoon - Daily wound care with bacitracin/polymixin B ointment BID and DPD\ - Wound cultures negative for MRSA, d/c contact precautions. - Recurrent UTIs - Nitrofurantoin 50 mg PO BID HLD - Atorvastatin Ca 40 mg PO HS Asthma - Albuterol Nebs PRN Anxiety - Escitalopram 10 mg PO DAILY Morbid Obesity - BMI 64.2 - Seen by bariatric surgeon Dr. Nato Abarca - Discussed weight loss options including bariatric surgery and nonsurgical options - Follow up in office for formal bariatric surgery evaluation Pain management - Methocarbamol 750 mg PO DAILY - Oxycodone HCl 15 mg PO BID PRN Fungal Rash - Nystatin powder under breasts, abdominal folds, and thigh folds BID Constipation - Docusate Sodium 100 mg PO DAILY PRN Insomnia - Diphenhydramine HCl 25 mg PO HS Supplement - Ascorbate Calcium 500 mg PO DAILY - Calcium (Oyster Shell) 500 mg PO DAILY - Folic Acid 1 mg PO DAILY - Ergocalciferol (Vitamin D2) 4,000 unit PO DAILY Prophylaxis DVT: Heparin SQ GI: On Protonix drip FEN - PO intake adequate - Replete as needed - Diabetic, low sodium, clear liquid diet Disp: D/c tomorrow. FULL CODE Visit type - Emergency Visit Emergency Visit: No - New Patient This patient is new to me today: No - Critical Care Critical Care patient: No
[2018-06-07] MEDS: FUROSEMIDE 40 MG TABLET (FP) PO SCH (14:49)
--- NOTE | 2018-06-07 14:56 | PN ---
Progress Note, Physician History of Present Illness: feels better not nauseous any more - Current Medication List Current Medications: Active Medications Al Hydroxide/Mg Hydroxide (Mylanta Oral Suspension -) 30 ml PO Q6HPO [facility] Last Admin: 06/07/18 11:37 Dose: 30 ml Ascorbic Acid (Vitamin C -) 500 mg PO DAILY [facility] Last Admin: 06/07/18 10:38 Dose: 500 mg Atorvastatin Calcium (Lipitor -) 40 mg PO [facility] Last Admin: 06/06/18 23:43 Dose: 40 mg Bacitracin/Polymyxin B Sulfate (Polysporin Ointment -) 1 applic TP BID [facility] Last Admin: 06/07/18 10:37 Dose: 1 applic Calcium Carbonate (Os-Bandar 500mg -) 500 mg PO DAILY [facility] Last Admin: 06/07/18 10:37 Dose: 500 mg Cholecalciferol (Vitamin D3 -) 4,000 unit PO DAILY [facility] Last Admin: 06/07/18 10:38 Dose: 4,000 unit Clindamycin HCl (Cleocin -) 300 mg PO Q6HPO [facility] Last Admin: 06/07/18 11:37 Dose: 300 mg Diphenhydramine HCl (Benadryl -) 25 mg PO [facility] Last Admin: 06/06/18 23:35 Dose: 25 mg Docusate Sodium (Colace -) 100 mg PO Q24H PRN PRN Reason: CONSTIPATION Last Admin: 06/01/18 10:08 Dose: 100 mg Escitalopram Oxalate (Lexapro -) 10 mg PO DAILY [facility] Last Admin: 06/07/18 10:36 Dose: 10 mg Folic Acid (Folic Acid -) 1 mg PO DAILY [facility] Last Admin: 06/07/18 10:36 Dose: 1 mg Furosemide (Lasix -) 40 mg PO BID@0600,1400 [facility] Last Admin: 06/07/18 14:49 Dose: 40 mg Insulin Aspart (Novolog Vial Sliding Scale -) 1 vial SQ [facility]; Protocol Last Admin: 06/07/18 11:37 Dose: 2 units Insulin Detemir (Levemir Vial) 10 units SQ [facility] Last Admin: 06/06/18 23:58 Dose: Not Given Levofloxacin (Levaquin -) 500 mg PO DAILY [facility] Last Admin: 06/07/18 10:36 Dose: 500 mg Lorazepam (Ativan Injection -) 2 mg IVPUSH Q8H PRN PRN Reason: ANXIETY Last Admin: 06/06/18 23:46 Dose: 2 mg Methocarbamol (Robaxin -) 750 mg PO DAILY [facility] Last Admin: 06/07/18 10:59 Dose: 750 mg Methyl Salicylate (Pal-Claudio -) 1 applic TP Q8H PRN PRN Reason: TOPICAL PAIN Nitrofurantoin Macrocrystals (Macrodantin -) 50 mg PO BID [facility] Last Admin: 06/07/18 10:36 Dose: 50 mg Nystatin (Nystop Powder -) 1 applic TP BID [facility] Last Admin: 06/07/18 10:37 Dose: 1 applic Pantoprazole Sodium (Protonix -) 40 mg PO BID [facility] Last Admin: 06/07/18 10:37 Dose: 40 mg Prednisone (Deltasone -) 20 mg PO DAILY [facility] Last Admin: 06/07/18 10:35 Dose: 20 mg - Objective Vital Signs: Vital Signs Temperature 98.5 F 06/07/18 09:00 Pulse Rate 93 H 06/07/18 09:45 Respiratory Rate 20 06/07/18 09:00 Blood Pressure 126/64 06/07/18 09:00 O2 Sat by Pulse Oximetry (%) 92 L 06/07/18 09:45 Constitutional: Yes: No Distress, Calm Cardiovascular: Yes: S1, S2 Respiratory: Yes: Regular, CTA Bilaterally Gastrointestinal: Yes: Normal Bowel Sounds, Soft Musculoskeletal: Yes: WNL Extremities: Yes: WNL Neurological: Yes: Alert, Oriented Psychiatric: Yes: Alert, Oriented Labs: CBC, BMP 06/07/18 05:30 06/07/18 05:30 Assessment/Plan 58 year old morbidly obese female with a PMH significant for IDDM, HTN, HLD, asthma, and anxiety, presented to the ED with right breast enlargement and pain x 1 week. breast cellulitis dm htn hld dm morbid obesity sob multiple wounds plan transition to oral as planned no other issues continue supportive measures rest as per the team
[2018-06-07] MEDS: INSULIN (LEVEMIR) 100 UNITS/ML UNITS SQ SCH (23:27)
[2018-06-07] MEDS: ATORVASTATIN CA 40 MG TABLET (FP) PO SCH (23:29)
[2018-06-07] MEDS: diphenhydrAMINE HCL 25 MG CAPSULE (FP) PO SCH (23:29)
[2018-06-07] MEDS: LORazepam 2 MG/ML SDV VIAL IVPUSH PRN (23:30)
[2018-06-08] MEDS ORDERED: PT OWN MED DRAWER 7, Y5N ONE (06:09)
[2018-06-08 06:17] LABS: HEMATOCRIT 26.1 % (32.4-45.2); HEMOGLOBIN 7.5 GM/dL (10.7-15.3); MCH 22.3 pg (25.7-33.7); MCHC 28.9 g/dl (32.0-36.0); MEAN PLT VOLUME 7.9 fl (7.5-11.1); PLATELET COUNT 245 K/MM3 (134-434); RBC 3.39 M/mm3 (3.60-5.2); RDW 20.3 % (11.6-15.6); WHITE BLOOD COUNT 10.1 K/mm3 (4.0-10.0)
[2018-06-08] MEDS: ALBUTEROL SO4 0.083% IH SOL 2.5 MG/3 ML VIAL.NEB. NEB PRN ×2 (06:53→12:37)
[2018-06-08 06:55] LABS: ANION GAP 3 MMOL/L (8-16); BLOOD UREA NITROGEN 33 mg/dL (7-18); CALCIUM 8.4 mg/dL (8.5-10.1); CHLORIDE 88 mmol/L (98-107); CO2 44 mmol/L (21-32); CREATININE 1.5 mg/dL (0.55-1.3); GLUCOSE,RANDOM 144 mg/dL (74-106); MAGNESIUM 2.2 mg/dL (1.8-2.4); POTASSIUM 4.5 mmol/L (3.5-5.1); SODIUM 136 mmol/L (136-145)
[2018-06-08] MEDS: FUROSEMIDE 40 MG TABLET (FP) PO SCH ×2 (07:12→13:05)
[2018-06-08] MEDS: MAG HYDROX/AL HYDROX/SIMETH 30 ML UNIT-DOSE CUP PO SCH ×2 (07:12→13:02)
[2018-06-08] MEDS: CLINDAMYCIN HCL 150 MG CAPSULE (FP) PO SCH ×2 (07:12→13:02)
[2018-06-08] MEDS: INSULIN SLIDING SCALE (NOVOLOG) 1 VIAL SQ SCH ×3 (07:12→13:06)
--- NOTE | 2018-06-08 09:18 | PN ---
Progress Note, Physician Chief Complaint: She was seen and examined Feeling well Planned for discharge today - Current Medication List Current Medications: Active Medications Al Hydroxide/Mg Hydroxide (Mylanta Oral Suspension -) 30 ml PO Q6HPO [facility] Last Admin: 06/08/18 07:12 Dose: 30 ml Albuterol Sulfate (Ventolin 0.083% Nebulizer Soln -) 1 amp NEB Q6H PRN PRN Reason: SHORT OF BREATH/WHEEZING Last Admin: 06/08/18 06:53 Dose: 1 amp Ascorbic Acid (Vitamin C -) 500 mg PO DAILY [facility] Last Admin: 06/07/18 10:38 Dose: 500 mg Atorvastatin Calcium (Lipitor -) 40 mg PO HS [facility] Last Admin: 06/07/18 23:29 Dose: 40 mg Bacitracin/Polymyxin B Sulfate (Polysporin Ointment -) 1 applic TP BID [facility] Last Admin: 06/07/18 23:29 Dose: 1 applic Calcium Carbonate (Os-Bandar 500mg -) 500 mg PO DAILY [facility] Last Admin: 06/07/18 10:37 Dose: 500 mg Cholecalciferol (Vitamin D3 -) 4,000 unit PO DAILY [facility] Last Admin: 06/07/18 10:38 Dose: 4,000 unit Clindamycin HCl (Cleocin -) 300 mg PO Q6HPO [facility] Last Admin: 06/08/18 07:12 Dose: 300 mg Diphenhydramine HCl (Benadryl -) 25 mg PO [facility] Last Admin: 06/07/18 23:29 Dose: 25 mg Docusate Sodium (Colace -) 100 mg PO Q24H PRN PRN Reason: CONSTIPATION Last Admin: 06/01/18 10:08 Dose: 100 mg Escitalopram Oxalate (Lexapro -) 10 mg PO DAILY [facility] Last Admin: 06/07/18 10:36 Dose: 10 mg Folic Acid (Folic Acid -) 1 mg PO DAILY [facility] Last Admin: 06/07/18 10:36 Dose: 1 mg Furosemide (Lasix -) 40 mg PO BID@0600,1400 [facility] Last Admin: 06/08/18 07:12 Dose: 40 mg Insulin Aspart (Novolog Vial Sliding Scale -) 1 vial SQ [facility]; Protocol Last Admin: 06/08/18 07:12 Dose: 2 units Insulin Detemir (Levemir Vial) 10 units SQ [facility] Last Admin: 06/07/18 23:27 Dose: 10 units Levofloxacin (Levaquin -) 500 mg PO DAILY [facility] Last Admin: 06/07/18 10:36 Dose: 500 mg Lorazepam (Ativan Injection -) 2 mg IVPUSH Q8H PRN PRN Reason: ANXIETY Last Admin: 06/07/18 23:30 Dose: 2 mg Methocarbamol (Robaxin -) 750 mg PO DAILY [facility] Last Admin: 06/07/18 10:59 Dose: 750 mg Methyl Salicylate (Pal-Claudio -) 1 applic TP Q8H PRN PRN Reason: TOPICAL PAIN Nystatin (Nystop Powder -) 1 applic TP BID [facility] Last Admin: 06/07/18 23:29 Dose: 1 applic Pantoprazole Sodium (Protonix -) 40 mg PO BID [facility] Last Admin: 06/07/18 23:28 Dose: 40 mg Prednisone (Deltasone -) 20 mg PO DAILY [facility] Last Admin: 06/07/18 10:35 Dose: 20 mg - Objective Vital Signs: Vital Signs Temperature 98.3 F 06/08/18 06:50 Pulse Rate 89 06/08/18 06:50 Respiratory Rate 20 06/08/18 06:50 Blood Pressure 134/67 06/08/18 06:50 O2 Sat by Pulse Oximetry (%) 95 06/07/18 21:00 Constitutional: Yes: No Distress, Calm Cardiovascular: Yes: Regular Rate and Rhythm Respiratory: Yes: CTA Bilaterally (no rales or wheezing) Gastrointestinal: Yes: Soft, Abdomen, Obese Edema: No Neurological: Yes: Alert, Oriented Labs: CBC, BMP 06/08/18 05:30 06/08/18 05:30 Problem List - Problems (1) Acute on chronic diastolic (congestive) heart failure Code(s): I50.33 - ACUTE ON CHRONIC DIASTOLIC (CONGESTIVE) HEART FAILURE (2) Morbid obesity Code(s): E66.01 - MORBID (SEVERE) OBESITY DUE TO EXCESS CALORIES (3) Pulmonary hypertension Code(s): I27.20 - PULMONARY HYPERTENSION, UNSPECIFIED (4) Obstructive sleep apnea Code(s): G47.33 - OBSTRUCTIVE SLEEP APNEA (ADULT) (PEDIATRIC) (5) Chronic renal insufficiency, stage II (mild) Code(s): N18.2 - CHRONIC KIDNEY DISEASE, STAGE 2 (MILD) (6) Anemia Code(s): D64.9 - ANEMIA, UNSPECIFIED Qualifiers: Chronic kidney disease stage: unspecified stage (7) Diabetes mellitus Code(s): E11.9 - TYPE 2 DIABETES MELLITUS WITHOUT COMPLICATIONS Qualifiers: Diabetes mellitus type: type 2 (8) Cellulitis Code(s): L03.90 - CELLULITIS, UNSPECIFIED Qualifiers: Laterality: unspecified laterality Assessment/Plan Assessment/Plan 58 yo morbidly obese female with past medical history significant for hypertension, hyperlipidemia, diabetes, asthma, GERD admitted with asthma exacerbation on prednisone found to have acute on chronic diastolic heart failure- good clinical response to several days of IV lasix with improvement in volume status and improvement in renal function. #Acute on Chronic Diastolic Heart Failure; remains volume up on exam; improving volume status, renal function improved with diuresis. Treatment: --Continue PO Lasix --holding home enalapril for now as renal fxn has been in flux. If stabilizes, can try to re-introduce low dose ANABELA as outpatient. --keep K>4, Mg>2 --Patient should f/u w/ PMD in 1 week for labs and me in 1-2 weeks for volume assessment.
--- NOTE | 2018-06-08 09:59 | DS ---
Physical Exam: SUBJECTIVE: Patient seen and examined. Tolerating solid foods diet though only able to eat small amounts. Still with GERD. D/c to home today. OBJECTIVE: Vital Signs Period Temp Pulse Resp BP Sys/Lindsey Pulse Ox Last 24 Hr 98.2 F-98.3 F 89-92 20-20 129-134/67-67 95 PHYSICAL EXAM GENERAL: Morbidly obese, awake, alert, fully oriented HEAD: Normal with no signs of trauma. EYES: Pupils equal, round and reactive to light, extraocular movements intact, sclera anicteric, conjunctiva clear. No lid lag. EARS, NOSE, THROAT: Hoarse voice, nares patent, oropharynx clear without exudates. Moist mucous membranes. NECK: Normal range of motion, supple without lymphadenopathy, JVD, or masses. LUNGS: +NC, distant breath sounds no accessory muscle use. HEART: Regular rate and rhythm, normal S1 and S2 without murmur, rub or gallop. ABDOMEN: Obese, Soft, nontender, not distended, normoactive bowel sounds, no guarding, no rebound, no masses. No hepatomegaly or splenomegaly. Breasts: Large pendulous breasts, R>L TTP, no discharge to nipples LOWER EXTREMITIES: 2+ pulses, warm, well-perfused. No calf tenderness. +2 edema to b/l LE NEUROLOGICAL: No facial droop, tongue midline, normal speech. . PSYCHIATRIC: Cooperative. Good eye contact. Appropriate mood and affect. LABS Laboratory Results - last 24 hr 06/07/18 06/07/18 06/07/18 11:36 16:56 23:09 WBC RBC Hgb Hct MCV MCH MCHC RDW Plt Count MPV Sodium Potassium Chloride Carbon Dioxide Anion Gap BUN Creatinine Creat Clearance w eGFR POC Glucometer 163 214 226 Random Glucose Calcium Magnesium 06/08/18 06/08/18 06/08/18 05:30 05:30 07:10 WBC 10.1 H RBC 3.39 L Hgb 7.5 L Hct 26.1 L MCV 77.0 L MCH 22.3 L MCHC 28.9 L RDW 20.3 H Plt Count 245 MPV 7.9 Sodium 136 Potassium 4.5 Chloride 88 L Carbon Dioxide 44 H Anion Gap 3 L BUN 33 H Creatinine 1.5 H Creat Clearance w eGFR 35.54 POC Glucometer 169 Random Glucose 144 H Calcium 8.4 L Magnesium 2.2 HOSPITAL COURSE: Date of Admission:05/31/18 Date of Discharge: 06/08/18 58 year old morbidly obese female with a PMH significant for IDDM, HTN, HLD, asthma, and anxiety, presented to the ED with right breast enlargement and pain x 1 week Acute Hypoxic Respiratory Failure - Likely acute on chronic - Likely caused by obesity hypoventillation/MARCELL and with newly-diagnosed diastolic CHF - Pulmonary following - Prednisone 20 mg PO qday, taper down - inhaled bronchodilators - O2 @ 3LPM via NC - keep SpO2 >90% - qHS Bipap - She should be on this at home but wasn't using - Will f/u with case management about getting home bipap Acute on Chronic Diastolic CHF Exacerbation - Followed by ic design engineer Dr. Burton - Normotensive - D/c home Enalapril - If additional BP control needed consider nitro/hydralazine - Patient should f/u w/ PMD in 1 week for labs and me in 1-2 weeks for volume assessment. Dark Vomiting - Resolved - Fecal occult blood positive - Seen by GI Dr. Jaime - Less likely active GI bleed - EGD reserved for critical situation d/t respiratory status and other comorbidities - Likely secondary to diabetic gastroparesis which typically leads to vomiting of stagnant small bowel contents that appear similar to coffee grounds. - Tolerating solid diet Anemia, microcytic - At baseline; 7.5/26.1 - XF <7 - Continue to monitor CKD - Trend BMP and monitor UOP; at baseline HTN - Resume home - On Lasix 40 mg IV BID Breast Cellulitis - Resolved - Breast US negative - Seen by breast surgeon Dr. Tara Long - Bl breast edema not infectious - likely secondary to fluid overload - F/u OP upon d/c - Followed by ID specialist Dr. Lomeli - Completed course of Aztreonam, started on Clindamycin and Levaquin PO to continue at home x 4 days DM - Resume home Glipizide 10 mg PO BID - SS with Apidra - Ulcers - Wound consult ordered with Dr. Yoon - Daily wound care with bacitracin/polymixin B ointment BID and DPD - Wound cultures negative for MRSA - Recurrent UTIs - Nitrofurantoin 50 mg PO BID HLD - Atorvastatin Ca 40 mg PO HS Asthma - Albuterol Nebs PRN Anxiety - Escitalopram 10 mg PO DAILY Morbid Obesity - BMI 64.2 - Seen by bariatric surgeon Dr. Nato Abarca - Discussed weight loss options including bariatric surgery and nonsurgical options - Follow up in office for formal bariatric surgery evaluation Pain management - Methocarbamol 750 mg PO DAILY - Oxycodone HCl 15 mg PO BID PRN Fungal Rash - Nystatin powder under breasts, abdominal folds, and thigh folds BID Constipation - Docusate Sodium 100 mg PO DAILY PRN Insomnia - Diphenhydramine HCl 25 mg PO HS Supplement - Ascorbate Calcium 500 mg PO DAILY - Calcium (Oyster Shell) 500 mg PO DAILY - Folic Acid 1 mg PO DAILY - Ergocalciferol (Vitamin D2) 4,000 unit PO DAILY Minutes to complete discharge: 40 Discharge Summary Reason For Visit: CELLULITIS,ASTHMA Current Active Problems Acute on chronic diastolic (congestive) heart failure (Acute) Anemia (Acute) Cellulitis (Acute) Chronic renal insufficiency, stage II (mild) (Acute) Diabetes mellitus (Acute) Diabetic gastroparesis associated with type 2 diabetes mellitus (Acute) GERD (gastroesophageal reflux disease) (Acute) Morbid obesity (Acute) Obstructive sleep apnea (Acute) Pressure ulcer (Acute) Pulmonary hypertension (Acute) Vomiting (Acute) Asthma (Chronic) Morbid obesity (Chronic) Condition: Stable - Instructions Diet, Activity, Other Instructions: Ms. Jose F Dodd were admitted to [facility] from 05/31 - 06/08. You were treated for cellulitis of the right breast, CHF exacerbation, hypoxic respiratory failure. Here are our recommendations: Continue your home medications with the following exceptions. Medication Changes - Lasix increased to 40 mg twice a day New medications: - Prednisone 20 mg once a day, primary care provider to taper you down for respiratory distress STOP taking: - Enalapril It is very important that you follow up with your primary care provider Dr. Padmaja Morocho in 1 WEEK. You should follow up with ic design engineer Dr. Burton in 2 weeks. Please return to the ER if you have any signs or symptoms of chest pain, shortness of breath, uncontrollable fever, chills, nausea, vomiting, numbness, tingling, or weakness in any part of your body, changes in vision, or slurred speech. [facility] [phone] Referrals: Padmaja Morocho [Other] - 1 Week Jorge Burton MD [Staff Physician] - 2 Weeks Disposition: VNS/HOME HEALTH CARE - Home Medications Comprehensive Discharge Medication List: Ambulatory Orders Ascorbate Calcium [Vitamin C] 500 mg PO DAILY 05/02/14 Atorvastatin Ca [Lipitor] 40 mg PO HS 05/02/14 Calcium (Oyster Shell) [Os-Bandar 500MG -] 500 mg PO DAILY 05/02/14 Escitalopram Oxalate [Lexapro -] 10 mg PO DAILY 05/02/14 Esomeprazole Mag Trihydrate [Nexium] 40 mg PO DAILY 05/02/14 Glipizide [Glucotrol -] 10 mg PO BID 09/14/15 Albuterol 0.083% Nebulizer Sadaf [Ventolin 0.083% Nebulizer Soln -] 1 amp IN PRN 09/09/17 Diphenhydramine HCl 25 mg PO HS 09/09/17 Furosemide 20 mg PO DAILY 09/09/17 Insulin Glulisine [Apidra] 0 unit SQ AC PRN 09/09/17 Methocarbamol 750 mg PO DAILY 09/09/17 Nitrofurantoin Monohyd/M-Cryst [Macrobid -] 50 mg PO BID 09/09/17 Docusate Sodium [Stool Softener] 100 mg PO DAILY PRN 09/10/17 Folic Acid 1 mg PO DAILY 09/10/17 Enalapril Maleate [Vasotec] 20 mg PO BID #60 tablet 09/13/17 Ergocalciferol (Vitamin D2) [Vitamin D2] 4,000 unit PO DAILY 10/16/17 Bacitracin Zinc/Polymyxin B [Double Antibiotic Ointment] 28.4 gm TP BID #1 tube 01/11/18 Diclofenac Sodium [Voltaren] 2 gm TP TID PRN #3 tube 03/12/18 Nystatin Powder [Nystop Powder -] 60 gm TP BID #1 powder 04/12/18 Oxycodone HCl 15 mg PO BID PRN #60 tablet MDD 2 04/26/18 Budesonide/Formeterol Fumarate [SYMBICORT 80/4.5mcg -] 1 inh PO BID 06/01/18 This patient is new to me today: No Emergency Visit: No Critical Care patient: No - Discharge Referral Referred to [facility] No
--- NOTE | 2018-06-08 10:46 | PN ---
Progress Note, Physician History of Present Illness: pulmonary alert,comfortable,no distress,-sob - Current Medication List Current Medications: Active Medications Al Hydroxide/Mg Hydroxide (Mylanta Oral Suspension -) 30 ml PO Q6HPO [facility] Last Admin: 06/08/18 07:12 Dose: 30 ml Albuterol Sulfate (Ventolin 0.083% Nebulizer Soln -) 1 amp NEB Q6H PRN PRN Reason: SHORT OF BREATH/WHEEZING Last Admin: 06/08/18 06:53 Dose: 1 amp Ascorbic Acid (Vitamin C -) 500 mg PO DAILY [facility] Last Admin: 06/07/18 10:38 Dose: 500 mg Atorvastatin Calcium (Lipitor -) 40 mg PO HS [facility] Last Admin: 06/07/18 23:29 Dose: 40 mg Bacitracin/Polymyxin B Sulfate (Polysporin Ointment -) 1 applic TP BID [facility] Last Admin: 06/07/18 23:29 Dose: 1 applic Calcium Carbonate (Os-Bandar 500mg -) 500 mg PO DAILY [facility] Last Admin: 06/07/18 10:37 Dose: 500 mg Cholecalciferol (Vitamin D3 -) 4,000 unit PO DAILY [facility] Last Admin: 06/07/18 10:38 Dose: 4,000 unit Clindamycin HCl (Cleocin -) 300 mg PO Q6HPO [facility] Last Admin: 06/08/18 07:12 Dose: 300 mg Diphenhydramine HCl (Benadryl -) 25 mg PO [facility] Last Admin: 06/07/18 23:29 Dose: 25 mg Docusate Sodium (Colace -) 100 mg PO Q24H PRN PRN Reason: CONSTIPATION Last Admin: 06/01/18 10:08 Dose: 100 mg Escitalopram Oxalate (Lexapro -) 10 mg PO DAILY [facility] Last Admin: 06/07/18 10:36 Dose: 10 mg Folic Acid (Folic Acid -) 1 mg PO DAILY [facility] Last Admin: 06/07/18 10:36 Dose: 1 mg Furosemide (Lasix -) 40 mg PO BID@0600,1400 [facility] Last Admin: 06/08/18 07:12 Dose: 40 mg Insulin Aspart (Novolog Vial Sliding Scale -) 1 vial SQ [facility]; Protocol Last Admin: 06/08/18 07:12 Dose: 2 units Insulin Detemir (Levemir Vial) 10 units SQ [facility] Last Admin: 06/07/18 23:27 Dose: 10 units Levofloxacin (Levaquin -) 500 mg PO DAILY [facility] Last Admin: 06/07/18 10:36 Dose: 500 mg Lorazepam (Ativan Injection -) 2 mg IVPUSH Q8H PRN PRN Reason: ANXIETY Last Admin: 06/07/18 23:30 Dose: 2 mg Methocarbamol (Robaxin -) 750 mg PO DAILY [facility] Last Admin: 06/07/18 10:59 Dose: 750 mg Methyl Salicylate (Pal-Claudio -) 1 applic TP Q8H PRN PRN Reason: TOPICAL PAIN Nystatin (Nystop Powder -) 1 applic TP BID [facility] Last Admin: 06/07/18 23:29 Dose: 1 applic Pantoprazole Sodium (Protonix -) 40 mg PO BID [facility] Last Admin: 06/07/18 23:28 Dose: 40 mg Prednisone (Deltasone -) 20 mg PO DAILY [facility] Last Admin: 06/07/18 10:35 Dose: 20 mg - Objective Vital Signs: Vital Signs Temperature 98.3 F 06/08/18 06:50 Pulse Rate 89 06/08/18 06:50 Respiratory Rate 20 06/08/18 06:50 Blood Pressure 134/67 06/08/18 06:50 O2 Sat by Pulse Oximetry (%) 95 06/07/18 21:00 Constitutional: Yes: Calm, Obese (morbidly obese) Eyes: Yes: WNL HENT: Yes: WNL Neck: Yes: Supple Cardiovascular: Yes: Regular Rate and Rhythm, S1, S2 Respiratory: Yes: Diminished Gastrointestinal: Yes: Normal Bowel Sounds, Soft Extremities: Yes: WNL Edema: Yes Labs: CBC, BMP 06/08/18 05:30 06/08/18 05:30 Assessment/Plan Problem List - Problems (1) Cellulitis Code(s): L03.90 - CELLULITIS, UNSPECIFIED (2) Asthma Code(s): J45.909 - UNSPECIFIED ASTHMA, UNCOMPLICATED (3) DM Diabetes mellitus type 2 Code(s): E11.9 - TYPE 2 DIABETES MELLITUS WITHOUT COMPLICATIONS (4) Hypercholesterolemia Code(s): E78.00 - PURE HYPERCHOLESTEROLEMIA, UNSPECIFIED (5) Hypertension Code(s): I10 - ESSENTIAL (PRIMARY) HYPERTENSION Assessment/Plan Right Breast Cellulitis Acute on chronic hypoxemic/hypercapneic respiratory failure r/o UTI Sepsis Acute Kidney Injury Asthma HTN DM Hyperlipidemia Morbid Obesity - antibiotics - monitor urine output, creatinine - inhaled bronchodilators - O2 to keep SpO2 >90% - Trilogy device at home - DVT prophylaxis DR ARCOS
[2018-06-08] MEDS: CHOLECALCIFEROL (VITAMIN D3) 1,000 UNIT TABLET (FP) PO SCH (13:02)
[2018-06-08] MEDS: METHOCARBAMOL 500 MG TABLET PO SCH (13:03)
[2018-06-08] MEDS: FOLIC ACID 1 MG TABLET (FP) PO SCH (13:03)
[2018-06-08] MEDS: ESCITALOPRAM OXALATE 10 MG TABLET (FP) PO SCH (13:03)
[2018-06-08] MEDS: predniSONE 20 MG TABLET (UD) PO SCH (13:04)
[2018-06-08] MEDS: PANTOPRAZOLE 40 MG TABLET (FP) PO SCH (13:04)
[2018-06-08] MEDS: CALCIUM (OYSTER SHELL) 500 MG TABLET (FP) PO SCH (13:04)
[2018-06-08] MEDS: ASCORBIC ACID 500 MG TABLET (FP) PO SCH (13:04)
[2018-06-08] MEDS: NYSTATIN POWDER 100,000 UNITS/GM - 15 GM TOPICAL POWDER TP SCH (13:05)
[2018-06-08] MEDS: BACITRACIN/POLYMYXIN B SULFATE 15 GM TUBE TP SCH (13:05)
[2018-06-08 13:29] VITALS: BP 110/55; PULSE 76; TEMP 98
--- NOTE | 2018-06-08 14:36 | PN ---
Progress Note, Physician History of Present Illness: stable no new issues - Current Medication List Current Medications: Active Medications Al Hydroxide/Mg Hydroxide (Mylanta Oral Suspension -) 30 ml PO Q6HPO [facility] Last Admin: 06/08/18 13:02 Dose: 30 ml Albuterol Sulfate (Ventolin 0.083% Nebulizer Soln -) 1 amp NEB Q6H PRN PRN Reason: SHORT OF BREATH/WHEEZING Last Admin: 06/08/18 12:37 Dose: 1 amp Ascorbic Acid (Vitamin C -) 500 mg PO DAILY [facility] Last Admin: 06/08/18 13:04 Dose: 500 mg Atorvastatin Calcium (Lipitor -) 40 mg PO HS [facility] Last Admin: 06/07/18 23:29 Dose: 40 mg Bacitracin/Polymyxin B Sulfate (Polysporin Ointment -) 1 applic TP BID [facility] Last Admin: 06/08/18 13:05 Dose: 1 applic Calcium Carbonate (Os-Bandar 500mg -) 500 mg PO DAILY [facility] Last Admin: 06/08/18 13:04 Dose: 500 mg Cholecalciferol (Vitamin D3 -) 4,000 unit PO DAILY [facility] Last Admin: 06/08/18 13:02 Dose: 4,000 unit Clindamycin HCl (Cleocin -) 300 mg PO Q6HPO [facility] Last Admin: 06/08/18 13:02 Dose: 300 mg Diphenhydramine HCl (Benadryl -) 25 mg PO [facility] Last Admin: 06/07/18 23:29 Dose: 25 mg Docusate Sodium (Colace -) 100 mg PO Q24H PRN PRN Reason: CONSTIPATION Last Admin: 06/01/18 10:08 Dose: 100 mg Escitalopram Oxalate (Lexapro -) 10 mg PO DAILY [facility] Last Admin: 06/08/18 13:03 Dose: 10 mg Folic Acid (Folic Acid -) 1 mg PO DAILY [facility] Last Admin: 06/08/18 13:03 Dose: 1 mg Furosemide (Lasix -) 40 mg PO BID@0600,1400 [facility] Last Admin: 06/08/18 13:05 Dose: 40 mg Insulin Aspart (Novolog Vial Sliding Scale -) 1 vial SQ [facility]; Protocol Last Admin: 06/08/18 13:00 Dose: 2 units Insulin Detemir (Levemir Vial) 10 units SQ [facility] Last Admin: 06/07/18 23:27 Dose: 10 units Levofloxacin (Levaquin -) 500 mg PO DAILY [facility] Last Admin: 06/08/18 13:04 Dose: 500 mg Lorazepam (Ativan Injection -) 2 mg IVPUSH Q8H PRN PRN Reason: ANXIETY Last Admin: 06/07/18 23:30 Dose: 2 mg Methocarbamol (Robaxin -) 750 mg PO DAILY [facility] Last Admin: 06/08/18 13:03 Dose: 750 mg Methyl Salicylate (Pal-Claudio -) 1 applic TP Q8H PRN PRN Reason: TOPICAL PAIN Nystatin (Nystop Powder -) 1 applic TP BID [facility] Last Admin: 06/08/18 13:05 Dose: 1 applic Pantoprazole Sodium (Protonix -) 40 mg PO BID [facility] Last Admin: 06/08/18 13:04 Dose: 40 mg Prednisone (Deltasone -) 20 mg PO DAILY [facility] Last Admin: 06/08/18 13:04 Dose: 20 mg - Objective Vital Signs: Vital Signs Temperature 98 F 06/08/18 12:30 Pulse Rate 76 06/08/18 12:30 Respiratory Rate 20 06/08/18 12:30 Blood Pressure 110/55 L 06/08/18 12:30 O2 Sat by Pulse Oximetry (%) 94 L 06/08/18 09:00 Constitutional: Yes: No Distress, Calm, Obese (severe) HENT: Yes: Atraumatic Cardiovascular: Yes: Regular Rate and Rhythm Respiratory: Yes: Regular, On Nasal O2 Gastrointestinal: Yes: Normal Bowel Sounds, Soft Musculoskeletal: Yes: WNL Extremities: Yes: Other Neurological: Yes: Alert, Oriented Psychiatric: Yes: Alert, Oriented Labs: CBC, BMP 06/08/18 05:30 06/08/18 05:30 Assessment/Plan 58 year old morbidly obese female with a PMH significant for IDDM, HTN, HLD, asthma, and anxiety, presented to the ED with right breast enlargement and pain x 1 week. breast cellulitis dm htn hld dm morbid obesity sob multiple wounds plan ct abx wound care rest continue current mgmt resp support oral abx as planned for couple of days
== END 2018-06-08 14:58 | disposition home health service (06) | DRG 720 ==
LOC: JER 15:08 → JERBED 17:40 → J5S 06-01 20:03 → J4W 06-02 20:14
PROVIDERS: ADMIT Internal Medicine; ATTEND Nurse Practitioner Adult Health
DX: A41.9 Sepsis, unspecified organism (principal); N61.0 Mastitis without abscess; J96.21 Acute and chronic respiratory failure with hypoxia; N17.9 Acute kidney failure, unspecified; I13.0 Hypertensive heart and chronic kidney disease with heart failure and stage 1 through stage 4 chronic kidney disease, or unspecified chronic kidney disease; G47.33 Obstructive sleep apnea (adult) (pediatric); E78.5 Hyperlipidemia, unspecified; K21.9 Gastro-esophageal reflux disease without esophagitis; F41.9 Anxiety disorder, unspecified; E66.01 Morbid (severe) obesity due to excess calories; Z68.44 Body mass index [BMI] 60.0-69.9, adult; L98.498 Non-pressure chronic ulcer of skin of other sites with other specified severity; E11.622 Type 2 diabetes mellitus with other skin ulcer; E87.5 Hyperkalemia; B48.8 Other specified mycoses; K59.00 Constipation, unspecified; K57.90 Diverticulosis of intestine, part unspecified, without perforation or abscess without bleeding; D64.9 Anemia, unspecified; I27.20 Pulmonary hypertension, unspecified; N18.2 Chronic kidney disease, stage 2 (mild); I50.33 Acute on chronic diastolic (congestive) heart failure; E11.22 Type 2 diabetes mellitus with diabetic chronic kidney disease; R11.0 Nausea; E11.43 Type 2 diabetes mellitus with diabetic autonomic (poly)neuropathy; K31.84 Gastroparesis; J45.901 Unspecified asthma with (acute) exacerbation
CPT/HCPCS: 36415; 36600; 71045-TC-FY; 76641-TC-RT; 80048; 80053; 81003; 81015; 82271; 82550; 82728; 82803; 82962; 83540; 83550; 83735; 83880; 84484; 85025; 85027; 85044; 86850; 86900; 86901; 87040; 87070; 87077; 87081; 87086; 87205; 90688; 93005; 93010; 93306-TC; 94640; 94660; 94761; 99285-25; G0008; J1644